=== PATIENT | female | born 1955 | race African-American/Black ===

== ENCOUNTER 2018-05-14 15:23 | Observation (INO) | payer MEDICARE ==
[2018-05-14] MEDS ORDERED: hydrALAZINE 20 MG/ML VIAL ONE (17:12)
--- NOTE | 2018-05-14 17:59 | HP ---
PRIMARY CARE PHYSICIAN: Dr. Dempsey. CHIEF COMPLAINT: Dizziness. HISTORY OF PRESENT ILLNESS: Ms. Viramontes is a 62-year-old female, who was evaluated at [facility] for vertigo type dizziness. Reports that she was watching television last night when the TV began to spin. Reports that she felt very nauseous. Reports vomiting x1. At that point, she laid down and symptoms improved. Reports that she still has mild dizziness and headache. Reports that she does have hypertension but denies any headache associated with hypertension. Reports that she takes lisinopril in the morning. The patient was given today and reports that it helps symptoms somewhat today, but has not completely gone. She was transferred to [facility] for further evaluation and admission for a CVA rule out. NIH is currently 0. She will be admitted to the stroke unit for further management. PAST MEDICAL HISTORY: Pertinent for hypertension, GERD, hyperlipidemia, diverticulitis, obesity, breast cancer, which is currently in remission. PAST SURGICAL HISTORY: Hysterectomy, lumpectomy, orthopedic surgery, left ankle and right knee. PSYCHIATRIC HISTORY: None. SOCIAL HISTORY: Denies alcohol or drug. No smoking history. KNOWN ALLERGIES: Levaquin. CURRENT MEDICATIONS: 1. Lisinopril, she reports she takes 20 mg q.a.m. Per ER record; 1. Hydrochlorothiazide 25 mg once a day. 2. Metoprolol 50 mg once a day. 3. Furosemide 20 mg once a day. 4. We will restart home medications when her home medications are verified. The patient reports that she only takes lisinopril. Denied taking any other medication. REVIEW OF SYSTEMS: CONSTITUTIONAL: Denies chills or fever. EYES: Denies any eye pain, eye discharge, or vision changes. ENT: Denies any rhinorrhea or sore throat. CARDIOVASCULAR: Denies any chest pain or palpitations. RESPIRATORY: Shortness of breath. Denies cough. GI: Denies abdominal pain. Denies current nausea, constipation, or diarrhea. MUSCULOSKELETAL: Denies any falls, weakness, or myalgias. SKIN: Denies any rash or skin changes. NEUROLOGIC: Does report some dizziness. Reports that she has mild headache, frontal. ENDOCRINE: Negative review of systems. LYMPHATIC: Negative review of systems. Note, all other review of systems are negative unless mentioned in the HPI. PHYSICAL EXAMINATION: VITAL SIGNS: Blood pressure 204/117, pulse 69, respirations 18, temperature 98.4, and O2 saturations 94% on room air. CONSTITUTIONAL: The patient appears pain free. She is alert and oriented to person, place, and time. Appears nontoxic. HEENT: Head is atraumatic and normocephalic. Eyes; eyelids are normal to inspection. Pupils are equally round and reactive to light. Extraocular muscles are intact. ENT; mouth exam is normal. Mucous membranes are moist. NECK: Normal range of motion. Trachea is midline. RESPIRATORY/CHEST: Movement is symmetrical. Chest expansion is equal. CARDIOVASCULAR: Regular heart rate and rhythm. Systolic murmur present at grade 4/6. ABDOMEN: Bowel sounds are heard. No mass. No peritoneal signs. BACK: Normal range of motion. No CVA tenderness. EXTREMITIES: Upper extremity, normal inspection, normal range of motion. Radial pulses equal bilaterally. Sensation is intact. Lower extremity, normal inspection. Normal range of motion. Pedal pulses are equal. No edema is noted. Sensation intact. NEUROLOGIC: Speech is normal. The patient is oriented to person, place, and time. No focal motor or sensory deficits. is present to the left eye since is negative. SKIN: Warm, dry, and normal in color PERTINENT LABORATORY DATA: White blood cell count is 6.5, hemoglobin 11.8, hematocrit 40%, platelet count is 229. PT is 13.7, PTT is 29. Sodium is 141, potassium is 4.8, chloride 105, carbon dioxide is 23, gap is 18, BUN is 11, creatinine is 0.77, estimated GFR is greater than 90, glucose is 88. DIAGNOSTIC DATA: EKG in the ER showed normal sinus rhythm, 73 beats per minute. [place] is normal. Otherwise, normal EKG. Initial CT of the brain showed no CT evidence of acute intracranial process. ASSESSMENT AND PLAN: 1. We will obtain an MRI of the brain, carotid Doppler, echocardiogram. We will check lipids and TSH. 2. Hypertension. We will restart home medications once the MRI is negative. 3. History of hyperlipidemia. We will recheck lipids in the morning. Last lipids in our system is from 2018. 4. Deep venous thrombosis and GI prophylaxis will be started. 5. Hospital stay will be dependent on clinical findings. Job ID: [id number]
[2018-05-14] MEDS ORDERED: Senokot S 8.6-50 MG TAB PO PRN (18:04)
[2018-05-14] MEDS ORDERED: HYDROcodone/Acetaminophen 5/325 mg Tablet PO PRN (18:04)
[2018-05-14] MEDS ORDERED: Acetaminophen 325 MG TAB PO PRN (18:04)
[2018-05-14] MEDS ORDERED: hydrALAZINE 20 MG/ML VIAL SLOW IVP PRN (18:16)
--- NOTE | 2018-05-14 20:44 | ULT ---
BILATERAL CAROTID DUPLEX ULTRASOUND WITH SPECTRAL ANALYSIS AND COLOR FLOW EVALUATION 05/14/18 HISTORY: Dizziness. FINDINGS: Ahn scale, color flow, doppler evaluation, with spectral analysis of the bilateral carotid arteries is performed with 2D imaging. No significant atherosclerotic plaque is seen within the carotid arteri es bilaterally. There is less than 50% maximal stenosis in the bilateral internal carotid arteries according to the p eak systolic velocities in the ICA/CCA ratios. The peak systolic velocity in the right ICA is 93.7 cm /s with an ICA/CCA ratio of 0.85. Peak systolic velocity in the left ICA is 63.9 cm/s with an ICA/CCA ratio of 0.58. Antegrade flow is demonstrated in the vertebral arteries bilaterally. IMPRESSION: No hemodynamically significant stenosis in the bilateral internal carotid arteries. POS: AVI
[2018-05-14] MEDS: Famotidine 20 MG TAB PO SCH (21:15)
[2018-05-15] MEDS ORDERED: HumaLOG 300 UNITS/3 ML VIAL SC PRN ×2 (00:27)
[2018-05-15 03:38] VITALS: BMI 47.0
[2018-05-15 06:13] LABS: Anion Gap 15 mmol/L (10-20); BUN (Urea Nitrogen) 12 mg/dL (9.8-20.1); Calc. Creatinine Clearance 153 mL/min (70-130); Calcium 9.4 mg/dL (7.8-10.44); Carbon Dioxide 23 mmol/L (23-31); Chloride 104 mmol/L (98-107); Estimated GFR-MDRD Greater than 90; Glucose 91 mg/dL (80-115); Potassium 3.7 mmol/L (3.5-5.1); Sodium 138 mmol/L (136-145)
[2018-05-15 06:23] LABS: Cardiac Risk 4.6 (Less than 4.5)
[2018-05-15 07:46] LABS: #Basophils 0.1 thou/uL (0.0-0.2); #Eosinphils 0.2 thou/uL (0.0-0.7); #Lymphocytes 2.4 thou/uL (1.20-3.40); #Monocytes 0.7 thou/uL (0.11-0.59); #Neutrophils 3.8 thou/uL (1.40-6.50); %Basophils 1.2 % (0.0-1.0); %Eosinophils 2.9 % (0.0-10.0); %Lymphocytes 32.7 % (21.0-51.0); %Monocytes 10.2 % (0.0-10.0); Hemoglobin 11.5 g/dL (12.0-16.0); Mean Corpuscular HGB CONC 30.6 g/dL (32.0-36.0); Mean Corpuscular Hemoglobin 21.8 pg (27.0-31.0); Mean Corpuscular Volume 71.2 fL (78.0-98.0); Mean Platelet Volume 9.6 fL (7.4-10.4); Platelet Count 200 thou/uL (130-400); RBC Distribution Width 17.1 % (11.5-14.5); RBC Morphology Normal; White Blood Cell (WBC) Count 7.2 thou/uL (4.8-10.8)
[2018-05-15] MEDS: Aspirin 325 mg Enteric Coated Tablet PO SCH ×2 (09:16→09:20)
[2018-05-15] MEDS: Famotidine 20 MG TAB PO SCH (09:16)
[2018-05-15] MEDS: Enoxaparin Sodium 40 MG/0.4 ML SYRINGE SC SCH ×2 (09:16→09:19)
[2018-05-15] MEDS ORDERED: Meclizine HCl 12.5 MG TAB PO PRN (11:56)
[2018-05-15] MEDS ORDERED: Lisinopril 10 MG TAB PO SCH (12:00)
[2018-05-15] MEDS ORDERED: Metoprolol Tartrate 25 MG TAB PO SCH ×2 (12:00→21:00)
--- NOTE | 2018-05-15 12:28 | MRI ---
MRI BRAIN WITHOUT CONTRAST: HISTORY: Dizziness. FINDINGS: Correlation is made with the previous day's CT scan. No restricted diffusion is seen. Foci of T2 prolongation in the periventricular white matter consist ent with chronic small-vessel ischemic disease. No evidence of infarct, hemorrhage, midline shift, o r abnormal extraaxial fluid collection is seen. The ventricular size is normal and the basilar ciste rns are patent. The visualized paranasal sinuses and mastoid air cells are well aerated. IMPRESSION: No evidence of acute intracranial process. POS: OFF
[2018-05-15 15:47] VITALS: BP 145/95; TEMP 98.1
--- NOTE | 2018-05-15 17:57 | DIS ---
DATE OF ADMISSION: 05/14/2018 DATE OF DISCHARGE: 05/15/2018 ALLERGIES: LEVOFLOXACIN. CHIEF COMPLAINT: Dizziness with one episode of vomiting. FINAL DIAGNOSES: 1. Dizziness consistent with vertigo/benign paroxysmal positional vertigo, resolved since admission. 2. Hypertension. 3. Gastroesophageal reflux disease. 4. Hyperlipidemia. 5. Diverticulitis. 6. Obesity. 7. Breast cancer status post treatment, currently in remission. 8. Mild aortic stenosis. PROCEDURE PERFORMED: None. LABORATORY RESULTS: White blood cell count 7.2, hemoglobin 11.5, platelet count 200. Sodium 138, potassium 3.7, chloride 104, BUN 12, creatinine 0.74, glucose 91, cholesterol 190, triglycerides 90, LDL 131, HDL 41. IMAGING RESULTS: CT scan of the brain showed no CT evidence of acute intracranial process. Carotid Doppler study showed no hemodynamically significant stenosis in the bilateral internal carotid arteries. Brain MRI showed no evidence of acute intracranial process. CONSULTATIONS: None. VITAL SIGNS: BP 145/95, temperature 98 degrees Fahrenheit, O2 saturation 96% on room air. HOSPITAL COURSE: The patient is a pleasant 62-year-old female with past medical history significant for hypertension, hyperlipidemia, and gastroesophageal reflux disease, who presented to the [place] [facility] with complaints of vertigo type dizziness. The patient reports that she was sitting down watching TV when she felt the TV began to spin. She felt as if the whole room was spinning. She felt very nauseated, and had emesis x1. The patient went to lie down on the floor and her symptoms did improve, although she continued to have some mild dizziness and headache. She was given a medication in the ER. The patient cannot remember which one that did make her feel somewhat better. Her blood pressure was noted to be elevated in the 200s. She was transferred to our facility for higher level of care. The patient underwent the above imaging results to rule out CVA. Brain CT, MRI, and carotid Doppler study were all negative. The patient also had an echocardiogram which revealed normal left ventricular systolic function with mild grade 1 diastolic dysfunction. Mild aortic stenosis was present. However, no PFO noted. The patient at the time of my interview, feels much improved. She has had no chest pain or shortness of breath. No further nausea or vomiting. Her dizziness has almost totally resolved. She has had a good appetite. She has ambulated with PT without any issue. She was given her daily blood pressure medications with good response in her blood pressure. PHYSICAL EXAMINATION: GENERAL: The patient is awake and alert. Appears comfortable, resting comfortably in bed. HEENT: Atraumatic and normocephalic. Eye movement intact. NECK: Supple. RESPIRATORY: Regular respiratory rate and pattern. Clear to auscultation bilaterally. No rhonchi, wheeze, or crackles. CARDIOVASCULAR: Normal first and second heart sounds. Soft systolic grade 1/6 murmur, no rub. GI: Soft, nontender, normal bowel sounds. PERIPHERAL VASCULAR: No lower extremity edema. She has +2 DP pulses bilaterally. MUSCULOSKELETAL: No joint effusion or swelling. NEUROLOGIC: She is awake and alert. Cranial nerves 2-12 are intact. No focal deficit. SKIN: Warm and dry. No skin discoloration or rashes. CONDITION AT DISCHARGE: Stable. DISCHARGE MEDICATIONS: 1. Furosemide 20 mg one tablet p.o. daily. 2. Lisinopril 40 mg tablet one tablet p.o. daily. 3. Metoprolol tartrate 25 mg tablet one tablet p.o. b.i.d. 4. She will also be discharged on p.r.n. meclizine for dizziness. DISCHARGE DISPOSITION: Home. PLAN: I have discussed the findings with the patient at length. She has symptoms that are consistent with benign paroxysmal positional vertigo. If her symptoms are not controlled on p.r.n. meclizine or return severely, she should come back to the ER. However, I believe that she can be managed by an ENT as an outpatient. She will continue to monitor her blood pressure closely and follow up with her PCP. Job ID: [id number]
== END 2018-05-15 16:07 | disposition home or self-care (01) ==
LOC: ERS 15:23 → 2SE 17:02
PROVIDERS: ADMIT Family Medicine; ATTEND Family Medicine
DX: R42 Dizziness and giddiness (principal); I10 Essential (primary) hypertension; K21.9 Gastro-esophageal reflux disease without esophagitis; E78.5 Hyperlipidemia, unspecified; K57.92 Diverticulitis of intestine, part unspecified, without perforation or abscess without bleeding; I35.0 Nonrheumatic aortic (valve) stenosis; E66.9 Obesity, unspecified; Z68.42 Body mass index [BMI] 45.0-49.9, adult; Z88.1 Allergy status to other antibiotic agents; Z79.899 Other long term (current) drug therapy
CPT/HCPCS: 70551; 80048; 80061; 85025; 93306; 93880; 96374; 96376; 97139 ×3; 99285; G0378 ×2; 36415; J0360; J1650; J8597

== ENCOUNTER 2019-02-27 20:25 | Inpatient (IN) | payer MEDICARE, BC ==
[~2019-02-27 20:25] MED LIST: Lidocaine 1% PF 5 ML VIAL ONE; PHENYLEPHRINE-NS 100 MCG/ML 10 ML SYRINGE ONE; PROPOFOL 200 MG/20 ML VIAL ONE; Rocuronium Bromide 10 MG/ML (10ML VIAL) ONE; Succinylcholine Chloride 20 MG/ML 10 ml SYRINGE FS ONE
[2019-02-27] MEDS ORDERED: niCARdipine 25 MG in Sodium Chloride 0.9% 250 ML 240 ML IVPB SCH (21:00)
[2019-02-27 21:02] LABS: Bacteria/HPF None Seen HPF (None Seen); Bilirubin Negative (Negative); Blood, Urine Negative (Negative); Clarity Clear (Clear); Glucose, Urine (Dipstick) 50 mg/dL (Negative); Leukocyte Negative Leu/uL (Negative); Nitrite Negative (Negative); Protein, Urine (Dipstick) 200 mg/dL (Neg-Trace); RBC/HPF 0-3 HPF (0-3); Squamous Epithelial 0-3 HPF (0-3); Urobilinogen Normal mg/dL (Less than 2); WBC/HPF 0-3 HPF (0-3)
[2019-02-27 21:07] LABS: #Eosinphils 0.3 thou/uL (0.0-0.7); #Lymphocytes 2.8 thou/uL (1.20-3.40); #Monocytes 0.7 thou/uL (0.11-0.59); #Neutrophils 11.3 thou/uL (1.40-6.50); %Basophils 0.2 % (0.0-1.0); %Eosinophils 1.9 % (0.0-10.0); %Lymphocytes 18.7 % (21.0-51.0); %Monocytes 4.4 % (0.0-10.0); %Neutrophils 74.9 % (42.0-75.0); Mean Corpuscular Hemoglobin 22.7 pg (27.0-31.0); Mean Corpuscular Volume 71.1 fL (78.0-98.0); Mean Platelet Volume 9.1 fL (7.4-10.4); Platelet Count 204 thou/uL (130-400); RBC Distribution Width 17.2 % (11.5-14.5); Red Blood Cell (RBC) Count 5.26 mill/uL (4.20-5.40)
[2019-02-27 21:17] LABS: Amphetamine Not Detected (NotDetected); Barbiturates Screen Not Detected (NotDetected); Benzodiazepine Screen Not Detected (NotDetected); Cocaine Metabolite Screen Not Detected (NotDetected); Medtox Control Line Valid? VALID (VALID); Medtox Reader # READER 1; Methadone Not Detected (NotDetected); Methamphetamine Not Detected (NotDetected); Opiate Screen Not Detected (NotDetected); Oxycodone Screen Not Detected (NotDetected); Phencyclidine (PCP) Not Detected (NotDetected); THC/Cannabinoid Screen Not Detected (NotDetected); Tricyclic Screen Not Detected (NotDetected)
[2019-02-27 21:28] LABS: ALT (SGPT) 20 U/L (8-55); AST (SGOT) 18 U/L (5-34); Acetaminophen Less than 6.0 mcg/mL (10.0-30.0); Albumin 4.1 g/dL (3.4-4.8); Alcohol Less than 10 mg/dL (Less than 10); Alkaline Phosphatase 78 U/L (40-110); Anion Gap 13 mmol/L (10-20); BUN (Urea Nitrogen) 10 mg/dL (9.8-20.1); Bilirubin, Total 0.4 mg/dL (0.2-1.2); Calc. Creatinine Clearance 0 mL/min (70-130); Calcium 9.2 mg/dL (7.8-10.44); Carbon Dioxide 27 mmol/L (23-31); Chloride 102 mmol/L (98-107); Estimated GFR-MDRD 89; Globulin 3.7 g/dL (2.4-3.5); Glucose 193 mg/dL (80-115); Lipase 20 U/L (8-78); Potassium 3.6 mmol/L (3.5-5.1); Protein, Total 7.8 g/dL (6.0-8.3); Salicylate Less than 8.0 mg/dL (15.0-30.0); Sodium 138 mmol/L (136-145)
--- NOTE | 2019-02-27 21:31 | CT ---
Head CT without contrast 02/27/2019: COMPARISON: 01/13/2019 HISTORY: Hypertension, headache TECHNIQUE: Axial CT imaging at 5 mm intervals from vertex through skull base without contrast FINDINGS: Imaged paranasal sinuses and mastoid air cells well-aerated. No displaced calvarial fractur e. There is an intra-axial hemorrhage within the cerebellar hemisphere on the left measuring 4.8 x 2.5 cm. There is marked mass effect in this region with obliteration of the fourth ventricle and effa cement of the basilar cisterns which may reflect developing downward herniation. The lateral ventricles are slightly enlarged when compared to the prior examination consistent with obstructive h ydrocephalus and there is loss of sulcation scattered throughout the cerebral hemispheres consistent with mass effect and probable cerebral edema. Imaged paranasal sinuses and mastoid air sera ls are well-aerated. No displaced calvarial fracture. IMPRESSION: Intra-axial hemorrhage in the left cerebellar hemisphere with associated surrounding christopher a and mass effect obliterating the fourth ventricle and basilar cisterns with evidence of obstructive hydrocephalus. Emergent neurosurgical consultation advised. Dr. Croft made aware at 9:28 PM 02/27/2019
[2019-02-27 21:46] LABS: INR-International Normal Ratio 1.1; PTT 26.6 SEC (22.9-36.1); Prothrombin Time 13.9 SEC (12.0-14.7)
[2019-02-27 21:48] LABS: CKMB 2.7 ng/mL (0-6.6)
[2019-02-27] MEDS ORDERED: hydrALAZINE 20 MG/ML VIAL ONE ×2 (21:55→22:04)
[2019-02-27] MEDS ORDERED: Morphine 4 MG/ML VIAL ONE (21:56)
[2019-02-27] MEDS ORDERED: Bacitracin Zinc Ointment 30 gm TUBE ONE (22:00)
[2019-02-27] MEDS ORDERED: Sodium Chloride 0.9% 10 ML ONE (22:00)
[2019-02-27] MEDS ORDERED: Lidocaine 0.5%/Epinephrine 1:200,000 50 ml Vial ONE (22:00)
[2019-02-27] MEDS ORDERED: Thrombin 5000 UNITS/5 ML VIAL ONE (22:00)
[2019-02-27] MEDS ORDERED: Labetalol HCl 100 MG/20 ML VIAL ONE (22:04)
[2019-02-27] MEDS ORDERED: Phenylephrine HCL 10 MG/ML VIAL ONE (23:04)
[2019-02-27] MEDS ORDERED: Rocuronium Bromide 50 MG/5 ML VIAL ONE (23:27)
[2019-02-28] MEDS ORDERED: Propofol 1,000 MG/100 ML VIAL IV ONE (00:37)
[2019-02-28] MEDS ORDERED: Mag-Al 1200 mg/1200 mg/30 ML UDCUP PO PRN (00:57)
[2019-02-28] MEDS ORDERED: Docusate 100 MG CAP PO PRN (00:57)
[2019-02-28] MEDS ORDERED: Bisacodyl 10 MG SUPP PR PRN (00:57)
[2019-02-28] MEDS ORDERED: Milk Of Magnesia 30 ML UDCUP PO PRN (00:57)
[2019-02-28] MEDS: Sodium Chloride 0.9% 1,000 ML IV SCH ×2 (01:00→12:27)
--- NOTE | 2019-02-28 01:01 | PRG ---
DATE OF SERVICE: 02/28/2019 Ms. Viramontes is a 63-year-old woman who comes in with a large left cerebellar hemispheric hemorrhage related to hypertension. Her systolic blood pressure was 230 upon presentation, her diastolic was 120. She began to feel ill with headache, altered mental status, and could not stand at 1930 pm today. I reviewed the head CT demonstrated herniation into the foramen magnum with effacement of the fourth ventricle hydrocephalic certainly en route to this. There was significant mass effect from the hemorrhage. As such, we did discuss with the family emergency surgery which can consisted of placement of an external ventricular drain and a suboccipital craniectomy and cerebellar hematoma evacuation. Understand that this is an emergency and that this is an attempt at life-saving surgery. Job ID: [id number]
[2019-02-28] MEDS ORDERED: Acetaminophen 650 MG Suppository PR PRN (01:07)
[2019-02-28 01:09] LABS: Actual Bicarbonate (HCO3a) 23.8 mEq/L (22-28); Base Excess (BEa) -0.6 mEq/L (-2.0 to +3.0); CO2 Tension 38.2 mmHg (35.0-45.0); Calcium, Ionized 1.11 mmol/L (1.12-1.30); Carboxyhemoglobin (COHb) 0.4 gm% (0.0-3.0); Hemoglobin (Hb) 11.8 g/dL (12.0-16.0); O2 Tension (PaO2) 103.3 mmHg (> 80.0); Potassium - ABG Lab 3.29 mmol/L (3.70-5.30); pH, Arterial 7.41 (7.35-7.45)
[2019-02-28] MEDS ORDERED: hydrALAZINE 10 MG TAB PO PRN (01:10)
[2019-02-28] MEDS ORDERED: [UNRECOGNIZED DRUG - REMARK] FS PRN (01:20)
[2019-02-28] MEDS ORDERED: Lorazepam 2 MG/ML VIAL SLOW IVP PRN (02:25)
[2019-02-28] MEDS ORDERED: Fentanyl BOLUS 250 ML IVPB PRN (02:25)
[2019-02-28] MEDS ORDERED: Propofol BOLUS 1,000 MG/100 ML VIAL IV PRN (02:25)
[2019-02-28] MEDS ORDERED: DISCONTINUE PREVIOUS NARCOTIC PAIN MEDICATIONS AND BENZODIAZEPINES FS SCH (02:25)
[2019-02-28] MEDS ORDERED: fentaNYL Citrate/PF 2,000 MCG in Sodium Chloride 0.9% 60 ML IV SCH (02:25)
[2019-02-28] MEDS ORDERED: Morphine 2 MG/ML SYRINGE SLOW IVP PRN (02:25)
[2019-02-28] MEDS: niCARdipine 25 MG in Sodium Chloride 0.9% 250 ML 240 ML IVPB PRN ×3 (02:52→07:04)
[2019-02-28] MEDS: CEFAZOLIN 2 GM in Premix Bag 1 BAG IVPB SCH ×3 (02:58→17:10)
[2019-02-28] MEDS: Propofol 1,000 MG/100 ML VIAL IV PRN ×3 (04:31→20:31)
[2019-02-28 05:54] LABS: Puncture Site LINE
[2019-02-28 06:27] LABS: Anion Gap 14 mmol/L (10-20); BUN (Urea Nitrogen) 12 mg/dL (9.8-20.1); Calc. Creatinine Clearance 150 mL/min (70-130); Calcium 8.2 mg/dL (7.8-10.44); Carbon Dioxide 24 mmol/L (23-31); Chloride 105 mmol/L (98-107); Estimated GFR-MDRD 87; Glucose 154 mg/dL (80-115); Potassium 3.8 mmol/L (3.5-5.1); Sodium 139 mmol/L (136-145)
[2019-02-28 06:32] LABS: Band 3 % (5-11); Elliptocytes SLIGHT = 2-5 cells (100X) (0-1/hpf); Hemoglobin 10.9 g/dL (12.0-16.0); Hypochromia SLIGHT = 6-15 cells (100X) (0-5/hpf); Lymphocytes 3 % (21-51); MDiff Complete? YES; Mean Corpuscular HGB CONC 31.2 g/dL (32.0-36.0); Mean Corpuscular Hemoglobin 21.8 pg (27.0-31.0); Mean Corpuscular Volume 69.9 fL (78.0-98.0); Mean Platelet Volume 9.3 fL (7.4-10.4); Microcytosis SLIGHT = 6-15 cells (100X) (0-5/hpf); Monocytes 4 % (0-10); Neutrophil 90 % (42-75); Platelet Count 194 thou/uL (130-400); Platelet Morphology Comment Appears Adequate; RBC Distribution Width 17.3 % (11.5-14.5); Red Blood Cell (RBC) Count 4.98 mill/uL (4.20-5.40); Target Cells SLIGHT = 2-5 cells (100X) (0-1/hpf); White Blood Cell (WBC) Count 13.5 thou/uL (4.8-10.8)
[2019-02-28 07:09] LABS: Actual Bicarbonate (HCO3a) 26.1 mEq/L (22-28); Base Excess (BEa) 1.1 mEq/L (-2.0 to +3.0); CO2 Tension 42.9 mmHg (35.0-45.0); Carboxyhemoglobin (COHb) 0.8 gm% (0.0-3.0); Hemoglobin (Hb) 11.2 g/dL (12.0-16.0); O2 Tension (PaO2) 88.9 mmHg (> 80.0); Potassium - ABG Lab 3.47 mmol/L (3.70-5.30)
[2019-02-28 07:10] LABS: Puncture Site ALINE
[2019-02-28 07:11] LABS: ALV-art Gradient 213.975 (0-20)
[2019-02-28] MEDS: Potassium Chloride 20 MEQ TAB PO SCH (07:45)
[2019-02-28] MEDS: Furosemide 20 MG TAB PO SCH (07:45)
[2019-02-28] MEDS: Metoprolol Tartrate 25 MG TAB PO SCH ×2 (07:45→20:05)
[2019-02-28] MEDS: Pantoprazole 40 MG VIAL IVP SCH (07:46)
[2019-02-28] MEDS: Lisinopril 20 MG TAB PO SCH (07:46)
--- NOTE | 2019-02-28 07:46 | CT ---
PRELIMINARY REPORT/[facility]/EMERGENCY AFTER HOURS PROCEDURE This report was discussed with Adrianna Cam RN by Ariana Salinas on Feb 28, 2019 05:59:00 SOFTWARE INSTALLER. Addendum electronically signed by Ariana Salinas on February 28, 2019 6:06:06 AM SOFTWARE INSTALLER EXAM: CT Head Without Intravenous Contrast. CLINICAL HISTORY: F/U HEMORRAGIC STROKE. S/P CRANIOTOMY TECHNIQUE: Axial computed tomography images of the head/brain without intravenous contrast. COMPARISON: CT\MD\SR - CT BRAIN WO CON - 02/27/2019 09:15 PM SOFTWARE INSTALLER FINDINGS: BRAIN: Left 3.2 cm suboccipital craniotomy defect with some air within the occipital lobe smaller hematoma m easuring about 2.4 x 1.9 cm. There appears to be significant decompression of the previously describe d acute bleed and hematoma. There is no tonsillar herniation or gross midline shift. VENTRICLES: The fourth ventricle is now visible, and there is a craniotomy interventricular catheter installed in the interval in good position from a right sided approach ORBITS: The orbits are unremarkable. SINUSES AND MASTOIDS: There is calcification within the sella and a lot of posterior nasal turbinate congestion. Has there been surgery here? Please correlate scratch that SOFT TISSUES: No significant facial or scalp soft tissue swelling evident. No radiopaque foreign body is seen. BONES: No acute trauma; recent postoperative changes for the shunt placement IMPRESSION: 1. Considerable improvement following suboccipital decompressive craniotomy and ventricular shunt tub e placement. 2. Comparison was to prior preoperative study of the prior day. See above. Further follow-up recommen ded. 3. Report prioritized 5:55 AM SOFTWARE INSTALLER ELECTRONICALLY SIGNED BY: Lalit Rubi M.D. Feb 28, 2019 5:56:43 AM SOFTWARE INSTALLER FINAL REPORT EMERGENT AFTER HOURS CT OF THE BRAIN WITHOUT CONTRAST: FINDINGS/IMPRESSION: I agree with the findings and impression given in the preliminary report per [facility] physici an. There has been an internal left occipital craniotomy with evacuation of the hematoma in the left posterior fossa. There has also been interval placement of ventriculostomy catheter.
--- NOTE | 2019-02-28 09:15 | RAD ---
EXAM: Single view of the chest HISTORY: Intubated with respiratory failure COMPARISON: 01/13/2019 FINDINGS: Single view of the chest shows an enlarged cardiomediastinal silhouette. Bilateral perihil ar fullness is seen which likely represents pulmonary vascular congestion. Small bilateral pleural effusions may be present. An endotracheal tube is seen with its tip above the mikel. An NG tube can only be followed to the distal esophagus. The bones are unremarkable. IMPRESSION: 1. Congestive heart failure 2. Unclear position of NG tube
[2019-02-28] MEDS ORDERED: SUGAMMADEX SODIUM 500 MG/5 ML VIAL ONE (09:35)
[2019-02-28] MEDS ORDERED: Succinylcholine Chloride 20 MG/ML 10 ml SYRINGE FS ONE (09:35)
[2019-02-28] MEDS: Labetalol HCl 100 MG/20 ML VIAL SLOW IVP PRN (10:26)
--- NOTE | 2019-02-28 12:32 | PRG ---
DATE OF SERVICE: 02/28/2019 Ms. Viramontes is postoperative day #1 from a suboccipital craniectomy and cerebellar hematoma evacuation and placement of external ventricular drain. EVD is in satisfactory position. She is open at 10 cm of water. Her ICPs have been within normal limits with approximately 80 mL of output. She has her eyes open to voice and weakly follows commands in all 4 extremities. This morning, there is a plan for likely extubation. I would be in favor of this. I would also be fine with systolic blood pressure up to 160. She has recalcitrant hypertension that is that our medical colleagues to assist us in this regard as far as keeping her blood pressure under control. Job ID: [id number]
--- NOTE | 2019-02-28 13:28 | CON ---
DATE OF CONSULTATION: 02/28/2019 This is 35 minutes of critical care time. At the time of this dictation, there is no history and physical in the chart. What I have is obtained from talking with the patient's and by reading the ER notes. The patient is a 63-year-old female, who presented with severely elevated blood pressure and altered mental status. She was found to have a cerebellar hemorrhage. She was taken to the OR for ventriculostomy placement. She has been placed on a Cardene drip for her hypertension. She was intubated in the operating room and left on mechanical ventilation afterwards. PAST MEDICAL HISTORY: 1. Obesity. 2. Hypertension. 3. Breast cancer. 4. Diverticulitis. PAST SURGICAL HISTORY: Lumpectomy of left breast, left ankle surgery, and right knee replacement. SOCIAL HISTORY: Smoked up until about 10 years ago. Does not consume alcohol. ALLERGIES: LEVAQUIN CAUSES A RASH. MEDICATIONS: Prior to admission; 1. Lasix 40 mg daily. 2. Lisinopril 20 mg daily. 3. Potassium chloride 20 mEq daily. 4. Metoprolol 25 mg twice daily. 5. Pantoprazole 40 mg daily. 6. Ipratropium/albuterol as needed. 7. Meclizine 12.5 mg every 12 hours as needed. 8. Hydralazine 10 mg every 6 hours as needed. FAMILY MEDICAL HISTORY: Remarkable for diverticulosis. REVIEW OF SYSTEMS: Cannot be obtained as the patient is currently on mechanical ventilation. PHYSICAL EXAMINATION: VITAL SIGNS: Temperature 98.8, pulse 74, blood pressure 137/47, and O2 saturation 95%. GENERAL: She is currently intubated. She will wake up. She will follow commands. She squeeze with both hands, moves her feet appropriately, opens her eyes. Pupils are reactive. HEENT: Otherwise, unremarkable. NECK: No adenopathy or JVD. CARDIAC: S1 and S2 regular with 2/6 systolic murmur. LUNGS: Clear to auscultation. ABDOMEN: Obese, soft, and nontender. EXTREMITIES: No clubbing, cyanosis, or edema. LABORATORY DATA: Sodium 139, potassium 3.8, chloride 105, CO2 of 24, BUN 12, creatinine 0.8, and glucose 154. PH of 7.40, pCO2 of 42, pO2 of 88 on SIMV rate 16, tidal volume 500, PEEP 5, pressure support 10, and FiO2 of 50%. White blood cell count 13.5, hematocrit 34.8, and platelet count 194. ASSESSMENT: 1. Cerebellar hemorrhage. 2. Hypertensive emergency. 3. Obesity. 4. Acute respiratory failure, requiring mechanical ventilation. PLAN: If okay with the neurosurgeons, we will proceed with weaning. I will go ahead and check a chest x-ray. Her labs seem okay, otherwise. We will follow with you. Job ID: [id number]
[2019-02-28] MEDS: niCARdipine 50 MG in Sodium Chloride 0.9% 250 ML 230 ML IV SCH (15:43)
--- NOTE | 2019-02-28 16:42 | CON ---
DATE OF CONSULTATION: CONSULTATION REQUESTED BY: Dr. Brannon. REASON FOR CONSULTATION: The patient with need for nephrology management. Thank you very much for allowing us to participate in the care of Ms. Viramontes. HISTORY OF PRESENT ILLNESS: Ms. Viramontes is a 63-year-old black woman. She was admitted to this facility on the . She came to the ER with complaint of severe headache, was noticed to have elevated blood pressure. Subsequently, she became drowsy and confused. She was further evaluated and was found to have an intracerebral hemorrhage. She underwent a craniotomy along with ventriculostomy catheter placement. She is currently intubated. We are asked to see her in view of the need for medical management. There is no family member available at this time. History is obtained from the patient's medical record and also from the nurses. PAST MEDICAL HISTORY: She is known to have a history of hypertension, hyperlipidemia, and obesity. She has a history of breast cancer, and she is currently in remission. PAST SURGICAL HISTORY: Remarkable for hysterectomy, breast lumpectomy, and open reduction and internal fixation of left ankle fracture. ALLERGIES: LEVAQUIN. SOCIAL HISTORY: She is a former smoker. There is no history of EtOH abuse. FAMILY HISTORY: Reviewed and is not contributory. MEDICATIONS: Prior to admission, she was on: 1. Protonix. 2. Lasix. 3. Hydralazine. 4. Lisinopril. 5. Metoprolol. 6. Potassium chloride. 7. Meclizine. 8. Ipratropium/albuterol inhaler. Currently, the patient is on: 1. Tylenol 650 mg per rectum q.4 p.r.n. for headache or fever. 2. Maalox p.r.n. 3. Albuterol plus ipratropium q.4 p.r.n. 4. Dulcolax suppository p.r.n. 5. Cefazolin 2 g t.i.d. 6. . REVIEW OF SYSTEMS: Remarkable for severe headache as mentioned earlier. The patient is currently intubated, and further detail on review of systems cannot be obtained. PHYSICAL EXAMINATION: GENERAL: At the time of examination, she was intubated and followed simple commands. VITAL SIGNS: Her latest vital signs show a pulse rate of 86, respiratory rate 23, blood pressure 171/63, and she is afebrile. HEENT: Her head is normocephalic. She is status post craniotomy as mentioned earlier on the left side. Both pupils are equal and reactive. Ears and nose are normal. She is orally intubated. NECK: Supple. There is no distention of the jugular vein. No lymphadenopathy felt. Thyroid gland, not palpable. There is no carotid bruit. CHEST: Symmetrical with regular S1 and S2. LUNGS: Clear. ABDOMEN: Soft. Bowel sounds heard. We could not appreciate any organomegaly. EXTREMITIES: Limbs show no edema. NEUROLOGIC: She moves all extremities. LABORATORY DATA: Her CBC done today showed a WBC of 13.5, hemoglobin of 10.9, hematocrit of 34.8, MCV of 69.9, platelet of 194. ABG was reviewed. Chemistry and lytes done today show a sodium of 139, potassium of 3.8, chloride 105, CO2 of 24, BUN 12, creatinine 0.8, glucose 154. Drug screen done yesterday was negative. Head CT was reviewed and showed a left cerebellar hemorrhage prior to the surgery. ASSESSMENT: This is a 63-year-old black woman with morbid obesity, hypertension, and hyperlipidemia, who was admitted with an intracranial hemorrhage. She is status post craniotomy with ventriculostomy catheter placement. She is currently responsive to verbal stimuli. She is being prepared for possible extubation. Thank you very much Dr. Brannon. We will take over the medical management of this patient. We will monitor her blood pressure and blood sugar among other things. Job ID: [id number]
[2019-03-01] MEDS: CEFAZOLIN 2 GM in Premix Bag 1 BAG IVPB SCH ×3 (02:28→17:35)
[2019-03-01] MEDS: Propofol 1,000 MG/100 ML VIAL IV PRN (02:34)
[2019-03-01] MEDS: Sodium Chloride 0.9% 1,000 ML IV SCH ×2 (03:06→15:12)
[2019-03-01] MEDS: Labetalol HCl 100 MG/20 ML VIAL SLOW IVP PRN ×3 (04:00→19:31)
[2019-03-01 04:15] LABS: Anion Gap 13 mmol/L (10-20); BUN (Urea Nitrogen) 9 mg/dL (9.8-20.1); Calc. Creatinine Clearance 150 mL/min (70-130); Calcium 8.6 mg/dL (7.8-10.44); Carbon Dioxide 26 mmol/L (23-31); Chloride 106 mmol/L (98-107); Estimated GFR-MDRD 87; Glucose 163 mg/dL (80-115); Hemoglobin 10.6 g/dL (12.0-16.0); Lymphocytes 11 % (21-51); MDiff Complete? YES; Mean Corpuscular Hemoglobin 22.2 pg (27.0-31.0); Mean Corpuscular Volume 69.4 fL (78.0-98.0); Monocytes 8 % (0-10); Neutrophil 81 % (42-75); Platelet Count 203 thou/uL (130-400); Platelet Morphology Comment Appears Adequate; Potassium 3.7 mmol/L (3.5-5.1); RBC Distribution Width 17.6 % (11.5-14.5); Red Blood Cell (RBC) Count 4.79 mill/uL (4.20-5.40); Sodium 141 mmol/L (136-145); White Blood Cell (WBC) Count 16.9 thou/uL (4.8-10.8)
[2019-03-01] MEDS: Lisinopril 20 MG TAB PO SCH (07:37)
[2019-03-01] MEDS: Metoprolol Tartrate 25 MG TAB PO SCH ×2 (07:37→19:20)
[2019-03-01] MEDS: Furosemide 20 MG TAB PO SCH (07:37)
[2019-03-01] MEDS: Potassium Chloride 20 MEQ TAB PO SCH (07:37)
[2019-03-01] MEDS ORDERED: DC Sedation Protocol FS ONE (07:45)
[2019-03-01] MEDS: Pantoprazole 40 MG VIAL IVP SCH (08:09)
--- NOTE | 2019-03-01 08:30 | PRG ---
DATE OF SERVICE: 03/01/2019 35 minutes critical time. SUBJECTIVE: The patient remains intubated on mechanical ventilation. She will wake up and follow all commands for me without difficulty. OBJECTIVE: VITAL SIGNS: Temperature is 99.6, pulse 78, blood pressure 144/56, 24-hour intake , output [id number]. HEENT: Unremarkable. NECK: No adenopathy or JVD. LUNGS: Clear to auscultation anteriorly. CARDIAC: S1, S2. Regular. ABDOMEN: Soft. EXTREMITIES: No edema. LABORATORY DATA: White blood cell count 16.9, hematocrit 33.3, platelet count 203. Sodium 141, potassium 3.7, chloride 106, CO2 of 26, BUN 9, creatinine 0.9, glucose 163. ASSESSMENT: 1. Status post cerebellar stroke. 2. Acute respiratory failure requiring mechanical ventilation. 3. Hypertension. PLAN: The patient will be extubated and followed in the ICU briefly for pulmonary toilet measures. Her arterial line will be discontinued. Hopefully, we can wean her from the nicardipine drip. Job ID: [id number]
--- NOTE | 2019-03-01 09:06 | PRG ---
DATE OF SERVICE: 03/01/2019 This is Armaan Strong PA-C dictating a report for Vishnu Brannon MD. This is postoperative recheck. Ms. Viramontes is postoperative day #2 having undergone right frontal EVD placement and left cerebellar hematoma evacuation. The patient appears to be improving neurologically. She follows commands in all extremities. She remains intubated. She remains with EVD in place and on Ancef. Max output hourly has been 15 and ICPs have averaged around 9. She is currently afebrile at 99.6. Her systolic blood pressures remain less than 160. She is on multiple blood pressure agents. Neurologically, again the patient opens her eyes and follows commands in all 4 extremities. She was cleared for extubation from neurosurgical standpoint. She continues to improve. We will continue to monitor neurologically and we will keep her EVD set to drain at 10 cm of water. Please call with any changes in patient's neurologic status. Job ID: [id number]
[2019-03-01] MEDS: niCARdipine 25 MG in Sodium Chloride 0.9% 250 ML 240 ML IVPB PRN (10:49)
[2019-03-01] MEDS: niCARdipine 50 MG in Sodium Chloride 0.9% 250 ML 230 ML IV SCH ×3 (15:12→23:57)
[2019-03-01] MEDS ORDERED: hydrALAZINE 20 MG/ML VIAL SLOW IVP PRN (16:32)
[2019-03-01 16:53] LABS: Actual Bicarbonate (HCO3a) 27.6 mEq/L (22-28); Base Excess (BEa) 3.1 mEq/L (-2.0 to +3.0); CO2 Tension 42.2 mmHg (35.0-45.0); Calcium, Ionized 1.16 mmol/L (1.12-1.30); Hemoglobin (Hb) 12.2 g/dL (12.0-16.0); O2 Tension (PaO2) 72.2 mmHg (> 80.0); Potassium - ABG Lab 3.55 mmol/L (3.70-5.30); Puncture Site RR; pH, Arterial 7.43 (7.35-7.45)
--- NOTE | 2019-03-01 17:30 | CT ---
CT BRAIN NONCONTRAST: DATE: 03/01/2019 5:17 PM HISTORY: 63-year-old female with cerebral hemorrhagic stroke. Follow-up intracranial hemorrhage. Worsening let hargy. Altered mental status. COMPARISON: 02/28/2019 FINDINGS: Again noted is the left occipital craniotomy defect, deep to which there is a surgical sponge or othe r material occupying an approximately 2 x 2 cm defect in the left cerebellar hemisphere. Anterior to that, the very irregularly-shaped hematoma occupying the left cerebellar hemisphere and left denta te nucleus, appears slightly larger now, currently measuring approximately 1 x 2 cm. There is a additional left lateral extension of this hematoma which is unchanged. This is associated with edema and mass effect, with extrinsic compression and significant narrowing of the fourth ventricle. The fourth ventricle is displaced to the right of midline to a greater degree than previously. The cerebe llar vermis is now diffusely moderately hyperdense, and this is suspicious for possible 4.5 x 1.5 cm hematoma at the cerebellar vermis. The superior displacement of the tentorium cerebelli appears sl ightly worse now, with perhaps slightly greater degree of mass effect and distortion of the nelson and midbrain, especially the left-sided tectum. Ventriculostomy catheter through right frontal mally hole, with distal tip in the vicinity of the left foramen of Monro, remains unchanged. The lateral and third ventricles are not dilated. No supratentorial shift of midline. IMPRESSION: A greater degree of mass effect and edema in the posterior fossa, with possible new hematoma of the c erebellar vermis, and slightly larger hematoma of left cerebellar hemisphere, anterior to the surgical sponge deep to the left craniotomy.
[2019-03-01] MEDS ORDERED: Lidocaine 5% Patch TD SCH (20:30)
--- NOTE | 2019-03-01 22:24 | PDOC.HOSPP ---
- Subjective Subjective: Still very somnolent. Does not respond much to stim. - Objective Vital Signs & Weight: Vital Signs (12 hours) Temp Pulse BP Pulse Ox 03/01/19 19:31 87 149/63 H 03/01/19 16:00 97.8 F 03/01/19 15:03 82 173/85 H 03/01/19 12:00 98.8 F 95 Weight Weight 282 lb 13.649 oz Most Recent Monitor Data Heart Rate from ECG 81 NIBP 143/72 NIBP BP-Mean 95 Respiration from ECG 20 SpO2 94 I&O: 02/28/19 03/01/19 03/02/19 06:59 06:59 06:59 Intake Total 1153 3192 1700 Output Total 1195 9650 8012 Balance 89 -152 -1824 Result Diagrams: 03/02/19 04:05 03/02/19 04:05 Additional Labs: Accuchecks 03/01/19 03/01/19 03/01/19 19:39 17:03 11:21 POC Glucose 120 H 133 H 149 H 02/27/19 23:23 POC Glucose 224 H Hospitalist ROS - Medication Medications: Active Medications Generic Name Dose Route Start Last Admin Trade Name Freq PRN Reason Stop Dose Admin Acetaminophen 650 mg 02/28/19 01:07 03/01/19 20:28 Tylenol TN 650 mg Q4H PRN Administration Headache/Fever or Pain Furosemide 20 mg 02/28/19 09:00 03/01/19 07:37 Lasix PO 20 mg DAILY KALIE Administration Hydralazine HCl 10 mg 02/28/19 01:10 02/28/19 07:46 Apresoline PO 10 mg Q6H PRN Administration Hypertension Cefazolin Sodium/Dextrose 2 gm 50 mls @ 100 mls/hr 02/28/19 02:00 03/01/19 17 :35 / Device IVPB 50 mls 0200,1000,1800 KALIE Administration Sodium Chloride 1,000 mls @ 80 mls/hr 02/28/19 01:00 03/01/19 15:12 Normal Saline 0.9% IV 1,000 mls .[id number] KALIE Administration Nicardipine HCl 50 mg/ Sodium 250 mls @ 0 mls/hr 02/28/19 07:30 03/01/19 19: 17 Chloride IV 250 mls INF KALIE Administration Protocol As Directed Labetalol HCl 10 mg 02/28/19 00:57 03/01/19 19:31 Normodyne SLOW IVP 10 mg Q2H PRN Administration SBP > 140 or DBP > 90 Lidocaine 1 patch 03/01/19 20:30 03/01/19 21:19 Lidoderm 5% Patch TD 03/01/19 22:30 1 patch NOW KALIE Administration Lisinopril 20 mg 02/28/19 09:00 03/01/19 07:37 Zestril PO 20 mg DAILY KALIE Administration Metoprolol Tartrate 25 mg 02/28/19 09:00 03/01/19 19:20 Lopressor PO Not Given BID KALIE Potassium Chloride 20 meq 02/28/19 09:00 03/01/19 07:37 K-Dur PO 20 meq DAILY KALIE Administration - Exam General Appearance: NAD Heart: RRR, no gallops, II/IV Respiratory: CTAB, no wheezes, no rales, no ronchi, normal chest expansion, no tachypnea, normal percussion Gastrointestinal: soft, non-distended, normal bowel sounds, no palpable masses, no hepatomegaly, no splenomegaly, no bruit Extremities: no edema Skin: normal turgor Neurological - other findings: IVD in place. Hosp A/P (1) HLD (hyperlipidemia) Code(s): E78.5 - HYPERLIPIDEMIA, UNSPECIFIED Status: Acute (2) HTN (hypertension) Code(s): I10 - ESSENTIAL (PRIMARY) HYPERTENSION Status: Acute (3) ICH (intracerebral hemorrhage) Code(s): I61.9 - NONTRAUMATIC INTRACEREBRAL HEMORRHAGE, UNSPECIFIED Status: Acute (4) Morbid obesity Code(s): E66.01 - MORBID (SEVERE) OBESITY DUE TO EXCESS CALORIES Status: Acute - Plan Continue to work on maintaining adequate BP control. Neurosurg placed IVD. Pulm CC following.
[2019-03-02] MEDS: CEFAZOLIN 2 GM in Premix Bag 1 BAG IVPB SCH ×3 (01:33→17:38)
[2019-03-02] MEDS: Sodium Chloride 0.9% 1,000 ML IV SCH ×2 (01:33→16:26)
[2019-03-02] MEDS: Labetalol HCl 100 MG/20 ML VIAL SLOW IVP PRN ×2 (03:21→05:59)
[2019-03-02 04:18] LABS: #Lymphocytes 1.6 thou/uL (1.20-3.40); #Neutrophils 14.3 thou/uL (1.40-6.50); %Basophils 0.3 % (0.0-1.0); %Eosinophils 0.1 % (0.0-10.0); %Lymphocytes 9.5 % (21.0-51.0); %Monocytes 5.7 % (0.0-10.0); %Neutrophils 84.5 % (42.0-75.0); Hemoglobin 11.6 g/dL (12.0-16.0); Mean Corpuscular HGB CONC 29.5 g/dL (32.0-36.0); Mean Corpuscular Hemoglobin 21.3 pg (27.0-31.0); Mean Corpuscular Volume 72.1 fL (78.0-98.0); Platelet Count 195 thou/uL (130-400); RBC Distribution Width 17.7 % (11.5-14.5); Red Blood Cell (RBC) Count 5.43 mill/uL (4.20-5.40)
[2019-03-02 04:36] LABS: Anion Gap 15 mmol/L (10-20); BUN (Urea Nitrogen) 12 mg/dL (9.8-20.1); Calc. Creatinine Clearance 167 mL/min (70-130); Calcium 8.8 mg/dL (7.8-10.44); Carbon Dioxide 24 mmol/L (23-31); Chloride 107 mmol/L (98-107); Estimated GFR-MDRD Greater than 90; Glucose 122 mg/dL (80-115); Potassium 3.5 mmol/L (3.5-5.1); Sodium 142 mmol/L (136-145)
[2019-03-02] MEDS: Enoxaparin Sodium 40 MG/0.4 ML SYRINGE SC SCH (09:20)
--- NOTE | 2019-03-02 09:46 | PRG ---
DATE OF SERVICE: 03/02/2019 This is Armaan Strong PA-C dictating a report for Vishnu Brannon MD. Ms. Viramontes is postoperative day #2 having undergone posterior fossa craniotomy for left cerebellar hemorrhage secondary to hypertension. The patient was extubated yesterday. She has remained sleepy. Repeat head CT as well as an ABG were done yesterday afternoon, both were stable. Her blood pressure has improved and currently is 149/63. Her EVD output has been between 8 and 12 mL/h. Her ICPs have averaged 8 to 10. She is on Ancef. She is afebrile. We will obtain a bilateral lower extremity ultrasound, but we will start her on prophylactic Lovenox 40 mg subcu in the morning. Neurologically, the patient will open her eyes to voice. She does require a little bit of noxious stimulus, but will move all her extremities and appears to be weaker, especially into the right arm compared to the left. Neurologically, the patient appears to be continuing to improve. We appreciate our medical colleagues in helping to manage the patient's hypertension. We will continue her EVD at 10 cm of water and continue with hourly outputs reading and ICP monitoring. Please call with any changes in patient's neurologic status, otherwise she appears to be progressing well. Job ID: [id number]
--- NOTE | 2019-03-02 09:46 | PRG ---
DATE OF SERVICE: 03/02/2019 SUBJECTIVE: The patient was extubated yesterday. Her main issue today is inability to control swallowing. She cannot take her oral medications. Therefore, she continues on nicardipine drip for blood pressure control. OBJECTIVE: VITAL SIGNS: Temperature is 98.3, pulse 74, blood pressure 146/81, and O2 saturation 94%. GENERAL: She cannot talk. HEENT: Otherwise, unremarkable. NECK: No JVD. LUNGS: Coarse upper airway noises radiating from the neck area. CARDIAC: S1 and S2. Regular. ABDOMEN: Soft. EXTREMITIES: No edema. LABORATORY DATA: White blood cell count 17, hematocrit 39.2, and platelet count 195. Sodium 142, potassium 3.5, chloride 107, CO2 of 24, BUN 12, creatinine 0.7, and glucose 122. ASSESSMENT: 1. Status post cerebellar stroke. 2. Poor oropharyngeal function. 3. Hypertension. PLAN: Likely, we will need a Dobhoff tube placed for purposes of nutritional support and administration of medications. If swallowing does not improve, then a PEG tube will have to be considered. She will remain in the ICU while she is on nicardipine drip and while she has the intraventricular drain in place. Job ID: [id number]
--- NOTE | 2019-03-02 10:21 | RAD ---
ABDOMEN ONE VIEW: HISTORY: Dobbhoff tube placement FINDINGS: The tip of the feeding tube is in the projection of the distal aspect of the second portion of duoden um.
[2019-03-02] MEDS: Potassium Chloride 20 MEQ TAB PO SCH (10:37)
[2019-03-02] MEDS: Furosemide 20 MG TAB PO SCH (10:37)
[2019-03-02] MEDS: Lisinopril 20 MG TAB PO SCH (10:37)
[2019-03-02] MEDS: Lidocaine Patch Removal TOP SCH (10:38)
[2019-03-02] MEDS: Metoprolol Tartrate 25 MG TAB PO SCH ×2 (10:38→20:54)
[2019-03-02] MEDS ORDERED: Pantoprazole 40 MG GRANULES PACKET PER TUBE SCH (10:45)
[2019-03-02] MEDS: Acetaminophen 650 MG/20.3 ML UDCUP PER TUBE PRN ×2 (10:45→17:38)
--- NOTE | 2019-03-02 10:51 | PDOC.HOSPP ---
- Subjective Encounter Date: 03/02/19 Encounter Time: 10:48 Subjective: Doing very well. Awake and talking. Denies any specific problems. - Objective Vital Signs & Weight: Vital Signs (12 hours) Temp BP 03/02/19 10:37 149/63 H 03/02/19 04:00 98.3 F Weight Weight 279 lb 5.211 oz Most Recent Monitor Data Heart Rate from ECG 74 NIBP 146/81 NIBP BP-Mean 102 Respiration from ECG 20 SpO2 94 I&O: 03/01/19 03/02/19 03/03/19 06:59 06:59 06:59 Intake Total 3192 3211 Output Total 7569 0400 Balance -436 -509 Result Diagrams: 03/02/19 04:05 03/02/19 04:05 Additional Labs: Accuchecks 03/01/19 03/01/19 03/01/19 19:39 17:03 11:21 POC Glucose 120 H 133 H 149 H Hospitalist ROS - Medication Medications: Active Medications Generic Name Dose Route Start Last Admin Trade Name Freq PRN Reason Stop Dose Admin Acetaminophen 650 mg 03/02/19 10:45 03/02/19 10:45 Tylenol Elixir PER TUBE 650 mg Q4H PRN Administration Headache/Fever or Pain Enoxaparin Sodium 40 mg 03/02/19 09:00 03/02/19 09:20 Lovenox SC 40 mg 0900 KALIE Administration Furosemide 20 mg 02/28/19 09:00 03/02/19 10:37 Lasix PO 20 mg DAILY KALIE Administration Hydralazine HCl 10 mg 02/28/19 01:10 02/28/19 07:46 Apresoline PO 10 mg Q6H PRN Administration Hypertension Cefazolin Sodium/Dextrose 2 gm 50 mls @ 100 mls/hr 02/28/19 02:00 03/02/19 09 :20 / Device IVPB 50 mls 0200,1000,1800 KALIE Administration Sodium Chloride 1,000 mls @ 80 mls/hr 02/28/19 01:00 03/02/19 01:33 Normal Saline 0.9% IV 1,000 mls .[id number] KALIE Administration Nicardipine HCl 50 mg/ Sodium 250 mls @ 0 mls/hr 02/28/19 07:30 03/01/19 23: 57 Chloride IV 250 mls INF KALIE Administration Protocol As Directed Labetalol HCl 10 mg 02/28/19 00:57 03/02/19 05:59 Normodyne SLOW IVP 10 mg Q2H PRN Administration SBP > 140 or DBP > 90 Lisinopril 20 mg 02/28/19 09:00 03/02/19 10:37 Zestril PO 20 mg DAILY KALIE Administration Metoprolol Tartrate 25 mg 02/28/19 09:00 03/02/19 10:38 Lopressor PO 25 mg BID KALIE Administration Miscellaneous Medication 1 each 03/02/19 09:00 03/02/19 10:38 Lidocaine Patch Removal TOP 1 each 0900 KALIE Administration Pantoprazole Sodium 40 mg 03/02/19 10:45 03/02/19 10:44 Protonix PER TUBE 03/02/19 12:00 40 mg NOW KALIE Administration Potassium Chloride 20 meq 02/28/19 09:00 03/02/19 10:37 K-Dur PO 20 meq DAILY KALIE Administration - Exam General Appearance: NAD, awake alert Heart: RRR, no gallops, no rubs, normal peripheral pulses, II/IV Respiratory: CTAB, no wheezes, no rales, no ronchi, normal chest expansion, no tachypnea, normal percussion Gastrointestinal: soft, non-tender, non-distended, normal bowel sounds, no palpable masses, no hepatomegaly, no splenomegaly, no bruit Gastrointestinal - other findings: NGT in place. Extremities: no cyanosis, no clubbing, no edema Skin: normal turgor Musculoskeletal: generalized weakness Musculoskeletal - other findings: Cognitively intact. Moves extremities. IVD in place. Hosp A/P (1) ICH (intracerebral hemorrhage) Code(s): I61.9 - NONTRAUMATIC INTRACEREBRAL HEMORRHAGE, UNSPECIFIED Status: Acute (2) HTN (hypertension) Code(s): I10 - ESSENTIAL (PRIMARY) HYPERTENSION Status: Acute (3) HLD (hyperlipidemia) Code(s): E78.5 - HYPERLIPIDEMIA, UNSPECIFIED Status: Acute (4) Morbid obesity Code(s): E66.01 - MORBID (SEVERE) OBESITY DUE TO EXCESS CALORIES Status: Acute - Plan Doing really well today. Awake, alert and cognitively intact. Did not swallow well, so NGT has been placed. Animation Artist consult for feeding regimen. BP control. Added PRN Hydralazine last night. Neurosurg, Pulm CC. DVT prophylaxis started by NS.
[2019-03-02] MEDS: niCARdipine 50 MG in Sodium Chloride 0.9% 250 ML 230 ML IV SCH ×2 (11:39→23:17)
--- NOTE | 2019-03-02 13:15 | ULT ---
EXAM: Bilateral lower extremity venous ultrasound HISTORY: Bilateral lower extremity edema; immobilization. COMPARISON: None TECHNIQUE: Multiplanar grayscale and color Doppler images were obtained in a bilateral lower extremit y venous ultrasound. Spectral analysis of the Doppler waveforms were performed. FINDINGS: The bilateral common femoral vein, profunda femoral veins, superficial femoral veins, and p opliteal veins are normal in appearance without visible thrombus. These vessels demonstrate normal compression, flow, and augmentation. The bilateral posterior tibial veins and greater saphenous veins are patent without evidence of throm bus. IMPRESSION: No evidence of DVT.
[2019-03-02] MEDS: Lidocaine 5% Patch TD SCH (20:54)
[2019-03-03] MEDS: CEFAZOLIN 2 GM in Premix Bag 1 BAG IVPB SCH ×3 (02:15→18:33)
[2019-03-03 04:11] LABS: Anion Gap 15 mmol/L (10-20); BUN (Urea Nitrogen) 14 mg/dL (9.8-20.1); Calc. Creatinine Clearance 158 mL/min (70-130); Calcium 8.7 mg/dL (7.8-10.44); Carbon Dioxide 23 mmol/L (23-31); Chloride 108 mmol/L (98-107); Estimated GFR-MDRD Greater than 90; Glucose 149 mg/dL (80-115); Potassium 4.7 mmol/L (3.5-5.1); Sodium 141 mmol/L (136-145)
[2019-03-03 05:38] LABS: #Lymphocytes 1.5 thou/uL (1.20-3.40); #Monocytes 1.1 thou/uL (0.11-0.59); #Neutrophils 11.6 thou/uL (1.40-6.50); %Basophils 0.1 % (0.0-1.0); %Eosinophils 0.2 % (0.0-10.0); %Lymphocytes 10.8 % (21.0-51.0); %Monocytes 7.8 % (0.0-10.0); %Neutrophils 81.1 % (42.0-75.0); Hemoglobin 11.2 g/dL (12.0-16.0); Mean Corpuscular HGB CONC 30.1 g/dL (32.0-36.0); Mean Corpuscular Hemoglobin 21.7 pg (27.0-31.0); Mean Corpuscular Volume 72.2 fL (78.0-98.0); Mean Platelet Volume 8.7 fL (7.4-10.4); Platelet Count 212 thou/uL (130-400); RBC Distribution Width 17.3 % (11.5-14.5); Red Blood Cell (RBC) Count 5.17 mill/uL (4.20-5.40); White Blood Cell (WBC) Count 14.4 thou/uL (4.8-10.8)
[2019-03-03] MEDS: Sodium Chloride 0.9% 1,000 ML IV SCH (05:44)
[2019-03-03] MEDS: niCARdipine 50 MG in Sodium Chloride 0.9% 250 ML 230 ML IV SCH ×4 (05:45→19:49)
[2019-03-03] MEDS ORDERED: Pantoprazole 40 MG GRANULES PACKET PER TUBE SCH (09:00)
[2019-03-03] MEDS: Potassium Chloride 20 MEQ TAB PO SCH (09:25)
[2019-03-03] MEDS: Metoprolol Tartrate 25 MG TAB PO SCH ×2 (09:25→21:45)
[2019-03-03] MEDS: Furosemide 20 MG TAB PO SCH (09:25)
[2019-03-03] MEDS: Lisinopril 20 MG TAB PO SCH (09:26)
[2019-03-03] MEDS: Lidocaine Patch Removal TOP SCH (09:27)
[2019-03-03] MEDS: Enoxaparin Sodium 40 MG/0.4 ML SYRINGE SC SCH (09:27)
--- NOTE | 2019-03-03 12:23 | PRG ---
DATE OF SERVICE: 03/03/2019 SERVICE: Pulmonary Medicine. INTERVAL HISTORY: The patient is doing okay from a mentation standpoint. Neurosurgery is happy with her progress at this point. This is my first time seeing her, so I have no basis for comparison. She cannot provide much in the way of history. She is able to repeat some simple phrases. She follows some simple commands. That being said, she is fairly somnolent. She appears to have moderate to severe sleep apnea. I personally witnessed 2 or 3 intermittent desaturations associated with hypopnea and/or obstructive apneas. That being said, she is not a candidate for noninvasive therapy at this point. PHYSICAL EXAMINATION: VITAL SIGNS: Afebrile, pulse 90, blood pressure 137/74, respirations 18, saturation 96%, currently on 2 L nasal cannula. GENERAL: The patient is somnolent. HEENT: Normocephalic and atraumatic. EVD is in place. Sclerae white. Conjunctivae pink. Oral mucosa is moist without lesions. LUNGS: Decent air entry. Extensive rhonchi are present, but most of them are transmitted from the upper airways. There is no prolonged expiratory phase or wheezing noted. HEART: Normal rate, regular. ABDOMEN: Soft, nontender, and nondistended. Bowel sounds are positive. MUSCULOSKELETAL: No cyanosis or clubbing. No pitting in the bilateral lower extremities. LABORATORY DATA: WBC 14.4, hemoglobin 11.2, platelets 212,000. INR 1.1. Basic metabolic profile is completely unremarkable. Urinalysis is negative. Urine drug screen is negative. IMAGING: Abdominal x-ray demonstrates good placement of the small-bore feeding tube. ASSESSMENT: 1. Acute hypoxic respiratory failure. 2. Intracranial hemorrhage of the cerebellum, status post posterior fossa craniotomy with drain in place, postop day #3. 3. Oropharyngeal dysphagia. 4. Obstructive sleep apnea. DISCUSSION AND PLAN: At some point in the future, if the patient does not have a dramatic improvement in neurologic function, she is very likely going to develop an aspiration related pneumonia. We will watch for signs of sepsis. If present, immediate panculture, empiric antibiotic coverage directed at lung disease will be initiated. That being said, the patient's neurologic status seems to be improving to some degree. I would love to give her a noninvasive ventilation, but she is not a candidate for that because she does not have the wherewithal to remove the mask. As such, we will continue supportive care through time. Pulmonary/Critical Care will follow. Job ID: [id number] MTDD
[2019-03-03] MEDS: hydrALAZINE 25 MG TAB PO SCH ×2 (15:30→21:44)
[2019-03-03] MEDS: Lidocaine 5% Patch TD SCH (21:55)
--- NOTE | 2019-03-03 21:59 | PDOC.HOSPP ---
- Subjective non-verbal - Objective Vital Signs & Weight: Vital Signs (12 hours) Temp Pulse BP Pulse Ox 03/03/19 21:44 86 156/67 H 03/03/19 20:00 92 L 03/03/19 19:00 99.1 F 03/03/19 16:00 99.7 F H 03/03/19 15:30 137/74 03/03/19 12:00 98.7 F Weight Admit Weight 295 lb Weight 276 lb 10.882 oz Most Recent Monitor Data Heart Rate from ECG 89 NIBP 156/67 NIBP BP-Mean 96 Respiration from ECG 20 SpO2 94 I&O: 03/02/19 03/03/19 03/04/19 06:59 06:59 06:59 Intake Total 3211 4157 1646 Output Total 9722 5977 1781 Balance -489 1080 -135 Result Diagrams: 03/03/19 05:06 03/03/19 03:04 Additional Labs: Accuchecks 03/03/19 03/03/19 03/03/19 16:18 09:44 06:35 POC Glucose 153 H 152 H 136 H 03/02/19 21:02 POC Glucose 126 H Hospitalist ROS - Medication Medications: Active Medications Generic Name Dose Route Start Last Admin Trade Name Freq PRN Reason Stop Dose Admin Acetaminophen 650 mg 03/02/19 10:45 03/02/19 17:38 Tylenol Elixir PER TUBE 650 mg Q4H PRN Administration Headache/Fever or Pain Enoxaparin Sodium 40 mg 03/02/19 09:00 03/03/19 09:27 Lovenox SC 40 mg 0900 KALIE Administration Hydralazine HCl 10 mg 02/28/19 01:10 02/28/19 07:46 Apresoline PO 10 mg Q6H PRN Administration Hypertension Hydralazine HCl 75 mg 03/03/19 15:00 03/03/19 21:44 Apresoline PO 75 mg TID KALIE Administration Cefazolin Sodium/Dextrose 2 gm 50 mls @ 100 mls/hr 02/28/19 02:00 03/03/19 18 :33 / Device IVPB 50 mls 0200,1000,1800 KALIE Administration Nicardipine HCl 50 mg/ Sodium 250 mls @ 0 mls/hr 02/28/19 07:30 01/01/20 19: 49 Chloride IV 250 mls INF KALIE Administration Protocol As Directed Labetalol HCl 10 mg 02/28/19 00:57 03/02/19 05:59 Normodyne SLOW IVP 10 mg Q2H PRN Administration SBP > 140 or DBP > 90 Lidocaine 1 patch 03/02/19 21:00 03/03/19 21:55 Lidoderm 5% Patch TD Not Given Q24HR KALIE Magnesium Hydroxide 30 ml 02/28/19 00:57 03/02/19 23:18 Milk Of Magnesium PO 30 ml BIDPRN PRN Administration Constipation Metoprolol Tartrate 25 mg 02/28/19 09:00 03/03/19 21:45 Lopressor PO 25 mg BID KALIE Administration Miscellaneous Medication 1 each 03/02/19 09:00 03/03/19 09:27 Lidocaine Patch Removal TOP 1 each 0900 KALIE Administration Pantoprazole Sodium 40 mg 03/03/19 09:00 03/03/19 09:24 Protonix PER TUBE 40 mg DAILY KALIE Administration Potassium Chloride 20 meq 02/28/19 09:00 03/03/19 09:25 K-Dur PO 20 meq DAILY KALIE Administration - Exam General - other findings: Somnolent ENT - other findings: DHT in place. Heart: RRR, no gallops, no rubs, normal peripheral pulses, II/IV Respiratory: no wheezes, rales Gastrointestinal: soft, non-distended, normal bowel sounds Extremities: no cyanosis, no clubbing, no edema Skin: normal turgor Psychiatric: somnolent Hosp A/P (1) ICH (intracerebral hemorrhage) Code(s): I61.9 - NONTRAUMATIC INTRACEREBRAL HEMORRHAGE, UNSPECIFIED Status: Acute (2) HLD (hyperlipidemia) Code(s): E78.5 - HYPERLIPIDEMIA, UNSPECIFIED Status: Acute (3) HTN (hypertension) Code(s): I10 - ESSENTIAL (PRIMARY) HYPERTENSION Status: Acute (4) Morbid obesity Code(s): E66.01 - MORBID (SEVERE) OBESITY DUE TO EXCESS CALORIES Status: Acute (5) Dysphagia Code(s): R13.10 - DYSPHAGIA, UNSPECIFIED Status: Acute - Plan Continue to work on maintaining adequate BP control. Neurosurg placed IVD. Pulm CC following. DHT placed. High risk for aspiration.
--- NOTE | 2019-03-03 22:14 | PDOC.EVN ---
Event Note - Event Note Event Note: Nursing reports large BM of BRB now, first of its kind, not oriented due to neurologic issues, has IC bleed. Otherwise vitals stable and no other acute changes, exam stable from most recent hospitalist note. - consult GI in AM - CBC q8h - PPI IV BID - hold lovenox - type and cross 2u
[2019-03-03] MEDS ORDERED: Pantoprazole 40 MG VIAL IVP SCH (22:30)
[2019-03-03 22:39] LABS: Hemoglobin 10.8 g/dL (12.0-16.0); Mean Corpuscular HGB CONC 30.5 g/dL (32.0-36.0); Mean Corpuscular Hemoglobin 21.6 pg (27.0-31.0); Mean Corpuscular Volume 70.7 fL (78.0-98.0); Mean Platelet Volume 9.3 fL (7.4-10.4); Platelet Count 213 thou/uL (130-400); RBC Distribution Width 17.3 % (11.5-14.5); Red Blood Cell (RBC) Count 5.02 mill/uL (4.20-5.40)
[2019-03-03] MEDS ORDERED: Succinylcholine Chloride 20 MG/ML 10 ml SYRINGE FS SCH (23:15)
--- NOTE | 2019-03-03 23:20 | RAD ---
EXAM: XR Chest 1 View Portable PROVIDED CLINICAL HISTORY: Respiratory insufficiency COMPARISON: 02/28/2019 FINDINGS: Evaluation is limited by patient body habitus. The cardiac silhouette remains enlarged. An endotrache al tube is present, tip of which terminates proximal to the mikel. An enteric catheter is present, the distal aspects of which are not visualized below the diaphragm. Left lower lung zone airspace dis ease cannot be excluded. No large pleural effusion or evidence for pneumothorax. IMPRESSION: As above.
[2019-03-03 23:56] LABS: Actual Bicarbonate (HCO3a) 30.2 mEq/L (22-28); Base Excess (BEa) 5.5 mEq/L (-2.0 to +3.0); Calcium, Ionized 1.15 mmol/L (1.12-1.30); Carboxyhemoglobin (COHb) 1.2 gm% (0.0-3.0); Hemoglobin (Hb) 11.2 g/dL (12.0-16.0); O2 Tension (PaO2) 91.8 mmHg (> 80.0); Potassium - ABG Lab 3.74 mmol/L (3.70-5.30); pH, Arterial 7.45 (7.35-7.45)
[2019-03-03 23:57] LABS: Puncture Site L RADIAL
[2019-03-04] MEDS: CEFAZOLIN 2 GM in Premix Bag 1 BAG IVPB SCH ×3 (03:16→18:43)
[2019-03-04] MEDS: niCARdipine 50 MG in Sodium Chloride 0.9% 250 ML 230 ML IV SCH ×4 (03:19→21:25)
[2019-03-04 04:18] LABS: Hemoglobin 10.6 g/dL (12.0-16.0); Mean Corpuscular HGB CONC 30.7 g/dL (32.0-36.0); Mean Corpuscular Hemoglobin 21.7 pg (27.0-31.0); Mean Corpuscular Volume 70.7 fL (78.0-98.0); Mean Platelet Volume 7.6 fL (7.4-10.4); Platelet Count 216 thou/uL (130-400); RBC Distribution Width 17.1 % (11.5-14.5); Red Blood Cell (RBC) Count 4.88 mill/uL (4.20-5.40); White Blood Cell (WBC) Count 13.7 thou/uL (4.8-10.8)
[2019-03-04 04:20] LABS: Phosphorus 2.4 mg/dL (2.3-4.7)
[2019-03-04 04:22] LABS: Anion Gap 12 mmol/L (10-20); BUN (Urea Nitrogen) 18 mg/dL (9.8-20.1); Calc. Creatinine Clearance 156 mL/min (70-130); Calcium 8.7 mg/dL (7.8-10.44); Carbon Dioxide 28 mmol/L (23-31); Chloride 106 mmol/L (98-107); Estimated GFR-MDRD Greater than 90; Glucose 122 mg/dL (80-115); Magnesium 2.4 mg/dL (1.6-2.6); Potassium 3.6 mmol/L (3.5-5.1); Sodium 142 mmol/L (136-145)
[2019-03-04 04:43] LABS: Hemoglobin 10.5 g/dL (12.0-16.0); Hypochromia SLIGHT = 6-15 cells (100X) (0-5/hpf); Lymphocytes 21 % (21-51); MDiff Complete? YES; Mean Corpuscular HGB CONC 30.1 g/dL (32.0-36.0); Mean Corpuscular Hemoglobin 21.4 pg (27.0-31.0); Mean Corpuscular Volume 70.9 fL (78.0-98.0); Mean Platelet Volume 8.9 fL (7.4-10.4); Microcytosis SLIGHT = 6-15 cells (100X) (0-5/hpf); Monocytes 6 % (0-10); Neutrophil 73 % (42-75); Platelet Count 225 thou/uL (130-400); Platelet Morphology Comment Appears Adequate; RBC Distribution Width 17.2 % (11.5-14.5); Red Blood Cell (RBC) Count 4.91 mill/uL (4.20-5.40); White Blood Cell (WBC) Count 14.6 thou/uL (4.8-10.8)
[2019-03-04 07:39] LABS: Actual Bicarbonate (HCO3a) 32.2 mEq/L (22-28); Base Excess (BEa) 6.8 mEq/L (-2.0 to +3.0); CO2 Tension 49.9 mmHg (35.0-45.0); Calcium, Ionized 1.19 mmol/L (1.12-1.30); Carboxyhemoglobin (COHb) 1.1 gm% (0.0-3.0); Hemoglobin (Hb) 10.9 g/dL (12.0-16.0); O2 Tension (PaO2) 69.7 mmHg (> 80.0); Potassium - ABG Lab 3.38 mmol/L (3.70-5.30); pH, Arterial 7.43 (7.35-7.45)
[2019-03-04 07:42] LABS: ALV-art Gradient 74.695 (0-20); Puncture Site LRA
[2019-03-04] MEDS: Sodium Chloride 0.9% 1,000 ML IV SCH ×3 (09:20→14:44)
[2019-03-04] MEDS: Pantoprazole 40 MG VIAL IVP SCH ×2 (09:21→20:54)
[2019-03-04] MEDS: Lisinopril 20 MG TAB PO SCH (09:23)
[2019-03-04] MEDS: Metoprolol Tartrate 25 MG TAB PO SCH ×2 (09:23→20:54)
[2019-03-04] MEDS: Lidocaine Patch Removal TOP SCH (09:25)
[2019-03-04] MEDS: Potassium Chloride 20 MEQ TAB PO SCH (09:30)
--- NOTE | 2019-03-04 09:47 | PDOC.HOSPP ---
- Subjective Subjective: Non-verbal. Events of last night noted. Appeared to have BRBPR. No on IV Pantoprazole bid. Hemoglobin stable. Had to be reintubated due to hypoxic respiratory failure. Nurse reports copious secretions. Following some commands when more awake. - Objective Vital Signs & Weight: Vital Signs (12 hours) Temp Pulse Resp BP Pulse Ox 03/04/19 09:23 149/69 H 03/04/19 08:00 99.9 F H 18 03/04/19 07:15 83 149/69 H 03/04/19 06:00 18 03/04/19 04:00 99.3 F 13 03/04/19 03:10 78 03/04/19 00:00 100.3 F H 12 100 03/03/19 23:42 78 165/75 H 100 Weight Admit Weight 295 lb Weight 277 lb 5.464 oz Most Recent Monitor Data Heart Rate from ECG 84 NIBP 151/68 NIBP BP-Mean 95 Respiration from ECG 17 SpO2 94 I&O: 03/03/19 03/04/19 03/05/19 06:59 06:59 06:59 Intake Total 3517 2403 Output Total 2437 3113 160 Balance 1080 -710 -160 Result Diagrams: 03/04/19 03:44 03/04/19 03:44 Additional Labs: Accuchecks 03/03/19 03/03/19 03/03/19 21:46 16:18 09:44 POC Glucose 142 H 153 H 152 H Hospitalist ROS - Medication Medications: Active Medications Generic Name Dose Route Start Last Admin Trade Name Freq PRN Reason Stop Dose Admin Acetaminophen 650 mg 03/02/19 10:45 03/02/19 17:38 Tylenol Elixir PER TUBE 650 mg Q4H PRN Administration Headache/Fever or Pain Hydralazine HCl 10 mg 02/28/19 01:10 02/28/19 07:46 Apresoline PO 10 mg Q6H PRN Administration Hypertension Hydralazine HCl 75 mg 03/03/19 15:00 03/03/19 21:44 Apresoline PO 75 mg TID KALIE Administration Cefazolin Sodium/Dextrose 2 gm 50 mls @ 100 mls/hr 02/28/19 02:00 03/04/19 09 :22 / Device IVPB 50 mls 0200,1000,1800 KALIE Administration Nicardipine HCl 50 mg/ Sodium 250 mls @ 0 mls/hr 02/28/19 07:30 03/04/19 09: 20 Chloride IV 250 mls INF KALIE Administration Protocol As Directed Sodium Chloride 1,000 mls @ 75 mls/hr 03/03/19 12:01 03/04/19 09:21 Normal Saline 0.9% IV Not Given .[id number] KALIE Labetalol HCl 10 mg 02/28/19 00:57 03/02/19 05:59 Normodyne SLOW IVP 10 mg Q2H PRN Administration SBP > 140 or DBP > 90 Lidocaine 1 patch 03/02/19 21:00 03/03/19 21:55 Lidoderm 5% Patch TD Not Given Q24HR KALIE Lisinopril 40 mg 03/03/19 12:01 03/04/19 09:23 Zestril PO 40 mg DAILY KALIE Administration Magnesium Hydroxide 30 ml 02/28/19 00:57 03/02/19 23:18 Milk Of Magnesium PO 30 ml BIDPRN PRN Administration Constipation Metoprolol Tartrate 25 mg 02/28/19 09:00 03/04/19 09:23 Lopressor PO 25 mg BID KALIE Administration Miscellaneous Medication 1 each 03/02/19 09:00 03/04/19 09:25 Lidocaine Patch Removal TOP 1 each 0900 KALIE Administration Pantoprazole Sodium 40 mg 03/04/19 09:00 03/04/19 09:21 Protonix IVP 40 mg Q12HR KALIE Administration Potassium Chloride 20 meq 02/28/19 09:00 03/04/19 09:30 K-Dur PO 20 meq DAILY KALIE Administration - Exam General Appearance: NAD General - other findings: Intubated Heart: RRR, no murmur, no gallops, no rubs, normal peripheral pulses Respiratory: CTAB, no wheezes, no rales, no ronchi, normal chest expansion, no tachypnea, normal percussion Respiratory - other findings: Modest upper airway noise. Gastrointestinal: soft, non-tender, non-distended, normal bowel sounds, no palpable masses, no hepatomegaly, no splenomegaly, no bruit Skin - other findings: Slightly puffy. Hosp A/P (1) ICH (intracerebral hemorrhage) Code(s): I61.9 - NONTRAUMATIC INTRACEREBRAL HEMORRHAGE, UNSPECIFIED Status: Acute (2) HLD (hyperlipidemia) Code(s): E78.5 - HYPERLIPIDEMIA, UNSPECIFIED Status: Acute (3) HTN (hypertension) Code(s): I10 - ESSENTIAL (PRIMARY) HYPERTENSION Status: Acute (4) Morbid obesity Code(s): E66.01 - MORBID (SEVERE) OBESITY DUE TO EXCESS CALORIES Status: Acute (5) Dysphagia Code(s): R13.10 - DYSPHAGIA, UNSPECIFIED Status: Acute (6) Acute respiratory failure with hypoxia Code(s): J96.01 - ACUTE RESPIRATORY FAILURE WITH HYPOXIA Status: Acute (7) GIB (gastrointestinal bleeding) Code(s): K92.2 - GASTROINTESTINAL HEMORRHAGE, UNSPECIFIED Status: Acute (8) Diastolic dysfunction Code(s): I51.89 - OTHER ILL-DEFINED HEART DISEASES Status: Acute - Plan Continue to work on maintaining adequate BP control. Neurosurg placed IVD. F/U CT pending. Pulm CC following. DHT placed. High risk for aspiration. Has copious secretions. Had hypoxic resp failure requiring intubation. GI consulted in light of bleed. Continue PPI. Follow hgb.
[2019-03-04] MEDS: hydrALAZINE 25 MG TAB PO SCH ×3 (09:48→20:54)
--- NOTE | 2019-03-04 10:33 | PRG ---
DATE OF SERVICE: 03/04/2019 35 minutes of critical care time. SUBJECTIVE: This patient was reintubated last night because of progressive respiratory issues related to her neurologic status. She is on mechanical ventilation. She is about to go down for another CT this morning. OBJECTIVE: VITAL SIGNS: Her temperature is 99.9, pulse 84, blood pressure 151/60, O2 saturation 94%. 24-hour intake 2403, output 3113. HEENT: She has an interventricular drain in place. NECK: No adenopathy or JVD. CHEST: Clear anteriorly. CARDIAC: S1 and S2, regular. ABDOMEN: Soft. EXTREMITIES: No edema. LABORATORY DATA: White blood cell count 13.7, hematocrit 34.5, and platelet count 216. PH of 7.43, pCO2 of 49, pO2 of 69 on SIMV rate 11, tidal volume 450, PEEP 5, pressure support 15, and FiO2 of 29%. Sodium 142, potassium 3.6, chloride 106, CO2 of 28, BUN 18, creatinine 0.7, and glucose 122. Her chest x-ray from last night demonstrates ET tube in good position, perhaps infiltrate on the left. ASSESSMENT: 1. Acute respiratory failure with one failed extubation secondary to her terrible neurologic status from cerebellar stroke. 2. Oropharyngeal dysphagia. 3. Obesity. PLAN: The patient will be kept intubated until her neurologic status is better. She may end up needing a tracheostomy for control her secretions. She remains on some nicardipine for blood pressure control. Her prognosis is poor. The above encompassed 35 minutes of critical care time. Job ID: [id number]
--- NOTE | 2019-03-04 10:39 | CT ---
CT BRAIN NONCONTRAST: DATE: 03/04/2019 HISTORY: 63-year-old female with cerebellar hemorrhage. Follow-up. COMPARISON: 03/01/2019 FINDINGS: Left occipital craniotomy defect, deep to which there is what appears to be a surgical sponge, anteri or to which there is left cerebellar hematoma. High density material of the cerebellar vermis may also represent separate hematoma. Mass effect and extrinsic compression upon the fourth ventricle and entire posterior fossa with increased pressure. Ventriculostomy catheter remains. No hydrocephalus. No interval change overall. IMPRESSION: No interval change.
--- NOTE | 2019-03-04 10:44 | PRG ---
DATE OF SERVICE: 03/04/2019 Ms. Viramontes had to be reintubated for hypoxia. She is now reintubated and appears to be doing well with improvement in her pulmonary status. She is alert this morning and follows commands. Her EVD is open at 10 cm of water. We will consider beginning the wean early next week or perhaps late this weekend. Job ID: [id number]
[2019-03-04 12:47] LABS: Hemoglobin 10.9 g/dL (12.0-16.0); Mean Corpuscular HGB CONC 30.7 g/dL (32.0-36.0); Mean Corpuscular Hemoglobin 21.5 pg (27.0-31.0); Mean Corpuscular Volume 70.2 fL (78.0-98.0); Mean Platelet Volume 10.1 fL (7.4-10.4); Platelet Count 204 thou/uL (130-400); RBC Distribution Width 17.2 % (11.5-14.5); Red Blood Cell (RBC) Count 5.05 mill/uL (4.20-5.40); White Blood Cell (WBC) Count 14.4 thou/uL (4.8-10.8)
[2019-03-04] MEDS: Labetalol HCl 100 MG/20 ML VIAL SLOW IVP PRN (13:55)
--- NOTE | 2019-03-04 16:20 | CON ---
DATE OF CONSULTATION: 03/04/2019 REASON FOR CONSULTATION: Hematochezia. CONSULTING PROVIDER: Dr. Varun Albert. HISTORY OF PRESENT ILLNESS: The patient is a 63-year-old female with past medical history of obesity, [id number] hypertension, diverticulitis, breast cancer, and obstructive sleep apnea, who initially was admitted to the hospital for a cerebellar hemispheric hemorrhage. The patient was initially admitted to the hospital on February 28, 2019, with increased headache, altered mental status, and inability to stand associated with significantly elevated blood pressure of 230/120. CT of the head on admission showed herniation into the foramen magnum with effacement of the 4th ventricle, for which the patient underwent emergent placement of an extraventricular drain and a suboccipital craniectomy and cerebellar hematoma evacuation. In the postoperative period (per chart review), it appears that the patient had been doing well and was alert and oriented and able to respond to simple commands and questioning. However, on March 03, 2019, the patient experienced an acute decompensation in her respiratory status requiring re-intubation in order to maintain adequate ventilation. This was associated with increased thick pulmonary secretions, but it was also associated with the appearance of an episode of hematochezia characterized as bright red blood per rectum. Upon review of the situation with the patient's daughter (who was at bedside), the patient had been having intermittent episodes of hematochezia characterized as bright red blood per rectum that was present primarily on the toilet paper 2 to 3 days prior to admission and for which, the patient described as "not that bad." More recently, the patient had been using stool softeners for hard to pass stools and what sounded like increased constipation with significant straining in order to facilitate defecation. Since her episode of hematochezia here in the hospital, she has not had any further episodes with a bowel movement seen earlier today with brown stool with small blood clots. Otherwise, there has been no evidence of hematemesis, melena, abdominal pain. REVIEW OF SYSTEMS: Review of systems could not be obtained due to the patient's intubated status, although the patient was able to nod her head affirmatively and shake her head to the negative with simple lines of questioning. She did endorse some increased abdominal pain upon questioning. PAST MEDICAL HISTORY: As per HPI. PAST SURGICAL HISTORY: Lumpectomy of the left breast, left ankle surgery, and right knee replacement. SOCIAL HISTORY: No mention of alcohol, tobacco, or illicit drug use, although the patient was a smoker up until 10 years ago. OUTPATIENT MEDICATIONS: Reviewed. ALLERGIES: LEVAQUIN. FAMILY HISTORY: Denies any GI malignancies per the patient's daughter. PHYSICAL EXAMINATION: VITAL SIGNS: Temperature 99.7, pulse 73, blood pressure 153/65, respiratory rate 13, saturating 100% on mechanical ventilation. GENERAL: The patient was lying in bed, in no acute distress, somewhat alert, but seemed somnolent during the course of the interview, inability to establish orientation but able to answer questions yes or no by shaking her head. HEENT: A bandage was noted in the right occipital area with the dressings clean, dry, and intact. No JVD or scleral icterus noted. CARDIOVASCULAR: Regular rate and rhythm with a 3/6 systolic murmur best heard at the left upper sternal border. RESPIRATORY: Coarse breath sounds auscultated in all lung walsh consistent with mechanical ventilation. ABDOMEN: Normoactive bowel sounds. Soft, nondistended. Tenderness to palpation in the left upper quadrant, left lower quadrant, and right lower quadrants. EXTREMITIES: No cyanosis, clubbing, or edema. LABORATORY DATA: CBC with a white blood cell count of 13.7, hemoglobin 10.6, hematocrit 34.5, platelets 216. Chemistry with a sodium of 142, potassium 3.6, chloride 106, CO2 of 28, BUN 18, creatinine 0.72, glucose 122. IMAGING DATA: CT scan of the brain was obtained on March 04, 2019, which showed the left occipital craniotomy defect, deep to which there what appears to be a surgical sponge and anterior to which is a left cerebellar hematoma, high-density material of the cerebellar vermis may also represent a separate hematoma. Mass-effect and extrinsic compression upon the 4th ventricle and entire posterior fossa was seen with increased pressure, however, this was unchanged when compared to the prior CT scan. ASSESSMENT AND PLAN: The patient is a 63-year-old female with past medical history of obesity, hypertension, diverticulitis, breast cancer, and obstructive sleep apnea presenting with hypertensive emergency resulting in a cerebellar hemorrhage requiring drainage and drain placement, now with one episode of hematochezia. Hematochezia. The patient is presenting with a recent history of hematochezia around 2 to 3 days prior to admission, characterized as bright red blood per rectum and a small amount that was present only on the toilet paper per patient's daughter. She had a history of recent constipation as well, for which the patient had been taking stool softeners in order to facilitate passage of these hard stools. Given the relative stability of her H and H when compared to last night, there does not appear to be any significant blood loss noted thus far, making the likelihood of hemorrhoidal bleeding more likely. However, the differential could include diverticular bleeding (especially with her history of diverticulitis), arteriovenous malformation, Dieulafoy lesion, ischemic colitis and/or GI malignancy (less likely given the possibility of a possible colonoscopy a few months ago). RECOMMENDATIONS: 1. Would continue to trend the patient's H and H and transfuse as necessary to maintain an H and H of 7/21. 2. Continue to monitor clinically for signs of active GI bleeding. 3. At this time, we will hold on colonoscopy given her one episode of hematochezia in light of a probable hemorrhoidal bleed in addition to stability of her H and H, making emergent/urgent endoscopy not indicated. However, if the patient has further episodes of hematochezia and/or drop in her H and H, I would recommend both EGD and colonoscopy for further evaluation. 4. Pain control per primary team. 5. Would make sure that the patient is on a good bowel regimen with MiraLAX 17 g daily in order to facilitate passage of harder stools and prevent any further hemorrhoidal bleeds. 6. Would attempt to avoid any anticoagulation as this would exacerbate any GI bleed (any brain bleeds for that matter). We will continue to follow. Please call with any questions. Job ID: [id number]
[2019-03-04 20:31] LABS: Hemoglobin 10.5 g/dL (12.0-16.0); Mean Corpuscular HGB CONC 30.2 g/dL (32.0-36.0); Mean Corpuscular Hemoglobin 21.2 pg (27.0-31.0); Mean Corpuscular Volume 70.4 fL (78.0-98.0); Mean Platelet Volume 8.7 fL (7.4-10.4); Platelet Count 226 thou/uL (130-400); Red Blood Cell (RBC) Count 4.95 mill/uL (4.20-5.40); White Blood Cell (WBC) Count 12.7 thou/uL (4.8-10.8)
[2019-03-04] MEDS: Lidocaine 5% Patch TD SCH (20:55)
[2019-03-05] MEDS: CEFAZOLIN 2 GM in Premix Bag 1 BAG IVPB SCH ×3 (01:09→17:56)
[2019-03-05] MEDS: Acetaminophen 650 MG/20.3 ML UDCUP PER TUBE PRN (02:24)
[2019-03-05 04:20] LABS: #Eosinphils 0.2 thou/uL (0.0-0.7); #Lymphocytes 1.9 thou/uL (1.20-3.40); #Monocytes 1.4 thou/uL (0.11-0.59); %Basophils 0.4 % (0.0-1.0); %Eosinophils 1.2 % (0.0-10.0); %Lymphocytes 13.8 % (21.0-51.0); %Monocytes 10.5 % (0.0-10.0); %Neutrophils 74.1 % (42.0-75.0); Hemoglobin 9.9 g/dL (12.0-16.0); Large Platelets SLIGHT; MDiff Complete? YES; Mean Corpuscular HGB CONC 32.2 g/dL (32.0-36.0); Mean Corpuscular Hemoglobin 22.7 pg (27.0-31.0); Mean Corpuscular Volume 70.6 fL (78.0-98.0); Mean Platelet Volume 10.6 fL (7.4-10.4); Platelet Count 188 thou/uL (130-400); Platelet Morphology Comment Appears Adequate; RBC Distribution Width 17.1 % (11.5-14.5); Red Blood Cell (RBC) Count 4.36 mill/uL (4.20-5.40); White Blood Cell (WBC) Count 13.5 thou/uL (4.8-10.8)
[2019-03-05 04:47] LABS: Anion Gap 11 mmol/L (10-20); BUN (Urea Nitrogen) 16 mg/dL (9.8-20.1); Calc. Creatinine Clearance 166 mL/min (70-130); Calcium 8.6 mg/dL (7.8-10.44); Carbon Dioxide 27 mmol/L (23-31); Chloride 107 mmol/L (98-107); Estimated GFR-MDRD Greater than 90; Glucose 122 mg/dL (80-115); Sodium 141 mmol/L (136-145)
[2019-03-05] MEDS: Sodium Chloride 0.9% 1,000 ML IV SCH ×2 (06:14→17:54)
[2019-03-05 07:35] LABS: Actual Bicarbonate (HCO3a) 30.5 mEq/L (22-28); Base Excess (BEa) 5.5 mEq/L (-2.0 to +3.0); CO2 Tension 46.4 mmHg (35.0-45.0); Carboxyhemoglobin (COHb) 0.9 gm% (0.0-3.0); Hemoglobin (Hb) 9.8 g/dL (12.0-16.0); O2 Tension (PaO2) 73.9 mmHg (> 80.0); Potassium - ABG Lab 3.56 mmol/L (3.70-5.30); pH, Arterial 7.44 (7.35-7.45)
[2019-03-05 07:44] LABS: Puncture Site LRA
--- NOTE | 2019-03-05 08:50 | PRG ---
DATE OF SERVICE: 03/05/2019 TIME SPENT: 35 minutes of critical care time. SUBJECTIVE: The patient remains intubated on mechanical ventilation. She will wake up and follow commands today. OBJECTIVE: VITAL SIGNS: On exam, pulse is 76, blood pressure 142/64, O2 saturation 95%, and respiratory rate 15, and temperature 99.2. A 24-hour intake 2948, output 2025. HEENT: She has interventricular drain in place. She has endotracheal tube and orogastric tube in place. NECK: No adenopathy or JVD. LUNGS: Clear to auscultation. CARDIAC: S1 and S2, regular. ABDOMEN: Soft, obese, nontender, and nondistended. EXTREMITIES: No clubbing, cyanosis, or edema. NEUROLOGICAL: She moves all 4 extremities without difficulty to command. LABORATORY DATA: Sodium 141, potassium 4, chloride 107, CO2 of 27, BUN 16, creatinine 0.7, and glucose 122. White blood cell count 13.5, hematocrit 30.8, and platelet count 188. PH of 7.44, pCO2 of 46, pO2 of 73 on SIMV rate 11, tidal volume 450, PEEP 5, pressure support of 15, and FiO2 of 29%. Her chest x-ray shows some blunting of left costophrenic angle, ET tube looks to be in good position. ASSESSMENT: 1. Acute respiratory failure, requiring mechanical ventilation. She was reintubated due to problems with upper airway obstruction. 2. Status post cerebellar hemorrhage with obstructive hydrocephalus. 3. Obesity. 4. Likely underlying obstructive sleep apnea. PLAN: The patient will be left intubated over the weekend and we will reassess her neurologic status next week for possible extubation. I did discuss with the family that tracheostomy may be needed if she continues to have the problems she was having. Job ID: [id number]
[2019-03-05] MEDS: Pantoprazole 40 MG VIAL IVP SCH ×2 (09:17→21:16)
[2019-03-05] MEDS: Lisinopril 20 MG TAB PO SCH (09:17)
[2019-03-05] MEDS: Lidocaine Patch Removal TOP SCH (09:18)
[2019-03-05] MEDS: Potassium Chloride 20 MEQ TAB PO SCH (09:19)
[2019-03-05] MEDS: hydrALAZINE 25 MG TAB PO SCH ×3 (09:21→21:15)
--- NOTE | 2019-03-05 09:26 | RAD ---
SINGLE VIEW CHEST: HISTORY: Pneumonia. COMPARISON: 03/03/2019 FINDINGS: A single view of the chest shows an enlarged but stable cardiomediastinal silhouette. The lines and t ubes are unchanged in position. There may be a small left pleural effusion. There is no evidence of c onsolidation, mass or pleural effusion. IMPRESSION: Stable exam. POS: [facility]
[2019-03-05] MEDS: Amlodipine 10 MG TAB PER TUBE SCH (09:37)
[2019-03-05] MEDS: Metoprolol Tartrate 25 MG TAB PO SCH ×2 (09:38→21:15)
--- NOTE | 2019-03-05 10:18 | PRG ---
DATE OF SERVICE: 03/05/2019 Ms. Viramontes is now 5 days into her hospitalization for evacuation of left cerebellar hemorrhage from hypertension and placement of external ventricular drain. Her EVD is open at 10 cm of water. We will leave this in place over the weekend and at its current setting. She does open her eyes to voice and follows commands in all 4 extremities. Her wounds are dry. Her blood pressure is under satisfactory control. Job ID: [id number]
[2019-03-05 12:42] LABS: Hemoglobin 10.3 g/dL (12.0-16.0); Mean Corpuscular HGB CONC 30.3 g/dL (32.0-36.0); Mean Corpuscular Hemoglobin 21.4 pg (27.0-31.0); Mean Corpuscular Volume 70.6 fL (78.0-98.0); Mean Platelet Volume 11.2 fL (7.4-10.4); Platelet Count 222 thou/uL (130-400); RBC Distribution Width 17.4 % (11.5-14.5); Red Blood Cell (RBC) Count 4.83 mill/uL (4.20-5.40); White Blood Cell (WBC) Count 15.1 thou/uL (4.8-10.8)
--- NOTE | 2019-03-05 14:25 | PDOC.HOSPP ---
- Subjective Subjective: She is still on the vent, but will awaken and follow commands. She can communicate with hand motions. - Objective Vital Signs & Weight: Vital Signs (12 hours) Temp Pulse Resp BP Pulse Ox 03/05/19 12:00 99.1 F 15 03/05/19 10:34 66 125/61 03/05/19 10:00 15 03/05/19 09:37 72 142/68 H 03/05/19 09:21 147/65 H 03/05/19 09:17 137/64 03/05/19 08:00 15 03/05/19 07:51 95 03/05/19 07:01 75 137/64 03/05/19 07:00 99.2 F 03/05/19 06:00 14 03/05/19 04:00 98.8 F 14 Weight Admit Weight 295 lb Weight 284 lb 2.813 oz Most Recent Monitor Data Heart Rate from ECG 73 NIBP 144/75 NIBP BP-Mean 98 Respiration from ECG 14 SpO2 95 I&O: 03/04/19 03/05/19 03/06/19 06:59 06:59 06:59 Intake Total 2403 2948 255 Output Total 3113 2026 678 Balance -710 922 -703 Result Diagrams: 03/05/19 12:14 03/05/19 03:32 Additional Labs: Accuchecks 03/05/19 03/04/19 03/04/19 06:18 21:34 16:12 POC Glucose 135 H 105 117 H Hospitalist ROS - Medication Medications: Active Medications Generic Name Dose Route Start Last Admin Trade Name Freq PRN Reason Stop Dose Admin Acetaminophen 650 mg 03/02/19 10:45 03/05/19 02:24 Tylenol Elixir PER TUBE 650 mg Q4H PRN Administration Headache/Fever or Pain Amlodipine Besylate 10 mg 03/05/19 09:00 03/05/19 09:37 Norvasc PER TUBE 10 mg DAILY KALIE Administration Hydralazine HCl 10 mg 02/28/19 01:10 02/28/19 07:46 Apresoline PO 10 mg Q6H PRN Administration Hypertension Hydralazine HCl 75 mg 03/03/19 15:00 03/05/19 09:21 Apresoline PO 75 mg TID KALIE Administration Cefazolin Sodium/Dextrose 2 gm 50 mls @ 100 mls/hr 02/28/19 02:00 03/05/19 09 :41 / Device IVPB 50 mls 0200,1000,1800 KALIE Administration Nicardipine HCl 50 mg/ Sodium 250 mls @ 0 mls/hr 02/28/19 07:30 03/04/19 21: 25 Chloride IV 250 mls INF KALIE Administration Protocol As Directed Sodium Chloride 1,000 mls @ 75 mls/hr 03/03/19 12:01 03/05/19 06:14 Normal Saline 0.9% IV 1,000 mls .[id number] KALIE Administration Labetalol HCl 10 mg 02/28/19 00:57 03/04/19 13:55 Normodyne SLOW IVP 10 mg Q2H PRN Administration SBP > 140 or DBP > 90 Lidocaine 1 patch 03/02/19 21:00 03/04/19 20:55 Lidoderm 5% Patch TD Not Given Q24HR KALIE Lisinopril 40 mg 03/03/19 12:01 03/05/19 09:17 Zestril PO 40 mg DAILY KALIE Administration Magnesium Hydroxide 30 ml 02/28/19 00:57 03/02/19 23:18 Milk Of Magnesium PO 30 ml BIDPRN PRN Administration Constipation Metoprolol Tartrate 50 mg 03/05/19 09:00 03/05/19 09:38 Lopressor PO 50 mg BID KALIE Administration Miscellaneous Medication 1 each 03/02/19 09:00 03/05/19 09:18 Lidocaine Patch Removal TOP 1 each 0900 KALIE Administration Pantoprazole Sodium 40 mg 03/04/19 09:00 03/05/19 09:17 Protonix IVP 40 mg Q12HR KALIE Administration Potassium Chloride 20 meq 02/28/19 09:00 03/05/19 09:19 K-Dur PO 20 meq DAILY KALIE Administration - Exam General Appearance: NAD, awake alert Heart: RRR, no gallops, no rubs, normal peripheral pulses, II/IV Respiratory: CTAB, no wheezes, no rales, no ronchi, normal chest expansion, no tachypnea, normal percussion Gastrointestinal: soft, non-tender, non-distended, normal bowel sounds, no palpable masses, no hepatomegaly, no splenomegaly, no bruit Extremities: no cyanosis, no clubbing, no edema Skin: normal turgor Neurological - other findings: Follows commands. Musculoskeletal: normal tone Hosp A/P (1) ICH (intracerebral hemorrhage) Code(s): I61.9 - NONTRAUMATIC INTRACEREBRAL HEMORRHAGE, UNSPECIFIED Status: Acute (2) HLD (hyperlipidemia) Code(s): E78.5 - HYPERLIPIDEMIA, UNSPECIFIED Status: Acute (3) HTN (hypertension) Code(s): I10 - ESSENTIAL (PRIMARY) HYPERTENSION Status: Acute (4) Morbid obesity Code(s): E66.01 - MORBID (SEVERE) OBESITY DUE TO EXCESS CALORIES Status: Acute (5) Dysphagia Code(s): R13.10 - DYSPHAGIA, UNSPECIFIED Status: Acute (6) Acute respiratory failure with hypoxia Code(s): J96.01 - ACUTE RESPIRATORY FAILURE WITH HYPOXIA Status: Acute (7) GIB (gastrointestinal bleeding) Code(s): K92.2 - GASTROINTESTINAL HEMORRHAGE, UNSPECIFIED Status: Acute (8) Diastolic dysfunction Code(s): I51.89 - OTHER ILL-DEFINED HEART DISEASES Status: Acute - Plan Continue to work on maintaining adequate BP control. Neurosurg placed IVD. May need VPS given the degree of occlusion. Following commands well. No evidence of gross focal deficits. Pulm CC following. Has copious secretions. Had hypoxic resp failure requiring intubation. Depending on secretions and neuro status, may need trach. DHT placed. High risk for aspiration. GI consulted in light of bleed. Suspected hemorrhoidal bleed that was transient. No further episodes. Continue PPI. Follow hgb.
[2019-03-05] MEDS: niCARdipine 50 MG in Sodium Chloride 0.9% 250 ML 230 ML IV SCH (16:18)
--- NOTE | 2019-03-05 17:56 | PRG ---
DATE OF SERVICE: 03/05/2019 REASON FOR CONSULTATION: Hematochezia. SUBJECTIVE: Over the last 12 to 24 hours, the patient has had 2 additional bowel movements, both of which were nonbloody in appearance and she has not had any further episodes of hematochezia other than the one yesterday. She is still currently intubated with mechanical ventilation, but has been able to respond appropriately to simple questions and action, being able to nod and shake her head to the affirmative as well as some small hand gestures as well. Otherwise, per nursing staff, there has been no evidence of vomiting, fever, shaking chills/rigors, or GI bleeding. OBJECTIVE: VITAL SIGNS: Temperature 99.1, pulse 73, blood pressure 155/99, respiratory rate 14, and saturating 95% on mechanical ventilation. GENERAL: The patient is lying in bed, in no acute distress, somewhat alert but exhibiting some somnolence as well. Able to answer some questions by shaking her head yes or no. CARDIOVASCULAR: Regular rate and rhythm with a 3/6 systolic murmur, best heard at the left upper sternal border. RESPIRATORY: Coarse breath sounds auscultated in all lung walsh consistent with mechanical ventilation. ABDOMEN: Normoactive bowel sounds. Soft, nontender, and nondistended. EXTREMITIES: No cyanosis, clubbing, or edema. LABORATORY DATA: CBC with a white blood cell count of 13.5, hemoglobin 9.9, hematocrit 30.8, platelets 188. Chemistry with a sodium of 141, potassium 4, chloride 107, CO2 of 27, BUN 16, creatinine 0.68, and glucose 122. IMAGING DATA: No current GI imaging is available for review. ASSESSMENT AND PLAN: The patient is a 63-year-old female with past medical history of obesity, hypertension, diverticulitis, breast cancer, and obstructive sleep apnea, presenting with hypertensive emergency, resulting in a cerebellar hemorrhage requiring drainage and drain placement, but has exhibited one episode of hematochezia during this admission. Hematochezia. The patient initially presented with intermittent bouts of hematochezia, characterized as bright red blood per rectum for 2 to 3 days prior to admission. During the course of this admission, she did have a larger bloody bowel movement that was not reflected a change in her H and H thus far and while in fact, her H and H have been up trending since then. Since the initial episode of hematochezia during this hospitalization, she has not had any additional episodes with 2 subsequent bowel movements, nonbloody in appearance. At this time, given the minimal blood loss and spontaneous resolution and history of hematochezia prior to this admission, the likelihood of hemorrhoidal bleeding is higher. However, the differential could include diverticular bleeding (especially with her history of diverticulitis), arteriovenous malformation, Dieulafoy lesion, ischemic colitis, and/or GI malignancy (less likely). RECOMMENDATIONS: 1. Would continue to trend the patient's H and H and transfuse as necessary to maintain an H and H of 09/20. 2. Continue to monitor clinically for signs of active GI bleeding. 3. Pain control per primary team. 4. We ensure that the patient has a good bowel regimen with MiraLAX 17 g daily in light of probable hemorrhoidal bleeds. 5. Would attempt to avoid any anticoagulation as this would exacerbate any GI bleed (or increase intracerebral hematoma for that matter). 6. We will hold on colonoscopy for now given the higher likelihood of hemorrhoidal bleeding. However, if the patient does exhibit further episodes of hematochezia or drop in her H and H, endoscopic management would be reconsidered at that time. We will continue to follow peripherally for now. Please call with any questions. Job ID: [id number]
[2019-03-05 20:13] LABS: Hemoglobin 10.2 g/dL (12.0-16.0); Mean Corpuscular HGB CONC 30.6 g/dL (32.0-36.0); Mean Corpuscular Hemoglobin 21.6 pg (27.0-31.0); Mean Corpuscular Volume 70.6 fL (78.0-98.0); Mean Platelet Volume 8.9 fL (7.4-10.4); Platelet Count 234 thou/uL (130-400); RBC Distribution Width 17.3 % (11.5-14.5); Red Blood Cell (RBC) Count 4.73 mill/uL (4.20-5.40); White Blood Cell (WBC) Count 14.2 thou/uL (4.8-10.8)
[2019-03-05] MEDS: Sodium Chloride 0.9% (PF) 10 ML VIAL FS PRN (21:16)
[2019-03-05] MEDS: Lidocaine 5% Patch TD SCH (22:21)
[2019-03-06] MEDS: CEFAZOLIN 2 GM in Premix Bag 1 BAG IVPB SCH ×3 (02:16→18:20)
[2019-03-06] MEDS: hydrALAZINE 20 MG/ML VIAL SLOW IVP PRN (03:04)
[2019-03-06 04:36] LABS: Anion Gap 11 mmol/L (10-20); BUN (Urea Nitrogen) 14 mg/dL (9.8-20.1); Calc. Creatinine Clearance 173 mL/min (70-130); Calcium 8.8 mg/dL (7.8-10.44); Carbon Dioxide 28 mmol/L (23-31); Chloride 108 mmol/L (98-107); Estimated GFR-MDRD Greater than 90; Glucose 127 mg/dL (80-115); Potassium 3.7 mmol/L (3.5-5.1); Sodium 143 mmol/L (136-145)
[2019-03-06 05:13] LABS: Hemoglobin 10.4 g/dL (12.0-16.0); Mean Corpuscular HGB CONC 30.8 g/dL (32.0-36.0); Mean Corpuscular Volume 71.2 fL (78.0-98.0); Mean Platelet Volume 8.6 fL (7.4-10.4); Platelet Count 236 thou/uL (130-400); RBC Distribution Width 17.7 % (11.5-14.5); Red Blood Cell (RBC) Count 4.72 mill/uL (4.20-5.40); White Blood Cell (WBC) Count 15.1 thou/uL (4.8-10.8)
[2019-03-06 05:14] LABS: Anisocytosis SLIGHT = 6-15 cells (100X) (0-5/hpf); Band 4 % (5-11); Eosinophils 2 % (0-10); Lymphocytes 13 % (21-51); MDiff Complete? YES; Microcytosis SLIGHT = 6-15 cells (100X) (0-5/hpf); Monocytes 8 % (0-10); Neutrophil 72 % (42-75); Platelet Morphology Comment Appears Adequate; Polychromasia SLIGHT = 2-3 cells (100X) (0-2/hpf); Reactive Lymphocytes 1 % (0-10); Target Cells SLIGHT = 2-5 cells (100X) (0-1/hpf)
[2019-03-06] MEDS: Sodium Chloride 0.9% 1,000 ML IV SCH (06:44)
[2019-03-06] MEDS ORDERED: Sodium Chloride 0.9% 1,000 ML IV SCH (08:44)
[2019-03-06] MEDS: Metoprolol Tartrate 25 MG TAB PO SCH ×2 (09:14→21:55)
[2019-03-06] MEDS: Amlodipine 10 MG TAB PER TUBE SCH (09:15)
[2019-03-06] MEDS: Lisinopril 20 MG TAB PO SCH (09:16)
[2019-03-06] MEDS: hydrALAZINE 25 MG TAB PO SCH ×3 (09:16→21:55)
[2019-03-06] MEDS: Pantoprazole 40 MG VIAL IVP SCH ×2 (09:17→21:55)
[2019-03-06] MEDS: Potassium Chloride 20 MEQ TAB PO SCH (09:17)
[2019-03-06] MEDS: Lidocaine Patch Removal TOP SCH (09:20)
--- NOTE | 2019-03-06 10:02 | PRG ---
DATE OF SERVICE: 03/06/2019 I saw Luna Viramontes in Neurosurgery rounds this morning. Ms. Viramontes is approaching one week out from a suboccipital craniectomy with evacuation of cerebellar hemorrhage and placement of external ventricular drain. Overnight, the maximum temperature I see recorded is 99.7 degrees Fahrenheit. Her blood pressures have ranged between 130s and 160s. She is currently on an antihypertensive drip. On examination, Ms. Viramontes opens her eyes to voice. I got her to follow commands with all four of her extremities. EVD is patent and functional. The sodium this morning is 143. The white blood cell count is 15.1. Ms. Viramontes is making a slow, but steady recovery from her intracerebral hemorrhage affecting the cerebellum and causing obstructive hydrocephalus. I am going to leave the drain open over the weekend. If she spikes a significant fever, we can culture the CSF. Eventually, she will need placement either at skilled nursing or inpatient rehabilitation. I am optimistic that she will be able to participate in rehab eventually. We should avoid hypotonic fluids. Her current sodium of 143 is within a good range. Job ID: [id number] [facility]
[2019-03-06] MEDS ORDERED: Furosemide 40 MG/4 ML VIAL SLOW IVP SCH (11:15)
--- NOTE | 2019-03-06 11:22 | PRG ---
DATE OF SERVICE: 03/06/2019 SERVICE: Pulmonary Medicine. INTERVAL HISTORY: The patient is doing okay from respiratory standpoint. She is significantly volume overloaded. She is not able to provide any additional elements of the history. She is currently on mechanical sedation and sedated. PHYSICAL EXAMINATION: VITAL SIGNS: Afebrile, pulse 66, blood pressure 113/53, respirations 10, saturation 96%, currently on 28% FiO2 and a PEEP of 5. GENERAL: The patient is intubated. She is under the influence of some sedation. HEENT: Normocephalic and atraumatic. Sclerae are white. Conjunctivae are pink. Oral mucosa is moist without lesions. LUNGS: Good air entry. Rhonchi and crackles are present with no prolonged expiratory phase. HEART: Normal rate, regular. ABDOMEN: Soft, nontender, and nondistended. Bowel sounds are positive. MUSCULOSKELETAL: No cyanosis or clubbing. There is 2+ pitting throughout. LABORATORY DATA: WBC 15.1, hemoglobin 10.4, platelets 236,000. INR 1.1. Basic metabolic profile is completely unremarkable except for potassium of 3.7. Respiratory culture is unremarkable to-date. ASSESSMENT: 1. Acute hypoxic respiratory failure, status post failed extubation secondary to inability to protect airway. 2. Intracerebral hemorrhage of the cerebellum with obstructive hydrocephalus, status post external ventricular drain. 3. Obesity. 4. Obstructive sleep apnea. DISCUSSION AND PLAN: The patient is doing fine from respiratory standpoint. No attempt at repeat extubation will be considered as the patient has previously failed extubation. If the family is interested in being aggressive moving forward, tracheostomy will likely need to be considered in the near future unless she makes a profound neurologic recovery in a short period of time. I will introduce a touch of D5 water and get rid of the maintenance fluids. Doses of Lasix will be provided, and I will replace the potassium. I will check a magnesium tomorrow morning. CRITICAL CARE TIME: 30 minutes. Job ID: [id number]
[2019-03-06] MEDS: Dextrose 5% in Water 1,000 ML IV SCH (11:42)
[2019-03-06] MEDS: Furosemide 20 MG/2 ML VIAL SLOW IVP SCH (14:31)
--- NOTE | 2019-03-06 15:23 | PDOC.HOSPP ---
- Subjective Encounter Date: 03/06/19 Encounter Time: 09:00 non-verbal Subjective: Patient seen and examined for med mngt. No overnight events - Objective Vital Signs & Weight: Vital Signs (12 hours) Temp Pulse Resp BP 03/06/19 14:51 75 128/73 03/06/19 14:32 74 128/73 03/06/19 12:00 99.0 F 17 03/06/19 10:49 66 113/53 L 03/06/19 10:00 17 03/06/19 09:16 76 138/76 03/06/19 09:15 77 138/76 03/06/19 08:00 18 03/06/19 07:47 74 139/68 03/06/19 07:00 99.1 F 03/06/19 06:00 15 03/06/19 04:00 98.9 F 15 Weight Admit Weight 295 lb Weight 287 lb 0.67 oz Most Recent Monitor Data Heart Rate from ECG 71 NIBP 123/69 NIBP BP-Mean 87 Respiration from ECG 16 SpO2 97 I&O: 03/05/19 03/06/19 03/07/19 06:59 06:59 06:59 Intake Total 2948 3231.6 786 Output Total 2025 2522 1076 Balance 922 709.6 -290 Result Diagrams: 03/06/19 03:30 03/06/19 03:30 EKG Reviewed by me: Yes (Tele SR) Hospitalist ROS - Review of Systems ROS unobtainable: due to endotracheal tube - Medication Medications: Active Medications Generic Name Dose Route Start Last Admin Trade Name Freq PRN Reason Stop Dose Admin Acetaminophen 650 mg 03/02/19 10:45 03/05/19 02:24 Tylenol Elixir PER TUBE 650 mg Q4H PRN Administration Headache/Fever or Pain Amlodipine Besylate 10 mg 03/05/19 09:00 03/06/19 09:15 Norvasc PER TUBE 10 mg DAILY KALIE Administration Furosemide 20 mg 03/06/19 14:00 03/06/19 14:31 Lasix SLOW IVP 20 mg 0600,1400 KALIE Administration Hydralazine HCl 10 mg 02/28/19 01:10 02/28/19 07:46 Apresoline PO 10 mg Q6H PRN Administration Hypertension Hydralazine HCl 10 mg 03/01/19 16:33 03/06/19 03:04 Apresoline SLOW IVP 10 mg Q4H PRN Administration SBP > 165 Hydralazine HCl 75 mg 03/03/19 15:00 03/06/19 14:32 Apresoline PO 75 mg TID KALIE Administration Cefazolin Sodium/Dextrose 2 gm 50 mls @ 100 mls/hr 02/28/19 02:00 03/06/19 10 :10 / Device IVPB 50 mls 0200,1000,1800 KALIE Administration Nicardipine HCl 50 mg/ Sodium 250 mls @ 0 mls/hr 02/28/19 07:30 03/05/19 16: 18 Chloride IV 250 mls INF KALIE Administration Protocol As Directed Dextrose/Water 1,000 mls @ 50 mls/hr 03/06/19 11:15 03/06/19 11:42 D5w IV 1,000 mls .Q20H KALIE Administration Labetalol HCl 10 mg 02/28/19 00:57 03/04/19 13:55 Normodyne SLOW IVP 10 mg Q2H PRN Administration SBP > 140 or DBP > 90 Lidocaine 1 patch 03/02/19 21:00 03/05/19 22:21 Lidoderm 5% Patch TD 1 patch Q24HR KALIE Administration Lisinopril 40 mg 03/03/19 12:01 03/06/19 09:16 Zestril PO 40 mg DAILY KALIE Administration Magnesium Hydroxide 30 ml 02/28/19 00:57 03/02/19 23:18 Milk Of Magnesium PO 30 ml BIDPRN PRN Administration Constipation Metoprolol Tartrate 50 mg 03/05/19 09:00 03/06/19 09:14 Lopressor PO 50 mg BID KALIE Administration Miscellaneous Medication 1 each 03/02/19 09:00 03/06/19 09:20 Lidocaine Patch Removal TOP 1 each 0900 KALIE Administration Pantoprazole Sodium 40 mg 03/04/19 09:00 03/06/19 09:17 Protonix IVP 40 mg Q12HR KALIE Administration Potassium Chloride 20 meq 02/28/19 09:00 03/06/19 09:17 K-Dur PO 20 meq DAILY KALIE Administration Sodium Chloride 10 ml 02/28/19 01:19 03/05/19 21:16 Normal Saline Pf FS 10 ml PRN PRN Administration RECONSTITUTION - Exam General Appearance: NAD Heart: RRR, no gallops Respiratory: no wheezes, no rales Gastrointestinal: non-tender, non-distended, normal bowel sounds Extremities: no cyanosis Hosp A/P (1) HTN (hypertension) Code(s): I10 - ESSENTIAL (PRIMARY) HYPERTENSION Status: Chronic (2) Hematochezia Code(s): K92.1 - MELENA Status: Acute (3) HLD (hyperlipidemia) Code(s): E78.5 - HYPERLIPIDEMIA, UNSPECIFIED Status: Chronic (4) Morbid obesity with BMI of 45.0-49.9, adult Code(s): E66.01 - MORBID (SEVERE) OBESITY DUE TO EXCESS CALORIES; Z68.42 - BODY MASS INDEX (BMI) 45.0-49.9, ADULT Status: Chronic - Plan plan discussed w/ family, DVT proph w/SCDs Cont current HTN meds Monitor HH Toleraing tube feeds Reduce NS to KVO Cont Cardene drip Cont other meds
[2019-03-06] MEDS: Lidocaine 5% Patch TD SCH ×2 (21:54→21:55)
[2019-03-07] MEDS: CEFAZOLIN 2 GM in Premix Bag 1 BAG IVPB SCH ×3 (02:26→17:39)
[2019-03-07 04:10] LABS: Anion Gap 10 mmol/L (10-20); BUN (Urea Nitrogen) 19 mg/dL (9.8-20.1); Calc. Creatinine Clearance 162 mL/min (70-130); Calcium 8.8 mg/dL (7.8-10.44); Carbon Dioxide 32 mmol/L (23-31); Chloride 101 mmol/L (98-107); Estimated GFR-MDRD Greater than 90; Glucose 142 mg/dL (80-115); Potassium 3.4 mmol/L (3.5-5.1); Sodium 140 mmol/L (136-145)
[2019-03-07 04:18] LABS: #Eosinphils 0.2 thou/uL (0.0-0.7); #Lymphocytes 2.1 thou/uL (1.20-3.40); #Monocytes 1.6 thou/uL (0.11-0.59); #Neutrophils 10.2 thou/uL (1.40-6.50); %Basophils 0.3 % (0.0-1.0); %Eosinophils 1.3 % (0.0-10.0); %Lymphocytes 14.9 % (21.0-51.0); %Monocytes 11.1 % (0.0-10.0); %Neutrophils 72.4 % (42.0-75.0); Anisocytosis SLIGHT = 6-15 cells (100X) (0-5/hpf); Hemoglobin 9.9 g/dL (12.0-16.0); Hypochromia SLIGHT = 6-15 cells (100X) (0-5/hpf); MDiff Complete? YES; Mean Corpuscular HGB CONC 30.7 g/dL (32.0-36.0); Mean Corpuscular Hemoglobin 21.7 pg (27.0-31.0); Mean Corpuscular Volume 70.7 fL (78.0-98.0); Microcytosis SLIGHT = 6-15 cells (100X) (0-5/hpf); Platelet Count 261 thou/uL (130-400); Platelet Morphology Comment Appears Adequate; Polychromasia SLIGHT = 2-3 cells (100X) (0-2/hpf); RBC Distribution Width 17.4 % (11.5-14.5); Red Blood Cell (RBC) Count 4.56 mill/uL (4.20-5.40); Target Cells SLIGHT = 2-5 cells (100X) (0-1/hpf)
[2019-03-07] MEDS: Furosemide 20 MG/2 ML VIAL SLOW IVP SCH (05:56)
[2019-03-07] MEDS: Amlodipine 10 MG TAB PER TUBE SCH (08:24)
[2019-03-07] MEDS: Potassium Chloride 20 MEQ TAB PO SCH (08:24)
[2019-03-07] MEDS: Metoprolol Tartrate 25 MG TAB PO SCH ×2 (08:24→23:10)
[2019-03-07] MEDS: Lisinopril 20 MG TAB PO SCH (08:25)
[2019-03-07] MEDS: Pantoprazole 40 MG VIAL IVP SCH ×2 (08:26→20:22)
[2019-03-07] MEDS: Dextrose 5% in Water 1,000 ML IV SCH (08:26)
[2019-03-07] MEDS: hydrALAZINE 25 MG TAB PO SCH ×3 (08:41→20:36)
[2019-03-07] MEDS: Lidocaine Patch Removal TOP SCH (09:13)
--- NOTE | 2019-03-07 10:47 | PRG ---
DATE OF SERVICE: 03/07/2019 I saw Ms. Viramontes in her ICU room. Her daughter is at the bedside. No events have been reported. Among the electronic vital signs, I see maximum temperature recorded at 99.0. Her systolic blood pressures have ranged between the 90s and 120s. On examination, Ms. Viramontes follows commands with both upper and lower extremities. She is still dependent on her EVD with drainage somewhere between 4 and 12 mL an hour. Her white blood cell count is 14.0, which is decreasing. Her sodium is 140. Ms. Viramontes is neurologically stable. I am not going to make any changes to the EVD over the weekend. She continues to follow commands. Because she is over a week out from her craniotomy and remains on the ventilator, I think decisions will be made in the coming week regarding tracheostomy and gastrostomy and likely over the next week will be weaned off her EVD. Job ID: [id number]
--- NOTE | 2019-03-07 12:27 | PRG ---
DATE OF SERVICE: 03/07/2019 SERVICE: Pulmonary Medicine. INTERVAL HISTORY: The patient is doing fine from respiratory standpoint. Urologically, things have not changed significantly. The family is likely going to be pursuing a PEG tube and tracheostomy in order to get her more time to recover from her event. She appears to be comfortable and indicates that she has no significant distress. PHYSICAL EXAMINATION: VITAL SIGNS: Afebrile, pulse 67, blood pressure 108/59, respirations 11, and saturation 97%, currently on 29% FiO2 and a PEEP of 5. GENERAL: The patient is awake and alert. She is in no apparent distress. LUNGS: Decent air entry. Rhonchi are minimal. They clear with cough. No prolonged expiratory phase or wheezing is appreciated. HEART: Normal rate. Regular. ABDOMEN: Soft, nontender, and nondistended. Bowel sounds are positive. MUSCULOSKELETAL: No cyanosis or clubbing. The peripheral edema is improving. LABORATORY DATA: WBC 14.0, hemoglobin 9.9, and platelets 261,000. Potassium 3.4. Basic metabolic profile is otherwise unremarkable. Respiratory culture is negative to-date. ASSESSMENT: 1. Acute hypoxic respiratory failure, status post failed extubation secondary to inability to protect airway. 2. Intraparenchymal hemorrhage of the cerebellum with obstructive hydrocephalus , status post external ventricular drain. 3. Obesity. 4. Obstructive sleep apnea. DISCUSSION AND PLAN: The patient is doing great from respiratory standpoint. I will replace her potassium today. We will continue to diurese down to euvolemia. Pulmonary/Critical Care will follow. Critical care time: 30 min Job ID: [id number] MTDD
--- NOTE | 2019-03-07 13:24 | PDOC.HOSPP ---
- Subjective Encounter Date: 03/07/19 Encounter Time: 09:00 non-verbal Subjective: Patient seen and examined for med mngt. On Vent. No overnight events - Objective Vital Signs & Weight: Vital Signs (12 hours) Temp Pulse Resp BP Pulse Ox 03/07/19 12:00 16 03/07/19 11:26 67 108/59 L 03/07/19 10:00 14 03/07/19 08:41 74 129/67 03/07/19 08:25 125/68 03/07/19 08:24 72 129/69 03/07/19 08:00 13 100 03/07/19 07:08 71 125/68 03/07/19 07:00 98.7 F 03/07/19 06:00 13 03/07/19 04:00 98.8 F 14 03/07/19 02:34 63 98/58 L 03/07/19 02:00 17 Weight Admit Weight 295 lb Weight 282 lb 3.067 oz Most Recent Monitor Data Heart Rate from ECG 70 NIBP 137/69 NIBP BP-Mean 91 Respiration from ECG 13 SpO2 96 I&O: 03/06/19 03/07/19 03/08/19 06:59 06:59 06:59 Intake Total 3231.6 3662 200 Output Total 2522 2979 656 Balance 709.6 683 -456 Result Diagrams: 03/07/19 03:36 03/07/19 03:36 EKG Reviewed by me: Yes (Tele SR) Hospitalist ROS - Review of Systems ROS unobtainable: due to endotracheal tube - Medication Medications: Active Medications Generic Name Dose Route Start Last Admin Trade Name Freq PRN Reason Stop Dose Admin Acetaminophen 650 mg 03/02/19 10:45 03/05/19 02:24 Tylenol Elixir PER TUBE 650 mg Q4H PRN Administration Headache/Fever or Pain Amlodipine Besylate 10 mg 03/05/19 09:00 03/07/19 08:24 Norvasc PER TUBE 10 mg DAILY KALIE Administration Hydralazine HCl 10 mg 02/28/19 01:10 02/28/19 07:46 Apresoline PO 10 mg Q6H PRN Administration Hypertension Hydralazine HCl 10 mg 03/01/19 16:33 03/06/19 03:04 Apresoline SLOW IVP 10 mg Q4H PRN Administration SBP > 165 Hydralazine HCl 75 mg 03/03/19 15:00 03/07/19 08:41 Apresoline PO 75 mg TID KALIE Administration Cefazolin Sodium/Dextrose 2 gm 50 mls @ 100 mls/hr 02/28/19 02:00 03/07/19 08 :56 / Device IVPB 50 mls 0200,1000,1800 KALIE Administration Nicardipine HCl 50 mg/ Sodium 250 mls @ 0 mls/hr 02/28/19 07:30 03/05/19 16: 18 Chloride IV 250 mls INF KALIE Administration Protocol As Directed Labetalol HCl 10 mg 02/28/19 00:57 03/04/19 13:55 Normodyne SLOW IVP 10 mg Q2H PRN Administration SBP > 140 or DBP > 90 Lidocaine 1 patch 03/02/19 21:00 03/06/19 21:55 Lidoderm 5% Patch TD Not Given Q24HR [facility] Lisinopril 40 mg 03/03/19 12:01 03/07/19 08:25 Zestril PO 40 mg DAILY KALIE Administration Magnesium Hydroxide 30 ml 02/28/19 00:57 03/02/19 23:18 Milk Of Magnesium PO 30 ml BIDPRN PRN Administration Constipation Metoprolol Tartrate 50 mg 03/05/19 09:00 03/07/19 08:24 Lopressor PO 50 mg BID KALIE Administration Miscellaneous Medication 1 each 03/02/19 09:00 03/07/19 09:13 Lidocaine Patch Removal TOP 1 each 0900 KALIE Administration Pantoprazole Sodium 40 mg 03/04/19 09:00 03/07/19 08:26 Protonix IVP 40 mg Q12HR KALIE Administration Potassium Chloride 20 meq 02/28/19 09:00 03/07/19 08:24 K-Dur PO 20 meq DAILY KALIE Administration Sodium Chloride 10 ml 02/28/19 01:19 03/05/19 21:16 Normal Saline Pf FS 10 ml PRN PRN Administration RECONSTITUTION - Exam General Appearance: NAD (On Vent. Follows commands to some extent) Heart: no gallops, no rubs Respiratory: no wheezes, no rales, rhonchi Gastrointestinal: soft, non-tender, normal bowel sounds Hosp A/P (1) HTN (hypertension) Code(s): I10 - ESSENTIAL (PRIMARY) HYPERTENSION Status: Chronic (2) Hematochezia Code(s): K92.1 - MELENA Status: Acute (3) HLD (hyperlipidemia) Code(s): E78.5 - HYPERLIPIDEMIA, UNSPECIFIED Status: Chronic (4) Morbid obesity with BMI of 45.0-49.9, adult Code(s): E66.01 - MORBID (SEVERE) OBESITY DUE TO EXCESS CALORIES; Z68.42 - BODY MASS INDEX (BMI) 45.0-49.9, ADULT Status: Chronic (5) Hypokalemia Code(s): E87.6 - HYPOKALEMIA Status: Acute - Plan DVT proph w/SCDs Cont current HTN meds IVF changed to KVO HH stable Cont tube feeds tube feeds Cont Cardene drip PRN Gentle diuresis Cont other meds Replace Potassium
[2019-03-07] MEDS: Lidocaine 5% Patch TD SCH (20:36)
[2019-03-08] MEDS: CEFAZOLIN 2 GM in Premix Bag 1 BAG IVPB SCH ×3 (01:11→17:28)
[2019-03-08 04:26] LABS: Phosphorus 3.3 mg/dL (2.3-4.7)
[2019-03-08 04:30] LABS: Anion Gap 12 mmol/L (10-20); BUN (Urea Nitrogen) 16 mg/dL (9.8-20.1); Calc. Creatinine Clearance 181 mL/min (70-130); Calcium 8.6 mg/dL (7.8-10.44); Carbon Dioxide 30 mmol/L (23-31); Chloride 101 mmol/L (98-107); Estimated GFR-MDRD Greater than 90; Glucose 132 mg/dL (80-115); Magnesium 2.1 mg/dL (1.6-2.6); Potassium 3.6 mmol/L (3.5-5.1); Sodium 139 mmol/L (136-145)
[2019-03-08 05:20] LABS: #Basophils 0.1 thou/uL (0.0-0.2); #Eosinphils 0.2 thou/uL (0.0-0.7); #Lymphocytes 1.5 thou/uL (1.20-3.40); #Monocytes 0.9 thou/uL (0.11-0.59); #Neutrophils 8.1 thou/uL (1.40-6.50); %Basophils 0.6 % (0.0-1.0); %Eosinophils 2.3 % (0.0-10.0); %Lymphocytes 13.8 % (21.0-51.0); %Monocytes 8.4 % (0.0-10.0); %Neutrophils 74.9 % (42.0-75.0); Anisocytosis SLIGHT = 6-15 cells (100X) (0-5/hpf); Hemoglobin 10.2 g/dL (12.0-16.0); Large Platelets SLIGHT; MDiff Complete? YES; Mean Corpuscular HGB CONC 30.5 g/dL (32.0-36.0); Mean Corpuscular Hemoglobin 21.8 pg (27.0-31.0); Mean Corpuscular Volume 71.5 fL (78.0-98.0); Mean Platelet Volume 12.5 fL (7.4-10.4); Platelet Count 229 thou/uL (130-400); RBC Distribution Width 17.2 % (11.5-14.5); Red Blood Cell (RBC) Count 4.65 mill/uL (4.20-5.40); White Blood Cell (WBC) Count 10.8 thou/uL (4.8-10.8)
[2019-03-08] MEDS: Furosemide 20 MG/2 ML VIAL SLOW IVP SCH (05:25)
--- NOTE | 2019-03-08 08:52 | PRG ---
DATE OF SERVICE: 03/08/2019 35 minutes critical time. SUBJECTIVE: The patient remains on mechanical ventilation. There has been no acute changes overnight. OBJECTIVE: VITAL SIGNS: Temperature 98.9, pulse 84, blood pressure 119/62, O2 saturation 96%. HEENT: Has a drain in place. She has no gag reflex when suctioned by Yankauer orally, but does cough when receiving deep tracheal suctioning. CARDIAC: S1 and S2 regular. LUNGS: Clear. ABDOMEN: Soft, nontender. EXTREMITIES: No edema. LABORATORY DATA: White blood cell count 10.8, hematocrit 33.2, and platelet count 229. Sodium 139, potassium 3.6, chloride 101, CO2 of 30, BUN 16, creatinine 0.6 glucose 132. ASSESSMENT: 1. Status post cerebellar stroke. 2. Obstructive hydrocephalus. 3. Obesity. 4. Likely underlying obstructive sleep apnea. 5. Poor oropharyngeal function status post that stroke. 6. Acute hypoxic respiratory failure, requiring mechanical ventilation. PLAN: In my opinion, she will likely need a tracheostomy and PEG tube placement. I broached this idea with the daughter today. She will discuss it with the patient's . I would be happy to sit down to talk with him when it is convenient. The alternative would be to extubate, see how she does. However, given the lack of gag reflex, I doubt she would do well. Job ID: [id number]
[2019-03-08] MEDS: Pantoprazole 40 MG VIAL IVP SCH ×2 (09:27→21:57)
[2019-03-08] MEDS: Scopolamine 1.5 mg/72 hour Patch TD SCH (09:34)
[2019-03-08] MEDS: Dextrose 5% in Water 1,000 ML IV SCH (09:37)
[2019-03-08] MEDS: Potassium Chloride 20 MEQ TAB PO SCH (09:48)
[2019-03-08] MEDS: Amlodipine 10 MG TAB PER TUBE SCH (09:50)
--- NOTE | 2019-03-08 10:39 | OP ---
DATE OF PROCEDURE: 02/27/2019 Modifier 57 should be added to this surgery as the decision to operate was made on the day I saw the patient. PREPROCEDURE DIAGNOSIS: Large left cerebellar hemorrhage due to hypertension with herniation, mass effect, and neurologic decline. POSTPROCEDURE DIAGNOSIS: Large left cerebellar hemorrhage due to hypertension with herniation, mass effect, and neurologic decline. TOWER HELPER: Fatou Martin PA-C PROCEDURES PERFORMED: 1. Placement of right frontal external ventricular drain to relieve intracranial pressure. 2. Suboccipital craniectomy for infratentorial cerebellar hematoma evacuation. DESCRIPTION OF PROCEDURE: After informed consent was obtained from the patient's family in the emergent nature conveyed to them, the patient was brought to the OR. Proper patient, pause, and identification were carried out. Her neurologic status declined to the point of obtunded and near comatose. Her airway was secured. An external ventricular drain was placed, following hair clipped in the right frontal region, sterile cleansing, preparation, and draping, and a twist drill perforated through the skull and then the catheter placed through with the CSF under high pressure. This was tunneled and secured to the scalp and set at 15 cm of water open. We then placed her prone, following the Madeline header machine operator placement and the midline suboccipital region was sterilely cleansed, prepared, and draped and an incision was drawn out. This area was sterilely cleansed, prepared, and draped. Proper patient, pause, and identification were carried out. The wound was then opened with a combination of sharp, monopolar, and blunt dissection. The suboccipital skull was identified, and a suboccipital craniectomy was performed. The dura was opened. Hematoma was immediately identified and evacuated until the brain was pulsatile and relaxed. The closure then began following copious irrigation, and the drain was lowered to open at 10 cm of water. The patient was kept intubated . Job ID: [id number]
--- NOTE | 2019-03-08 12:40 | PRG ---
DATE OF SERVICE: 03/08/2019 This is Armaan Strong PA-C dictating a report for Vishnu Brannon MD. Wander is now postoperative day number 8 having sustained a left cerebellar hemorrhage and subsequently underwent craniotomy for evacuation of this. She continues to have EVD. The EVD output has been 3-11 mL/h. Her ICP has remained 8-10. We raise her EVD up to 15 cm of water and we will likely send some CSF for sampling. She will need a trach and PEG later likely this week and also a RASPER MACHINE OPERATOR shunt shunt. On neurologic exam, when asked if the patient is hurting, she shakes her head no. She is still intubated. She follows commands in all 4 extremities. We will continue to monitor her neurologically and we will plan for repeat head CT tomorrow morning since we are attempting a wean. Job ID: [id number]
[2019-03-08] MEDS: hydrALAZINE 25 MG TAB PO SCH ×3 (13:15→21:59)
[2019-03-08] MEDS: Metoprolol Tartrate 25 MG TAB PO SCH (13:16)
[2019-03-08] MEDS: Lisinopril 20 MG TAB PO SCH (13:25)
[2019-03-08] MEDS: Lidocaine Patch Removal TOP SCH (13:26)
--- NOTE | 2019-03-08 19:49 | PDOC.HOSPP ---
- Subjective Encounter Date: 03/08/19 Encounter Time: 14:00 non-verbal Subjective: Patient seen and examined for Resp failure. On Vent. No overnight events - Objective Vital Signs & Weight: Vital Signs (12 hours) Temp Pulse Resp BP Pulse Ox 03/08/19 19:23 71 118/71 03/08/19 18:00 13 03/08/19 16:00 99.0 F 12 03/08/19 14:45 68 106/60 03/08/19 14:00 23 H 03/08/19 13:25 116/65 03/08/19 13:17 82 116/65 03/08/19 13:15 82 116/65 03/08/19 12:00 98.9 F 12 03/08/19 10:37 82 116/65 03/08/19 10:00 15 03/08/19 09:50 82 112/67 03/08/19 08:00 98.9 F 12 99 Weight Admit Weight 295 lb Weight 285 lb 4.45 oz Most Recent Monitor Data Heart Rate from ECG 76 NIBP 116/69 NIBP BP-Mean 84 Respiration from ECG 16 SpO2 97 I&O: 03/07/19 03/08/19 03/09/19 06:59 06:59 06:59 Intake Total 3662 2897 1208 Output Total 2979 2634 1016 Balance 683 263 192 Result Diagrams: 03/08/19 03:28 03/08/19 03:28 EKG Reviewed by me: Yes (Tele SR) Hospitalist ROS - Review of Systems ROS unobtainable: due to endotracheal tube - Medication Medications: Active Medications Generic Name Dose Route Start Last Admin Trade Name Freq PRN Reason Stop Dose Admin Acetaminophen 650 mg 03/02/19 10:45 03/05/19 02:24 Tylenol Elixir PER TUBE 650 mg Q4H PRN Administration Headache/Fever or Pain Amlodipine Besylate 10 mg 03/05/19 09:00 03/08/19 09:50 Norvasc PER TUBE 10 mg DAILY KALIE Administration Furosemide 20 mg 03/08/19 06:00 03/08/19 05:25 Lasix SLOW IVP 20 mg 0600 KALIE Administration Hydralazine HCl 10 mg 03/01/19 16:33 03/06/19 03:04 Apresoline SLOW IVP 10 mg Q4H PRN Administration SBP > 165 Hydralazine HCl 75 mg 03/03/19 15:00 03/08/19 13:17 Apresoline PO Not Given TID KALIE Cefazolin Sodium/Dextrose 2 gm 50 mls @ 100 mls/hr 02/28/19 02:00 03/08/19 17 :28 / Device IVPB 50 mls 0200,1000,1800 KALIE Administration Nicardipine HCl 50 mg/ Sodium 250 mls @ 0 mls/hr 02/28/19 07:30 03/05/19 16: 18 Chloride IV 250 mls INF KALIE Administration Protocol As Directed Dextrose/Water 1,000 mls @ 0 mls/hr 03/07/19 12:12 03/08/19 09:37 D5w IV 1,000 mls .Q0M KALIE Administration KVO Labetalol HCl 10 mg 02/28/19 00:57 03/04/19 13:55 Normodyne SLOW IVP 10 mg Q2H PRN Administration SBP > 140 or DBP > 90 Lidocaine 1 patch 03/02/19 21:00 03/07/19 20:36 Lidoderm 5% Patch TD Not Given Q24HR KALIE Lisinopril 40 mg 03/03/19 12:01 03/08/19 13:25 Zestril PO Not Given DAILY KALIE Magnesium Hydroxide 30 ml 02/28/19 00:57 03/02/19 23:18 Milk Of Magnesium PO 30 ml BIDPRN PRN Administration Constipation Metoprolol Tartrate 50 mg 03/05/19 09:00 03/08/19 13:16 Lopressor PO 50 mg BID KALIE Administration Miscellaneous Medication 1 each 03/02/19 09:00 03/08/19 13:26 Lidocaine Patch Removal TOP Not Given 09 KALIE Pantoprazole Sodium 40 mg 03/04/19 09:00 03/08/19 09:27 Protonix IVP 40 mg Q12HR KALIE Administration Potassium Chloride 20 meq 02/28/19 09:00 03/08/19 09:48 K-Dur PO 20 meq DAILY KALIE Administration Scopolamine 1.5 mg 03/08/19 08:45 03/08/19 09:34 Transderm Scop TD 1.5 mg Q3D KALIE Administration Sodium Chloride 10 ml 02/28/19 01:19 03/05/19 21:16 Normal Saline Pf FS 10 ml PRN PRN Administration RECONSTITUTION - Exam General Appearance: NAD Neck: supple, no JVD Heart: RRR, no gallops Respiratory: no wheezes, no rales, rhonchi Gastrointestinal: soft, non-tender, normal bowel sounds Neurological: no new deficit Hosp A/P (1) HTN (hypertension) Code(s): I10 - ESSENTIAL (PRIMARY) HYPERTENSION Status: Chronic (2) Hematochezia Code(s): K92.1 - MELENA Status: Resolved (3) HLD (hyperlipidemia) Code(s): E78.5 - HYPERLIPIDEMIA, UNSPECIFIED Status: Chronic (4) Morbid obesity with BMI of 45.0-49.9, adult Code(s): E66.01 - MORBID (SEVERE) OBESITY DUE TO EXCESS CALORIES; Z68.42 - BODY MASS INDEX (BMI) 45.0-49.9, ADULT Status: Chronic (5) Hypokalemia Code(s): E87.6 - HYPOKALEMIA Status: Acute - Plan DVT proph w/SCDs Trach/PEG - Gen surg consulted Cont current HTN meds HH stable Cont tube feeds Cont Cardene drip PRN Cont other meds
[2019-03-08] MEDS: Lidocaine 5% Patch TD SCH (22:16)
[2019-03-09] MEDS: Metoprolol Tartrate 25 MG TAB PO SCH ×3 (01:21→21:59)
[2019-03-09] MEDS: CEFAZOLIN 2 GM in Premix Bag 1 BAG IVPB SCH ×3 (02:42→18:10)
[2019-03-09 03:47] LABS: Anion Gap 12 mmol/L (10-20); BUN (Urea Nitrogen) 17 mg/dL (9.8-20.1); Calc. Creatinine Clearance 173 mL/min (70-130); Calcium 8.8 mg/dL (7.8-10.44); Carbon Dioxide 31 mmol/L (23-31); Chloride 99 mmol/L (98-107); Estimated GFR-MDRD Greater than 90; Glucose 115 mg/dL (80-115); Sodium 138 mmol/L (136-145)
[2019-03-09 04:26] LABS: #Basophils 0.1 thou/uL (0.0-0.2); #Eosinphils 0.2 thou/uL (0.0-0.7); #Lymphocytes 1.9 thou/uL (1.20-3.40); #Monocytes 1.2 thou/uL (0.11-0.59); %Basophils 0.6 % (0.0-1.0); %Eosinophils 1.8 % (0.0-10.0); %Lymphocytes 14.1 % (21.0-51.0); %Neutrophils 74.4 % (42.0-75.0); Hemoglobin 9.7 g/dL (12.0-16.0); Large Platelets SLIGHT; MDiff Complete? YES; Mean Corpuscular HGB CONC 31.3 g/dL (32.0-36.0); Mean Corpuscular Hemoglobin 22.1 pg (27.0-31.0); Mean Corpuscular Volume 70.6 fL (78.0-98.0); Mean Platelet Volume 10.8 fL (7.4-10.4); Microcytosis SLIGHT = 6-15 cells (100X) (0-5/hpf); Platelet Count 198 thou/uL (130-400); Platelet Morphology Comment Appears Adequate; RBC Distribution Width 17.4 % (11.5-14.5); White Blood Cell (WBC) Count 13.5 thou/uL (4.8-10.8)
[2019-03-09] MEDS: Furosemide 20 MG/2 ML VIAL SLOW IVP SCH (06:18)
[2019-03-09] MEDS ORDERED: Lidocaine 1% w/Epinephrine 1:100K 20 ML VIAL FS PRN (07:39)
--- NOTE | 2019-03-09 07:39 | CT ---
PRELIMINARY REPORT/[facility]/EMERGENCY AFTER HOURS PROCEDURE EXAM: CT Head Without Intravenous Contrast. CLINICAL HISTORY: F/U ICH TECHNIQUE: Axial computed tomography images of the head/brain without intravenous contrast. COMPARISON: CT - CT BRAIN WO CON - 03/04/2019 10:25 AM AUTOMOTIVE PARTS MANAGER FINDINGS: BRAIN: There is a left occipital craniotomy with a decreased intracranial gas since the last examinat ion. There is a interval decrease in vasogenic edema and midline shift in the posterior fossa. The fourth ventricle is slightly larger compared to prior examination. No evidence of a new bleed. VENTRICLES: The right frontal shunt catheter tip is seen in the left lateral ventricle, unchanged. B ilateral lateral ventricles are relative normal in size when compared to prior examination. ORBITS: The orbits are unremarkable. SINUSES AND MASTOIDS: The paranasal sinuses and mastoid air cells are clear. SOFT TISSUES: No significant facial or scalp soft tissue swelling evident. No radiopaque foreign body is seen. BONES: No acute skull fracture. IMPRESSION: 1. There is a left occipital craniotomy with a decreased intracranial gas since the last examination. There is a interval decrease in vasogenic edema and midline shift in the posterior fossa. The fourth ventricle is slightly larger compared to prior examination. No evidence of a new bleed. 2. The right frontal shunt catheter tip is seen in the left lateral ventricle, unchanged. ELECTRONICALLY SIGNED BY: Angelito Sweeney MD Mar 09, 2019 6:23:07 AM AUTOMOTIVE PARTS MANAGER This report is intended for review by the ordering physician only, in accordance of law. If you recei ve this report in error, please call [facility] at [phone]. FINAL REPORT HEAD CT WITHOUT CONTRAST: 03/09/2019 COMPARISON: 03/04/2019. HISTORY: Reevaluate intracranial hemorrhage. FINDINGS: The patient is status post left occipital craniotomy. Stable small fluid collection is seen within the adjacent soft tissues in the left suboccipital region. There is vague hyperdensity within the left cerebellar hemisphere on axial image 9 measuring approximately 1.1 cm suggesting resi dual hematoma, improved when compared to the prior exam. There is prominent associated vasogenic edema with obliteration of the fourth ventricle inferiorly as before. The superior aspect of the four th ventricle is larger than on the prior examination suggesting mild interval improvement in previously noted posterior fossa mass effect. Stable ventriculostomy tube inserted via a right fronta l approach. The lateral ventricles are slightly enlarged when compared to the prior examination, especially the frontal horns. IMPRESSION: Residual prominent vasogenic edema within the posterior fossa/left cerebellar hemisphere with continued marked mass effect on the fourth ventricles, slightly improved. Of note, the lateral ventricles are slightly dilated when compared to the prior examination. Correlation for function of v entriculostomy tube advised. Close follow-up recommended. Transcribed Date/Time: 03/09/2019 7:56 AM
[2019-03-09] MEDS ORDERED: Vecuronium 10 MG VIAL IV PRN (07:40)
[2019-03-09] MEDS ORDERED: Midazolam HCl 5 mg/5 ml Vial SLOW IVP PRN (07:41)
[2019-03-09] MEDS ORDERED: Fentanyl 100 MCG/2 ML VIAL SLOW IVP PRN (07:42)
--- NOTE | 2019-03-09 08:23 | PRG ---
DATE OF SERVICE: 03/09/2019 35 minutes of critical care time. SUBJECTIVE: The patient remains intubated on mechanical ventilation. She is on no sedation. She wakes up easily. OBJECTIVE: VITAL SIGNS: Temperature 98.1, pulse 74, blood pressure 139/78, O2 saturation 96%. Intake 2043, output 1722. HEENT: Remarkable for the interventricular drain in place. She is orally intubated. NECK: No adenopathy or JVD. LUNGS: Clear to auscultation. CARDIAC: S1-S2 regular without audible murmur. ABDOMEN: Soft and nontender. EXTREMITIES: No clubbing, cyanosis, or edema. LABORATORY DATA: Sodium 138, potassium 4, chloride 99, CO2 of 31, BUN 17, creatinine 0.6, glucose 115. White blood cell count 13, hematocrit 31, platelet count 198. ASSESSMENT: 1. Status post cerebellar stroke with hemorrhage. 2. Obstructive hydrocephalus. 3. Obesity. 4. Likely underlying obstructive sleep apnea. 5. Poor oropharyngeal function with poor gag reflex. 6. Acute hypoxic respiratory failure requiring mechanical ventilation with one failed extubation. PLAN: I discussed with daughter and yesterday. I have recommended proceeding with tracheostomy placement for control of the patient's secretion and as a way to feed the patient while she is recuperating from her stroke. I have consulted Dr. Montano, who will perform the procedures at his first convenience. I reviewed the remainder of her orders and medications. We will follow. Job ID: [id number]
[2019-03-09] MEDS: Lisinopril 20 MG TAB PO SCH (09:33)
[2019-03-09] MEDS: Amlodipine 10 MG TAB PER TUBE SCH (09:34)
[2019-03-09] MEDS: Pantoprazole 40 MG VIAL IVP SCH ×2 (09:35→22:00)
[2019-03-09] MEDS: Potassium Chloride 20 MEQ TAB PO SCH (09:35)
[2019-03-09] MEDS: Lidocaine Patch Removal TOP SCH (09:35)
--- NOTE | 2019-03-09 10:05 | ULT ---
Bilateral lower extremity venous duplex sonogram HISTORY: Bilateral leg pain and edema. FINDINGS: Each common femoral vein and greater saphenous junction were evaluated along with each femo ral, deep femoral, popliteal, and posterior tibial vein. There is good color and spectral Doppler flow, compression, and augmentation. IMPRESSION: No sonographic evidence of DVT within either lower extremity.
--- NOTE | 2019-03-09 11:33 | PRG ---
DATE OF SERVICE: 03/09/2019 Ms. Viramontes is 9 days into her hospitalization, head CT today with her EVD set at 15 cm of water and open demonstrates slight ventricular enlargement, but certainly not ventriculomegaly. She remains alert and follows commands. She is undergoing trach and PEG placement today. An ultrasound of the lower extremities is also being ordered. We will raise her EVD to 20 cm of water and open and follow her neurologic exam and output. Her output has been approximately 10 mL hourly when it was at 10 cm of water and open or 15 cm of water and open. If she is not able to pass the EVD wean process, then she will need a shunt. Her posterior fossa remains quite tight; however, her fourth ventricle is beginning to open up. I should note that we are sending CSF and the preliminary results in the CSF is negative Gram stain. Job ID: [id number]
[2019-03-09] MEDS: Midazolam HCl 2 mg/2 ml Vial SLOW IVP PRN ×5 (11:40→13:09)
[2019-03-09] MEDS: Fentanyl 100 MCG/2 ML VIAL SLOW IVP PRN ×3 (11:40→13:15)
[2019-03-09] MEDS ORDERED: Midazolam HCl 2 mg/2 ml Vial ONE (11:43)
[2019-03-09] MEDS ORDERED: Fentanyl 100 MCG/2 ML VIAL ONE ×2 (11:58→12:01)
[2019-03-09] MEDS ORDERED: Propofol 1,000 MG/100 ML VIAL IV ONE (12:08)
[2019-03-09 12:33] LABS: CSF Source CSF
[2019-03-09 12:34] LABS: Clarity Hazy (Clear); Tube # EDTA
[2019-03-09] MEDS: hydrALAZINE 25 MG TAB PO SCH ×3 (14:24→21:59)
[2019-03-09] MEDS ORDERED: Enoxaparin Sodium 40 MG/0.4 ML SYRINGE SC SCH ×2 (21:00)
[2019-03-09] MEDS: Acetaminophen 650 MG/20.3 ML UDCUP PER TUBE PRN (22:00)
--- NOTE | 2019-03-09 22:34 | PDOC.HOSPP ---
- Subjective Encounter Date: 03/09/19 Encounter Time: 13:00 non-verbal Subjective: Patient seen and examined for med mngt. s/p trach/PEG at bedside. No overnight events - Objective Vital Signs & Weight: Vital Signs (12 hours) Temp Pulse Resp BP Pulse Ox 03/09/19 21:59 82 145/79 H 03/09/19 20:00 99.4 F 96 03/09/19 19:13 80 97 03/09/19 18:09 83 145/86 H 03/09/19 18:00 15 03/09/19 16:00 15 03/09/19 15:39 83 145/86 H 03/09/19 14:24 77 03/09/19 14:00 98.8 F 16 03/09/19 12:16 77 03/09/19 12:00 16 Weight Admit Weight 295 lb Weight 278 lb 0.046 oz Most Recent Monitor Data Heart Rate from ECG 82 NIBP 140/90 NIBP BP-Mean 106 Respiration from ECG 24 SpO2 97 I&O: 03/08/19 03/09/19 03/10/19 06:59 06:59 06:59 Intake Total 2897 2043 50 Output Total 2634 1722 1176 Balance 263 321 -1126 Result Diagrams: 03/10/19 03:05 03/10/19 03:05 EKG Reviewed by me: Yes (Tele SR) Hospitalist ROS - Review of Systems ROS unobtainable: due to mental status - Medication Medications: Active Medications Generic Name Dose Route Start Last Admin Trade Name Freq PRN Reason Stop Dose Admin Acetaminophen 650 mg 03/02/19 10:45 03/09/19 22:00 Tylenol Elixir PER TUBE 650 mg Q4H PRN Administration Headache/Fever or Pain Amlodipine Besylate 10 mg 03/05/19 09:00 03/09/19 09:34 Norvasc PER TUBE 10 mg DAILY KALIE Administration Enoxaparin Sodium 40 mg 03/09/19 21:00 03/09/19 21:59 Lovenox SC 40 mg 2100 KALIE Administration Furosemide 20 mg 03/08/19 06:00 03/09/19 06:18 Lasix SLOW IVP 20 mg 0600 KALIE Administration Hydralazine HCl 10 mg 03/01/19 16:33 03/06/19 03:04 Apresoline SLOW IVP 10 mg Q4H PRN Administration SBP > 165 Hydralazine HCl 75 mg 03/08/19 21:00 03/09/19 21:59 Apresoline PO 75 mg TID KALIE Administration Cefazolin Sodium/Dextrose 2 gm 50 mls @ 100 mls/hr 02/28/19 02:00 03/09/19 18 :10 / Device IVPB 50 mls 0200,1000,1800 KALIE Administration Nicardipine HCl 50 mg/ Sodium 250 mls @ 0 mls/hr 02/28/19 07:30 03/05/19 16: 18 Chloride IV 250 mls INF KALIE Administration Protocol As Directed Dextrose/Water 1,000 mls @ 0 mls/hr 03/07/19 12:12 03/08/19 09:37 D5w IV 1,000 mls .Q0M KALIE Administration KVO Labetalol HCl 10 mg 02/28/19 00:57 03/04/19 13:55 Normodyne SLOW IVP 10 mg Q2H PRN Administration SBP > 140 or DBP > 90 Lidocaine 1 patch 03/02/19 21:00 03/08/19 22:16 Lidoderm 5% Patch TD Not Given Q24HR KALIE Lisinopril 40 mg 03/03/19 12:01 03/09/19 09:33 Zestril PO 40 mg DAILY KALIE Administration Magnesium Hydroxide 30 ml 02/28/19 00:57 03/02/19 23:18 Milk Of Magnesium PO 30 ml BIDPRN PRN Administration Constipation Metoprolol Tartrate 50 mg 03/05/19 09:00 03/09/19 21:59 Lopressor PO 50 mg BID KALIE Administration Miscellaneous Medication 1 each 03/02/19 09:00 03/09/19 09:35 Lidocaine Patch Removal TOP Not Given 09 KALIE Pantoprazole Sodium 40 mg 03/04/19 09:00 03/09/19 22:00 Protonix IVP 40 mg Q12HR KALIE Administration Potassium Chloride 20 meq 02/28/19 09:00 03/09/19 09:35 K-Dur PO 20 meq DAILY KALIE Administration Scopolamine 1.5 mg 03/08/19 08:45 03/08/19 09:34 Transderm Scop TD 1.5 mg Q3D KALIE Administration Sodium Chloride 10 ml 02/28/19 01:19 03/05/19 21:16 Normal Saline Pf FS 10 ml PRN PRN Administration RECONSTITUTION - Exam General Appearance: NAD Heart: RRR, no gallops Respiratory: no wheezes, no rales Gastrointestinal: soft, non-distended, no guarding, no rigidity Extremities: no cyanosis Hosp A/P (1) HTN (hypertension) Code(s): I10 - ESSENTIAL (PRIMARY) HYPERTENSION Status: Chronic (2) HLD (hyperlipidemia) Code(s): E78.5 - HYPERLIPIDEMIA, UNSPECIFIED Status: Chronic (3) Morbid obesity with BMI of 45.0-49.9, adult Code(s): E66.01 - MORBID (SEVERE) OBESITY DUE TO EXCESS CALORIES; Z68.42 - BODY MASS INDEX (BMI) 45.0-49.9, ADULT Status: Chronic (4) Hypokalemia Code(s): E87.6 - HYPOKALEMIA Status: Acute (5) Hematochezia Code(s): K92.1 - MELENA Status: Resolved - Plan s/p Trach/PEG Restart PEG feeds later today Cont current HTN meds Cont other meds LTAC eval
--- NOTE | 2019-03-09 22:57 | OP ---
DATE OF PROCEDURE: 03/09/2019 PREOPERATIVE DIAGNOSES: 1. Acute intracerebral hemorrhage, status post craniectomy. 2. Acute respiratory failure secondary to #1. POSTOPERATIVE DIAGNOSES: 1. Acute intracerebral hemorrhage, status post craniectomy. 2. Acute respiratory failure secondary to #1. PROCEDURES PERFORMED: 1. Percutaneous tracheostomy tube placement. 2. Percutaneous endoscopic gastrostomy tube placement. ANESTHESIA: Deep sedation and local. INDICATIONS FOR PROCEDURE: This is a 63-year-old woman, who suffered massive intracerebral hemorrhage, requiring emergent craniectomy. The patient remains on mechanical ventilator support. I have been asked to place the percutaneous tracheostomy tube in anticipation of prolonged mechanical ventilator support and to facilitate ventilator wean. Additionally, percutaneous endoscopic gastrostomy tube placement is warranted for prolonged enteral nutritional supplementation. DESCRIPTION OF PROCEDURE: Informed consent was obtained from the patient's family. The patient was placed in supine position. She was placed on full mechanical ventilator support. Following adequate sedation, the anterior neck was sterilely prepped and draped in usual fashion. The skin 2 fingerbreadths above the suprasternal notch was anesthetized with 1% lidocaine with epinephrine. 1 cm vertical incision was made here. Bronchoscope was introduced through the previous endotracheal tube and advanced to visualize the mikel. The scope was then withdrawn and transilluminating the anterior tracheal wall over the incision. The introducer needle was inserted through the incision and advanced through the anterior tracheal wall, visualized within the tracheal lumen. Guidewire was passed through the needle and advanced into the distal tracheal lumen without resistance and visualized by bronchoscopy. Needle was withdrawn over the guidewire. Anterior tracheal wall was sterilely dilated over the guidewire. Finally, a dilator with introducer catheter and size 8 tracheostomy tube was advanced as a unit over the guidewire. This was advanced into the distal tracheal lumen. The dilator, introducer catheter, and guidewire were removed as a unit leaving the tracheostomy tube in place. Inner cannula was inserted. The patient was then connected to mechanical ventilator support via the newly placed tracheostomy tube and cuff was inflated, visualizing good tidal volume. The tracheostomy tube was secured to anterior neck using 0 silk suture at two points. Trach dressings and tie were applied. The bronchoscope and the previous endotracheal tube were withdrawn as a unit visualizing the tracheostomy site from above with good hemostasis. Once the endotracheal tube was removed, the bronchoscope was reintroduced through the newly, placed tracheostomy tube and advanced to visualize the mikel. The scope was advanced to the right mainstem bronchus, withdrawn and advanced to the left mainstem bronchus. No active bleeding noted there. The scope was then withdrawn, visualizing the tracheostomy tube from below. No active bleeding was present. The patient tolerated this operation without any apparent complication and remains hemodynamically stable following completion of the procedure. Oxygen saturation was 100% at all times. Attention was then directed to the abdomen, where we will proceed with the percutaneous endoscopic gastrostomy tube placement. Using a different set of instruments, gown and gloves, the mouth guard was put in place and an endoscope was introduced per oral and advanced to intubate the esophagus. With gentle insufflation, the scope was directed into the gastric lumen, which was insufflated. The scope was advanced through the proximal duodenum through the pylorus and no peptic ulcerative disease is noted. Scope was withdrawn into the gastric lumen, transilluminating the left upper quadrant of the abdomen area chosen for the gastrostomy tube. The skin was widely sterilely prepped and draped in usual fashion. The skin was anesthetized with 1% lidocaine. A stab incision was made using 11 scalpel. An introducer needle was then inserted through this incision, advanced into the gastric lumen, visualized by endoscopy. The guidewire was passed through the needle and advanced into the gastric lumen and captured with an Endo Snare via the endoscope. The guidewire and the endoscope were withdrawn as a unit per oral and the guidewire was then connected to a 20-Croatian gastrostomy tube. The distal end of the guidewire and the previous needle and sheath were withdrawn as a unit. The guidewire was torqued, pulling the proximal end of the gastrostomy tube through the incision and securing this at the skin level using a bolster at 4 cm. The mushroom end of the gastrostomy tube was noted abutting the gastric mucosa on repeat endoscopy. The gastrostomy tube was fashioned to length. Dressings were then applied. The stomach was desufflated as the endoscope was withdrawn, visualizing intact esophageal mucosa. The patient tolerated the procedure without any apparent complication and remains hemodynamically stable following completion of the procedure. Job ID: [id number]
[2019-03-10] MEDS: Lidocaine 5% Patch TD SCH ×2 (00:51→21:17)
[2019-03-10] MEDS: CEFAZOLIN 2 GM in Premix Bag 1 BAG IVPB SCH ×3 (02:29→17:22)
[2019-03-10] MEDS: Acetaminophen 650 MG/20.3 ML UDCUP PER TUBE PRN ×3 (04:31→23:47)
[2019-03-10 05:36] LABS: Anion Gap 12 mmol/L (10-20); BUN (Urea Nitrogen) 18 mg/dL (9.8-20.1); Calc. Creatinine Clearance 169 mL/min (70-130); Calcium 9.4 mg/dL (7.8-10.44); Carbon Dioxide 33 mmol/L (23-31); Chloride 97 mmol/L (98-107); Estimated GFR-MDRD Greater than 90; Glucose 94 mg/dL (80-115); Sodium 138 mmol/L (136-145)
[2019-03-10] MEDS: Furosemide 20 MG/2 ML VIAL SLOW IVP SCH (05:42)
[2019-03-10 06:39] LABS: Hemoglobin 10.1 g/dL (12.0-16.0); Mean Corpuscular HGB CONC 31.1 g/dL (32.0-36.0); Mean Corpuscular Hemoglobin 22.1 pg (27.0-31.0); Mean Corpuscular Volume 70.9 fL (78.0-98.0); Mean Platelet Volume 9.3 fL (7.4-10.4); Platelet Count 247 thou/uL (130-400); RBC Distribution Width 17.4 % (11.5-14.5); Red Blood Cell (RBC) Count 4.58 mill/uL (4.20-5.40); White Blood Cell (WBC) Count 13.7 thou/uL (4.8-10.8)
[2019-03-10 06:57] LABS: Band 4 % (5-11); Eosinophils 1 % (0-10); Hypochromia MODERATE=16-30 cells (100X) (0-5/hpf); Lymphocytes 12 % (21-51); MDiff Complete? YES; Metamyelocyte 1 % (0-0); Microcytosis MODERATE=15-30 cells (100X) (0-5/hpf); Monocytes 8 % (0-10); Myelocyte 1 % (0-0); Neutrophil 71 % (42-75); Platelet Morphology Comment Appears Adequate; Polychromasia MODERATE = 3-4 cells (100X) (0-2/hpf); Reactive Lymphocytes 2 % (0-10); Schistocytes SLIGHT = 2-5 cells (100X) (0-1/hpf)
--- NOTE | 2019-03-10 07:21 | CT ---
PRELIMINARY REPORT/[facility]/EMERGENCY AFTER HOURS PROCEDURE History: Status post craniotomy. CT head without contrast. Comparison: 03/09/2019 and 02/28/2019. Findings: Redemonstration of postsurgical changes of mass or collection resection from the left cereb ellum. There is trace residual parenchymal blood products. Surrounding edema with mass effect on the fourth ventricle is similar in appearance. Mild fullness of the foramen magnum. Overlying anato my changes with absent bone flap. Ventricular shunt from a right frontal approach again noted with tip in the left lateral ventricle. No adverse change in ventricular size. Ahn-white differentiation is otherwise maintained. Small amount of gliosis along the shunt tract. Minimal sinus mucosal thickening. The orbits are unremarkable. The remainder of the calvarium is in tact. Surgical eliceo in the right frontal and left suboccipital scalp. Impression: 1. Redemonstration of postsurgical changes of left suboccipital craniotomy. Persistent trace parenc hymal blood products in the left cerebellum. Surrounding edema with mild fullness at the foramen magnum and mass effect on the fourth ventricle, grossly unchanged. 2. Stable ventricular shunt with stable size of ventricles. ELECTRONICALLY SIGNED BY: Armaan Lopez MD Mar 10, 2019 4:25:02 AM VISOR INSTALLER This report is intended for review by the ordering physician only, in accordance of law. If you recei ve this report in error, please call [facility] at [phone]. FINAL REPORT CT HEAD NONCONTRAST PERFORMED ON AN EMERGENCY BASIS: DATE: 03/10/2019 TIME: 0341 HOURS HISTORY: Surgery. Follow-up. COMPARISON: 03/09/2019. FINDINGS: Agree with the preliminary report by Dr. Lopez from [facility]. Postoperative changes and diffuse cerebral edema are stable. Minimal residual hemorrhage in the left posterior fossa. Ventricles remain decompressed. Code QA. Transcribed Date/Time: 03/10/2019 7:31 AM
--- NOTE | 2019-03-10 08:08 | PRG ---
DATE OF SERVICE: 03/10/2019 TIME SPENT: 35 minutes of critical care time. SUBJECTIVE: The patient remains intubated on mechanical ventilation. She had a tracheostomy and feeding tube placed yesterday. She will wake up, but does not follow any commands briskly today. OBJECTIVE: VITAL SIGNS: Temperature 98.8, pulse 68, blood pressure 126/73, O2 saturation 97%. Intake for 24 hours 586 and output 1635. HEENT: EVD still in place. NECK: Tracheostomy clean. LUNGS: Clear. CARDIAC: S1 and S2, regular. ABDOMEN: Soft. PEG tube noted in abdomen. EXTREMITIES: No edema. LABORATORY DATA: Sodium 138, potassium 4, chloride 97, CO2 of 33, BUN 18, creatinine 0.6, and glucose 94. White blood cell count 13.7, hematocrit 32.4, and platelet count 247. ASSESSMENT: 1. Status post trach and PEG. 2. Acute respiratory failure, requiring mechanical ventilation. 3. Cerebellar hemorrhage with obstructive hydrocephalus. PLAN: 1. Try to wean her down to trach collar or T-piece today. Further care of the EVD per Neurosurgery. 2. Continue enteral tube feeds. Job ID: [id number]
[2019-03-10] MEDS: hydrALAZINE 25 MG TAB PO SCH ×3 (08:48→23:50)
[2019-03-10] MEDS: Potassium Chloride 20 MEQ TAB PO SCH (08:48)
[2019-03-10] MEDS: Metoprolol Tartrate 25 MG TAB PO SCH ×2 (08:48→21:17)
[2019-03-10] MEDS: Amlodipine 10 MG TAB PER TUBE SCH (08:49)
[2019-03-10] MEDS: Lisinopril 20 MG TAB PO SCH (08:49)
[2019-03-10] MEDS: Pantoprazole 40 MG VIAL IVP SCH ×2 (08:50→21:17)
--- NOTE | 2019-03-10 09:23 | PRG ---
DATE OF SERVICE: 03/10/2019 Ms. Viramontes has undergone tracheostomy and PEG tube placement. She has been initiated on low-dose prophylactic Lovenox. Her drain has been open at 20 cm of water with approximately 3 mL hourly output and she has remained neurologically and radiologically stable on head CT today compared with yesterday. Her 4th ventricle is less effaced than upon presentation. She has not developed any change in her ventricle size. We will try and clamp her today and watch her clinically with a repeat head CT tomorrow to observe radiologic change. Should she fail her wean, we will likely consider shunt. We will follow up on her culture as well. Job ID: [id number]
--- NOTE | 2019-03-10 15:25 | PDOC.HOSPP ---
- Subjective Encounter Date: 03/10/19 Encounter Time: 13:20 Subjective: Patient seen and examined for med mngt. Off Vent. No overnight events - Objective Vital Signs & Weight: Vital Signs (12 hours) Temp Pulse Resp BP Pulse Ox 03/10/19 08:49 73 140/68 03/10/19 08:48 72 140/68 03/10/19 07:55 94 L 03/10/19 07:49 72 03/10/19 07:00 98.5 F 03/10/19 06:00 12 03/10/19 04:00 98.8 F 13 Weight Admit Weight 295 lb Weight 275 lb 12.772 oz Most Recent Monitor Data Heart Rate from ECG 81 NIBP 100/65 NIBP BP-Mean 76 Respiration from ECG 22 SpO2 97 I&O: 03/09/19 03/10/19 03/11/19 06:59 06:59 06:59 Intake Total 2043 586 300 Output Total 1722 1635 1001 Balance 925 -3531 -585 Result Diagrams: 03/10/19 03:05 03/10/19 03:05 EKG Reviewed by me: Yes (Tele SR) Hospitalist ROS - Review of Systems ROS unobtainable: due to mental status - Medication Medications: Active Medications Generic Name Dose Route Start Last Admin Trade Name Freq PRN Reason Stop Dose Admin Acetaminophen 650 mg 03/02/19 10:45 03/10/19 08:54 Tylenol Elixir PER TUBE 650 mg Q4H PRN Administration Headache/Fever or Pain Amlodipine Besylate 10 mg 03/05/19 09:00 03/10/19 08:49 Norvasc PER TUBE 10 mg DAILY KALIE Administration Furosemide 20 mg 03/08/19 06:00 03/10/19 05:42 Lasix SLOW IVP 20 mg 0600 KALIE Administration Hydralazine HCl 10 mg 03/01/19 16:33 03/06/19 03:04 Apresoline SLOW IVP 10 mg Q4H PRN Administration SBP > 165 Hydralazine HCl 75 mg 03/08/19 21:00 03/10/19 08:48 Apresoline PO 75 mg TID KALIE Administration Cefazolin Sodium/Dextrose 2 gm 50 mls @ 100 mls/hr 02/28/19 02:00 03/10/19 08 :47 / Device IVPB 50 mls 0200,1000,1800 KALIE Administration Nicardipine HCl 50 mg/ Sodium 250 mls @ 0 mls/hr 02/28/19 07:30 03/05/19 16: 18 Chloride IV 250 mls INF KALIE Administration Protocol As Directed Dextrose/Water 1,000 mls @ 0 mls/hr 03/07/19 12:12 03/08/19 09:37 D5w IV 1,000 mls .Q0M KALIE Administration KVO Labetalol HCl 10 mg 02/28/19 00:57 03/04/19 13:55 Normodyne SLOW IVP 10 mg Q2H PRN Administration SBP > 140 or DBP > 90 Lidocaine 1 patch 03/02/19 21:00 03/10/19 00:51 Lidoderm 5% Patch TD Not Given Q24HR KALIE Lisinopril 40 mg 03/03/19 12:01 03/10/19 08:49 Zestril PO 40 mg DAILY KALIE Administration Magnesium Hydroxide 30 ml 02/28/19 00:57 03/02/19 23:18 Milk Of Magnesium PO 30 ml BIDPRN PRN Administration Constipation Metoprolol Tartrate 50 mg 03/05/19 09:00 03/10/19 08:48 Lopressor PO 50 mg BID KALIE Administration Miscellaneous Medication 1 each 03/02/19 09:00 03/09/19 09:35 Lidocaine Patch Removal TOP Not Given 0900 KALIE Pantoprazole Sodium 40 mg 03/04/19 09:00 03/10/19 08:50 Protonix IVP 40 mg Q12HR KALIE Administration Potassium Chloride 20 meq 02/28/19 09:00 03/10/19 08:48 K-Dur PO 20 meq DAILY KALIE Administration Scopolamine 1.5 mg 03/08/19 08:45 03/08/19 09:34 Transderm Scop TD 1.5 mg Q3D KALIE Administration Sodium Chloride 10 ml 02/28/19 01:19 03/05/19 21:16 Normal Saline Pf FS 10 ml PRN PRN Administration RECONSTITUTION - Exam General Appearance: NAD Heart: RRR, no rubs Respiratory: no wheezes, no rales Gastrointestinal: soft, non-distended Extremities: no cyanosis Hosp A/P (1) HTN (hypertension) Code(s): I10 - ESSENTIAL (PRIMARY) HYPERTENSION Status: Chronic (2) HLD (hyperlipidemia) Code(s): E78.5 - HYPERLIPIDEMIA, UNSPECIFIED Status: Chronic (3) Morbid obesity with BMI of 45.0-49.9, adult Code(s): E66.01 - MORBID (SEVERE) OBESITY DUE TO EXCESS CALORIES; Z68.42 - BODY MASS INDEX (BMI) 45.0-49.9, ADULT Status: Chronic (4) Hypokalemia Code(s): E87.6 - HYPOKALEMIA Status: Acute (5) Hematochezia Code(s): K92.1 - MELENA Status: Resolved - Plan plan discussed w/ family, DVT proph w/lovenox, DVT proph w/SCDs s/p Trach/PEG Restart PEG feeds today Cont current HTN meds as above LTAC eval Will follow
--- NOTE | 2019-03-10 15:49 | ULT ---
Venous duplex sonogram right upper extremity HISTORY: Right arm pain and edema. Thrombus. FINDINGS: Incomplete compressibility throughout the brachial vein. Internal echoes evident. Color and spectral Doppler flow within the internal jugular and subclavian veins and within the axillary veins, cephalic and basilic veins. Edema throughout the soft tissues. IMPRESSION: Occlusive thrombus of the right brachial vein.
[2019-03-10] MEDS: Lidocaine Patch Removal TOP SCH (17:07)
--- NOTE | 2019-03-10 18:38 | PRG ---
DATE OF SERVICE: 03/10/2019 Ms. Viramontes is a 63-year-old woman, recent acute intracerebral hemorrhage. The patient is postop day #1, status post percutaneous tracheostomy and percutaneous endoscopic gastrostomy tube placement. She is awake and alert today. She is on trach collar. She is interactive, does follow commands. Vital signs remained stable since her procedure. Currently, blood pressure 138/72, pulse is 78, respiratory rate is 20, maximum temperature in last 24 hours is 99.4 degrees Fahrenheit, and oxygen saturation 98% on trach collar. HEENT examination; tracheostomy site is clean and dry. No subcutaneous emphysema or hematoma noted. Abdomen is soft, nontender, and nondistended. PEG tube site is also clean and dry. Clearly, the patient has no peritoneal signs on examination. Tracheostomy sutures may be removed 5 to 7 days from now. The PEG tube may be used for all therapeutics at the discretion of Primary Service. General Surgery will sign off and be available to re-evaluate the patient on demand. Job ID: [id number]
[2019-03-11] MEDS: CEFAZOLIN 2 GM in Premix Bag 1 BAG IVPB SCH ×3 (01:47→17:20)
[2019-03-11 03:58] LABS: INR-International Normal Ratio 1.3; PTT 25.3 SEC (22.9-36.1); Prothrombin Time 15.8 SEC (12.0-14.7)
[2019-03-11 04:06] LABS: Anion Gap 12 mmol/L (10-20); BUN (Urea Nitrogen) 17 mg/dL (9.8-20.1); Calc. Creatinine Clearance 160 mL/min (70-130); Calcium 9.3 mg/dL (7.8-10.44); Carbon Dioxide 30 mmol/L (23-31); Chloride 96 mmol/L (98-107); Estimated GFR-MDRD Greater than 90; Glucose 97 mg/dL (80-115); Potassium 3.7 mmol/L (3.5-5.1); Sodium 134 mmol/L (136-145)
[2019-03-11 04:44] LABS: #Basophils 0.1 thou/uL (0.0-0.2); #Eosinphils 0.3 thou/uL (0.0-0.7); #Lymphocytes 1.7 thou/uL (1.20-3.40); #Monocytes 1.6 thou/uL (0.11-0.59); #Neutrophils 12.6 thou/uL (1.40-6.50); %Basophils 0.7 % (0.0-1.0); %Eosinophils 1.7 % (0.0-10.0); %Lymphocytes 10.6 % (21.0-51.0); Hemoglobin 11.1 g/dL (12.0-16.0); Hypochromia SLIGHT = 6-15 cells (100X) (0-5/hpf); Large Platelets SLIGHT; MDiff Complete? YES; Mean Corpuscular HGB CONC 30.7 g/dL (32.0-36.0); Mean Corpuscular Hemoglobin 22.1 pg (27.0-31.0); Mean Corpuscular Volume 71.8 fL (78.0-98.0); Mean Platelet Volume 9.1 fL (7.4-10.4); Microcytosis SLIGHT = 6-15 cells (100X) (0-5/hpf); Platelet Count 196 thou/uL (130-400); Platelet Morphology Comment Appears Adequate; RBC Distribution Width 17.4 % (11.5-14.5); Red Blood Cell (RBC) Count 5.04 mill/uL (4.20-5.40); White Blood Cell (WBC) Count 16.4 thou/uL (4.8-10.8)
[2019-03-11] MEDS: Furosemide 20 MG/2 ML VIAL SLOW IVP SCH (05:44)
[2019-03-11] MEDS ORDERED: Bupivacaine PF 0.5% 30 ML VIAL ONE (06:27)
[2019-03-11] MEDS ORDERED: Lidocaine 0.5%/Epinephrine 1:200,000 50 ml Vial ONE (06:27)
[2019-03-11] MEDS ORDERED: Lidocaine 1% w/Epinephrine 1:100K 20 ML VIAL ONE (06:27)
[2019-03-11] MEDS ORDERED: Bacitracin Zinc Ointment 30 gm TUBE ONE (06:27)
[2019-03-11] MEDS ORDERED: Sodium Chloride 0.9% 0 ML ONE (06:27)
[2019-03-11] MEDS ORDERED: Thrombin 5000 UNITS/5 ML VIAL ONE (06:28)
[2019-03-11] MEDS ORDERED: Fentanyl 100 MCG/2 ML VIAL ONE (07:17)
[2019-03-11] MEDS ORDERED: Midazolam HCl 2 mg/2 ml Vial ONE (08:10)
--- NOTE | 2019-03-11 08:50 | PRG ---
DATE OF SERVICE: 03/11/2019 SUBJECTIVE: The patient is awake, alert, and follows commands for me. She is about to go downstairs for a ROLLER LEVELER shunt. OBJECTIVE: VITAL SIGNS: On exam, temperature is 98.9, pulse 71, blood pressure 125/70, and O2 saturation 95%. GENERAL: She is currently on trach collar, breathing well. HEENT: Unremarkable. NECK: No adenopathy or JVD. Trach in good position. LUNGS: Clear. CARDIAC: S1 and S2. Regular. ABDOMEN: Soft. EXTREMITIES: No edema. LABORATORY DATA: White blood cell count 16.4, hematocrit 36.2, and platelet count 196. Sodium 134, potassium 3.7, chloride 96, CO2 of 30, BUN 17, creatinine 0.7, and glucose 97. ASSESSMENT: 1. Status post tracheostomy and feeding tube placement for poor oropharyngeal function status post cerebellar hemorrhage. 2. Status post respiratory failure, requiring mechanical ventilation. PLAN: She is doing wonderful from a respiratory standpoint. We will continue on trach collar. I will continue to follow her while she is in the ICU. Job ID: [id number]
[2019-03-11] MEDS ORDERED: PHENYLEPHRINE-NS 100 MCG/ML 10 ML SYRINGE ONE (09:49)
[2019-03-11] MEDS ORDERED: ePHEDrine/0.9% NaCl/PF SYRINGE 50 mg/10 ml ONE (09:49)
[2019-03-11] MEDS ORDERED: Rocuronium Bromide 10 MG/ML (10ML VIAL) ONE (09:49)
[2019-03-11] MEDS ORDERED: Glycopyrrolate 0.2 MG/ML 5 ML SYRINGE ONE (09:49)
[2019-03-11] MEDS ORDERED: PROPOFOL 200 MG/20 ML VIAL ONE (09:49)
[2019-03-11] MEDS ORDERED: Ondansetron PF 4 MG/2 ML Vial ONE (09:49)
[2019-03-11] MEDS: Amlodipine 10 MG TAB PER TUBE SCH (11:10)
[2019-03-11] MEDS: hydrALAZINE 25 MG TAB PO SCH ×3 (11:11→21:51)
[2019-03-11] MEDS: Lidocaine Patch Removal TOP SCH (11:11)
[2019-03-11] MEDS: Metoprolol Tartrate 25 MG TAB PO SCH ×2 (11:11→21:53)
[2019-03-11] MEDS: Lisinopril 20 MG TAB PO SCH (11:11)
[2019-03-11] MEDS: Scopolamine 1.5 mg/72 hour Patch TD SCH (11:15)
[2019-03-11] MEDS: Potassium Chloride 20 MEQ TAB PO SCH (11:15)
[2019-03-11] MEDS: Pantoprazole 40 MG VIAL IVP SCH ×2 (11:16→21:54)
--- NOTE | 2019-03-11 14:02 | OP ---
DATE OF PROCEDURE: 03/11/2019 LOCATION: OR 11. TEAM SUPERVISOR: Fatou Martin PA-C. This surgery was done in conjunction with Dr. Alvaro Ervin, who did the peritoneal portion. PREPROCEDURE DIAGNOSIS: Hydrocephalus. POSTPROCEDURE DIAGNOSIS: Hydrocephalus. PROCEDURE PERFORMED: Creation of right ventriculoperitoneal shunt with programmable valve set to 1.0. DESCRIPTION OF PROCEDURE: After informed consent was obtained from the patient and her , she was brought to the OR. Proper patient, pause, and identification were carried out. Her right head hair clipped. This area was sterilely cleansed, prepared, and draped, along into the neck, chest, and abdomen. The EVD incision was kept identified and a Lazy linear incision was drawn out and also small one behind the right retroauricular region. Sterile cleansing, preparation, and draping then occurred. The EVD wound was opened. The ventricular catheter identified and snipped underneath the scalp. The Passer was introduced into the retroauricular region and the catheter was passed distally, connected to the valve, it was connected to the EVD. Brisk high-pressure CSF was returned that was clear. We then copiously irrigated both of the wounds and they were closed in anatomic layers. Job ID: [id number]
[2019-03-11] MEDS: Lidocaine 5% Patch TD SCH (21:53)
[2019-03-12] MEDS: CEFAZOLIN 2 GM in Premix Bag 1 BAG IVPB SCH ×3 (02:52→18:14)
[2019-03-12] MEDS: Acetaminophen 650 MG/20.3 ML UDCUP PER TUBE PRN ×3 (04:11→16:27)
[2019-03-12 04:14] LABS: Hemoglobin 9.8 g/dL (12.0-16.0); MDiff Complete? YES; Mean Corpuscular HGB CONC 29.6 g/dL (32.0-36.0); Mean Corpuscular Hemoglobin 21.1 pg (27.0-31.0); Mean Corpuscular Volume 71.1 fL (78.0-98.0); Mean Platelet Volume 8.9 fL (7.4-10.4); Platelet Count 247 thou/uL (130-400); Red Blood Cell (RBC) Count 4.63 mill/uL (4.20-5.40); White Blood Cell (WBC) Count 16.2 thou/uL (4.8-10.8)
[2019-03-12 04:15] LABS: Anion Gap 11 mmol/L (10-20); BUN (Urea Nitrogen) 18 mg/dL (9.8-20.1); Calc. Creatinine Clearance 145 mL/min (70-130); Carbon Dioxide 34 mmol/L (23-31); Chloride 95 mmol/L (98-107); Estimated GFR-MDRD Greater than 90; Glucose 153 mg/dL (80-115); Lymphocytes 10 % (21-51); Metamyelocyte 1 % (0-0); Monocytes 10 % (0-10); Neutrophil 79 % (42-75); Platelet Morphology Comment Appears Adequate; Sodium 136 mmol/L (136-145)
[2019-03-12] MEDS: Furosemide 20 MG/2 ML VIAL SLOW IVP SCH (06:43)
--- NOTE | 2019-03-12 07:36 | CT ---
PRELIMINARY REPORT/DIRECT RADIOLOGY/EMERGENCY AFTER HOURS PROCEDURE: EXAM: CT Head Without Intravenous Contrast. CLINICAL HISTORY: S/p right OIL RAG WASHER shunt placement 03/11/19 TECHNIQUE: Axial computed tomography images of the head/brain without intravenous contrast. COMPARISON: CT\SR - CT BRAIN WO CON - 03/10/2019 03:40 AM HYDRAULIC MINER FINDINGS: BRAIN: Again noted is a left occipital craniotomy with post surgical changes of the left cerebellum a nd occipital lobe, including edema with trace amount of blood product. I see there is no significant interval change since the last examination. There is a mild midline shift to the right si de with the mass-effect upon the fourth ventricle, similar to his prior examination. VENTRICLES: The right frontal shunt catheter tip seen in the left lateral ventricle near the foramen of Fuentes, similar to prior examination. The left lateral ventricle has been smaller compared to prior examination. ORBITS: The orbits are unremarkable. SINUSES AND MASTOIDS: The paranasal sinuses and mastoid air cells are clear. SOFT TISSUES: No significant facial or scalp soft tissue swelling evident. No radiopaque foreign body is seen. BONES: No acute skull fracture. IMPRESSION: 1. Again noted is a left occipital craniotomy with post surgical changes of the left cerebellum and o ccipital lobe, including edema with trace amount of blood product. I see there is no significant interval change since the last examination. There is a mild midline shift to the right side with the mass-effect upon the fourth ventricle, similar to his prior examination. 2. The right frontal shunt catheter tip seen in the left lateral ventricle near the foramen of Fuentes , similar to prior examination. 3. The left lateral ventricle has been smaller compared to prior examination. ELECTRONICALLY SIGNED BY: Angelito Sweeney MD Mar 12, 2019 6:09:56 AM HYDRAULIC MINER FINAL REPORT HEAD CT WITHOUT CONTRAST: DATE: 03/12/2019. COMPARISON: 03/10/2019. HISTORY: Reevaluate intracranial hemorrhage, prior shunt placement. FINDINGS: There is evidence of recent prior left-sided occipital craniotomy. Small volume residual blood produc ts are noted within the cerebellum on the left and in a midline location. There is prominent associated edema within the posterior fossa and obliteration of the fourth ventricle as before. There is a stable right-sided ventriculostomy tube. Lateral ventricles are decompressed, decreased in size when compared to the one 10/21/2019 exam. No new intracranial hemorrhage. IMPRESSION: Residual blood products with prominent associated edema within the posterior fossa causing posterior fossa mass effect and obliteration of the fourth ventricle, not significantly changed. Lateral ventricles have been decompressed when compared to the prior examination. This is in agreement with t payton preliminary report. Transcribed Date/Time: 03/12/2019 7:59 AM
--- NOTE | 2019-03-12 08:33 | PRG ---
DATE OF SERVICE: 03/12/2019 SUBJECTIVE: The patient had a ventricular peritoneal shunt placed yesterday. She was briefly on mechanical ventilation afterwards that was easily weaned off. This morning, she is awake, alert, moves all 4 extremities. OBJECTIVE: VITAL SIGNS: Temperature 99.2, pulse 87, blood pressure 111/58, O2 saturation 97% on trach collar. HEENT: Unremarkable. NECK: No adenopathy or JVD. Trach in good position. LUNGS: Clear. CARDIAC: S1, S2. Regular. ABDOMEN: Soft. PEG tube in place. EXTREMITIES: No edema. LABORATORY DATA: White blood cell count 16.2, hematocrit 32.9, and platelet count 247. Sodium 136, potassium 4, chloride 95, CO2 of 34, BUN 18, creatinine 0.7, glucose 153. ASSESSMENT: 1. Status post cerebellar hemorrhage. 2. Status post trach and PEG due to inability to control secretions, swallowing, etc. 3. Malignant hypertension. PLAN: My understanding is the patient will be transferring out today. She needs to get up into a chair with physical therapy. Overall, her prognosis seems to be improving. Job ID: [id number]
[2019-03-12] MEDS: Furosemide 20 MG TAB PER TUBE SCH (08:39)
[2019-03-12] MEDS: Potassium Chloride 20 MEQ TAB PO SCH (08:39)
[2019-03-12] MEDS: Enoxaparin Sodium 40 MG/0.4 ML SYRINGE SC SCH (08:41)
[2019-03-12] MEDS: Amlodipine 10 MG TAB PER TUBE SCH (08:41)
[2019-03-12] MEDS: hydrALAZINE 25 MG TAB PO SCH ×2 (08:42→15:39)
[2019-03-12] MEDS: Lidocaine Patch Removal TOP SCH (08:43)
[2019-03-12] MEDS: Lisinopril 20 MG TAB PO SCH (08:43)
[2019-03-12] MEDS: Metoprolol Tartrate 25 MG TAB PO SCH ×2 (08:43→21:41)
[2019-03-12] MEDS: Pantoprazole 40 MG VIAL IVP SCH ×2 (08:43→21:41)
--- NOTE | 2019-03-12 12:42 | PRG ---
DATE OF SERVICE: 03/12/2019 This is Armaan Strong PA-C dictating a report for Vishnu Brannon MD. Ms. Viramontes is 1 day postop having undergone conversion of external ventricular drainage system into a right MANAGER RN shunt. The patient tolerated her procedure well. She is opening her eyes and is able to shake yes or no in regard to questions. She follows commands in all extremities, though slightly weaker and slower to respond on the right than the left. The patient did have a left cerebellar hemorrhage that was evacuated 12 days ago. Neurologically, it appears as though the patient has been improving. She has a trach and PEG in place. Review of her head CT from today shows good placement of the EVD catheter and slow resolution of the left cerebellar hemorrhage. Her ventricles are well decompressed. The patient is ready for transition to either the surgical floor or stroke floor when deemed medically ready. We have started her on 40 mg subcu of Lovenox for a right basilic vein thrombus. We have also ordered a surveillance ultrasound of the right upper extremity for tomorrow morning. The patient likely will be ready for LTAC or inpatient rehab in the next few days, and she may be out of bed and advance her activity as tolerated. Please call with any changes in the patient's neurologic status. Otherwise, the patient appears to be improving neurologically. Job ID: [id number]
--- NOTE | 2019-03-12 15:36 | PDOC.HOSPP ---
- Subjective Encounter Date: 03/12/19 Encounter Time: 14:00 Subjective: Patient seen and examined for med mngt. No CP/SOB or new neuro deficits. No overnight events - Objective Vital Signs & Weight: Vital Signs (12 hours) Temp Pulse BP BP BP Pulse Ox 03/12/19 10:09 122/74 122/70 03/12/19 08:43 111/58 L 03/12/19 08:42 74 111/58 L 03/12/19 08:41 917 H 111/58 L 03/12/19 08:00 98.2 F 98 03/12/19 07:03 98 03/12/19 05:00 99.2 F Weight Admit Weight 295 lb Weight 275 lb 5.718 oz Most Recent Monitor Data Heart Rate from ECG 76 NIBP 118/61 NIBP BP-Mean 80 Respiration from ECG 16 SpO2 100 I&O: 03/11/19 03/12/19 03/13/19 06:59 06:59 06:59 Intake Total 1408 1085 634 Output Total 1897 1200 1110 Balance -489 -115 -476 Result Diagrams: 03/12/19 03:15 03/12/19 03:15 EKG Reviewed by me: Yes (Tele SR) Hospitalist ROS - Review of Systems Respiratory: denies: cough, dry, shortness of breath, hemoptysis, SOB with excertion, pleuritic pain, sputum, wheezing, other Cardiovascular: denies: chest pain, palpitations, orthopnea, paroxysmal noc. dyspnea, edema, light headedness, other - Medication Medications: Active Medications Generic Name Dose Route Start Last Admin Trade Name Freq PRN Reason Stop Dose Admin Acetaminophen 650 mg 03/02/19 10:45 03/12/19 08:40 Tylenol Elixir PER TUBE 650 mg Q4H PRN Administration Headache/Fever or Pain Enoxaparin Sodium 40 mg 03/12/19 09:00 03/12/19 08:41 Lovenox SC 40 mg 0900 KALIE Administration Furosemide 20 mg 03/12/19 09:00 03/12/19 08:39 Lasix PER TUBE 20 mg DAILY KALIE Administration Hydralazine HCl 10 mg 03/01/19 16:33 03/06/19 03:04 Apresoline SLOW IVP 10 mg Q4H PRN Administration SBP > 165 Cefazolin Sodium/Dextrose 2 gm 50 mls @ 100 mls/hr 02/28/19 02:00 03/12/19 09 :41 / Device IVPB 50 mls 0200,1000,1800 KALIE Administration Dextrose/Water 1,000 mls @ 0 mls/hr 03/07/19 12:12 03/08/19 09:37 D5w IV 1,000 mls .Q0M KALIE Administration KVO Labetalol HCl 10 mg 02/28/19 00:57 03/04/19 13:55 Normodyne SLOW IVP 10 mg Q2H PRN Administration SBP > 140 or DBP > 90 Lidocaine 1 patch 03/02/19 21:00 03/11/19 21:53 Lidoderm 5% Patch TD Not Given Q24HR KALIE Magnesium Hydroxide 30 ml 02/28/19 00:57 03/02/19 23:18 Milk Of Magnesium PO 30 ml BIDPRN PRN Administration Constipation Pantoprazole Sodium 40 mg 03/04/19 09:00 03/12/19 08:43 Protonix IVP 40 mg Q12HR KALIE Administration Scopolamine 1.5 mg 03/08/19 08:45 03/11/19 11:15 Transderm Scop TD 1.5 mg Q3D KALIE Administration Sodium Chloride 10 ml 02/28/19 01:19 03/05/19 21:16 Normal Saline Pf FS 10 ml PRN PRN Administration RECONSTITUTION - Exam General Appearance: NAD Heart: RRR, no gallops Respiratory: no wheezes, rhonchi Respiratory - other findings: trach + Gastrointestinal: soft, non-distended Gastrointestinal - other findings: PEG + Hosp A/P (1) HTN (hypertension) Code(s): I10 - ESSENTIAL (PRIMARY) HYPERTENSION Status: Chronic (2) HLD (hyperlipidemia) Code(s): E78.5 - HYPERLIPIDEMIA, UNSPECIFIED Status: Chronic (3) Morbid obesity with BMI of 45.0-49.9, adult Code(s): E66.01 - MORBID (SEVERE) OBESITY DUE TO EXCESS CALORIES; Z68.42 - BODY MASS INDEX (BMI) 45.0-49.9, ADULT Status: Chronic (4) Hypokalemia Code(s): E87.6 - HYPOKALEMIA Status: Acute (5) Hematochezia Code(s): K92.1 - MELENA Status: Resolved - Plan DVT proph w/lovenox, DVT proph w/SCDs s/p Trach/PEG Cont PEG tube feeding Reduce dosages of Amlodipine/Hydralazine/Metoprolol Patient has not received any HTN meds today due to BP in low - normal range Cont PRN HTN meds LTAC eval Will follow
[2019-03-12] MEDS: Dextrose 5% in Water 1,000 ML IV SCH (15:39)
[2019-03-12] MEDS: hydrALAZINE 25 MG TAB PER TUBE SCH ×2 (18:14→21:40)
[2019-03-12] MEDS: Amlodipine 5 MG TAB PER TUBE SCH (21:39)
[2019-03-12] MEDS: Lisinopril 10 MG TAB PER TUBE SCH (21:40)
[2019-03-12] MEDS: Lidocaine 5% Patch TD SCH (21:40)
[2019-03-13] MEDS: CEFAZOLIN 2 GM in Premix Bag 1 BAG IVPB SCH ×3 (03:42→17:47)
[2019-03-13] MEDS: Acetaminophen 650 MG/20.3 ML UDCUP PER TUBE PRN ×3 (04:11→22:50)
[2019-03-13 05:49] LABS: Anion Gap 11 mmol/L (10-20); BUN (Urea Nitrogen) 15 mg/dL (9.8-20.1); Calc. Creatinine Clearance 156 mL/min (70-130); Calcium 9.3 mg/dL (7.8-10.44); Carbon Dioxide 35 mmol/L (23-31); Chloride 96 mmol/L (98-107); Estimated GFR-MDRD Greater than 90; Glucose 178 mg/dL (80-115); Magnesium 2.2 mg/dL (1.6-2.6); Potassium 3.5 mmol/L (3.5-5.1); Sodium 138 mmol/L (136-145)
--- NOTE | 2019-03-13 10:01 | ULT ---
US Venous Doppler Rt Unilat History: Brachial vein thrombosis Comparison: Ultrasound March 10, 2019 Findings: Real-time grayscale, color, and spectral analysis right upper extremity venous system was p erformed. The internal jugular, subclavian, axillary veins as well as the basilic, brachial, radial, ulnar veins and cephalic veins were interrogated. There is occlusive thrombus in the right basilic vein below the antecubital fossa. Impression: Occlusive thrombus right basilic vein below the elbow.
[2019-03-13] MEDS: hydrALAZINE 25 MG TAB PER TUBE SCH ×4 (10:33→22:53)
[2019-03-13] MEDS: Lisinopril 10 MG TAB PER TUBE SCH ×2 (10:33→22:52)
[2019-03-13] MEDS: Amlodipine 5 MG TAB PER TUBE SCH ×2 (10:33→22:53)
[2019-03-13] MEDS: Enoxaparin Sodium 40 MG/0.4 ML SYRINGE SC SCH (10:34)
[2019-03-13] MEDS: Furosemide 20 MG TAB PER TUBE SCH (10:34)
[2019-03-13] MEDS: Metoprolol Tartrate 25 MG TAB PO SCH ×2 (10:34→22:52)
[2019-03-13] MEDS: Saccharomyces boulardii 250 MG CAP PER TUBE SCH (10:35)
[2019-03-13] MEDS: Pantoprazole 40 MG VIAL IVP SCH ×2 (10:35→23:08)
--- NOTE | 2019-03-13 10:53 | PRG ---
DATE OF SERVICE: 03/13/2019 The patient is now 13 days out from a left cerebellar intraparenchymal hemorrhage with evacuation and need for EVD. She has since had a shunt placed and now is postoperative day #2, status post PHOTOGRAPH TINTER shunt placement. The current setting is 1.0. Her head CT yesterday was stable with improved hydrocephalus. She has trach and PEG and is currently on the Stroke Unit. She had repeat ultrasound today, which shows persistent right basilic vein DVT. She is currently being treated with Lovenox. On exam this morning, the patient opens her eyes. She is moving all 4s and following commands. Her incisions are clean, dry, and intact. We will continue Lovenox treatment for DVT. We will continue PT and OT and the patient will require LTAC or rehab in the near future. Job ID: [id number]
--- NOTE | 2019-03-13 15:20 | PDOC.HOSPP ---
- Subjective Encounter Date: 03/13/19 Encounter Time: 07:00 Subjective: Pt seen for followup re: HTN. Pt is nonverbal, unable to complete ROS. - Objective Vital Signs & Weight: Vital Signs (12 hours) Temp Pulse Pulse Pulse Resp BP BP 03/13/19 13:43 75 139/70 03/13/19 10:22 98.7 F 83 18 03/13/19 09:19 85 122/56 L 03/13/19 08:42 85 03/13/19 04:00 98.7 F 76 18 BP BP Pulse Ox 03/13/19 13:43 03/13/19 10:22 131/62 93 L 03/13/19 09:19 03/13/19 08:42 122/56 L 03/13/19 04:00 140 H Weight Admit Weight 295 lb Weight 275 lb 12.8 oz Most Recent Monitor Data Heart Rate from ECG 76 NIBP 118/61 NIBP BP-Mean 80 Respiration from ECG 16 SpO2 100 I&O: 03/12/19 03/13/19 03/14/19 06:59 06:59 06:59 Intake Total 1085 694 Output Total 1200 1860 Balance -115 -1166 Result Diagrams: 03/12/19 03:15 03/13/19 05:11 Additional Labs: Labs and MARs reviewed by ri Hospitalist ROS - Review of Systems ROS unobtainable: due to mental status - Medication Medications: Active Medications Generic Name Dose Route Start Last Admin Trade Name Freq PRN Reason Stop Dose Admin Acetaminophen 650 mg 03/02/19 10:45 03/13/19 10:32 Tylenol Elixir PER TUBE 650 mg Q4H PRN Administration Headache/Fever or Pain Amlodipine Besylate 5 mg 03/12/19 21:00 03/13/19 10:33 Norvasc PER TUBE 5 mg BID KALIE Administration Enoxaparin Sodium 40 mg 03/12/19 09:00 03/13/19 10:34 Lovenox SC 40 mg 0900 KALIE Administration Furosemide 20 mg 03/12/19 09:00 03/13/19 10:34 Lasix PER TUBE 20 mg DAILY KALIE Administration Hydralazine HCl 10 mg 03/01/19 16:33 03/06/19 03:04 Apresoline SLOW IVP 10 mg Q4H PRN Administration SBP > 165 Hydralazine HCl 25 mg 03/12/19 17:00 03/13/19 13:43 Apresoline PER TUBE 25 mg QID KALIE Administration Cefazolin Sodium/Dextrose 2 gm 50 mls @ 100 mls/hr 02/28/19 02:00 03/13/19 10 :35 / Device IVPB 50 mls 0200,1000,1800 KALIE Administration Dextrose/Water 1,000 mls @ 0 mls/hr 03/07/19 12:12 03/12/19 15:39 D5w IV 1,000 mls .Q0M KALIE Administration KVO Labetalol HCl 10 mg 02/28/19 00:57 03/04/19 13:55 Normodyne SLOW IVP 10 mg Q2H PRN Administration SBP > 140 or DBP > 90 Lidocaine 1 patch 03/02/19 21:00 03/12/19 21:40 Lidoderm 5% Patch TD Not Given Q24HR KALIE Lisinopril 10 mg 03/12/19 21:00 03/13/19 10:33 Zestril PER TUBE 10 mg BID KALIE Administration Magnesium Hydroxide 30 ml 02/28/19 00:57 03/02/19 23:18 Milk Of Magnesium PO 30 ml BIDPRN PRN Administration Constipation Metoprolol Tartrate 25 mg 03/12/19 21:00 03/13/19 10:34 Lopressor PO 25 mg BID KALIE Administration Pantoprazole Sodium 40 mg 03/04/19 09:00 03/13/19 10:35 Protonix IVP 40 mg Q12HR KALIE Administration Saccharomyces Boulardii 250 mg 03/13/19 09:00 03/13/19 10:35 Florastor PER TUBE 250 mg DAILY KALIE Administration Scopolamine 1.5 mg 03/08/19 08:45 03/11/19 11:15 Transderm Scop TD 1.5 mg Q3D KALIE Administration Sodium Chloride 10 ml 02/28/19 01:19 03/05/19 21:16 Normal Saline Pf FS 10 ml PRN PRN Administration RECONSTITUTION - Exam General - other findings: Morbid obesity Eye: anicteric sclera ENT: moist mucosa ENT - other findings: Tracheostomy Neck: supple Heart: RRR Respiratory: CTAB Gastrointestinal: soft, non-tender Gastrointestinal - other findings: PEG tube Psychiatric - other findings: Unable to assess Hosp A/P - Plan Hosp A/P (1) HTN (hypertension) Code(s): I10 - ESSENTIAL (PRIMARY) HYPERTENSION Status: Chronic (2) HLD (hyperlipidemia) Code(s): E78.5 - HYPERLIPIDEMIA, UNSPECIFIED Status: Chronic (3) Morbid obesity with BMI of 45.0-49.9, adult Code(s): E66.01 - MORBID (SEVERE) OBESITY DUE TO EXCESS CALORIES; Z68.42 - BODY MASS INDEX (BMI) 45.0-49.9, ADULT Status: Chronic (4) Hypokalemia Code(s): E87.6 - HYPOKALEMIA Status: Acute (5) Hematochezia Code(s): K92.1 - MELENA Status: Resolved - Plan DVT proph w/lovenox, DVT proph w/SCDs Cont PEG tube feeding HTN controlled Cont PRN HTN meds LTAC eval
[2019-03-13] MEDS: Ondansetron PF 4 MG/2 ML Vial IVP PRN (22:50)
[2019-03-13] MEDS: Lidocaine 5% Patch TD SCH (22:53)
[2019-03-14] MEDS: CEFAZOLIN 2 GM in Premix Bag 1 BAG IVPB SCH ×3 (03:16→18:02)
[2019-03-14 04:58] LABS: Anion Gap 9 mmol/L (10-20); BUN (Urea Nitrogen) 16 mg/dL (9.8-20.1); Calc. Creatinine Clearance 221 mL/min (70-130); Calcium 9.2 mg/dL (7.8-10.44); Carbon Dioxide 37 mmol/L (23-31); Chloride 97 mmol/L (98-107); Estimated GFR-MDRD Greater than 90; Glucose 141 mg/dL (80-115); Potassium 3.4 mmol/L (3.5-5.1); Sodium 140 mmol/L (136-145)
[2019-03-14] MEDS: Acetaminophen 650 MG/20.3 ML UDCUP PER TUBE PRN ×3 (06:37→22:52)
[2019-03-14] MEDS: Ondansetron PF 4 MG/2 ML Vial IVP PRN ×3 (06:37→22:52)
--- NOTE | 2019-03-14 09:28 | PRG ---
DATE OF SERVICE: 03/14/2019 SUBJECTIVE: The patient remains on the stroke unit with no overnight events. She had a followup ultrasound yesterday, which is notable for persistent right basilic DVT. She is currently being treated with Lovenox. OBJECTIVE: VITAL SIGNS: The patient's vital signs remained stable. GENERAL: On exam, the patient awakens easily. She opens her eyes. NEUROLOGIC: Her pupils are equal and reactive. She is following commands over all 4s. SKIN: Her incision remained clean, dry, and intact. PLAN: We will continue her Lovenox treatment, continue PT as able, and the patient will require LTAC in the near future. Job ID: [id number]
[2019-03-14] MEDS: Scopolamine 1.5 mg/72 hour Patch TD SCH (10:26)
[2019-03-14] MEDS: Enoxaparin Sodium 40 MG/0.4 ML SYRINGE SC SCH (10:26)
[2019-03-14] MEDS: Furosemide 20 MG TAB PER TUBE SCH (10:27)
[2019-03-14] MEDS: Amlodipine 5 MG TAB PER TUBE SCH ×2 (10:27→22:50)
[2019-03-14] MEDS: Saccharomyces boulardii 250 MG CAP PER TUBE SCH (10:27)
[2019-03-14] MEDS: Sodium Chloride 0.9% (PF) 10 ML VIAL FS PRN (10:27)
[2019-03-14] MEDS: Lisinopril 10 MG TAB PER TUBE SCH ×2 (10:28→22:51)
[2019-03-14] MEDS: hydrALAZINE 25 MG TAB PER TUBE SCH ×4 (10:28→22:51)
[2019-03-14] MEDS: Metoprolol Tartrate 25 MG TAB PO SCH ×2 (10:29→22:52)
[2019-03-14] MEDS: Pantoprazole 40 MG VIAL IVP SCH ×2 (10:29→22:53)
--- NOTE | 2019-03-14 10:52 | PDOC.HOSPP ---
- Subjective Encounter Date: 03/14/19 Encounter Time: 07:00 Subjective: Pt seen for followup re: hypertension. Sleepy but arousable, not answering questions, could not complete ROS. - Objective Vital Signs & Weight: Vital Signs (12 hours) Temp Pulse Resp BP BP Pulse Ox 03/14/19 10:28 70 104/66 03/14/19 10:27 70 104/66 03/14/19 03:53 98.6 F 78 22 H 112/52 L 96 03/14/19 00:00 98.6 F 77 20 141/60 H 96 03/13/19 22:53 84 118/88 03/13/19 22:52 118/88 Weight Admit Weight 295 lb Weight 374 lb 12.8 oz Most Recent Monitor Data Heart Rate from ECG 76 NIBP 118/61 NIBP BP-Mean 80 Respiration from ECG 16 SpO2 100 I&O: 03/13/19 03/14/19 03/15/19 06:59 06:59 06:59 Intake Total 994 576 3202 Output Total 1860 1150 750 Balance -1166 -1030 308 Result Diagrams: 03/12/19 03:15 03/14/19 04:20 Additional Labs: Labs and MARs reviewed by me EKG Reviewed by me: Yes (Tele: NSR) Hospitalist ROS - Medication Medications: Active Medications Generic Name Dose Route Start Last Admin Trade Name Freq PRN Reason Stop Dose Admin Acetaminophen 650 mg 03/02/19 10:45 03/14/19 06:37 Tylenol Elixir PER TUBE 650 mg Q4H PRN Administration Headache/Fever or Pain Amlodipine Besylate 5 mg 03/12/19 21:00 03/14/19 10:27 Norvasc PER TUBE Not Given BID KALIE Enoxaparin Sodium 40 mg 03/12/19 09:00 03/14/19 10:26 Lovenox SC 40 mg 0900 KALIE Administration Furosemide 20 mg 03/12/19 09:00 03/14/19 10:27 Lasix PER TUBE 20 mg DAILY KALIE Administration Hydralazine HCl 10 mg 03/01/19 16:33 03/06/19 03:04 Apresoline SLOW IVP 10 mg Q4H PRN Administration SBP > 165 Hydralazine HCl 25 mg 03/12/19 17:00 03/14/19 10:28 Apresoline PER TUBE Not Given QID KALIE Cefazolin Sodium/Dextrose 2 gm 50 mls @ 100 mls/hr 02/28/19 02:00 03/14/19 10 :29 / Device IVPB 50 mls 0200,1000,1800 KALIE Administration Dextrose/Water 1,000 mls @ 0 mls/hr 03/07/19 12:12 03/12/19 15:39 D5w IV 1,000 mls .Q0M KALIE Administration KVO Labetalol HCl 10 mg 02/28/19 00:57 03/04/19 13:55 Normodyne SLOW IVP 10 mg Q2H PRN Administration SBP > 140 or DBP > 90 Lidocaine 1 patch 03/02/19 21:00 03/13/19 22:53 Lidoderm 5% Patch TD Not Given Q24HR KALIE Lisinopril 10 mg 03/12/19 21:00 03/14/19 10:28 Zestril PER TUBE Not Given BID KALIE Magnesium Hydroxide 30 ml 02/28/19 00:57 03/02/19 23:18 Milk Of Magnesium PO 30 ml BIDPRN PRN Administration Constipation Metoprolol Tartrate 25 mg 03/12/19 21:00 03/14/19 10:29 Lopressor PO Not Given BID KALIE Ondansetron HCl 4 mg 02/28/19 00:57 03/14/19 06:37 Zofran IVP 4 mg Q6H PRN Administration Nausea/Vomiting Pantoprazole Sodium 40 mg 03/04/19 09:00 03/14/19 10:29 Protonix IVP 40 mg Q12HR KALIE Administration Saccharomyces Boulardii 250 mg 03/13/19 09:00 03/14/19 10:27 Florastor PER TUBE 250 mg DAILY KALIE Administration Scopolamine 1.5 mg 03/08/19 08:45 03/14/19 10:26 Transderm Scop TD 1.5 mg Q3D KALIE Administration Sodium Chloride 10 ml 02/28/19 01:19 03/14/19 10:27 Normal Saline Pf FS 10 ml PRN PRN Administration RECONSTITUTION - Exam General - other findings: Morbid obese Eye: anicteric sclera ENT: no oropharyngeal lesions ENT - other findings: Tracheostomy Neck: supple, no JVD Heart: RRR Respiratory: CTAB, no wheezes Gastrointestinal: soft, non-tender Gastrointestinal - other findings: PEG tube Psychiatric - other findings: Unable to assess Hosp A/P - Plan Hosp A/P (1) HTN (hypertension) Code(s): I10 - ESSENTIAL (PRIMARY) HYPERTENSION Status: Chronic (2) HLD (hyperlipidemia) Code(s): E78.5 - HYPERLIPIDEMIA, UNSPECIFIED Status: Chronic (3) Morbid obesity with BMI of 45.0-49.9, adult Code(s): E66.01 - MORBID (SEVERE) OBESITY DUE TO EXCESS CALORIES; Z68.42 - BODY MASS INDEX (BMI) 45.0-49.9, ADULT Status: Chronic (4) Hypokalemia Code(s): E87.6 - HYPOKALEMIA Status: Acute (5) Hematochezia Code(s): K92.1 - MELENA Status: Resolved (6) Superficial vein thrombosis Status: Acute - Plan DVT proph w/lovenox, DVT proph w/SCDs Replace potassium Cont PEG tube feeding HTN controlled Will likely need LTAC
--- NOTE | 2019-03-14 12:20 | PRG ---
DATE OF SERVICE: 03/14/2019 SUBJECTIVE: Luna Viramontes this morning doing better. OBJECTIVE: VITAL SIGNS: Temperature 99, , respiratory rate 18, saturations are 96%, on trach collar, blood pressure 157/77. CHEST: She is coughing. No wheeze. She has extensive rhonchi. CARDIAC: Normal S1, S2. No gallops. ABDOMEN: No masses. ASSESSMENT AND PLAN: Status post trach secretions. Continue neb treatments, supportive care, PT. Job ID: [id number] MTDD
--- NOTE | 2019-03-14 13:43 | PRG ---
DATE OF SERVICE: 03/14/2019 The patient was seen and examined. She continues to make gradual clinical improvement. She is mouthing appropriate words and has been on the side of the bed with physical therapy. Awaiting LTAC placement. I discussed with the patient and her . Job ID: [id number]
[2019-03-14] MEDS: Lidocaine 5% Patch TD SCH (21:30)
[2019-03-15] MEDS: CEFAZOLIN 2 GM in Premix Bag 1 BAG IVPB SCH ×2 (03:12→11:32)
[2019-03-15 05:47] LABS: Anion Gap 11 mmol/L (10-20); BUN (Urea Nitrogen) 11 mg/dL (9.8-20.1); Calc. Creatinine Clearance 224 mL/min (70-130); Calcium 9.5 mg/dL (7.8-10.44); Carbon Dioxide 35 mmol/L (23-31); Chloride 96 mmol/L (98-107); Estimated GFR-MDRD Greater than 90; Glucose 134 mg/dL (80-115); Sodium 138 mmol/L (136-145)
[2019-03-15] MEDS: Acetaminophen 650 MG/20.3 ML UDCUP PER TUBE PRN ×2 (06:03→15:28)
[2019-03-15] MEDS: Ondansetron PF 4 MG/2 ML Vial IVP PRN (06:03)
[2019-03-15] MEDS: Dextrose 5% in Water 1,000 ML IV SCH (06:17)
[2019-03-15] MEDS: Labetalol HCl 100 MG/20 ML VIAL SLOW IVP PRN ×2 (06:19→19:05)
--- NOTE | 2019-03-15 09:03 | PRG ---
DATE OF SERVICE: 03/15/2019 SUBJECTIVE: She has been moved out to the stroke floor. She is doing well, has no acute complaints. OBJECTIVE: VITAL SIGNS: Temperature is 98.6, pulse 73, respirations 18, O2 saturation 98% on trach collar, blood pressure 157/86. HEENT: Unremarkable. NECK: Trach in good position. Has some bloody secretions around. LUNGS: Clear. CARDIAC: S1, S2. Regular. ABDOMEN: Soft. EXTREMITIES: No edema. ASSESSMENT: 1. Status post cerebellar hemorrhage. 2. Status post ventriculoperitoneal shunt. 3. Status post tracheostomy and percutaneous endoscopic gastrostomy. PLAN: We will try to change out the trach later this week to a 6-0 cuffless fenestrated. Job ID: [id number]
[2019-03-15] MEDS: Metoprolol Tartrate 25 MG TAB PO SCH ×2 (09:30→21:45)
[2019-03-15] MEDS: Enoxaparin Sodium 40 MG/0.4 ML SYRINGE SC SCH (09:31)
[2019-03-15] MEDS: Lisinopril 10 MG TAB PER TUBE SCH ×2 (09:31→21:45)
[2019-03-15] MEDS: Pantoprazole 40 MG VIAL IVP SCH (09:31)
[2019-03-15] MEDS: Saccharomyces boulardii 250 MG CAP PER TUBE SCH (09:31)
[2019-03-15] MEDS: Furosemide 20 MG TAB PER TUBE SCH (09:31)
[2019-03-15] MEDS: hydrALAZINE 25 MG TAB PER TUBE SCH ×4 (09:31→21:45)
[2019-03-15] MEDS: Amlodipine 5 MG TAB PER TUBE SCH ×2 (09:31→21:45)
--- NOTE | 2019-03-15 13:45 | PRG ---
DATE OF SERVICE: 03/15/2019 Ms. Viramontes is postoperative day #4, having undergone internalization of her right EVD into a TANDEM MILL ROLLER shunt. The patient overall appears to be neurologically improving. She does have right upper extremity thrombus. We are holding any type of blood pressure cuffs or needle sticks on that arm. She is on prophylactic Lovenox. She appropriately mouths words and when asked if she would like her blinds open or leave in the way she is, she is able to mouth leave them the way they are. She denies headache. She does have a slight amount of right upper extremity pain. Otherwise, she was able sit on the edge of the bed by report with therapies this weekend. At this time, the patient is ready for LTAC at any time and we are very pleased with her progress neurologically. She follows commands formally in all extremities and does have some mild weakness on the right arm and leg. She has good strength on the left side. Please call with any changes in patient's neurologic status. Otherwise, she is ready to transition to LTAC. Job ID: [id number]
[2019-03-15] MEDS: hydrALAZINE 20 MG/ML VIAL SLOW IVP PRN (18:05)
[2019-03-15] MEDS: Pantoprazole 40 MG GRANULES PACKET PER TUBE SCH (21:45)
[2019-03-15] MEDS: Lidocaine 5% Patch TD SCH (21:46)
--- NOTE | 2019-03-15 22:09 | PDOC.HOSPP ---
- Subjective Encounter Date: 03/15/19 Encounter Time: 08:30 Subjective: Patient seen and examined for med mngt. Tolerating PEG tube feeds. No new complaints. No overnight events - Objective Vital Signs & Weight: Vital Signs (12 hours) Temp Pulse Pulse Pulse Pulse Resp BP 03/15/19 21:45 80 166/80 H 03/15/19 20:00 98.9 F 91 18 03/15/19 19:05 75 172/70 H 03/15/19 18:05 75 188/80 H 03/15/19 18:00 115 H 22 H 03/15/19 16:48 75 163/77 H 03/15/19 15:45 98.7 F 75 18 03/15/19 14:18 03/15/19 13:47 80 16 03/15/19 13:40 80 80 80 03/15/19 12:40 75 147/70 H 03/15/19 12:08 74 77 72 03/15/19 11:56 98.7 F 75 16 BP BP BP BP Pulse Ox Pulse Ox 03/15/19 21:45 03/15/19 20:00 172/70 H 97 03/15/19 19:05 03/15/19 18:05 03/15/19 18:00 84 L 03/15/19 16:48 03/15/19 15:45 134/69 97 03/15/19 14:18 140/72 03/15/19 13:47 94 L 03/15/19 13:40 156/86 H 137/75 172/94 H 03/15/19 12:40 03/15/19 12:08 138/69 155/76 H 147/70 H 92 L 03/15/19 11:56 142/83 H 95 Weight Admit Weight 295 lb Weight 374 lb 12.8 oz Most Recent Monitor Data Heart Rate from ECG 76 NIBP 118/61 NIBP BP-Mean 80 Respiration from ECG 16 SpO2 100 I&O: 03/14/19 03/15/19 03/16/19 06:59 06:59 06:59 Intake Total 120 2198 1392 Output Total 1150 2250 1600 Balance -1030 -52 -208 Result Diagrams: 03/16/19 04:51 03/16/19 04:51 EKG Reviewed by me: Yes (Tele SR) Hospitalist ROS - Review of Systems Cardiovascular: denies: chest pain, palpitations, orthopnea, paroxysmal noc. dyspnea, edema, light headedness, other Gastrointestinal: denies: nausea, vomiting, abdominal pain, diarrhea, constipation, melena, hematochezia, other - Medication Medications: Active Medications Generic Name Dose Route Start Last Admin Trade Name Freq PRN Reason Stop Dose Admin Acetaminophen 650 mg 03/02/19 10:45 03/15/19 15:28 Tylenol Elixir PER TUBE 650 mg Q4H PRN Administration Headache/Fever or Pain Albuterol/Ipratropium 3 ml 03/14/19 13:00 03/15/19 18:00 Duoneb NEB 3 ml [id number] [facility] Administration Enoxaparin Sodium 40 mg 03/12/19 09:00 03/15/19 09:31 Lovenox SC 40 mg 0900 [facility] Administration Furosemide 20 mg 03/12/19 09:00 03/15/19 09:31 Lasix PER TUBE 20 mg DAILY [facility] Administration Hydralazine HCl 10 mg 03/01/19 16:33 03/15/19 18:05 Apresoline SLOW IVP 10 mg Q4H PRN Administration SBP > 165 Dextrose/Water 1,000 mls @ 0 mls/hr 03/07/19 12:12 03/15/19 06:17 D5w IV 1,000 mls .Q0M KALIE Administration KVO Labetalol HCl 10 mg 02/28/19 00:57 03/15/19 19:05 Normodyne SLOW IVP 2 ml Q2H PRN Administration SBP > 140 or DBP > 90 Lidocaine 1 patch 03/02/19 21:00 03/15/19 21:46 Lidoderm 5% Patch TD Not Given Q24HR [facility] Magnesium Hydroxide 30 ml 02/28/19 00:57 03/02/19 23:18 Milk Of Magnesium PO 30 ml BIDPRN PRN Administration Constipation Metoprolol Tartrate 25 mg 03/12/19 21:00 03/15/19 21:45 Lopressor PO 25 mg BID [facility] Administration Ondansetron HCl 4 mg 02/28/19 00:57 03/15/19 06:03 Zofran IVP 4 mg Q6H PRN Administration Nausea/Vomiting Pantoprazole Sodium 40 mg 03/15/19 21:00 03/15/19 21:45 Protonix PER TUBE 40 mg Q12HR [facility] Administration Saccharomyces Boulardii 250 mg 03/13/19 09:00 03/15/19 09:31 Florastor PER TUBE 250 mg DAILY [facility] Administration Scopolamine 1.5 mg 03/08/19 08:45 03/14/19 10:26 Transderm Scop TD 1.5 mg Q3D KALIE Administration - Exam General Appearance: NAD ENT: no oropharyngeal lesions ENT - other findings: trach + Heart: RRR, no gallops Respiratory: no wheezes, no rales, rhonchi Gastrointestinal: soft, non-tender, normal bowel sounds Gastrointestinal - other findings: PEG + Hosp A/P (1) HTN (hypertension) Code(s): I10 - ESSENTIAL (PRIMARY) HYPERTENSION (2) Basilic vein thrombosis Code(s): I82.619 - ACUTE EMBOLISM AND THROMBOSIS OF SUPERFIC VN UNSP UP EXTREM (3) HLD (hyperlipidemia) Code(s): E78.5 - HYPERLIPIDEMIA, UNSPECIFIED (4) Morbid obesity Code(s): E66.01 - MORBID (SEVERE) OBESITY DUE TO EXCESS CALORIES - Plan PT/OT, DVT proph w/lovenox, DVT proph w/SCDs Cont Amlodipine/Metoprolol Increase Lisinopril and Hydralazine Cont PRN HTN meds Await LTAC placement Will follow
[2019-03-16] MEDS: Acetaminophen 650 MG/20.3 ML UDCUP PER TUBE PRN ×3 (00:56→17:33)
[2019-03-16] MEDS: Ondansetron PF 4 MG/2 ML Vial IVP PRN ×3 (00:56→17:30)
[2019-03-16 05:25] LABS: #Basophils 0.1 thou/uL (0.0-0.2); #Eosinphils 0.4 thou/uL (0.0-0.7); #Lymphocytes 1.9 thou/uL (1.20-3.40); #Monocytes 1.1 thou/uL (0.11-0.59); #Neutrophils 8.5 thou/uL (1.40-6.50); %Basophils 0.5 % (0.0-1.0); %Eosinophils 3.3 % (0.0-10.0); %Lymphocytes 15.7 % (21.0-51.0); %Monocytes 9.5 % (0.0-10.0); %Neutrophils 71.1 % (42.0-75.0); Hemoglobin 9.5 g/dL (12.0-16.0); Mean Corpuscular HGB CONC 29.2 g/dL (32.0-36.0); Mean Corpuscular Hemoglobin 21.6 pg (27.0-31.0); Mean Platelet Volume 11.3 fL (7.4-10.4); Platelet Count 311 thou/uL (130-400); RBC Distribution Width 16.9 % (11.5-14.5); Red Blood Cell (RBC) Count 4.38 mill/uL (4.20-5.40)
[2019-03-16 05:42] LABS: Anion Gap 8 mmol/L (10-20); BUN (Urea Nitrogen) 14 mg/dL (9.8-20.1); Calc. Creatinine Clearance 242 mL/min (70-130); Calcium 9.4 mg/dL (7.8-10.44); Carbon Dioxide 36 mmol/L (23-31); Chloride 97 mmol/L (98-107); Estimated GFR-MDRD Greater than 90; Glucose 153 mg/dL (80-115); Potassium 4.2 mmol/L (3.5-5.1); Sodium 137 mmol/L (136-145)
[2019-03-16] MEDS: Enoxaparin Sodium 40 MG/0.4 ML SYRINGE SC SCH (09:10)
[2019-03-16] MEDS: hydrALAZINE 25 MG TAB PER TUBE SCH ×4 (09:29→21:12)
[2019-03-16] MEDS: Furosemide 20 MG TAB PER TUBE SCH (09:29)
[2019-03-16] MEDS: Amlodipine 5 MG TAB PER TUBE SCH ×2 (09:29→21:08)
[2019-03-16] MEDS: Metoprolol Tartrate 25 MG TAB PO SCH ×2 (09:29→21:13)
[2019-03-16] MEDS: Saccharomyces boulardii 250 MG CAP PER TUBE SCH (09:30)
[2019-03-16] MEDS: Pantoprazole 40 MG GRANULES PACKET PER TUBE SCH ×2 (09:30→21:08)
[2019-03-16] MEDS: Lisinopril 20 MG TAB PER TUBE SCH ×2 (09:30→21:13)
--- NOTE | 2019-03-16 10:16 | PRG ---
DATE OF SERVICE: 03/16/2019 SUBJECTIVE: The patient is doing reasonably well. No acute complaints. OBJECTIVE: VITAL SIGNS: Temperature 98.5, pulse 78, blood pressure 118/66, and O2 sat 99%. HEENT: Unremarkable. NECK: No adenopathy or JVD. Trach in good position. LUNGS: Clear. CARDIAC: S1 and S2. Regular. ABDOMEN: Soft. EXTREMITIES: No edema. LABORATORY DATA: White blood cell count 12, hematocrit 32.4, and platelet count 311. Sodium 137, potassium 4.2, chloride 97, CO2 of 36, BUN 14, creatinine 0.6, and glucose 153. ASSESSMENT: 1. Status post cerebellar stroke. 2. Status post trach and PEG for oropharyngeal dysphagia. PLAN: I have downsized her trach to a 6 cuffless. I will ask Speech Therapy to intervene with a speaking valve. I agree that she is ready for an LTAC from my standpoint. Job ID: [id number]
--- NOTE | 2019-03-16 10:18 | PRG ---
DATE OF SERVICE: 03/16/2019 Ms. Viramontes continues to do very well. She is alert and moves all extremities. She does mouth words appropriately. We have her on prophylactic Lovenox as she has a right upper extremity superficial venous thrombosis in the basilic vein. We are awaiting inpatient rehab. Job ID: [id number]
--- NOTE | 2019-03-16 17:56 | PDOC.HOSPP ---
- Subjective Encounter Date: 03/16/19 Encounter Time: 16:00 Subjective: Patient seen and examined for med mngt. No new complaints. No overnight events - Objective Vital Signs & Weight: Vital Signs (12 hours) Temp Pulse Pulse Resp BP BP BP 03/16/19 17:32 81 149/75 H 03/16/19 15:55 98.8 F 81 20 149/75 H 03/16/19 13:35 73 127/73 03/16/19 12:52 70 16 03/16/19 12:28 74 123/61 03/16/19 11:10 98.6 F 74 16 123/61 03/16/19 09:30 118/66 03/16/19 09:29 78 118/66 03/16/19 07:55 98.5 F 78 20 118/66 03/16/19 07:36 80 18 03/16/19 07:10 Pulse Ox 03/16/19 17:32 03/16/19 15:55 96 03/16/19 13:35 03/16/19 12:52 03/16/19 12:28 03/16/19 11:10 95 03/16/19 09:30 03/16/19 09:29 03/16/19 07:55 99 03/16/19 07:36 03/16/19 07:10 97 Weight Admit Weight 295 lb Weight 375 lb 4.8 oz Most Recent Monitor Data Heart Rate from ECG 76 NIBP 118/61 NIBP BP-Mean 80 Respiration from ECG 16 SpO2 100 I&O: 03/15/19 03/16/19 03/17/19 06:59 06:59 06:59 Intake Total 2198 2142 90 Output Total 2250 2150 600 Balance -52 -8 -510 Result Diagrams: 03/16/19 04:51 03/16/19 04:51 EKG Reviewed by me: Yes (Tele SR) Hospitalist ROS - Review of Systems Cardiovascular: denies: chest pain, palpitations, orthopnea, paroxysmal noc. dyspnea, edema, light headedness, other Gastrointestinal: denies: nausea, vomiting, abdominal pain, diarrhea, constipation, melena, hematochezia, other - Medication Medications: Active Medications Generic Name Dose Route Start Last Admin Trade Name Freq PRN Reason Stop Dose Admin Acetaminophen 650 mg 03/02/19 10:45 03/16/19 17:33 Tylenol Elixir PER TUBE 650 mg Q4H PRN Administration Headache/Fever or Pain Albuterol/Ipratropium 3 ml 03/14/19 13:00 03/16/19 12:52 Duoneb NEB 3 ml [id number] [facility] Administration Amlodipine Besylate 5 mg 03/15/19 22:06 03/16/19 09:29 Norvasc PER TUBE 5 mg BID [facility] Administration Enoxaparin Sodium 40 mg 03/12/19 09:00 03/16/19 09:10 Lovenox SC 40 mg 0900 [facility] Administration Furosemide 20 mg 03/12/19 09:00 03/16/19 09:29 Lasix PER TUBE 20 mg DAILY [facility] Administration Hydralazine HCl 10 mg 03/01/19 16:33 03/15/19 18:05 Apresoline SLOW IVP 10 mg Q4H PRN Administration SBP > 165 Hydralazine HCl 50 mg 03/15/19 22:06 03/16/19 17:32 Apresoline PER TUBE 50 mg QID [facility] Administration Labetalol HCl 10 mg 02/28/19 00:57 03/15/19 19:05 Normodyne SLOW IVP 2 ml Q2H PRN Administration SBP > 140 or DBP > 90 Lidocaine 1 patch 03/02/19 21:00 03/15/19 21:46 Lidoderm 5% Patch TD Not Given Q24HR [facility] Lisinopril 20 mg 03/15/19 22:06 03/16/19 09:30 Zestril PER TUBE 20 mg BID [facility] Administration Magnesium Hydroxide 30 ml 02/28/19 00:57 03/02/19 23:18 Milk Of Magnesium PO 30 ml BIDPRN PRN Administration Constipation Metoprolol Tartrate 25 mg 03/12/19 21:00 03/16/19 09:29 Lopressor PO 25 mg BID [facility] Administration Ondansetron HCl 4 mg 02/28/19 00:57 03/16/19 17:30 Zofran IVP 4 mg Q6H PRN Administration Nausea/Vomiting Pantoprazole Sodium 40 mg 03/15/19 21:00 03/16/19 09:30 Protonix PER TUBE 40 mg Q12HR [facility] Administration Saccharomyces Boulardii 250 mg 03/13/19 09:00 03/16/19 09:30 Florastor PER TUBE 250 mg DAILY [facility] Administration Scopolamine 1.5 mg 03/08/19 08:45 03/14/19 10:26 Transderm Scop TD 1.5 mg Q3D KLAIE Administration - Exam General Appearance: NAD Heart: RRR, no gallops Respiratory: no wheezes, rhonchi Gastrointestinal: soft, non-distended Extremities: no cyanosis Hosp A/P (1) HTN (hypertension) Code(s): I10 - ESSENTIAL (PRIMARY) HYPERTENSION (2) Basilic vein thrombosis Code(s): I82.619 - ACUTE EMBOLISM AND THROMBOSIS OF SUPERFIC VN UNSP UP EXTREM (3) HLD (hyperlipidemia) Code(s): E78.5 - HYPERLIPIDEMIA, UNSPECIFIED (4) Morbid obesity Code(s): E66.01 - MORBID (SEVERE) OBESITY DUE TO EXCESS CALORIES - Plan PT/OT, DVT proph w/lovenox Cont Amlodipine/Metoprolol/Lisinopril and Hydralazine Cont PRN HTN meds Await LTAC placement Will follow
[2019-03-16] MEDS: Lidocaine 5% Patch TD SCH (21:13)
--- NOTE | 2019-03-17 08:59 | PRG ---
DATE OF SERVICE: 03/17/2019 SUBJECTIVE: The patient is doing reasonably well, has no complaints. OBJECTIVE: VITAL SIGNS: On exam, temperature is 98.3, pulse 85, respirations 18, O2 saturation 95%, and blood pressure 140/74. HEENT: Unremarkable. NECK: No adenopathy or JVD. Trach in good position. Has some secretions present. CARDIAC: S1 and S2. Regular. ABDOMEN: Soft. EXTREMITIES: No edema. LABORATORY DATA: No labs were obtained today. ASSESSMENT: 1. Status post cerebellar stroke. 2. Oropharyngeal dysfunction. PLAN: Hopefully, the patient will be able to go to LTAC soon for rehab. I would anticipate trach being in until swallowing and oropharyngeal dysfunction has improved. Job ID: [id number]
[2019-03-17] MEDS: Scopolamine 1.5 mg/72 hour Patch TD SCH (09:50)
[2019-03-17] MEDS: Metoprolol Tartrate 25 MG TAB PO SCH ×2 (09:52→21:17)
[2019-03-17] MEDS: Amlodipine 5 MG TAB PER TUBE SCH ×2 (09:52→21:18)
[2019-03-17] MEDS: Lisinopril 20 MG TAB PER TUBE SCH ×2 (09:53→21:17)
[2019-03-17] MEDS: hydrALAZINE 25 MG TAB PER TUBE SCH ×4 (09:53→21:18)
[2019-03-17] MEDS: Furosemide 20 MG TAB PER TUBE SCH (09:53)
[2019-03-17] MEDS: Enoxaparin Sodium 40 MG/0.4 ML SYRINGE SC SCH (09:54)
[2019-03-17] MEDS: Pantoprazole 40 MG GRANULES PACKET PER TUBE SCH (09:54)
[2019-03-17] MEDS: Saccharomyces boulardii 250 MG CAP PER TUBE SCH (09:54)
--- NOTE | 2019-03-17 12:47 | PRG ---
DATE OF SERVICE: 03/17/2019 Ms. Viramontes is hospital day 17, having undergone a cerebellar hemorrhage evacuation and later shunt placement. The patient appears to be continuing to improve neurologically. She is able to correctly identify 2 and then 3 fingers when I hold them up to her for her to identify. She follows commands in all extremities and may be slightly delayed on the right, but otherwise follows commands in all extremities. She is able to appropriately mouth words. Says she has a little bit of headache today. Right now, we are waiting for approval to an LTAC. I have attempted attempt again today. The patient would benefit greatly from vigorous therapies. She remains on Lovenox and her blood pressure has been fairly well controlled 120s/60s. Please call with any changes in the patient's neurologic status. Otherwise, she is ready for discharge to LTAC once arrangements have been made and she has been approved. Job ID: [id number]
[2019-03-17] MEDS: Acetaminophen 650 MG/20.3 ML UDCUP PER TUBE PRN (17:29)
--- NOTE | 2019-03-17 20:50 | PDOC.HOSPP ---
- Subjective Encounter Date: 03/17/19 Encounter Time: 09:30 Subjective: Patient seen and examined for med mngt. No new complaints. Overnight events noted. - Objective Vital Signs & Weight: Vital Signs (12 hours) Temp Pulse Pulse Resp BP BP BP 03/17/19 19:33 98.9 F 82 16 131/75 03/17/19 18:15 83 18 03/17/19 17:21 80 144/70 H 03/17/19 15:55 98.5 F 80 18 144/70 H 03/17/19 14:52 80 131/67 03/17/19 12:48 77 163/83 H 03/17/19 12:44 76 20 03/17/19 12:00 98 F 77 18 163/83 H 03/17/19 11:16 84 163/83 H 03/17/19 09:53 85 140/74 03/17/19 09:52 85 140/74 03/17/19 09:46 Pulse Ox 03/17/19 19:33 95 03/17/19 18:15 95 03/17/19 17:21 03/17/19 15:55 95 03/17/19 14:52 03/17/19 12:48 03/17/19 12:44 94 L 03/17/19 12:00 96 03/17/19 11:16 03/17/19 09:53 03/17/19 09:52 03/17/19 09:46 95 Weight Admit Weight 295 lb Weight 375 lb 6.4 oz Most Recent Monitor Data Heart Rate from ECG 76 NIBP 118/61 NIBP BP-Mean 80 Respiration from ECG 16 SpO2 100 I&O: 03/16/19 03/17/19 03/18/19 06:59 06:59 06:59 Intake Total 2142 150 90 Output Total 2150 1800 Balance -8 -1650 90 Result Diagrams: 03/16/19 04:51 03/16/19 04:51 EKG Reviewed by me: Yes (Tele SR) Hospitalist ROS - Review of Systems Respiratory: denies: cough, dry, shortness of breath, hemoptysis, SOB with excertion, pleuritic pain, sputum, wheezing, other Cardiovascular: denies: chest pain, palpitations, orthopnea, paroxysmal noc. dyspnea, edema, light headedness, other Gastrointestinal: denies: nausea, vomiting, abdominal pain, diarrhea, constipation, melena, hematochezia, other - Medication Medications: Active Medications Generic Name Dose Route Start Last Admin Trade Name Freq PRN Reason Stop Dose Admin Acetaminophen 650 mg 03/02/19 10:45 03/17/19 17:29 Tylenol Elixir PER TUBE 650 mg Q4H PRN Administration Headache/Fever or Pain Albuterol/Ipratropium 3 ml 03/14/19 13:00 03/17/19 18:15 Duoneb NEB 3 ml [id number] [facility] Administration Amlodipine Besylate 5 mg 03/15/19 22:06 03/17/19 09:52 Norvasc PER TUBE 5 mg BID [facility] Administration Enoxaparin Sodium 40 mg 03/12/19 09:00 03/17/19 09:54 Lovenox SC 40 mg 0900 [facility] Administration Furosemide 20 mg 03/12/19 09:00 03/17/19 09:53 Lasix PER TUBE 20 mg DAILY [facility] Administration Hydralazine HCl 10 mg 03/01/19 16:33 03/15/19 18:05 Apresoline SLOW IVP 10 mg Q4H PRN Administration SBP > 165 Hydralazine HCl 50 mg 03/16/19 21:00 03/17/19 17:21 Apresoline PER TUBE 50 mg QID [facility] Administration Labetalol HCl 10 mg 02/28/19 00:57 03/15/19 19:05 Normodyne SLOW IVP 2 ml Q2H PRN Administration SBP > 140 or DBP > 90 Lidocaine 1 patch 03/02/19 21:00 03/16/19 21:13 Lidoderm 5% Patch TD Not Given Q24HR [facility] Lisinopril 20 mg 03/15/19 22:06 03/17/19 09:53 Zestril PER TUBE 20 mg BID [facility] Administration Magnesium Hydroxide 30 ml 02/28/19 00:57 03/02/19 23:18 Milk Of Magnesium PO 30 ml BIDPRN PRN Administration Constipation Metoprolol Tartrate 25 mg 03/12/19 21:00 03/17/19 09:52 Lopressor PO 25 mg BID [facility] Administration Ondansetron HCl 4 mg 02/28/19 00:57 03/16/19 17:30 Zofran IVP 4 mg Q6H PRN Administration Nausea/Vomiting Saccharomyces Boulardii 250 mg 03/13/19 09:00 03/17/19 09:54 Florastor PER TUBE 250 mg DAILY [facility] Administration Scopolamine 1.5 mg 03/08/19 08:45 03/17/19 09:50 Transderm Scop TD 1.5 mg Q3D [facility] Administration - Exam General Appearance: NAD Heart: no gallops, no rubs Respiratory: no wheezes, no rales Gastrointestinal: non-tender, non-distended Hosp A/P (1) HTN (hypertension) Code(s): I10 - ESSENTIAL (PRIMARY) HYPERTENSION (2) Basilic vein thrombosis Code(s): I82.619 - ACUTE EMBOLISM AND THROMBOSIS OF SUPERFIC VN UNSP UP EXTREM (3) HLD (hyperlipidemia) Code(s): E78.5 - HYPERLIPIDEMIA, UNSPECIFIED (4) Morbid obesity Code(s): E66.01 - MORBID (SEVERE) OBESITY DUE TO EXCESS CALORIES - Plan DVT proph w/lovenox, DVT proph w/SCDs Cont current HTN meds Cont tube feeds IV access not functioning - Will dc. Prob no need for new IV access Await LTAC placement Will follow
[2019-03-17] MEDS: Lidocaine 5% Patch TD SCH (21:18)
[2019-03-18] MEDS: Acetaminophen 650 MG/20.3 ML UDCUP PER TUBE PRN ×4 (02:27→22:15)
[2019-03-18] MEDS: hydrALAZINE 25 MG TAB PER TUBE SCH ×4 (08:43→21:55)
[2019-03-18] MEDS: Pantoprazole 40 MG GRANULES PACKET PER TUBE SCH (08:43)
[2019-03-18] MEDS: Metoprolol Tartrate 25 MG TAB PO SCH ×2 (08:43→21:56)
[2019-03-18] MEDS: Furosemide 20 MG TAB PER TUBE SCH (08:44)
[2019-03-18] MEDS: Lisinopril 20 MG TAB PER TUBE SCH ×2 (08:44→21:56)
[2019-03-18] MEDS: Amlodipine 5 MG TAB PER TUBE SCH ×2 (08:44→21:55)
[2019-03-18] MEDS: Saccharomyces boulardii 250 MG CAP PER TUBE SCH (08:44)
[2019-03-18] MEDS: Enoxaparin Sodium 40 MG/0.4 ML SYRINGE SC SCH (08:45)
--- NOTE | 2019-03-18 08:50 | PRG ---
DATE OF SERVICE: 03/18/2019 SUBJECTIVE: The patient appears to be doing reasonably well. She does have a sitter at the bedside. PHYSICAL EXAMINATION: VITAL SIGNS: Temperature 98.2, pulse 77, respirations 16, O2 saturation 96% on trach collar, blood pressure 142/67. HEENT: Unremarkable. NECK: No adenopathy or JVD. CHEST: Coarse rhonchi radiating from the trach. CARDIAC: S1 and S2 regular. ABDOMEN: Soft. EXTREMITIES: No edema. LABORATORY DATA: No labs were obtained today. ASSESSMENT: Status post trach and percutaneous endoscopic gastrostomy tube for oropharyngeal dysphagia. PLAN: LTAC transfer is pending. I have notified the nurses to increase the intensity of suctioning. Job ID: [id number]
[2019-03-18] MEDS: Diabetic Tussin 200 MG/10 ML UDCUP PER TUBE SCH ×2 (12:10→18:14)
--- NOTE | 2019-03-18 18:42 | PRG ---
DATE OF SERVICE: 03/18/2019 Ms. Viramontes is hospital day #18, having sustained a cerebellar hemorrhage and subsequent SHEAR SCRAPMAN shunt placement. She is doing well today. She is able to correctly mouths words. She says she does have a little bit of right arm pain. She nods her head yes when I asked if she has some right arm pain, but now, it is just a little. She denies headache. Her posterior fossa craniotomy incision eliceo were removed earlier this week and there does not appear to be any drainage from this. She follows commands in all extremities. Reading the note, she has been able to stand up with PT. I have attempted to peer to peer for approval to LTAC, but unfortunately, the patient does not meet criteria as she has not been on a ventilator for more than 21 days and proven to be stable. She is on a trach collar and is tolerating oxygen, intermittently room air. We will continue to follow the patient. Since she does not qualify for LTAC placement, she needs inpatient rehab. She is neurosurgically stable. Continue to follow. Please call with any changes in the patient's neurologic status. Job ID: [id number]
[2019-03-18] MEDS: Lidocaine 5% Patch TD SCH (21:56)
--- NOTE | 2019-03-18 22:40 | PDOC.HOSPP ---
- Subjective Encounter Date: 03/18/19 Encounter Time: 14:30 Subjective: Patient seen and examined for medical mngt. No new complaints. No overnight events - Objective Vital Signs & Weight: Vital Signs (12 hours) Temp Pulse Resp BP BP Pulse Ox 03/18/19 20:00 97.3 F L 88 16 142/71 H 92 L 03/18/19 18:29 78 20 96 03/18/19 16:43 81 148/75 H 03/18/19 15:27 98.6 F 81 16 148/75 H 93 L 03/18/19 12:10 79 151/80 H 03/18/19 11:58 79 20 96 03/18/19 11:28 98.3 F 75 16 151/80 H 96 Weight Admit Weight 295 lb Weight 375 lb Most Recent Monitor Data Heart Rate from ECG 76 NIBP 118/61 NIBP BP-Mean 80 Respiration from ECG 16 SpO2 100 I&O: 03/17/19 03/18/19 03/19/19 06:59 06:59 06:59 Intake Total 150 150 90 Output Total 1800 1600 Balance -1650 -1450 90 Result Diagrams: 03/16/19 04:51 03/16/19 04:51 EKG Reviewed by me: Yes (Tele SR) Hospitalist ROS - Review of Systems Cardiovascular: denies: chest pain, palpitations, orthopnea, paroxysmal noc. dyspnea, edema, light headedness, other Gastrointestinal: denies: nausea, vomiting, abdominal pain, diarrhea, constipation, melena, hematochezia, other - Medication Medications: Active Medications Generic Name Dose Route Start Last Admin Trade Name Freq PRN Reason Stop Dose Admin Acetaminophen 650 mg 03/02/19 10:45 03/18/19 22:15 Tylenol Elixir PER TUBE 650 mg Q4H PRN Administration Headache/Fever or Pain Albuterol/Ipratropium 3 ml 03/14/19 13:00 03/18/19 18:29 Duoneb NEB 3 ml [id number] [facility] Administration Amlodipine Besylate 5 mg 03/15/19 22:06 03/18/19 21:55 Norvasc PER TUBE 5 mg BID [facility] Administration Enoxaparin Sodium 40 mg 03/12/19 09:00 03/18/19 08:45 Lovenox SC 40 mg 0900 [facility] Administration Furosemide 20 mg 03/12/19 09:00 03/18/19 08:44 Lasix PER TUBE 20 mg DAILY [facility] Administration Guaifenesin 200 mg 03/18/19 12:00 03/18/19 18:14 Robitussin Sf PER TUBE 200 mg Q6HR [facility] Administration Hydralazine HCl 10 mg 03/01/19 16:33 03/15/19 18:05 Apresoline SLOW IVP 10 mg Q4H PRN Administration SBP > 165 Hydralazine HCl 50 mg 03/16/19 21:00 03/18/19 21:55 Apresoline PER TUBE 50 mg QID [facility] Administration Labetalol HCl 10 mg 02/28/19 00:57 03/15/19 19:05 Normodyne SLOW IVP 2 ml Q2H PRN Administration SBP > 140 or DBP > 90 Lidocaine 1 patch 03/02/19 21:00 03/18/19 21:56 Lidoderm 5% Patch TD Not Given Q24HR [facility] Lisinopril 20 mg 03/15/19 22:06 03/18/19 21:56 Zestril PER TUBE 20 mg BID [facility] Administration Magnesium Hydroxide 30 ml 02/28/19 00:57 03/02/19 23:18 Milk Of Magnesium PO 30 ml BIDPRN PRN Administration Constipation Metoprolol Tartrate 25 mg 03/12/19 21:00 03/18/19 21:56 Lopressor PO 25 mg BID [facility] Administration Ondansetron HCl 4 mg 02/28/19 00:57 03/16/19 17:30 Zofran IVP 4 mg Q6H PRN Administration Nausea/Vomiting Pantoprazole Sodium 40 mg 03/18/19 09:00 03/18/19 08:43 Protonix PER TUBE 40 mg DAILY [facility] Administration Saccharomyces Boulardii 250 mg 03/13/19 09:00 03/18/19 08:44 Florastor PER TUBE 250 mg DAILY [facility] Administration Scopolamine 1.5 mg 03/08/19 08:45 03/17/19 09:50 Transderm Scop TD 1.5 mg Q3D [facility] Administration - Exam General Appearance: NAD Heart: RRR, no gallops Respiratory: no wheezes, no rales Respiratory - other findings: trach + Gastrointestinal: non-tender, non-distended Extremities: no cyanosis Hosp A/P (1) HTN (hypertension) Code(s): I10 - ESSENTIAL (PRIMARY) HYPERTENSION (2) Basilic vein thrombosis Code(s): I82.619 - ACUTE EMBOLISM AND THROMBOSIS OF SUPERFIC VN UNSP UP EXTREM (3) HLD (hyperlipidemia) Code(s): E78.5 - HYPERLIPIDEMIA, UNSPECIFIED (4) Morbid obesity Code(s): E66.01 - MORBID (SEVERE) OBESITY DUE TO EXCESS CALORIES - Plan Cont current meds as above Cont tube feeding Await placement
[2019-03-19] MEDS: Diabetic Tussin 200 MG/10 ML UDCUP PER TUBE SCH ×5 (01:14→23:44)
--- NOTE | 2019-03-19 08:31 | PRG ---
DATE OF SERVICE: 03/19/2019 SUBJECTIVE: The patient is doing well. She is able to phonate with a Passy Alexadnrea valve without difficulty. She has no acute complaints. OBJECTIVE: VITAL SIGNS: Temperature 98.3, pulse 83, respirations 22, O2 saturation 95% on room air, blood pressure 130/69. HEENT: Unremarkable. NECK: Trach midline. Good position. Minimal secretions. CARDIAC: S1-S2 regular. ABDOMEN: Soft. EXTREMITIES: No edema. LABORATORY DATA: No labs were obtained today. ASSESSMENT: 1. Status post cerebellar stroke with requirement of ventricular peritoneal shunt. 2. Status post trach and PEG due to inability to control upper airway. PLAN: Basically she needs rehab. I am hoping at some point in future she can be decannulated. I have downsized her to a size 6.0 cuffless trach and she will remain with a trach in until later today. She is ready for rehab at anytime. Job ID: [id number]
[2019-03-19] MEDS: Furosemide 20 MG TAB PER TUBE SCH (09:19)
[2019-03-19] MEDS: Amlodipine 5 MG TAB PER TUBE SCH ×2 (09:19→21:34)
[2019-03-19] MEDS: Saccharomyces boulardii 250 MG CAP PER TUBE SCH (09:19)
[2019-03-19] MEDS: hydrALAZINE 25 MG TAB PER TUBE SCH ×4 (09:19→21:34)
[2019-03-19] MEDS: Metoprolol Tartrate 25 MG TAB PO SCH ×2 (09:19→21:33)
[2019-03-19] MEDS: Pantoprazole 40 MG GRANULES PACKET PER TUBE SCH (09:19)
[2019-03-19] MEDS: Enoxaparin Sodium 40 MG/0.4 ML SYRINGE SC SCH (09:20)
[2019-03-19] MEDS: Lisinopril 20 MG TAB PER TUBE SCH ×2 (09:20→21:34)
--- NOTE | 2019-03-19 10:04 | PRG ---
DATE OF SERVICE: 03/19/2019 SUBJECTIVE: Mrs. Viramontes is hospital day #18 after having undergone cerebellar hemorrhage evacuation, and subsequent shunt placement on 03/11/2019. The patient is postop day #8 from her shunt placement. The patient continues to improve neurologically. She is follows commands and is able to move all extremities. She is mouthing words and has appropriate responses to questioning. She verbalized that she is ready to go home. She denies any complaints of headache or pain at this time. She had 2 episodes of vomiting today upon being moved to be cleaned and after PT. She denies nausea. Vomiting is likely related to her bedbound status and immobility over the last 2 1/2 weeks and fact that she is now being mobilized. However, our Medical colleagues may also want to consider possible ileus. Patient remains on Lovenox and blood pressure has been well controlled. We will leave her head eliceo in for another week. Patient will greatly benefit from vigorous therapy. We are currently pending approval of an appeal for her to be discharged to an LTAC facility. From a neurosurgical standpoint, she is clear for discharge pending insurance approval. Please call with any changes in the patient's neurologic status or any other concerns. Job ID: [id number] MTDD
--- NOTE | 2019-03-19 11:29 | PDOC.HOSPP ---
- Subjective Encounter Date: 03/19/19 Encounter Time: 11:23 Subjective: Patient seen and examined for medical mngt. Nausea with movement. Tolerating tube feeds.Sitter at bedside for intermittent confusion. No other complaints. No overnight events - Objective Vital Signs & Weight: Vital Signs (12 hours) Temp Pulse Resp BP Pulse Ox 03/19/19 09:19 84 03/19/19 08:55 94 L 03/19/19 07:45 84 20 03/19/19 07:31 98.3 F 83 22 H 130/69 95 03/19/19 04:23 98.0 F 83 16 129/71 93 L 03/19/19 00:28 80 20 95 03/19/19 00:02 98.8 F 82 16 118/77 94 L Weight Admit Weight 295 lb Weight 373 lb Most Recent Monitor Data Heart Rate from ECG 76 NIBP 118/61 NIBP BP-Mean 80 Respiration from ECG 16 SpO2 100 I&O: 03/18/19 03/19/19 03/20/19 06:59 06:59 06:59 Intake Total 150 150 Output Total 1600 1200 Balance -1450 -1050 Result Diagrams: 03/16/19 04:51 03/16/19 04:51 EKG Reviewed by me: Yes (Tele SR) Hospitalist ROS - Review of Systems ROS unobtainable: due to mental status - Medication Medications: Active Medications Generic Name Dose Route Start Last Admin Trade Name Freq PRN Reason Stop Dose Admin Acetaminophen 650 mg 03/02/19 10:45 03/18/19 22:15 Tylenol Elixir PER TUBE 650 mg Q4H PRN Administration Headache/Fever or Pain Albuterol/Ipratropium 3 ml 03/14/19 13:00 03/19/19 07:45 Duoneb NEB 3 ml [id number] KALIE Administration Amlodipine Besylate 5 mg 03/15/19 22:06 03/19/19 09:19 Norvasc PER TUBE 5 mg BID KALIE Administration Enoxaparin Sodium 40 mg 03/12/19 09:00 03/19/19 09:20 Lovenox SC 40 mg 0900 KALIE Administration Furosemide 20 mg 03/12/19 09:00 03/19/19 09:19 Lasix PER TUBE 20 mg DAILY KALIE Administration Guaifenesin 200 mg 03/18/19 12:00 03/19/19 06:40 Robitussin Sf PER TUBE 200 mg Q6HR KALIE Administration Hydralazine HCl 10 mg 03/01/19 16:33 03/15/19 18:05 Apresoline SLOW IVP 10 mg Q4H PRN Administration SBP > 165 Hydralazine HCl 50 mg 03/16/19 21:00 03/19/19 09:19 Apresoline PER TUBE 50 mg QID KALIE Administration Labetalol HCl 10 mg 02/28/19 00:57 03/15/19 19:05 Normodyne SLOW IVP 2 ml Q2H PRN Administration SBP > 140 or DBP > 90 Lidocaine 1 patch 03/02/19 21:00 03/18/19 21:56 Lidoderm 5% Patch TD Not Given Q24HR [facility] Lisinopril 20 mg 03/15/19 22:06 03/19/19 09:20 Zestril PER TUBE 20 mg BID KALIE Administration Magnesium Hydroxide 30 ml 02/28/19 00:57 03/02/19 23:18 Milk Of Magnesium PO 30 ml BIDPRN PRN Administration Constipation Metoprolol Tartrate 25 mg 03/12/19 21:00 03/19/19 09:19 Lopressor PO 25 mg BID KALIE Administration Ondansetron HCl 4 mg 02/28/19 00:57 03/16/19 17:30 Zofran IVP 4 mg Q6H PRN Administration Nausea/Vomiting Pantoprazole Sodium 40 mg 03/18/19 09:00 03/19/19 09:19 Protonix PER TUBE 40 mg DAILY KALIE Administration Saccharomyces Boulardii 250 mg 03/13/19 09:00 03/19/19 09:19 Florastor PER TUBE 250 mg DAILY KALIE Administration Scopolamine 1.5 mg 03/08/19 08:45 03/17/19 09:50 Transderm Scop TD 1.5 mg Q3D KALIE Administration - Exam General Appearance: NAD Respiratory: no wheezes, no ronchi Gastrointestinal: non-tender, normal bowel sounds Extremities: no cyanosis Hosp A/P (1) HTN (hypertension) Code(s): I10 - ESSENTIAL (PRIMARY) HYPERTENSION (2) Nausea Code(s): R11.0 - NAUSEA Status: Acute (3) Basilic vein thrombosis Code(s): I82.619 - ACUTE EMBOLISM AND THROMBOSIS OF SUPERFIC VN UNSP UP EXTREM (4) HLD (hyperlipidemia) Code(s): E78.5 - HYPERLIPIDEMIA, UNSPECIFIED (5) Morbid obesity Code(s): E66.01 - MORBID (SEVERE) OBESITY DUE TO EXCESS CALORIES - Plan Cont PRN antiemetics Cont current meds as above Cont tube feeding Await placement
--- NOTE | 2019-03-19 21:22 | RAD ---
Radiograph abdomen one view: HISTORY: 63-year-old female with nausea and vomiting. Rule out small bowel obstruction or ileus. FINDINGS: There is gas in nondilated loops of colon. Moderately large volume of stool distending the rectum. Pa ucity of small bowel gas. CATH LAB shunt catheter in right upper quadrant. T-shaped large caliber catheter overlies right mid abdomen. Cholecystectomy clips in right upper quadrant. IMPRESSION: No obvious evidence of small bowel obstruction, but lack of small bowel gas makes it difficult to jing luate the small intestine.
[2019-03-19] MEDS: Acetaminophen 650 MG/20.3 ML UDCUP PER TUBE PRN (21:33)
[2019-03-19] MEDS: Lidocaine 5% Patch TD SCH (21:35)
[2019-03-20 05:18] LABS: Anion Gap 12 mmol/L (10-20); BUN (Urea Nitrogen) 20 mg/dL (9.8-20.1); Calc. Creatinine Clearance 226 mL/min (70-130); Calcium 9.7 mg/dL (7.8-10.44); Carbon Dioxide 33 mmol/L (23-31); Chloride 99 mmol/L (98-107); Estimated GFR-MDRD Greater than 90; Glucose 113 mg/dL (80-115); Potassium 4.3 mmol/L (3.5-5.1); Sodium 140 mmol/L (136-145)
[2019-03-20] MEDS: Diabetic Tussin 200 MG/10 ML UDCUP PER TUBE SCH ×3 (05:35→17:34)
[2019-03-20] MEDS ORDERED: hydrALAZINE 25 MG TAB PER TUBE SCH (09:00)
--- NOTE | 2019-03-20 09:04 | PRG ---
DATE OF SERVICE: 03/20/2019 SUBJECTIVE: Ms. Viramontes is on 20th day of her hospital stay, that is postop from shunt placement with Dr. Brannon. Upon admission, she also had a decompressive craniectomy in the posterior fossa with evacuation of a left-sided cerebellar bleed. This morning, she is drowsy but awakens when spoken to. She follows some commands. She mouths words and does have a trach. At times, she will attempt to speak. Concern from the nursing staff has been spontaneous vomiting with movement that likely relates to the insult to the cerebellum and relates to likely some type of vertiginous syndrome. We will repeat a head CT this morning to better evaluate this; however, if that is clear, we will adjust medications for nausea control at the behest of our colleagues in Medicine. Job ID: [id number]
[2019-03-20] MEDS: Ondansetron ODT 4 MG TAB PO SCH ×3 (09:49→21:54)
[2019-03-20] MEDS: Scopolamine 1.5 mg/72 hour Patch TD SCH (09:50)
[2019-03-20] MEDS: Enoxaparin Sodium 40 MG/0.4 ML SYRINGE SC SCH (09:56)
[2019-03-20] MEDS: hydrALAZINE 25 MG TAB PER TUBE SCH ×3 (09:57→21:56)
[2019-03-20] MEDS: Metoprolol Tartrate 50 MG TAB PO SCH ×2 (09:57→21:55)
[2019-03-20] MEDS: Meclizine HCl 12.5 MG TAB PO PRN (09:57)
[2019-03-20] MEDS: Saccharomyces boulardii 250 MG CAP PER TUBE SCH (09:57)
[2019-03-20] MEDS: Amlodipine 5 MG TAB PER TUBE SCH ×2 (09:57→21:54)
[2019-03-20] MEDS: Lisinopril 20 MG TAB PER TUBE SCH ×2 (09:57→21:55)
[2019-03-20] MEDS: Furosemide 20 MG TAB PER TUBE SCH (09:57)
[2019-03-20] MEDS: Pantoprazole 40 MG GRANULES PACKET PER TUBE SCH (09:58)
[2019-03-20] MEDS: Lidocaine Patch Removal 1 EACH TOP SCH (09:58)
--- NOTE | 2019-03-20 10:00 | CT ---
Head CT without contrast 03/20/2019: COMPARISON: 03/12/2019 HISTORY: Evaluate shunt tubing, vomiting TECHNIQUE: Axial CT imaging at 5 mm intervals from vertex through skull base without contrast FINDINGS: The imaged paranasal sinuses and mastoid air cells are well aerated. There is evidence of p rior left occipital craniectomy. Ventriculoperitoneal shunt tubing is present on the right, inserted via a right frontal approach, distal tip in the region of the body of the left lateral ventr icle. The third ventricle and bilateral lateral ventricles are decompressed. There is hypodensity on the basis of edema centered within the left cerebellar hemisphere, similar when compared to prior imaging. There is associated mass effect within the posterior fossa with near complete effacement of the fourth ventricle. There is stable deviation of the fourth ventricle anteriorly and to the righ t of midline. There is persistent mass effect on the posterior aspect of the midbrain with effacement of the basilar cisterns. No acute hemorrhage. IMPRESSION: Stable hypodensity within the left cerebellar hemisphere with significant stable posterio r fossa mass effect. Stable ventriculoperitoneal shunt tubing with continued decompression of lateral ventricles and third ventricle.
--- NOTE | 2019-03-20 10:07 | PDOC.HOSPP ---
- Subjective Encounter Date: 03/20/19 Encounter Time: 09:45 Subjective: Patient seen and examined for med mngt. Nausea with movement. No abd pain. No overnight events - Objective Vital Signs & Weight: Vital Signs (12 hours) Temp Pulse Resp BP Pulse Ox 03/20/19 07:55 98.0 F 85 16 149/86 H 95 03/20/19 07:02 90 L 03/20/19 07:00 89 18 03/20/19 03:55 98.3 F 76 22 H 142/82 H 96 03/19/19 23:50 98.2 F 73 24 H 144/98 H 97 03/19/19 23:33 74 16 97 Weight Admit Weight 295 lb Weight 372 lb 8 oz Most Recent Monitor Data Heart Rate from ECG 76 NIBP 118/61 NIBP BP-Mean 80 Respiration from ECG 16 SpO2 100 I&O: 03/19/19 03/20/19 03/21/19 06:59 06:59 06:59 Intake Total 150 460 Output Total 1200 1450 Balance -1050 -990 Result Diagrams: 03/16/19 04:51 03/20/19 04:35 Radiology Reviewed by me: Yes (KUB - negative) EKG Reviewed by me: Yes (Tele SR/ PAT earlier) Hospitalist ROS - Review of Systems Respiratory: denies: cough, dry, shortness of breath, hemoptysis, SOB with excertion, pleuritic pain, sputum, wheezing, other Cardiovascular: denies: chest pain, palpitations, orthopnea, paroxysmal noc. dyspnea, edema, light headedness, other - Medication Medications: Active Medications Generic Name Dose Route Start Last Admin Trade Name Freq PRN Reason Stop Dose Admin Acetaminophen 650 mg 03/02/19 10:45 03/19/19 21:33 Tylenol Elixir PER TUBE 650 mg Q4H PRN Administration Headache/Fever or Pain Albuterol/Ipratropium 3 ml 03/14/19 13:00 03/20/19 07:00 Duoneb NEB 3 ml [id number] KALIE Administration Amlodipine Besylate 5 mg 03/15/19 22:06 03/19/19 21:34 Norvasc PER TUBE 5 mg BID KALIE Administration Enoxaparin Sodium 40 mg 03/12/19 09:00 03/19/19 09:20 Lovenox SC 40 mg 0900 KALIE Administration Furosemide 20 mg 03/12/19 09:00 03/19/19 09:19 Lasix PER TUBE 20 mg DAILY KALIE Administration Guaifenesin 200 mg 03/18/19 12:00 03/20/19 05:35 Robitussin Sf PER TUBE 200 mg Q6HR KALIE Administration Hydralazine HCl 10 mg 03/01/19 16:33 03/15/19 18:05 Apresoline SLOW IVP 10 mg Q4H PRN Administration SBP > 165 Labetalol HCl 10 mg 02/28/19 00:57 03/15/19 19:05 Normodyne SLOW IVP 2 ml Q2H PRN Administration SBP > 140 or DBP > 90 Lidocaine 1 patch 03/02/19 21:00 03/19/19 21:35 Lidoderm 5% Patch TD 1 patch Q24HR KALIE Administration Lisinopril 20 mg 03/15/19 22:06 03/19/19 21:34 Zestril PER TUBE 20 mg BID KALIE Administration Magnesium Hydroxide 30 ml 02/28/19 00:57 03/02/19 23:18 Milk Of Magnesium PO 30 ml BIDPRN PRN Administration Constipation Ondansetron HCl 4 mg 02/28/19 00:57 03/16/19 17:30 Zofran IVP 4 mg Q6H PRN Administration Nausea/Vomiting Pantoprazole Sodium 40 mg 03/18/19 09:00 03/19/19 09:19 Protonix PER TUBE 40 mg DAILY KALIE Administration Saccharomyces Boulardii 250 mg 03/13/19 09:00 03/19/19 09:19 Florastor PER TUBE 250 mg DAILY KALIE Administration Scopolamine 1.5 mg 03/08/19 08:45 03/17/19 09:50 Transderm Scop TD 1.5 mg Q3D KALIE Administration - Exam Heart: RRR, no gallops Respiratory: no wheezes, no rales Gastrointestinal: non-tender, non-distended, normal bowel sounds Extremities: no cyanosis, no clubbing Hosp A/P (1) HTN (hypertension) Code(s): I10 - ESSENTIAL (PRIMARY) HYPERTENSION (2) Narrow complex tachycardia Code(s): I47.1 - SUPRAVENTRICULAR TACHYCARDIA (3) Nausea Code(s): R11.0 - NAUSEA Status: Acute (4) Basilic vein thrombosis Code(s): I82.619 - ACUTE EMBOLISM AND THROMBOSIS OF SUPERFIC VN UNSP UP EXTREM (5) HLD (hyperlipidemia) Code(s): E78.5 - HYPERLIPIDEMIA, UNSPECIFIED (6) Morbid obesity Code(s): E66.01 - MORBID (SEVERE) OBESITY DUE TO EXCESS CALORIES - Plan DVT proph w/SCDs Change Zofran to 4 mg TID Cont Meclizine PRN Increase Metoprolol to 50 mg BID Reduce Hydralazine to 25 QID Cont Amlodipine Cont other meds as above Restart tube feedings slowly Await placement
[2019-03-20] MEDS: Lidocaine 5% Patch TD SCH (21:56)
[2019-03-21] MEDS: Diabetic Tussin 200 MG/10 ML UDCUP PER TUBE SCH ×5 (01:39→23:56)
[2019-03-21 07:45] LABS: #Basophils 0.1 thou/uL (0.0-0.2); #Eosinphils 0.4 thou/uL (0.0-0.7); #Lymphocytes 2.3 thou/uL (1.20-3.40); #Neutrophils 7.3 thou/uL (1.40-6.50); %Basophils 0.6 % (0.0-1.0); %Eosinophils 3.3 % (0.0-10.0); %Lymphocytes 20.7 % (21.0-51.0); %Monocytes 9.3 % (0.0-10.0); %Neutrophils 66.1 % (42.0-75.0); Hemoglobin 10.3 g/dL (12.0-16.0); Mean Corpuscular HGB CONC 31.3 g/dL (32.0-36.0); Mean Corpuscular Hemoglobin 22.4 pg (27.0-31.0); Mean Corpuscular Volume 71.6 fL (78.0-98.0); Mean Platelet Volume 11.7 fL (7.4-10.4); Platelet Count 331 thou/uL (130-400); RBC Distribution Width 16.7 % (11.5-14.5)
[2019-03-21 08:08] LABS: Anion Gap 13 mmol/L (10-20); BUN (Urea Nitrogen) 24 mg/dL (9.8-20.1); Calc. Creatinine Clearance 152 mL/min (70-130); Calcium 9.6 mg/dL (7.8-10.44); Carbon Dioxide 31 mmol/L (23-31); Chloride 99 mmol/L (98-107); Estimated GFR-MDRD Greater than 90; Glucose 104 mg/dL (80-115); Potassium 4.3 mmol/L (3.5-5.1); Sodium 139 mmol/L (136-145)
[2019-03-21] MEDS: Lidocaine 5% Patch TD SCH ×2 (08:27→20:47)
--- NOTE | 2019-03-21 09:46 | PRG ---
DATE OF SERVICE: 03/21/2019 Ms. Viramontes continues to recover on the stroke floor. She had a repeat head CT performed yesterday due to increasing emesis, which is stable as compared to prior head CTs. Certainly this shows nothing of concern that is new. She is at her neurologic baseline without any substantial exchange specialist the course of the weekend. We continue to await placement. Job ID: [id number]
[2019-03-21] MEDS: Enoxaparin Sodium 40 MG/0.4 ML SYRINGE SC SCH (10:43)
[2019-03-21] MEDS: Amlodipine 5 MG TAB PER TUBE SCH ×2 (10:44→20:47)
[2019-03-21] MEDS: Saccharomyces boulardii 250 MG CAP PER TUBE SCH (10:44)
[2019-03-21] MEDS: Pantoprazole 40 MG GRANULES PACKET PER TUBE SCH (10:44)
[2019-03-21] MEDS: Ondansetron ODT 4 MG TAB PO SCH ×3 (10:44→20:48)
[2019-03-21] MEDS: Lisinopril 20 MG TAB PER TUBE SCH ×2 (10:45→20:47)
[2019-03-21] MEDS: Furosemide 20 MG TAB PER TUBE SCH (10:46)
[2019-03-21] MEDS: Metoprolol Tartrate 50 MG TAB PO SCH ×2 (10:46→20:48)
[2019-03-21] MEDS: hydrALAZINE 25 MG TAB PER TUBE SCH ×3 (10:46→20:47)
[2019-03-21] MEDS: Lidocaine Patch Removal 1 EACH TOP SCH (10:47)
--- NOTE | 2019-03-21 11:04 | PRG ---
DATE OF SERVICE: 03/21/2019 SUBJECTIVE: Ms. Viramontes is in no distress. She is able to talk with her trach in place. She answered all my questions. OBJECTIVE: VITAL SIGNS: She is afebrile, heart rate 76, respiratory rate 16, oximetry is 94%, and blood pressure 142/95. LUNGS: Clear. HEART: Regular rhythm. ABDOMEN: Soft. She is not having excessive secretions. LABORATORY DATA: White count 11.0, hemoglobin 10.3, and platelets 331. Sodium 139, potassium 4.3, chloride 99, bicarb 31, BUN 24, and creatinine 0.72. IMPRESSION AND PLAN: Cerebellar stroke, status post tracheostomy and percutaneous endoscopic gastrostomy. Clinically, she is doing reasonably well. She will remain with a cuffless #6 trach. Job ID: [id number]
--- NOTE | 2019-03-21 16:57 | PDOC.HOSPP ---
- Subjective Encounter Date: 03/21/19 Encounter Time: 12:30 Subjective: Patient seen and examined for med mngt. Nausea better. Tolerating PEG tube feedings. No new focal deficits. No new complaints. No overnight events - Objective Vital Signs & Weight: Vital Signs (12 hours) Temp Pulse Resp BP BP Pulse Ox 03/21/19 15:35 98.7 F 75 16 128/87 95 03/21/19 13:08 72 20 95 03/21/19 13:01 119/78 03/21/19 11:36 98.2 F 78 16 126/97 H 97 03/21/19 10:46 83 03/21/19 10:45 142/95 H 03/21/19 10:44 83 03/21/19 07:37 98.8 F 76 16 142/95 H 94 L 03/21/19 06:46 96 03/21/19 06:43 69 20 96 Weight Admit Weight 295 lb Weight 269 lb 4 oz Most Recent Monitor Data Heart Rate from ECG 76 NIBP 118/61 NIBP BP-Mean 80 Respiration from ECG 16 SpO2 100 I&O: 03/20/19 03/21/19 03/22/19 06:59 06:59 06:59 Intake Total 460 1655 60 Output Total 1450 1350 Balance -990 305 60 Result Diagrams: 03/21/19 07:22 03/21/19 07:22 EKG Reviewed by me: Yes (Tele SR) Hospitalist ROS - Review of Systems Respiratory: denies: cough, dry, shortness of breath, hemoptysis, SOB with excertion, pleuritic pain, sputum, wheezing, other Cardiovascular: denies: chest pain, palpitations, orthopnea, paroxysmal noc. dyspnea, edema, light headedness, other - Medication Medications: Active Medications Generic Name Dose Route Start Last Admin Trade Name Freq PRN Reason Stop Dose Admin Acetaminophen 650 mg 03/02/19 10:45 03/19/19 21:33 Tylenol Elixir PER TUBE 650 mg Q4H PRN Administration Headache/Fever or Pain Al Hydroxide/Mg Hydroxide 30 ml 02/28/19 00:57 03/20/19 17:34 Maalox PO 30 ml QIDPRN PRN Administration Dyspepsia Albuterol/Ipratropium 3 ml 03/14/19 13:00 03/21/19 13:08 Duoneb NEB 3 ml [id number] KALIE Administration Amlodipine Besylate 5 mg 03/15/19 22:06 03/21/19 10:44 Norvasc PER TUBE 5 mg BID KALIE Administration Enoxaparin Sodium 40 mg 03/12/19 09:00 03/21/19 10:43 Lovenox SC 40 mg 0900 KALIE Administration Furosemide 20 mg 03/12/19 09:00 03/21/19 10:46 Lasix PER TUBE 20 mg DAILY KALIE Administration Guaifenesin 200 mg 03/18/19 12:00 03/21/19 13:07 Robitussin Sf PER TUBE 200 mg Q6HR KALIE Administration Hydralazine HCl 10 mg 03/01/19 16:33 03/15/19 18:05 Apresoline SLOW IVP 10 mg Q4H PRN Administration SBP > 165 Hydralazine HCl 25 mg 03/20/19 09:00 03/21/19 10:46 Apresoline PER TUBE 25 mg TID [facility] Administration Labetalol HCl 10 mg 02/28/19 00:57 03/15/19 19:05 Normodyne SLOW IVP 2 ml Q2H PRN Administration SBP > 140 or DBP > 90 Lidocaine 1 patch 03/02/19 21:00 03/21/19 08:27 Lidoderm 5% Patch TD Not Given Q24HR [facility] Lisinopril 20 mg 03/15/19 22:06 03/21/19 10:45 Zestril PER TUBE 20 mg BID KALIE Administration Magnesium Hydroxide 30 ml 02/28/19 00:57 03/02/19 23:18 Milk Of Magnesium PO 30 ml BIDPRN PRN Administration Constipation Meclizine HCl 12.5 mg 02/28/19 01:10 03/20/19 09:57 Antivert PO 12.5 mg BIDPRN PRN Administration Dizziness Metoprolol Tartrate 50 mg 03/20/19 09:00 03/21/19 10:46 Lopressor PO 50 mg BID KALIE Administration Miscellaneous Medication 1 each 03/20/19 09:00 03/21/19 10:47 Lidocaine Patch Removal TOP Not Given 0900 [facility] Ondansetron HCl 4 mg 02/28/19 00:57 03/16/19 17:30 Zofran IVP 4 mg Q6H PRN Administration Nausea/Vomiting Ondansetron HCl 4 mg 03/20/19 09:00 03/21/19 10:44 Zofran Odt PO 03/22/19 09:01 4 mg TID KALIE Administration Pantoprazole Sodium 40 mg 03/18/19 09:00 03/21/19 10:44 Protonix PER TUBE 40 mg DAILY KALIE Administration Saccharomyces Boulardii 250 mg 03/13/19 09:00 03/21/19 10:44 Florastor PER TUBE 250 mg DAILY KALIE Administration Scopolamine 1.5 mg 03/08/19 08:45 03/20/19 09:50 Transderm Scop TD 1.5 mg Q3D KALIE Administration - Exam General Appearance: NAD Heart: RRR, no gallops Respiratory: no wheezes, no rales Respiratory - other findings: trach + Gastrointestinal: soft, non-tender, non-distended, normal bowel sounds Gastrointestinal - other findings: PEG + Extremities: no cyanosis Hosp A/P (1) HTN (hypertension) Code(s): I10 - ESSENTIAL (PRIMARY) HYPERTENSION (2) Narrow complex tachycardia Code(s): I47.1 - SUPRAVENTRICULAR TACHYCARDIA (3) Nausea Code(s): R11.0 - NAUSEA Status: Acute (4) Basilic vein thrombosis Code(s): I82.619 - ACUTE EMBOLISM AND THROMBOSIS OF SUPERFIC VN UNSP UP EXTREM (5) HLD (hyperlipidemia) Code(s): E78.5 - HYPERLIPIDEMIA, UNSPECIFIED (6) Morbid obesity Code(s): E66.01 - MORBID (SEVERE) OBESITY DUE TO EXCESS CALORIES - Plan PT/OT, DVT proph w/lovenox, DVT proph w/SCDs Cont Zofran 4 mg TID for another day Cont Meclizine PRN Cont Metoprolol 50 mg BID Cont Hydralazine/Amlodipine Cont other meds as above Await placement
[2019-03-21] MEDS: Acetaminophen 650 MG/20.3 ML UDCUP PER TUBE PRN (23:56)
[2019-03-22] MEDS: Diabetic Tussin 200 MG/10 ML UDCUP PER TUBE SCH ×4 (05:43→23:39)
--- NOTE | 2019-03-22 08:58 | PRG ---
DATE OF SERVICE: 03/22/2019 This is Armaan Strong PA-C dictating a report for Vishnu Brannon MD. Ms. Viramontes is 22 days into her hospitalization, having sustained a left cerebellar hemorrhage and subsequent shunt placement. The patient is doing remarkably well today. She is able to formulate words and talks through the trach collar and she is easily understood. She states she has a headache in the frontal region. She denies arm pain. She states she has been up walking with therapies. In regard to her physical exam, she is awake and alert and appropriate. She follows commands in all extremities equally. At this point, she would benefit from aggressive therapies and getting her into inpatient rehab facility would be most beneficial to her. We have signed the appropriate paperwork and when arrangements have been made, she is safe for discharge from neurosurgical standpoint. She will need her [employer] shunt eliceo removed this week. Please call with any changes in patient's neurologic status. She remains on Lovenox for right upper extremity thrombosis. Job ID: [id number]
[2019-03-22] MEDS: hydrALAZINE 25 MG TAB PER TUBE SCH ×3 (09:06→20:12)
[2019-03-22] MEDS: Amlodipine 5 MG TAB PER TUBE SCH ×2 (09:07→20:12)
[2019-03-22] MEDS: Ondansetron ODT 4 MG TAB PO SCH (09:07)
[2019-03-22] MEDS: Lisinopril 20 MG TAB PER TUBE SCH ×2 (09:07→20:12)
[2019-03-22] MEDS: Furosemide 20 MG TAB PER TUBE SCH (09:07)
[2019-03-22] MEDS: Pantoprazole 40 MG GRANULES PACKET PER TUBE SCH (09:08)
[2019-03-22] MEDS: Saccharomyces boulardii 250 MG CAP PER TUBE SCH (09:08)
[2019-03-22] MEDS: Enoxaparin Sodium 40 MG/0.4 ML SYRINGE SC SCH (09:08)
[2019-03-22] MEDS: Metoprolol Tartrate 50 MG TAB PO SCH ×2 (09:08→20:12)
[2019-03-22] MEDS: Lidocaine Patch Removal 1 EACH TOP SCH (09:10)
--- NOTE | 2019-03-22 10:05 | PRG ---
DATE OF SERVICE: 03/22/2019 SUBJECTIVE: She is speaking very well with her speaking valve in place. I do not think she has been cleared to swallow yet. She did well with physical therapy this morning. She has no acute complaints. OBJECTIVE: VITAL SIGNS: Temperature 98.9, pulse 82, respirations 18, O2 saturation 93%, blood pressure 155/78. HEENT: Unremarkable. NECK: Trach in good position. Minimal secretions. CARDIAC: S1 and S2, regular. LUNGS: Clear. ABDOMEN: Soft. EXTREMITIES: No edema. ASSESSMENT: 1. Status post cerebellar stroke. 2. Oropharyngeal dysfunction which appears to be improving. PLAN: 1. Decannulation tracheostomy when she is cleared to swallow and can tolerate. 2. Await rehab placement. Job ID: [id number]
[2019-03-22] MEDS: Ondansetron ODT 4 MG TAB PO PRN (16:57)
--- NOTE | 2019-03-22 18:04 | PDOC.HOSPP ---
- Subjective Encounter Date: 03/22/19 Encounter Time: 09:00 Subjective: Patient seen and examined for med mngt. Toleraing PEG feeds. No Nausea. No other complaints. No overnight events - Objective Vital Signs & Weight: Vital Signs (12 hours) Temp Pulse Resp BP BP BP BP 03/22/19 15:40 98.0 F 80 16 138/83 03/22/19 15:09 82 141/92 H 03/22/19 12:56 82 20 03/22/19 11:47 98.5 F 81 16 147/81 H 03/22/19 09:35 124/74 140/73 03/22/19 09:07 82 155/78 H 03/22/19 09:06 82 155/78 H 03/22/19 09:03 03/22/19 08:00 98.9 F 82 18 155/78 H 03/22/19 06:37 78 18 Pulse Ox 03/22/19 15:40 91 L 03/22/19 15:09 03/22/19 12:56 93 L 03/22/19 11:47 95 03/22/19 09:35 03/22/19 09:07 03/22/19 09:06 03/22/19 09:03 95 03/22/19 08:00 93 L 03/22/19 06:37 97 Weight Admit Weight 295 lb Weight 270 lb 6.4 oz Most Recent Monitor Data Heart Rate from ECG 76 NIBP 118/61 NIBP BP-Mean 80 Respiration from ECG 16 SpO2 100 I&O: 03/21/19 03/22/19 03/23/19 06:59 06:59 06:59 Intake Total 1655 2040 90 Output Total 1350 1825 Balance 305 215 90 Result Diagrams: 03/21/19 07:22 03/21/19 07:22 EKG Reviewed by me: Yes (Tele SR) Hospitalist ROS - Review of Systems Respiratory: denies: cough, dry, shortness of breath, hemoptysis, SOB with excertion, pleuritic pain, sputum, wheezing, other Cardiovascular: denies: chest pain, palpitations, orthopnea, paroxysmal noc. dyspnea, edema, light headedness, other - Medication Medications: Active Medications Generic Name Dose Route Start Last Admin Trade Name Freq PRN Reason Stop Dose Admin Acetaminophen 650 mg 03/02/19 10:45 03/21/19 23:56 Tylenol Elixir PER TUBE 650 mg Q4H PRN Administration Headache/Fever or Pain Al Hydroxide/Mg Hydroxide 30 ml 02/28/19 00:57 03/20/19 17:34 Maalox PO 30 ml QIDPRN PRN Administration Dyspepsia Albuterol/Ipratropium 3 ml 03/14/19 13:00 03/22/19 12:56 Duoneb NEB 3 ml [id number] KALIE Administration Amlodipine Besylate 5 mg 03/15/19 22:06 03/22/19 09:07 Norvasc PER TUBE 5 mg BID KALIE Administration Enoxaparin Sodium 40 mg 03/12/19 09:00 03/22/19 09:08 Lovenox SC 40 mg 0900 KALIE Administration Furosemide 20 mg 03/12/19 09:00 03/22/19 09:07 Lasix PER TUBE 20 mg DAILY KALIE Administration Guaifenesin 200 mg 03/18/19 12:00 03/22/19 12:25 Robitussin Sf PER TUBE 200 mg Q6HR KALIE Administration Hydralazine HCl 10 mg 03/01/19 16:33 03/15/19 18:05 Apresoline SLOW IVP 10 mg Q4H PRN Administration SBP > 165 Hydralazine HCl 25 mg 03/20/19 09:00 03/22/19 15:09 Apresoline PER TUBE 25 mg TID KALIE Administration Labetalol HCl 10 mg 02/28/19 00:57 03/15/19 19:05 Normodyne SLOW IVP 2 ml Q2H PRN Administration SBP > 140 or DBP > 90 Lidocaine 1 patch 03/02/19 21:00 03/21/19 20:47 Lidoderm 5% Patch TD 1 patch Q24HR KALIE Administration Lisinopril 20 mg 03/15/19 22:06 03/22/19 09:07 Zestril PER TUBE 20 mg BID KALIE Administration Magnesium Hydroxide 30 ml 02/28/19 00:57 03/02/19 23:18 Milk Of Magnesium PO 30 ml BIDPRN PRN Administration Constipation Meclizine HCl 12.5 mg 02/28/19 01:10 03/20/19 09:57 Antivert PO 12.5 mg BIDPRN PRN Administration Dizziness Metoprolol Tartrate 50 mg 03/20/19 09:00 03/22/19 09:08 Lopressor PO 50 mg BID KALIE Administration Miscellaneous Medication 1 each 03/20/19 09:00 03/22/19 09:10 Lidocaine Patch Removal TOP 1 each 899 KALIE Administration Ondansetron HCl 4 mg 02/28/19 00:57 03/16/19 17:30 Zofran IVP 4 mg Q6H PRN Administration Nausea/Vomiting Ondansetron HCl 4 mg 03/20/19 08:24 03/22/19 16:57 Zofran Odt PO 4 mg Q6H PRN Administration Nausea/Vomiting Pantoprazole Sodium 40 mg 03/18/19 09:00 03/22/19 09:08 Protonix PER TUBE 40 mg DAILY KALIE Administration Saccharomyces Boulardii 250 mg 03/13/19 09:00 03/22/19 09:08 Florastor PER TUBE 250 mg DAILY KALIE Administration Scopolamine 1.5 mg 03/08/19 08:45 03/20/19 09:50 Transderm Scop TD 1.5 mg Q3D KALIE Administration - Exam General Appearance: NAD Neck: no JVD Heart: RRR, no gallops Respiratory: no wheezes, no rales Gastrointestinal: non-tender, non-distended Hosp A/P (1) HTN (hypertension) Code(s): I10 - ESSENTIAL (PRIMARY) HYPERTENSION (2) Narrow complex tachycardia Code(s): I47.1 - SUPRAVENTRICULAR TACHYCARDIA (3) Nausea Code(s): R11.0 - NAUSEA Status: Acute (4) Basilic vein thrombosis Code(s): I82.619 - ACUTE EMBOLISM AND THROMBOSIS OF SUPERFIC VN UNSP UP EXTREM (5) HLD (hyperlipidemia) Code(s): E78.5 - HYPERLIPIDEMIA, UNSPECIFIED (6) Morbid obesity Code(s): E66.01 - MORBID (SEVERE) OBESITY DUE TO EXCESS CALORIES - Plan DVT proph w/lovenox, DVT proph w/SCDs Cont Zofran PRN for nausea Cont Hydralazine/Amlodipine/Metoprolol 50 mg BID Cont other meds as above Await placement
[2019-03-22] MEDS: Meclizine HCl 12.5 MG TAB PO PRN (20:12)
[2019-03-22] MEDS: Lidocaine 5% Patch TD SCH (20:13)
[2019-03-22] MEDS: Acetaminophen 650 MG/20.3 ML UDCUP PER TUBE PRN (22:19)
[2019-03-23] MEDS: Diabetic Tussin 200 MG/10 ML UDCUP PER TUBE SCH ×3 (05:33→17:44)
--- NOTE | 2019-03-23 09:06 | PRG ---
DATE OF SERVICE: 03/23/2019 SUBJECTIVE: She seems somewhat depressed this morning. She had no acute complaints otherwise. OBJECTIVE: VITAL SIGNS: Temperature 98.5, pulse 80, respirations 16, O2 sat 96% on trach collar, and blood pressure 119/78. HEENT: Unremarkable. NECK: No adenopathy or JVD. Trach in good position. LUNGS: Clear. CARDIAC: S1 and S2. Regular. ABDOMEN: Soft. EXTREMITIES: No edema. ASSESSMENT: Stable post trach and PEG after cerebellar stroke. PLAN: Main issue now is rehab. If her swallowing improves dramatically, then we will consider decannulation. Job ID: [id number]
--- NOTE | 2019-03-23 09:08 | PDOC.HOSPP ---
- Subjective Encounter Date: 03/23/19 Encounter Time: 07:15 Subjective: Patient seen and examined. No new complaints. No overnight events - Objective Vital Signs & Weight: Vital Signs (12 hours) Temp Pulse Resp BP Pulse Ox 03/23/19 07:17 98.5 F 80 16 119/78 96 03/23/19 07:04 92 L 03/23/19 07:03 72 16 92 L 03/23/19 04:00 98 F 68 16 118/66 96 03/23/19 00:03 16 03/23/19 00:00 97.8 F 68 18 139/87 99 Weight Admit Weight 295 lb Weight 269 lb 6.4 oz Most Recent Monitor Data Heart Rate from ECG 76 NIBP 118/61 NIBP BP-Mean 80 Respiration from ECG 16 SpO2 100 I&O: 03/22/19 03/23/19 03/24/19 06:59 06:59 06:59 Intake Total 2040 1772 Output Total 1825 1675 Balance 215 97 Result Diagrams: 03/21/19 07:22 03/21/19 07:22 Radiology Reviewed by me: Yes EKG Reviewed by me: Yes Hospitalist ROS - Review of Systems ENT: denies: ear pain, ear discharge, nose pain, nose discharge, nose congestion , mouth pain, mouth swelling, throat pain, throat swelling, other Respiratory: denies: cough, dry, shortness of breath, hemoptysis, SOB with excertion, pleuritic pain, sputum, wheezing, other Cardiovascular: denies: chest pain, palpitations, orthopnea, paroxysmal noc. dyspnea, edema, light headedness, other Gastrointestinal: denies: nausea, vomiting, abdominal pain, diarrhea, constipation, melena, hematochezia, other Genitourinary: denies: dysuria, frequency, incontinence, hematuria, retention, other Musculoskeletal: denies: neck pain, shoulder pain, arm pain, back pain, hand pain, leg pain, foot pain, other - Medication Medications: Active Medications Generic Name Dose Route Start Last Admin Trade Name Freq PRN Reason Stop Dose Admin Acetaminophen 650 mg 03/02/19 10:45 03/22/19 22:19 Tylenol Elixir PER TUBE 650 mg Q4H PRN Administration Headache/Fever or Pain Al Hydroxide/Mg Hydroxide 30 ml 02/28/19 00:57 03/20/19 17:34 Maalox PO 30 ml QIDPRN PRN Administration Dyspepsia Albuterol/Ipratropium 3 ml 03/14/19 13:00 03/23/19 07:03 Duoneb NEB 3 ml [id number] KALIE Administration Amlodipine Besylate 5 mg 03/15/19 22:06 03/22/19 20:12 Norvasc PER TUBE 5 mg BID KALIE Administration Enoxaparin Sodium 40 mg 03/12/19 09:00 03/22/19 09:08 Lovenox SC 40 mg 0900 KALIE Administration Furosemide 20 mg 03/12/19 09:00 03/22/19 09:07 Lasix PER TUBE 20 mg DAILY KALIE Administration Guaifenesin 200 mg 03/18/19 12:00 03/23/19 05:33 Robitussin Sf PER TUBE 200 mg Q6HR KALIE Administration Hydralazine HCl 10 mg 03/01/19 16:33 03/15/19 18:05 Apresoline SLOW IVP 10 mg Q4H PRN Administration SBP > 165 Hydralazine HCl 25 mg 03/20/19 09:00 03/22/19 20:12 Apresoline PER TUBE 25 mg TID KALIE Administration Labetalol HCl 10 mg 02/28/19 00:57 03/15/19 19:05 Normodyne SLOW IVP 2 ml Q2H PRN Administration SBP > 140 or DBP > 90 Lidocaine 1 patch 03/02/19 21:00 03/22/19 20:13 Lidoderm 5% Patch TD Not Given Q24HR [facility] Lisinopril 20 mg 03/15/19 22:06 03/22/19 20:12 Zestril PER TUBE 20 mg BID KALIE Administration Magnesium Hydroxide 30 ml 02/28/19 00:57 03/02/19 23:18 Milk Of Magnesium PO 30 ml BIDPRN PRN Administration Constipation Meclizine HCl 12.5 mg 02/28/19 01:10 03/22/19 20:12 Antivert PO 12.5 mg BIDPRN PRN Administration Dizziness Metoprolol Tartrate 50 mg 03/20/19 09:00 03/22/19 20:12 Lopressor PO 50 mg BID KALIE Administration Miscellaneous Medication 1 each 03/20/19 09:00 03/22/19 09:10 Lidocaine Patch Removal TOP 1 each 0900 KALIE Administration Ondansetron HCl 4 mg 02/28/19 00:57 03/16/19 17:30 Zofran IVP 4 mg Q6H PRN Administration Nausea/Vomiting Ondansetron HCl 4 mg 03/20/19 08:24 03/22/19 16:57 Zofran Odt PO 4 mg Q6H PRN Administration Nausea/Vomiting Pantoprazole Sodium 40 mg 03/18/19 09:00 03/22/19 09:08 Protonix PER TUBE 40 mg DAILY KALIE Administration Saccharomyces Boulardii 250 mg 03/13/19 09:00 03/22/19 09:08 Florastor PER TUBE 250 mg DAILY KALIE Administration Scopolamine 1.5 mg 03/08/19 08:45 03/20/19 09:50 Transderm Scop TD 1.5 mg Q3D KALIE Administration - Exam General Appearance: NAD, awake alert Eye: PERRL, anicteric sclera ENT - other findings: surgical site with dressing Neck: supple, symmetric, no JVD Neck - other findings: Trach + Heart: RRR, no murmur, no gallops Respiratory: CTAB, no wheezes, no rales Gastrointestinal: soft, non-tender, non-distended, normal bowel sounds Gastrointestinal - other findings: PEG+, obesity+ Extremities: no cyanosis, no clubbing, no edema Skin: normal turgor, no lesions Musculoskeletal: normal tone, normal strength Psychiatric: normal affect, normal behavior Hosp A/P (1) Acute respiratory failure with hypoxia Code(s): J96.01 - ACUTE RESPIRATORY FAILURE WITH HYPOXIA Status: Acute Plan: s/p Trach and PEG (2) Basilic vein thrombosis Code(s): I82.619 - ACUTE EMBOLISM AND THROMBOSIS OF SUPERFIC VN UNSP UP EXTREM Status: Acute (3) Diastolic dysfunction Code(s): I51.89 - OTHER ILL-DEFINED HEART DISEASES Status: Acute (4) Dysphagia Code(s): R13.10 - DYSPHAGIA, UNSPECIFIED Status: Acute Qualifiers: Dysphagia type: oropharyngeal phase Qualified Code(s): R13.12 - Dysphagia, oropharyngeal phase Plan: s/p PEG (5) ICH (intracerebral hemorrhage) Code(s): I61.9 - NONTRAUMATIC INTRACEREBRAL HEMORRHAGE, UNSPECIFIED Status: Acute Qualifiers: Intracerebral hemorrhage etiology: nontraumatic Cerebral hemorrhage location: cerebellum Laterality: unspecified laterality Qualified Code(s): I61.4 - Nontraumatic intracerebral hemorrhage in cerebellum (6) HLD (hyperlipidemia) Code(s): E78.5 - HYPERLIPIDEMIA, UNSPECIFIED Status: Chronic (7) HTN (hypertension) Code(s): I10 - ESSENTIAL (PRIMARY) HYPERTENSION Status: Chronic (8) Morbid obesity with BMI of 45.0-49.9, adult Code(s): E66.01 - MORBID (SEVERE) OBESITY DUE TO EXCESS CALORIES; Z68.42 - BODY MASS INDEX (BMI) 45.0-49.9, ADULT Status: Chronic - Plan old records reviewed/req, horn catheter, PT/OT, social worker, speech therapy , DVT proph w/lovenox 03/23/19 Medication reviewed and continue to provide symptomatic care and supportive care Tracheostomy care PEG tube feeding overall medically stable await discharge placement paper work for discharge signed will follow
[2019-03-23] MEDS: Enoxaparin Sodium 40 MG/0.4 ML SYRINGE SC SCH (09:40)
[2019-03-23] MEDS: Amlodipine 5 MG TAB PER TUBE SCH ×2 (09:40→21:07)
[2019-03-23] MEDS: Scopolamine 1.5 mg/72 hour Patch TD SCH (09:40)
[2019-03-23] MEDS: Lidocaine Patch Removal 1 EACH TOP SCH (09:41)
[2019-03-23] MEDS: hydrALAZINE 25 MG TAB PER TUBE SCH ×3 (09:41→21:07)
[2019-03-23] MEDS: Furosemide 20 MG TAB PER TUBE SCH (09:41)
[2019-03-23] MEDS: Saccharomyces boulardii 250 MG CAP PER TUBE SCH (09:42)
[2019-03-23] MEDS: Metoprolol Tartrate 50 MG TAB PO SCH ×2 (09:42→21:07)
[2019-03-23] MEDS: Lisinopril 20 MG TAB PER TUBE SCH ×2 (09:42→21:07)
[2019-03-23] MEDS: Pantoprazole 40 MG GRANULES PACKET PER TUBE SCH (09:42)
--- NOTE | 2019-03-23 11:35 | PRG ---
DATE OF SERVICE: 03/23/2019 SUBJECTIVE: Ms. Viramontes is hospital day #23 after having sustained a left cerebellar hemorrhage and subsequent shunt placement. The patient remains neurologically stable, if not improved. She is now able to speak audibly and is easily understood. She denies any complaints of headache or other complaints of pain when seen this morning. She has been able to stand with Physical Therapy, but states that she has not been able to walk. PHYSICAL EXAMINATION: On exam, she is awake, alert, and appropriate. She follows commands and is able to move all extremities. She has good strength throughout her upper and lower extremity myotomes. Improved speech. The patient would greatly benefit from aggressive physical therapy. We are awaiting discharge to long-term acute care facility versus inpatient rehab. Paperwork has been signed to appeal care for long-term acute care facility. The patient will need to have her scalp eliceo removed this 03/25/2019. We will continue to follow the patient during her hospital stay. Please call for any neurologic changes or other concerns. Job ID: [id number] [facility]
[2019-03-23] MEDS: Acetaminophen 650 MG/20.3 ML UDCUP PER TUBE PRN ×2 (14:07→21:16)
[2019-03-23] MEDS: Ondansetron ODT 4 MG TAB PO PRN (15:33)
[2019-03-23] MEDS: Meclizine HCl 12.5 MG TAB PO PRN (17:56)
[2019-03-23] MEDS: Lidocaine 5% Patch TD SCH (21:08)
[2019-03-24] MEDS: Diabetic Tussin 200 MG/10 ML UDCUP PER TUBE SCH ×5 (02:23→22:25)
--- NOTE | 2019-03-24 09:29 | PRG ---
DATE OF SERVICE: 03/24/2019 SUBJECTIVE: The patient still has a sitter because apparently she has been trying to remove her tracheostomy. There were days where I feel the patient is alert and appropriate and there were days where she seems confused. This is one of the days where she seems to be confused. OBJECTIVE: VITAL SIGNS: Temperature 97.5, pulse 78, respirations 20, O2 saturation 97% on trach collar, blood pressure 126/75. HEENT: Unremarkable. NECK: Trach site clean. LUNGS: Clear. CARDIAC: S1, S2 regular. ABDOMEN: Soft. EXTREMITIES: No edema. ASSESSMENT: Clinical status unchanged. Decannulation of tracheostomy really depends on how Speech feels or swallowing is doing. I cannot find any documentation from them that would tell me where she is along that spectrum. I will try to find out. Job ID: [id number]
[2019-03-24] MEDS: hydrALAZINE 25 MG TAB PER TUBE SCH ×3 (10:29→22:24)
[2019-03-24] MEDS: Metoprolol Tartrate 50 MG TAB PO SCH ×2 (10:30→22:24)
[2019-03-24] MEDS: Amlodipine 5 MG TAB PER TUBE SCH ×2 (10:30→22:23)
[2019-03-24] MEDS: Enoxaparin Sodium 40 MG/0.4 ML SYRINGE SC SCH (10:31)
[2019-03-24] MEDS: Lisinopril 20 MG TAB PER TUBE SCH ×2 (10:31→22:24)
[2019-03-24] MEDS: Furosemide 20 MG TAB PER TUBE SCH (10:31)
[2019-03-24] MEDS: Saccharomyces boulardii 250 MG CAP PER TUBE SCH (10:31)
[2019-03-24] MEDS: Pantoprazole 40 MG GRANULES PACKET PER TUBE SCH (10:31)
[2019-03-24] MEDS: Lidocaine Patch Removal 1 EACH TOP SCH (10:33)
--- NOTE | 2019-03-24 10:57 | ULT ---
EXAM: US Venous Doppler Rt Radhaat PROVIDED CLINICAL HISTORY: Right upper extremity thrombus. Follow-up evaluation. COMPARISON: 03/13/2019 FINDINGS: Real-time grayscale, color, and spectral analysis right upper extremity venous structures is performe d with 2-D imaging. The right internal jugular vein is unable to be assessed due to overlying cervical collar. There is normal luminal compressibility and flow seen within the right axillary and brachial veins wi th normal flow seen in the right subclavian vein. The ulnar and radial veins are not well assessed. There is normal luminal compressibility and flow seen in the right upper extremity cephalic and basil ic veins. Previously noted thrombus in the right upper extremity basilic vein on prior study is not identified on the current exam. IMPRESSION: 1. No evidence of a DVT involving the visualized deep venous structures right upper extremity. 2. No thrombus is seen within the right upper extremity cephalic or basilic veins. Previously noted t hrombus in the right basilic vein on prior exam is not identified on current study.
[2019-03-24] MEDS: Ondansetron ODT 4 MG TAB PO PRN ×2 (15:34→22:23)
--- NOTE | 2019-03-24 15:34 | PDOC.HOSPP ---
- Subjective Subjective: Seen and examined in the stroke unit. Day 24 hospitalization for left cerebellar hemorrhage status post shunt by Dr. Brannon, patient later developed hydrocephalus in the status post ventral peritoneal shunt by Dr. Brannon on 2019. Patient is status post tracheostomy and PEG tube placement as she was unable to be safely liberated from the vent. Patient's continuing to improve with regards to her physical strength. Patient is able to stand though she has not walked it. Patient has no focal neurologic deficits in her arms or legs though she is profoundly week. Patient is able to talk and she covers the orifice of her tracheostomy tube with her finger in order to talk. Patient only complaint is that she wants a tracheostomy out of the neck, I told her this will be addressed by pulmonology and when safe to remove it will be removed. - Objective Vital Signs & Weight: Vital Signs (12 hours) Temp Pulse Resp BP BP Pulse Ox 03/24/19 15:23 98.7 F 75 16 142/79 H 91 L 03/24/19 13:07 80 14 03/24/19 11:30 97.5 F L 71 18 125/77 99 03/24/19 10:31 126/75 03/24/19 10:30 70 126/75 03/24/19 10:29 70 126/75 03/24/19 08:35 97 03/24/19 07:32 97.5 F L 70 20 126/75 97 03/24/19 03:43 98 F 85 18 118/65 95 Weight Admit Weight 295 lb Weight 268 lb Most Recent Monitor Data Heart Rate from ECG 76 NIBP 118/61 NIBP BP-Mean 80 Respiration from ECG 16 SpO2 100 I&O: 03/23/19 03/24/19 03/25/19 06:59 06:59 06:59 Intake Total 1772 1610 60 Output Total 1675 1900 350 Balance 97 -290 -290 Result Diagrams: 03/21/19 07:22 03/21/19 07:22 Radiology Reviewed by me: Yes Hospitalist ROS - Review of Systems All other systems reviewed; all pertinent +/- noted in HPI/Subj - Medication Medications: Active Medications Generic Name Dose Route Start Last Admin Trade Name Freq PRN Reason Stop Dose Admin Acetaminophen 650 mg 03/02/19 10:45 03/23/19 21:16 Tylenol Elixir PER TUBE 650 mg Q4H PRN Administration Headache/Fever or Pain Al Hydroxide/Mg Hydroxide 30 ml 02/28/19 00:57 03/20/19 17:34 Maalox PO 30 ml QIDPRN PRN Administration Dyspepsia Albuterol/Ipratropium 3 ml 03/14/19 13:00 03/24/19 13:07 Duoneb NEB 3 ml [id number] KALIE Administration Amlodipine Besylate 5 mg 03/15/19 22:06 03/24/19 10:30 Norvasc PER TUBE 5 mg BID KALIE Administration Enoxaparin Sodium 40 mg 03/12/19 09:00 03/24/19 10:31 Lovenox SC 40 mg 0900 [facility] Administration Furosemide 20 mg 03/12/19 09:00 03/24/19 10:31 Lasix PER TUBE 20 mg DAILY [facility] Administration Guaifenesin 200 mg 03/18/19 12:00 03/24/19 06:00 Robitussin Sf PER TUBE 200 mg Q6HR [facility] Administration Hydralazine HCl 10 mg 03/01/19 16:33 03/15/19 18:05 Apresoline SLOW IVP 10 mg Q4H PRN Administration SBP > 165 Hydralazine HCl 25 mg 03/20/19 09:00 03/24/19 10:29 Apresoline PER TUBE 25 mg TID [facility] Administration Labetalol HCl 10 mg 02/28/19 00:57 03/15/19 19:05 Normodyne SLOW IVP 2 ml Q2H PRN Administration SBP > 140 or DBP > 90 Lidocaine 1 patch 03/02/19 21:00 03/23/19 21:08 Lidoderm 5% Patch TD Not Given Q24HR [facility] Lisinopril 20 mg 03/15/19 22:06 03/24/19 10:31 Zestril PER TUBE 20 mg BID KALIE Administration Magnesium Hydroxide 30 ml 02/28/19 00:57 03/02/19 23:18 Milk Of Magnesium PO 30 ml BIDPRN PRN Administration Constipation Meclizine HCl 12.5 mg 02/28/19 01:10 03/23/19 17:56 Antivert PO 12.5 mg BIDPRN PRN Administration Dizziness Metoprolol Tartrate 50 mg 03/20/19 09:00 03/24/19 10:30 Lopressor PO 50 mg BID KALIE Administration Miscellaneous Medication 1 each 03/20/19 09:00 03/24/19 10:33 Lidocaine Patch Removal TOP Not Given 09 KALIE Ondansetron HCl 4 mg 02/28/19 00:57 03/16/19 17:30 Zofran IVP 4 mg Q6H PRN Administration Nausea/Vomiting Ondansetron HCl 4 mg 03/20/19 08:24 03/23/19 15:33 Zofran Odt PO 4 mg Q6H PRN Administration Nausea/Vomiting Pantoprazole Sodium 40 mg 03/18/19 09:00 03/24/19 10:31 Protonix PER TUBE 40 mg DAILY KALIE Administration Saccharomyces Boulardii 250 mg 03/13/19 09:00 03/24/19 10:31 Florastor PER TUBE 250 mg DAILY KALIE Administration Scopolamine 1.5 mg 03/08/19 08:45 03/23/19 09:40 Transderm Scop TD 1.5 mg Q3D KALIE Administration - Exam General Appearance: NAD, awake alert Eye: PERRL ENT: normocephalic atraumatic, moist mucosa Neck: supple, symmetric, no lymphadenopathy Heart: no murmur, no gallops, no rubs, normal peripheral pulses Respiratory: no rales, rhonchi, wheezes Gastrointestinal: soft, non-tender, no guarding, no rigidity Extremities: 1+ LE edema Skin: no lesions, no rashes Neurological: cranial nerve grossly intact, no new deficit Musculoskeletal: generalized weakness Psychiatric: A&O x 3 Hosp A/P (1) Acute respiratory failure with hypoxia Code(s): J96.01 - ACUTE RESPIRATORY FAILURE WITH HYPOXIA Status: Acute (2) Diastolic dysfunction Code(s): I51.89 - OTHER ILL-DEFINED HEART DISEASES Status: Acute (3) Dysphagia Code(s): R13.10 - DYSPHAGIA, UNSPECIFIED Status: Acute Qualifiers: Dysphagia type: oropharyngeal phase Qualified Code(s): R13.12 - Dysphagia, oropharyngeal phase (4) GIB (gastrointestinal bleeding) Code(s): K92.2 - GASTROINTESTINAL HEMORRHAGE, UNSPECIFIED Status: Acute (5) Hypokalemia Code(s): E87.6 - HYPOKALEMIA Status: Acute (6) ICH (intracerebral hemorrhage) Code(s): I61.9 - NONTRAUMATIC INTRACEREBRAL HEMORRHAGE, UNSPECIFIED Status: Acute Qualifiers: Intracerebral hemorrhage etiology: nontraumatic Cerebral hemorrhage location: cerebellum Laterality: unspecified laterality Qualified Code(s): I61.4 - Nontraumatic intracerebral hemorrhage in cerebellum (7) Narrow complex tachycardia Code(s): I47.1 - SUPRAVENTRICULAR TACHYCARDIA Status: Acute (8) Nausea Code(s): R11.0 - NAUSEA Status: Acute (9) HLD (hyperlipidemia) Code(s): E78.5 - HYPERLIPIDEMIA, UNSPECIFIED Status: Chronic (10) HTN (hypertension) Code(s): I10 - ESSENTIAL (PRIMARY) HYPERTENSION Status: Chronic (11) Morbid obesity Code(s): E66.01 - MORBID (SEVERE) OBESITY DUE TO EXCESS CALORIES Status: Chronic (12) Morbid obesity with BMI of 45.0-49.9, adult Code(s): E66.01 - MORBID (SEVERE) OBESITY DUE TO EXCESS CALORIES; Z68.42 - BODY MASS INDEX (BMI) 45.0-49.9, ADULT Status: Chronic - Plan Plan: medical unit telemetry stroke unit pulmonology consultation, recommendations appreciated neurology consultation, recommendations appreciated tracheostomy capping when able modified barium swallow per speech therapy, advanced diet as tolerated by speech therapy recommendations enteral nutrition to be continued until adequate oral intake can be insured stroke regimen per neurology/ NSG statin JANNA inhibitor status post ventral peritoneal shunt for hydrocephalus by Dr. Brannon on 03/11/2019 status post drain for left cerebellar hemorrhage by Dr. Brannon on 02/28/2019 blood pressure control blood sugar control G.I. prophylaxis DVT prophylaxis - NSG started Lovenox
[2019-03-24] MEDS: Acetaminophen 650 MG/20.3 ML UDCUP PER TUBE PRN (15:59)
--- NOTE | 2019-03-24 18:48 | PRG ---
DATE OF SERVICE: 03/24/2019 SUBJECTIVE: Ms. Viramontes is now hospital day #24 after having sustained left cerebellar hemorrhage and subsequent shunt placement. She is now 13 days post- op shunt internalization. The patient remains neurologically stable when evaluated this morning. She denies any headache or other complaints of pain. She has been able to stand with physical therapy, but has not yet ambulated. She covers the opening of her tracheostomy and is able to speak audibly. Today she stated that she wishes to have her tracheostomy removed. I told her that our neurosurgical team will defer to Pulmonology for this matter. She had no other complaints today. She is awaiting placement in a long-term acute care facility versus inpatient rehab. Doppler US of right upper extremity completed today was negative for DVT, and there were no findings of thrombus in the right basilic vein that was seen on prior imaging. OBJECTIVE: NEUROLOGIC: On exam, the patient is awake, alert, and appropriate. She follows command and is able to move all extremities. She has good strength throughout her upper and lower extremity myotomes. Sensation to light touch is intact and equal in her bilateral lower extremities. PLAN: Plan at this time is to continue awaiting placement. Again, the patient would benefit from aggressive therapies. If the patient remains in the hospital tomorrow, we will remove her scalp eliceo as she will be 14 days postop shunt placement. We will continue to follow the patient during her hospital day. Please call our service for any neurologic changes or other concerns. Job ID: [id number] [facility]
[2019-03-24] MEDS: Lidocaine 5% Patch TD SCH (22:25)
[2019-03-25] MEDS: Diabetic Tussin 200 MG/10 ML UDCUP PER TUBE SCH ×4 (08:02→23:30)
--- NOTE | 2019-03-25 08:07 | RAD ---
EXAM: XR Ba Swallow W/Speech Therap PROVIDED CLINICAL HISTORY: Dysphagia, unspecified. Feeding difficulties. COMPARISON: None FINDINGS: This examination was performed in conjunction with speech pathology. Varying consistencies of barium were administered during the exam including barium soaked cookie. The patient does demonstrate mild delay in formation of bolus into the posterior pharynx. There is mild premature spill of contrast int o the vallecula prior to initiation of the swallowing mechanism. The patient did demonstrate repeat swallowing to clear the oropharynx and vallecula on several occasions. There was evidence of penetrat ion with thin liquid barium on several occasions. There is one episode of questionable trace aspiration with swallowing of thin liquid barium, but due to patient's overlying shoulders, this was difficult to definitively determine. Fluoroscopy: Time- 1.5 minutes Dose: 79.3 mGy meter squared IMPRESSION: 1. Penetration with thin liquid barium with questionable episode of trace aspiration of thin liquid b arium.
[2019-03-25] MEDS: Enoxaparin Sodium 40 MG/0.4 ML SYRINGE SC SCH (09:11)
[2019-03-25] MEDS: Lisinopril 20 MG TAB PER TUBE SCH ×2 (09:12→21:43)
[2019-03-25] MEDS: Lidocaine Patch Removal 1 EACH TOP SCH (09:12)
[2019-03-25] MEDS: Metoprolol Tartrate 50 MG TAB PO SCH ×2 (09:12→21:43)
[2019-03-25] MEDS: Amlodipine 5 MG TAB PER TUBE SCH ×2 (09:12→21:42)
[2019-03-25] MEDS: hydrALAZINE 25 MG TAB PER TUBE SCH ×3 (09:12→21:43)
[2019-03-25] MEDS: Furosemide 20 MG TAB PER TUBE SCH (09:12)
[2019-03-25] MEDS: Pantoprazole 40 MG GRANULES PACKET PER TUBE SCH (09:12)
[2019-03-25] MEDS: Saccharomyces boulardii 250 MG CAP PER TUBE SCH (09:12)
--- NOTE | 2019-03-25 09:20 | PRG ---
DATE OF SERVICE: 03/25/2019 SUBJECTIVE: Apparently, the patient is being deemed safe to try some pureed food intake with liquids. Today, the patient has no complaints. OBJECTIVE: VITAL SIGNS: Temperature is 98.6, pulse 80, respirations 14, O2 saturation 97% on 6 L, and blood pressure 145/91. HEENT: Unremarkable. NECK: Trach in good position. LUNGS: Clear. CARDIAC: S1-S2, regular. ABDOMEN: Soft. EXTREMITIES: No edema. ASSESSMENT: 1. Status post stroke. 2. Status post tracheostomy. PLAN: Trial of oral pureed food today. If she tolerates, then consider decannulation in the next couple of days. Job ID: [id number]
--- NOTE | 2019-03-25 09:22 | PRG ---
DATE OF SERVICE: 03/25/2019 This is Armaan Strong PA-C dictating a report for Vishnu Brannon MD. Ms. Viramontes is hospital day #25 having sustained left cerebellar hemorrhage and subsequent [employer] shunt placement. The patient neurologically is doing well. She did have a right upper extremity ultrasound, that was actually negative for previous right basilic vein SVT. She has remained on Lovenox. She does complain of some headache in the right frontal area today. Otherwise, she is alert, awake, and is able to cover the trach collar and speak very clearly. We are waiting on placement to LTAC, but she would benefit from aggressive therapies at either LTAC or inpatient rehab. I will check on the status of this today with Social Work. The patient moves all extremities. Apparently, she has been standing at the bedside with therapies, but has not yet walked, which again signifies the patient would need aggressive therapies to help with her mobility. Please call with any changes in the patient's neurologic status. Otherwise, we will continue to follow up on the patient. We will remove her cranial eliceo tomorrow. Job ID: [id number]
--- NOTE | 2019-03-25 14:57 | PDOC.HOSPP ---
- Subjective Subjective: Clinically unchanged. Patient remains globally week though there are no significant focal neurologic deficits. Patient again talking and states that she would like to have tracheostomy removed when able. I again told her that it will depend on clinical improvement. Patient progressing with swallow and speech therapy. - Objective Vital Signs & Weight: Vital Signs (12 hours) Temp Pulse Pulse Pulse Resp BP BP 03/25/19 13:55 78 76 119/80 03/25/19 12:59 74 18 03/25/19 11:06 98.6 F 70 14 03/25/19 09:12 80 141/82 H 03/25/19 09:04 03/25/19 08:11 80 14 03/25/19 07:49 98.6 F 78 18 03/25/19 04:00 98.6 F 78 20 BP BP Pulse Ox 03/25/19 13:55 129/78 03/25/19 12:59 96 03/25/19 11:06 114/55 L 98 03/25/19 09:12 03/25/19 09:04 98 03/25/19 08:11 97 03/25/19 07:49 135/71 95 03/25/19 04:00 145/91 H 95 Weight Admit Weight 295 lb Weight 268 lb Most Recent Monitor Data Heart Rate from ECG 76 NIBP 118/61 NIBP BP-Mean 80 Respiration from ECG 16 SpO2 100 I&O: 03/24/19 03/25/19 03/26/19 06:59 06:59 06:59 Intake Total 1610 1730 Output Total 1900 1750 600 Balance -290 -20 -600 Result Diagrams: 03/21/19 07:22 03/21/19 07:22 Radiology Reviewed by me: Yes Hospitalist ROS - Review of Systems All other systems reviewed; all pertinent +/- noted in HPI/Subj - Medication Medications: Active Medications Generic Name Dose Route Start Last Admin Trade Name Freq PRN Reason Stop Dose Admin Acetaminophen 650 mg 03/02/19 10:45 03/24/19 15:59 Tylenol Elixir PER TUBE 650 mg Q4H PRN Administration Headache/Fever or Pain Al Hydroxide/Mg Hydroxide 30 ml 02/28/19 00:57 03/20/19 17:34 Maalox PO 30 ml QIDPRN PRN Administration Dyspepsia Albuterol/Ipratropium 3 ml 03/14/19 13:00 03/25/19 12:59 Duoneb NEB 3 ml [id number] KALIE Administration Amlodipine Besylate 5 mg 03/15/19 22:06 03/25/19 09:12 Norvasc PER TUBE 5 mg BID KALIE Administration Enoxaparin Sodium 40 mg 03/12/19 09:00 03/25/19 09:11 Lovenox SC 40 mg 0900 KALIE Administration Furosemide 20 mg 03/12/19 09:00 03/25/19 09:12 Lasix PER TUBE 20 mg DAILY KALIE Administration Guaifenesin 200 mg 03/18/19 12:00 03/25/19 13:11 Robitussin Sf PER TUBE 200 mg Q6HR KALIE Administration Hydralazine HCl 10 mg 03/01/19 16:33 03/15/19 18:05 Apresoline SLOW IVP 10 mg Q4H PRN Administration SBP > 165 Hydralazine HCl 25 mg 03/20/19 09:00 03/25/19 09:12 Apresoline PER TUBE 25 mg TID [facility] Administration Labetalol HCl 10 mg 02/28/19 00:57 03/15/19 19:05 Normodyne SLOW IVP 2 ml Q2H PRN Administration SBP > 140 or DBP > 90 Lidocaine 1 patch 03/02/19 21:00 03/24/19 22:25 Lidoderm 5% Patch TD Not Given Q24HR [facility] Lisinopril 20 mg 03/15/19 22:06 03/25/19 09:12 Zestril PER TUBE 20 mg BID KALIE Administration Magnesium Hydroxide 30 ml 02/28/19 00:57 03/02/19 23:18 Milk Of Magnesium PO 30 ml BIDPRN PRN Administration Constipation Meclizine HCl 12.5 mg 02/28/19 01:10 03/23/19 17:56 Antivert PO 12.5 mg BIDPRN PRN Administration Dizziness Metoprolol Tartrate 50 mg 03/20/19 09:00 03/25/19 09:12 Lopressor PO 50 mg BID KALIE Administration Miscellaneous Medication 1 each 03/20/19 09:00 03/25/19 09:12 Lidocaine Patch Removal TOP Not Given 0900 [facility] Ondansetron HCl 4 mg 02/28/19 00:57 03/16/19 17:30 Zofran IVP 4 mg Q6H PRN Administration Nausea/Vomiting Ondansetron HCl 4 mg 03/20/19 08:24 03/24/19 22:23 Zofran Odt PO 4 mg Q6H PRN Administration Nausea/Vomiting Pantoprazole Sodium 40 mg 03/18/19 09:00 03/25/19 09:12 Protonix PER TUBE 40 mg DAILY KALIE Administration Saccharomyces Boulardii 250 mg 03/13/19 09:00 03/25/19 09:12 Florastor PER TUBE 250 mg DAILY KALIE Administration Scopolamine 1.5 mg 03/08/19 08:45 03/23/19 09:40 Transderm Scop TD 1.5 mg Q3D KALIE Administration - Exam General Appearance: NAD Eye: anicteric sclera ENT: normocephalic atraumatic, moist mucosa Neck: supple, symmetric, no lymphadenopathy Neck - other findings: Trach Heart: no murmur, no gallops, no rubs Respiratory: CTAB, no wheezes, no ronchi, no tachypnea Gastrointestinal: soft, no guarding, no rigidity Gastrointestinal - other findings: Feeding tube Extremities: 1+ LE edema Skin: no lesions, no rashes Neurological: cranial nerve grossly intact, no new deficit Neurological - other findings: Moves all extremities Musculoskeletal: generalized weakness Psychiatric: normal behavior, flat affect Hosp A/P (1) Acute respiratory failure with hypoxia Code(s): J96.01 - ACUTE RESPIRATORY FAILURE WITH HYPOXIA Status: Acute (2) Diastolic dysfunction Code(s): I51.89 - OTHER ILL-DEFINED HEART DISEASES Status: Acute (3) Dysphagia Code(s): R13.10 - DYSPHAGIA, UNSPECIFIED Status: Acute Qualifiers: Dysphagia type: oropharyngeal phase Qualified Code(s): R13.12 - Dysphagia, oropharyngeal phase (4) GIB (gastrointestinal bleeding) Code(s): K92.2 - GASTROINTESTINAL HEMORRHAGE, UNSPECIFIED Status: Acute (5) Hypokalemia Code(s): E87.6 - HYPOKALEMIA Status: Acute (6) ICH (intracerebral hemorrhage) Code(s): I61.9 - NONTRAUMATIC INTRACEREBRAL HEMORRHAGE, UNSPECIFIED Status: Acute Qualifiers: Intracerebral hemorrhage etiology: nontraumatic Cerebral hemorrhage location: cerebellum Laterality: unspecified laterality Qualified Code(s): I61.4 - Nontraumatic intracerebral hemorrhage in cerebellum (7) Narrow complex tachycardia Code(s): I47.1 - SUPRAVENTRICULAR TACHYCARDIA Status: Acute (8) Nausea Code(s): R11.0 - NAUSEA Status: Acute (9) HLD (hyperlipidemia) Code(s): E78.5 - HYPERLIPIDEMIA, UNSPECIFIED Status: Chronic (10) HTN (hypertension) Code(s): I10 - ESSENTIAL (PRIMARY) HYPERTENSION Status: Chronic (11) Morbid obesity Code(s): E66.01 - MORBID (SEVERE) OBESITY DUE TO EXCESS CALORIES Status: Chronic (12) Morbid obesity with BMI of 45.0-49.9, adult Code(s): E66.01 - MORBID (SEVERE) OBESITY DUE TO EXCESS CALORIES; Z68.42 - BODY MASS INDEX (BMI) 45.0-49.9, ADULT Status: Chronic - Plan Plan: medical unit telemetry - stroke unit pulmonology consultation, recommendations appreciated neurology consultation, recommendations appreciated tracheostomy, capping as able modified barium swallow per speech therapy, advanced diet as tolerated by speech therapy recommendations enteral nutrition to be continued until adequate oral intake stroke regimen per neurology/ NSG statin JANNA inhibitor status post ventral peritoneal shunt for hydrocephalus by Dr. Brannon on 03/11/2019 status post drain for left cerebellar hemorrhage by Dr. Brannon on 02/28/2019 blood pressure control blood sugar control G.I. prophylaxis DVT prophylaxis - NSG started Lovenox
[2019-03-25] MEDS: Ondansetron ODT 4 MG TAB PO PRN (21:41)
[2019-03-25] MEDS: Acetaminophen 650 MG/20.3 ML UDCUP PER TUBE PRN (21:43)
[2019-03-25] MEDS: Lidocaine 5% Patch TD SCH (21:44)
[2019-03-26] MEDS: Diabetic Tussin 200 MG/10 ML UDCUP PER TUBE SCH ×2 (05:46→11:55)
[2019-03-26] MEDS: Ondansetron ODT 4 MG TAB PO PRN (07:39)
[2019-03-26] MEDS: Enoxaparin Sodium 40 MG/0.4 ML SYRINGE SC SCH (08:38)
[2019-03-26] MEDS: Saccharomyces boulardii 250 MG CAP PER TUBE SCH (08:38)
[2019-03-26] MEDS: Metoprolol Tartrate 50 MG TAB PO SCH (08:38)
[2019-03-26] MEDS: Pantoprazole 40 MG GRANULES PACKET PER TUBE SCH (08:39)
[2019-03-26] MEDS: Scopolamine 1.5 mg/72 hour Patch TD SCH (08:39)
[2019-03-26] MEDS: Furosemide 20 MG TAB PER TUBE SCH (08:39)
[2019-03-26] MEDS: hydrALAZINE 25 MG TAB PER TUBE SCH ×2 (08:40→15:45)
[2019-03-26] MEDS: Amlodipine 5 MG TAB PER TUBE SCH (08:40)
[2019-03-26] MEDS: Lidocaine Patch Removal 1 EACH TOP SCH (08:41)
[2019-03-26] MEDS: Lisinopril 20 MG TAB PER TUBE SCH (08:41)
[2019-03-26] MEDS ORDERED: hydrALAZINE 25 MG TAB PER TUBE SCH (12:15)
[2019-03-26] MEDS ORDERED: Amlodipine 5 MG TAB PER TUBE SCH (12:15)
[2019-03-26] MEDS ORDERED: Lisinopril 20 MG TAB PER TUBE SCH (12:15)
[2019-03-26 13:15] VITALS: BMI 45.6
--- NOTE | 2019-03-26 13:20 | PRG ---
DATE OF SERVICE: 03/26/2019 SUBJECTIVE: She is doing well. She is able to tolerate a pureed diet without much problem. OBJECTIVE: VITAL SIGNS: Temperature is 98.4, pulse 70, respirations 18, blood pressure 104/68, O2 saturation 98%. HEENT: Unremarkable. NECK: No adenopathy or JVD. CHEST: Clear. CARDIAC: S1, S2. Regular. ABDOMEN: Soft. EXTREMITIES: No edema. ASSESSMENT: Status post trach and PEG tube placement for oropharyngeal dysphagia related to a cerebellar stroke. PLAN: Decannulated the patient today, 4 x 4 needs to be left on until the ostomy site closes. No further Pulmonary recommendations. We will sign off. Job ID: [id number]
--- NOTE | 2019-03-26 15:06 | PRG ---
DATE OF SERVICE: 03/26/2019 This is Armaan Strong PA-C dictating a report for Vishnu Brannon MD. POSTOPERATIVE RECHECK: Ms. Viramontes is now postoperative 15 days having undergone CLEARANCE REPRESENTATIVE shunt placement. The patient previously had a posterior fossa craniotomy for cerebellar hemorrhage. The patient continues to improve neurologically. She is able to hold her finger over trach collar and speak very clearly. She states she has no headache today. She states she would like to go home. She still follows commands equally in all 4 extremities. Her eliceo will need to be taken out in the next day or two. We are waiting on placement for facility and our Case Management has appeal to LTAC, we are waiting for insurance approval for this. The patient would likely benefit greatly from aggressive therapies that she is continuing to show improvement neurologically. Please call with any changes in the patient's neurologic status. Otherwise, we will wait for placement at a facility. It should note that the patient's blood pressure has been very stable and I am pleased with this. Job ID: [id number]
[2019-03-26] MEDS: Acetaminophen 650 MG/20.3 ML UDCUP PER TUBE PRN (15:45)
[2019-03-26 15:52] VITALS: BP 149/73; TEMP 98.1
[2019-03-26] MEDS ORDERED: Lisinopril 5 MG TAB PER TUBE SCH (21:00)
--- NOTE | 2019-03-27 03:59 | DIS ---
DATE OF ADMISSION: 02/28/2019 DATE OF DISCHARGE: 03/26/2019 REASON FOR HOSPITALIZATION: The patient was admitted on 02/28/2019 with altered mental status and elevated blood pressure. SIGNIFICANT FINDINGS: The patient was found to have cerebellar hemorrhage and taken to the operating room with ventriculostomy placement on 02/27/2019-please see full operative report for details. The patient tolerated the suboccipital craniectomy and cerebellar hematoma evacuation without complications. The patient was monitored appropriately in the intensive care unit and was seen and evaluated by all specialists. Please see full history and physical, consultation notes, operative reports, and all laboratory data including radiographic imaging for full details. The patient remained in the intensive care unit and was managed by business relations manager. The patient was seen and evaluated by Nephrology, please see full consultation notes and progress notes for details. The patient was seen and evaluated by Gastroenterology, please see full consultation notes and progress notes for details. With maximum medical and surgical therapy, the patient did continue to improve; however, she was unable to safely be weaned from the ventilator and she underwent tracheostomy and PEG tube placement by Dr. Montano on 03/09/2019. Please see full operative report for details. The patient tolerated the procedure well without intraoperative complications. The patient was taken back to the operating room on 03/11/[address] Brannon with a diagnosis of hydrocephalus. The patient went for ventricular peritoneal shunt, the patient tolerated this procedure well without intraoperative complications. After that operation, the patient continued to improve. The patient was then safely weaned from the ventilator and her tracheostomy did remain in place. The patient's renal function normalized. The patient was able to progress with physical therapy and occupational therapy and she is having no focal neurologic deficits. The patient is able to stand, though she is profoundly weak and she is unable to walk. The patient is able to talk with tracheostomy in place. The patient continued to work with Speech Therapy and eventually was advanced on her diet. The patient has made great improvements and she will continue to improve over the upcoming weeks. The patient was recommended safe for discharge by all specialists to a long-term acute care facility. The patient was accepted to long-term acute care facility on 03/26/2019. CONDITION ON DISCHARGE: Stable for discharge to a long-term acute care facility. SPECIFIC INSTRUCTIONS FOR THE PATIENT/FAMILY: 1. The patient recommended safe for transport immediately to long-term acute care facility. 2. The patient is recommended to have continued weaning on tracheostomy and if medically able decannulation. 3. The patient recommended to continue working with speech therapy on oral intake and if medically able, she will have PEG tube removed if she has adequate oral intake. 4. The patient is recommended to continue to work with inpatient physical therapy and occupational therapy to regain her strength and independence to the point where she is able to walk and take care of herself. 5. The patient recommended to take all medications as directed, to be re-evaluated by admitting physician at [facility] with the coordination of all appropriate specialists. 6. The patient recommended to [facility] if signs or symptoms return, worsen, or any other new symptoms occur. DISCHARGE MEDICATION LIST: Please see full discharge medications for details. 1. Acetaminophen 650 mg per gastric tube q.4 hours p.r.n. pain or fever. 2. Maalox 30 mg per gastric tube four times per day p.r.n. indigestion. 3. DuoNeb q.6 hours scheduled. 4. DuoNeb q.4 hours p.r.n. shortness of breath. 5. Amlodipine 5 mg per gastric tube daily. 6. Dulcolax 10 mg per rectal daily p.r.n. constipation. 7. Lovenox 40 mg subcutaneous injection daily. 8. Furosemide 20 mg per gastric tube daily. 9. Guaifenesin 200 mg per gastric tube q.6 hours p.r.n. cough. 10. Hydralazine 25 mg per gastric tube t.i.d. 11. Hydralazine 10 mg intravenous push q.4 hours p.r.n. hypertension greater than 170 systolic. 12. Lidocaine transdermal patch 5% one patch transdermal q.24 hours. 13. Lisinopril 5 mg per feeding tube b.i.d. 14. Milk of magnesia 30 mg per gastric tube b.i.d. p.r.n. indigestion. 15. Meclizine 12.5 mg per gastric tube b.i.d. p.r.n. dizziness. 16. Metoprolol tartrate 50 mg per gastric tube b.i.d. 17. Zofran 4 mg IV push q.6 hours p.r.n. nausea and vomiting. 18. Zofran 4 mg per gastric tube q.6 hours p.r.n. nausea and vomiting. 19. Protonix 40 mg per gastric tube daily. 20. Saccharomyces boulardii 250 mg per gastric tube daily. 21. Scopolamine 1.5 mg transdermal q.3 days. TIME SPENT: Greater than 41 minutes spent coordinating care and discharge process for this patient. Job ID: [id number]
[2019-03-27] MEDS ORDERED: Amlodipine 5 MG TAB PER TUBE SCH (09:00)
--- NOTE | 2019-03-27 17:34 | EKG ---
Test Reason : Blood Pressure : / mmHG Vent. Rate : 076 BPM Atrial Rate : 076 BPM P-R Int : 208 ms QRS Dur : 094 ms QT Int : 412 ms P-R-T Axes : 030 -15 014 degrees QTc Int : 463 ms Normal sinus rhythm Moderate voltage criteria for LVH, may be normal variant Borderline ECG Confirmed by IRMA DAMICO [id number]), state editor SHARONA HENSLEY ([id number]) on 03/27/2019 5:34:40 PM Referred By: Confirmed By:IRMA Devlin
== END 2019-03-26 19:16 | disposition short-term general hospital (02) | DRG 3 ==
LOC: ERS 20:25 → CCU 22:22 → SDC/OP 22:25 → CCU 02-28 00:14 → 2SE 03-12 15:36
PROVIDERS: ADMIT Surgery; ATTEND Surgery
PROC: 009600Z Drainage of Cerebral Ventricle with Drainage Device, Open Approach (ICD-10-PCS; principal; 2019-02-27)
PROC: 00CC0ZZ Extirpation of Matter from Cerebellum, Open Approach (ICD-10-PCS; 2019-02-27)
PROC: 5A1955Z Respiratory Ventilation, Greater than 96 Consecutive Hours (ICD-10-PCS; 2019-02-28)
PROC: 0BH17EZ Insertion of Endotracheal Airway into Trachea, Via Natural or Artificial Opening (ICD-10-PCS; 2019-02-28)
PROC: 00160J6 Bypass Cerebral Ventricle to Peritoneal Cavity with Synthetic Substitute, Open Approach (ICD-10-PCS; 2019-03-05)
PROC: 0B113F4 Bypass Trachea to Cutaneous with Tracheostomy Device, Percutaneous Approach (ICD-10-PCS; 2019-03-09)
PROC: 0DH63UZ Insertion of Feeding Device into Stomach, Percutaneous Approach (ICD-10-PCS; 2019-03-09)
DX: I61.4 Nontraumatic intracerebral hemorrhage in cerebellum (principal); G93.5 Compression of brain; J96.01 Acute respiratory failure with hypoxia; G91.9 Hydrocephalus, unspecified; I16.1 Hypertensive emergency; Z68.42 Body mass index [BMI] 45.0-49.9, adult; K92.2 Gastrointestinal hemorrhage, unspecified; I82.629 Acute embolism and thrombosis of deep veins of unspecified upper extremity; I47.1 Supraventricular tachycardia; I10 Essential (primary) hypertension; E78.5 Hyperlipidemia, unspecified; R13.12 Dysphagia, oropharyngeal phase; G47.33 Obstructive sleep apnea (adult) (pediatric); E66.01 Morbid (severe) obesity due to excess calories; E87.6 Hypokalemia; K21.9 Gastro-esophageal reflux disease without esophagitis; Z96.651 Presence of right artificial knee joint; Z90.710 Acquired absence of both cervix and uterus; Z90.12 Acquired absence of left breast and nipple; Z87.891 Personal history of nicotine dependence; Z88.1 Allergy status to other antibiotic agents
CPT/HCPCS: 36415; 36416; 51701; 70450; 71045; 74018; 74230; 80048; 80053; 80306; 80307; 81003; 81015; 82553; 82805; 82945; 83690; 83735; 84100; 84157; 84484; 85025; 85610; 85730; 86850; 86900; 86901; 87070; 87205; 88112; 89051; 89220; 93005; 93970; 94002; 94003; 94640; 96365; 96375; C9113; J0360; J0690; J1650; J1940; J2001; J2250; J2270; J2370; J2405; J2704; J3010; J3370; J3490; J7050; J7620; J8597; Q0162; S0020

== ENCOUNTER 2019-04-10 08:35 | Observation (INO) | payer MEDICARE, BC ==
[2019-04-10] MEDS ORDERED: MD-Gastroview 120 ML BOT ONE (10:07)
--- NOTE | 2019-04-10 10:17 | CT ---
EXAM: CT Brain WO Con PROVIDED CLINICAL HISTORY: Fall COMPARISON: 03/20/2019 FINDINGS: Stable postoperative changes involving the left occipital region. Interval decrease in left cerebella r hemisphere mass effect with mixed attenuation in this region redemonstrated. There is persistent effacement of the inferior fourth ventricle. The ventricular system is nondilated. Right frontal SAND MILL OPERATOR CORE SAND s campos with tip terminating in the left lateral ventricle redemonstrated. There is no evidence for intracranial hemorrhage. The extracranial soft tissues and osseous structures demonstrate no acute fi ndings. IMPRESSION: No evidence for intracranial hemorrhage or ventriculomegaly.
[2019-04-10] MEDS ORDERED: Acetaminophen 325 MG TAB PO PRN (12:11)
[2019-04-10] MEDS ORDERED: hydrALAZINE 20 MG/ML VIAL SLOW IVP PRN (12:14)
[2019-04-10 13:22] LABS: Hemoglobin 9.6 g/dL (12.0-16.0)
[2019-04-10] MEDS ORDERED: Sodium Chloride 0.9% 1,000 ML IV SCH (13:45)
--- NOTE | 2019-04-10 13:57 | RAD ---
KUB: HISTORY: Gastrostomy tube check. FINDINGS: Contrast has been injected into a gastrostomy tube which is seen to be within the stomach. No extrav asation. Surgical drains are noted. IMPRESSION: Gastrostomy tube in the antrum region of the stomach. POS: AVI
[2019-04-10 14:01] VITALS: BMI 45.0
[2019-04-10] MEDS: hydrALAZINE 25 MG TAB PER TUBE SCH ×2 (15:52→22:08)
[2019-04-10] MEDS: Ondansetron PF 4 MG/2 ML Vial IVP PRN (16:22)
[2019-04-10] MEDS ORDERED: Lorazepam 0.5 MG TAB PO PRN (17:41)
[2019-04-10] MEDS ORDERED: Diabetic Tussin 200 MG/10 ML UDCUP PO PRN (17:41)
[2019-04-10] MEDS ORDERED: Acetaminophen 650 MG/20.3 ML UDCUP PER TUBE PRN (17:41)
[2019-04-10] MEDS ORDERED: Lidocaine 5% Patch TD SCH (18:00)
[2019-04-10] MEDS: Labetalol HCl 100 MG/20 ML VIAL SLOW IVP PRN (18:23)
[2019-04-10 18:24] LABS: Hemoglobin 10.9 g/dL (12.0-16.0)
[2019-04-10] MEDS: Promethazine HCl 25 MG/ML VIAL SLOW IVP PRN (18:29)
[2019-04-10] MEDS ORDERED: Lisinopril 5 MG TAB PER TUBE SCH (21:00)
[2019-04-10] MEDS: Pantoprazole 40 MG VIAL IVP SCH (22:05)
[2019-04-10] MEDS: Metoprolol Tartrate 50 MG TAB PO SCH (22:05)
[2019-04-10] MEDS: Lidocaine 5% Patch TD SCH (22:08)
[2019-04-11] MEDS: Labetalol HCl 100 MG/20 ML VIAL SLOW IVP PRN ×5 (00:10→15:06)
--- NOTE | 2019-04-11 00:58 | HP ---
CHIEF COMPLAINT: Hematemesis. HISTORY OF PRESENT ILLNESS: A 63-year-old female with a recent history of hemorrhagic stroke in December 2018, and undergoing rehab [facility], had a coffee ground emesis, 3 episodes today. She has a PEG tube replaced recently on March 09. On 26 of February, she had both trach and PEG placed. She noted some bleeding around her PEG tube. The CT abdominal area was negative. CT head also negative. Her hemoglobin is 11, and she is not on any anticoagulation. ER physician notified GI on-call. The patient will be admitted in the intermediate care unit for further workup. Family is also at bedside during my evaluation. Abdominal x-ray done showed gastrostomy tube in the antrum region of the stomach. No extravasation after the contrast injected. REVIEW OF SYSTEMS: Complete review of systems not obtainable, but specifics are just in the history of present illness. She is undergoing rehab. She did not have any recent fever, night sweats, or chills. No productive cough. She denies any significant abdominal pain. No headache, blurriness, or worsening of her neurological deficit from her baseline. She had a ventriculostomy placement on February 27. PAST MEDICAL HISTORY: 1. Cerebral hemorrhage status post ventriculostomy placement in January 2019. 2. Tracheostomy and PEG placement by Dr. Montano on March 09. 3. Hydrocephalus. 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 MEDICATIONS: 1. Protonix 40 mg via PEG tube. 2. Scopolamine 1.5 mg transdermal patch. 3. Maalox as needed. 4. DuoNeb as needed. 5. Amlodipine 5 mg daily. 6. Hydralazine 25 mg t.i.d. 7. Lidocaine. 8. Lisinopril. 9. Metoprolol tartrate 50 mg. 10. Meclizine as needed. 11. Several other p.r.n. medications. SOCIAL HISTORY: Patient is undergoing rehab at [facility]. Does not smoke or drink alcohol. FAMILY HISTORY: Noncontributory. PHYSICAL EXAMINATION: VITAL SIGNS: Temperature is 98.5, pulse is 173/91, heart rate 104, saturating 94% on room air. GENERAL: The patient is alert and oriented x3. She is obese. CARDIOVASCULAR: Regular rate and rhythm without murmurs, rubs, or gallops. LUNGS: Clear. ABDOMEN: PEG tube has some dried blood around the site, otherwise unremarkable. EXTREMITIES: Without any pitting edema or rash. NEURO: Currently, no neurological deficits. LABORATORY DATA: Hemoglobin 9.6, hematocrit 30.9. Again, abdominal x-ray did not reveal any abnormality around the PEG tube, which is in gastric area. CT head is negative for acute intracranial abnormality. IMPRESSION AND PLAN: This is a 63-year-old female admitted with the following. 1. Hematemesis, possibly upper gastrointestinal bleed versus bleed around the PEG tube. Currently, she is hemodynamically stable. Continue the PPI b.i.d. IV. Gastroenterology consult has been placed. The patient will be admitted in the intermediate care unit and will follow the H and H x3. 2. Dysphagia status post PEG tube placement Await using the PEG tube until Gastroenterology evaluation is completed. Currently, she will be n.p.o. 3. Hypertension. Continue with amlodipine and hydralazine as well as Lopressor. The patient stated that she has some dry cough, will discontinue her lisinopril from home regimen. 4. Avoid anticoagulation for now. SCDs for deep vein thrombosis prophylaxis. Job ID: [id number] [facility]
[2019-04-11 01:04] LABS: Hemoglobin 10.6 g/dL (12.0-16.0)
[2019-04-11] MEDS: Ondansetron PF 4 MG/2 ML Vial IVP PRN ×2 (03:56→11:38)
[2019-04-11 04:08] LABS: #Basophils 0.1 thou/uL (0.0-0.2); #Monocytes 1.3 thou/uL (0.11-0.59); #Neutrophils 8.4 thou/uL (1.40-6.50); %Basophils 0.6 % (0.0-1.0); %Eosinophils 0.4 % (0.0-10.0); %Lymphocytes 16.7 % (21.0-51.0); %Neutrophils 71.3 % (42.0-75.0); Hemoglobin 10.1 g/dL (12.0-16.0); Mean Corpuscular HGB CONC 29.4 g/dL (32.0-36.0); Mean Corpuscular Hemoglobin 21.7 pg (27.0-31.0); Mean Corpuscular Volume 73.7 fL (78.0-98.0); Mean Platelet Volume 10.4 fL (7.4-10.4); Platelet Count 189 thou/uL (130-400); RBC Distribution Width 17.2 % (11.5-14.5); Red Blood Cell (RBC) Count 4.67 mill/uL (4.20-5.40); White Blood Cell (WBC) Count 11.8 thou/uL (4.8-10.8)
[2019-04-11 04:25] LABS: Anion Gap 13 mmol/L (10-20); BUN (Urea Nitrogen) 14 mg/dL (9.8-20.1); Calc. Creatinine Clearance 150 mL/min (70-130); Calcium 9.4 mg/dL (7.8-10.44); Carbon Dioxide 30 mmol/L (23-31); Chloride 101 mmol/L (98-107); Estimated GFR-MDRD Greater than 90; Glucose 91 mg/dL (80-115); Potassium 3.5 mmol/L (3.5-5.1); Sodium 140 mmol/L (136-145)
[2019-04-11] MEDS ORDERED: Lidocaine Patch Removal TOP SCH (06:00)
[2019-04-11] MEDS ORDERED: FLU VACC QS2019-20(6MOS UP)/PF 60 MCG/0.5 ML SYRINGE IM ONE (09:00)
[2019-04-11] MEDS ORDERED: Amlodipine 5 MG TAB PER TUBE SCH ×2 (09:00→16:15)
--- NOTE | 2019-04-11 09:35 | CT ---
EXAM: CT Brain WO Con PROVIDED CLINICAL HISTORY: Left-sided weakness COMPARISON: 04/10/2019 FINDINGS: The ventricular system is unchanged in size and morphology. There is no evidence for intracranial hem orrhage or mass effect. Left occipital postoperative change and heterogeneous density of the left cerebellar hemisphere is redemonstrated, similar to prior. The extracranial soft tissues and osseous structures demonstrate no acute findings. MARKETING PERFORMANCE ANALYST shunt catheter is again seen in similar position. IMPRESSION: No evidence for intracranial hemorrhage or mass effect. Findings communicated to the patient's nurse, Nader, at 9:31 AM 04/11/2019.
[2019-04-11] MEDS: Metoprolol Tartrate 50 MG TAB PO SCH ×2 (09:59→21:50)
[2019-04-11] MEDS: Furosemide 20 MG TAB PER TUBE SCH (10:00)
[2019-04-11] MEDS: hydrALAZINE 25 MG TAB PER TUBE SCH ×3 (10:00→21:49)
--- NOTE | 2019-04-11 10:00 | CT ---
EXAM: CT angiogram great vessels neck with IV contrast and three-dimensional reconstructions CT angiogram brain with IV contrast and three-dimensional reconstructions PROVIDED CLINICAL HISTORY: History COMPARISON: None FINDINGS: There is a normal three-vessel configuration of the great vessels at the arch. The common carotid, internal carotid, subclavian and right vertebral arteries demonstrate no evidence for significant stenosis. The left vertebral artery is diminutive and poorly visualized/occluded proximally. It appears opacified within the mid cervical spine and distal to this. There is extensive atherosclerotic vascular calcification involving the cavernous portions of both in ternal carotid arteries. There is no evidence for additional focal vessel stenosis, branch occlusion or aneurysm involving the intracranial circulation. IMPRESSION: 1. Diminutive left vertebral artery, poorly visualized proximally possibly on the basis of occlusion with distal reconstitution. 2. Severe multifocal atherosclerotic vascular calcification involving the cavernous portions of each internal carotid artery.
[2019-04-11] MEDS: Megestrol Acetate 800 MG/20 ML UDCUP PO SCH (10:01)
[2019-04-11] MEDS: Pantoprazole 40 MG VIAL IVP SCH ×2 (10:01→21:53)
[2019-04-11] MEDS: Lidocaine Patch Removal TOP SCH (10:02)
--- NOTE | 2019-04-11 12:40 | PDOC.HOSPP ---
- Subjective Encounter Date: 04/11/19 Encounter Time: 11:40 Subjective: had an episode of tia like sxs this am. ct head and cta -- unremarkable. pt is at baseline during my exam, as i admitted her y'day. - Objective Vital Signs & Weight: Vital Signs (12 hours) Temp Pulse BP Pulse Ox 04/11/19 11:42 81 155/102 H 04/11/19 11:32 98.3 F 04/11/19 10:00 81 155/102 H 04/11/19 09:59 81 159/102 H 04/11/19 07:16 98.3 F 04/11/19 07:07 99 04/11/19 05:10 81 145/86 H 04/11/19 03:33 99.5 F Weight Weight 254 lb 1.6 oz Most Recent Monitor Data Heart Rate from ECG 75 NIBP 151/87 NIBP BP-Mean 108 Respiration from ECG 20 SpO2 97 I&O: 04/10/19 04/11/19 04/12/19 06:59 06:59 06:59 Intake Total 1025 Output Total 100 Balance 925 Result Diagrams: 04/11/19 03:26 04/11/19 03:26 Hospitalist ROS - Medication Medications: Active Medications Generic Name Dose Route Start Last Admin Trade Name Freq PRN Reason Stop Dose Admin Acetaminophen 650 mg 04/10/19 17:41 04/10/19 18:27 Tylenol Elixir PER TUBE 650 mg Q4H PRN Administration Headache/Fever or Pain Amlodipine Besylate 5 mg 04/11/19 09:00 04/11/19 09:59 Norvasc PER TUBE 5 mg DAILY KALIE Administration Furosemide 20 mg 04/11/19 09:00 04/11/19 10:00 Lasix PER TUBE 20 mg DAILY KALIE Administration Hydralazine HCl 25 mg 04/10/19 15:00 04/11/19 10:00 Apresoline PER TUBE 25 mg TID KALIE Administration Hydralazine HCl 10 mg 04/10/19 12:14 04/10/19 14:35 Apresoline SLOW IVP 10 mg Q4H PRN Administration SBP > 165 Labetalol HCl 10 mg 04/10/19 17:41 04/11/19 11:42 Normodyne SLOW IVP 10 mg Q2H PRN Administration SBP > 140 or DBP > 90 Lidocaine 1 patch 04/10/19 21:00 04/10/19 22:08 Lidoderm 5% Patch TD Not Given Q24HR KALIE Megestrol Acetate 400 mg 04/11/19 09:00 04/11/19 10:01 Megace PO 400 mg DAILY KALIE Administration Metoprolol Tartrate 50 mg 04/10/19 21:00 04/11/19 09:59 Lopressor PO 50 mg BID KALIE Administration Miscellaneous Medication 1 each 04/11/19 09:00 04/11/19 10:02 Lidocaine Patch Removal TOP Not Given 0900 [facility] Ondansetron HCl 4 mg 04/10/19 12:11 04/11/19 11:38 Zofran IVP 4 mg Q6H PRN Administration Nausea/Vomiting Pantoprazole Sodium 40 mg 04/10/19 21:00 04/11/19 10:01 Protonix IVP 40 mg BID KALIE Administration Promethazine HCl 12.5 mg 04/10/19 18:20 04/10/19 18:29 Phenergan SLOW IVP 12.5 mg Q6H PRN Administration Nausea - Exam General Appearance: NAD, awake alert General - other findings: obese ENT: normocephalic atraumatic Neck: supple, symmetric, no JVD Heart: RRR, no murmur Respiratory: CTAB, normal chest expansion, normal percussion Gastrointestinal: non-tender, normal bowel sounds Gastrointestinal - other findings: protuberant Hosp A/P - Plan Hematemesis poss. Upper GI Bleed vs.. abn. at PEG site -imaging r/o any abn around PEG tube site/xray - Gi c/s pending - IV PPI -H&H stable - restart the TF -can stop the feed if scope planned for am. dysphagia -as above. 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 other?
[2019-04-11] MEDS ORDERED: Iopamidol-370 76% 500 ML 1 ML ONE (13:31)
--- NOTE | 2019-04-11 15:48 | CON ---
DATE OF CONSULTATION: HISTORY OF PRESENT ILLNESS: Luna Viramontes is a 63-year-old morbidly obese female, who is on the MICU, transferred from [facility] with hematemesis apparently. She is 120 kg on arrival. Blood pressure was 173/91, saturations 97% on 2 L, respirations 21, and pulse 86. Extremely poor historian. She is now on the MICU as the reason for consult. She apparently fell out of the bed at the rehab. Apparently, vomited some coffee-grounds, taken to the ER, but transferred here. She has had history of hemorrhagic stroke in the past with some issues. She also has known history of sleep apnea, but apparently is not using a CPAP machine. PAST MEDICAL HISTORY: She is not giving much of history at this stage, but apparently past medical history pertinent for hypertension, reflux, stroke, breast cancer, and diverticulitis. PAST SURGICAL HISTORY: Previous surgery colon surgery, resection, hernia, knee, G-tube, left breast cancer removed. She is in a rehab hospital in [place]. MEDICATIONS: Medicine from [place] includes: 1. Lasix 40. 2. Lisinopril 20. 3. Metoprolol 25 two times a day. 4. Meclizine. 5. Hydralazine. 6. Amlodipine. 7. Megace. 8. Estrace. 9. Mucinex. At discharge summary from this institute included stroke, status post trach and a PEG. [facility] long list: 1. Norvasc 5. 2. Lasix 20. 3. Ativan. 4. Lopressor 50 twice a day. 5. Reglan 10 three times a day. 6. Hydralazine 25 three times a day. 7. Scopolamine patch. ALLERGIES: LEVAQUIN. REVIEW OF SYSTEMS: Difficult to obtain. PHYSICAL EXAMINATION: GENERAL: She is status post stroke, still slightly encephalopathic. Though, she is verbalizing. VITAL SIGNS: Temperature 98, pulse 81, blood pressure 150/102, and respirations 18. CHEST: No wheezing. No crackles. CARDIAC: Normal S1 and S2. No gallops. ABDOMEN: No masses. LABORATORY DATA: White count 11,000, H and H are 10 and 34, platelet count 189. Lytes are normal. She had a repeat CT brain last night, did not show any evidence of intracranial hemorrhage or mass effect. CT angio also was done, which showed calcification, atherosclerotic changes no obvious stenosis. No x-ray was done. IMPRESSION AND PLAN: Presumed upper gastrointestinal bleed, recent cerebrovascular accident status post trach and percutaneous endoscopic gastrostomy, sleep apnea, severe deconditioning, and hypertension. Pulmonary wu, continue present supportive care. Input from GI. We will notify Dr. Ortiz, who has seen in the past. Consultation note, 70 minutes 50% direct patient care. Job ID: [id number]
[2019-04-11] MEDS ORDERED: Metoprolol Tartrate 25 MG TAB PO SCH (16:15)
[2019-04-11] MEDS: Lidocaine 5% Patch TD SCH (21:46)
--- NOTE | 2019-04-12 00:56 | OP ---
DATE OF PROCEDURE: 04/10/2019 PREOPERATIVE DIAGNOSIS: Status post percutaneous endoscopic gastrostomy tube placement. POSTOPERATIVE DIAGNOSIS: Status post percutaneous endoscopic gastrostomy tube placement. PROCEDURE PERFORMED: Removal and replacement of percutaneous endoscopic gastrostomy tube. INDICATIONS FOR PROCEDURE: A 63-year-old woman underwent percutaneous endoscopic gastrostomy tube placement. The patient was found with bleeding at the tube site. Abdominal x-ray with Gastrografin reveals good position of the PEG tube with no contrast extravasation. The bolster appears to have migrated in worse to this subcutaneous position. Decision was made, therefore, to remove and replace the tube. DESCRIPTION OF PROCEDURE: Verbal informed consent obtained from the patient and she was placed in supine position. The previous gastrostomy tube was pulled out, intact, and a 20-Mongolian gastrostomy tube was reinserted through the fistula into the gastric lumen, inflating the balloon with 20 mL of water. The tube was secured at the skin with bolster. Sterile dressings applied. No active bleeding noted. The patient tolerated the procedure without any apparent complication and remains hemodynamically stable following completion of procedure. Job ID: [id number]
--- NOTE | 2019-04-12 08:27 | PRG ---
DATE OF SERVICE: SUBJECTIVE: The patient is doing well, has no complaints. PHYSICAL EXAMINATION: VITAL SIGNS: Temperature 97.8, pulse 60, and blood pressure 142/82. HEENT: Unremarkable. NECK: No JVD. Trach site healed. LUNGS: Clear. CARDIAC: S1 and S2, regular. ABDOMEN: Soft. EXTREMITIES: No edema. ASSESSMENT: 1. Stable respiratory status, status post trach for stroke and subsequent decannulation. 2. Gastrointestinal bleed at PEG site, now resolved. PLAN: Can be transferred out to the floor and perhaps even be discharged today. Job ID: [id number]
[2019-04-12] MEDS: hydrALAZINE 25 MG TAB PER TUBE SCH ×3 (10:13→20:32)
[2019-04-12] MEDS: Furosemide 20 MG TAB PER TUBE SCH (10:13)
[2019-04-12] MEDS: Amlodipine 10 MG TAB PER TUBE SCH (10:13)
[2019-04-12] MEDS: Megestrol Acetate 800 MG/20 ML UDCUP PO SCH (10:14)
[2019-04-12] MEDS: Metoprolol Tartrate 50 MG TAB PO SCH ×2 (10:14→20:32)
[2019-04-12 10:15] LABS: #Basophils 0.1 thou/uL (0.0-0.2); #Eosinphils 0.1 thou/uL (0.0-0.7); #Lymphocytes 2.3 thou/uL (1.20-3.40); #Monocytes 1.1 thou/uL (0.11-0.59); #Neutrophils 7.3 thou/uL (1.40-6.50); %Basophils 1.2 % (0.0-1.0); %Eosinophils 0.9 % (0.0-10.0); %Monocytes 9.8 % (0.0-10.0); %Neutrophils 67.1 % (42.0-75.0); Hemoglobin 11.3 g/dL (12.0-16.0); Mean Corpuscular Hemoglobin 23.2 pg (27.0-31.0); Mean Corpuscular Volume 72.4 fL (78.0-98.0); Platelet Count 194 thou/uL (130-400); RBC Distribution Width 17.1 % (11.5-14.5); White Blood Cell (WBC) Count 10.8 thou/uL (4.8-10.8)
[2019-04-12] MEDS: Pantoprazole 40 MG VIAL IVP SCH ×2 (10:15→20:33)
[2019-04-12 10:33] LABS: Anion Gap 10 mmol/L (10-20); BUN (Urea Nitrogen) 14 mg/dL (9.8-20.1); Calc. Creatinine Clearance 136 mL/min (70-130); Calcium 9.5 mg/dL (7.8-10.44); Carbon Dioxide 33 mmol/L (23-31); Chloride 100 mmol/L (98-107); Estimated GFR-MDRD Greater than 90; Glucose 102 mg/dL (80-115); Potassium 3.4 mmol/L (3.5-5.1); Sodium 140 mmol/L (136-145)
[2019-04-12] MEDS: Lidocaine Patch Removal TOP SCH (11:00)
[2019-04-12 11:17] LABS: Hypochromia SLIGHT = 6-15 cells (100X) (0-5/hpf); MDiff Complete? YES; Microcytosis SLIGHT = 6-15 cells (100X) (0-5/hpf); Platelet Morphology Comment Appears Adequate; Polychromasia SLIGHT = 2-3 cells (100X) (0-2/hpf)
--- NOTE | 2019-04-12 15:38 | PDOC.HOSPP ---
- Subjective Encounter Date: 04/12/19 Encounter Time: 12:40 Subjective: pt sitting in the chair, readjusted PEG tube. hgb stable. talk to RN reg.. poss transfer back to her NH. - Objective Vital Signs & Weight: Vital Signs (12 hours) Temp Pulse Pulse Pulse BP BP BP 04/12/19 15:29 97.9 F 04/12/19 11:14 97.3 F L 04/12/19 10:21 79 75 129/79 125/74 04/12/19 10:13 75 133/80 04/12/19 08:45 75 72 169/96 H 132/72 04/12/19 07:11 97.8 F 04/12/19 04:00 98.7 F Pulse Ox Pulse Ox 04/12/19 15:29 04/12/19 11:14 04/12/19 10:21 100 100 04/12/19 10:13 04/12/19 08:45 99 98 04/12/19 07:11 04/12/19 04:00 Weight Admit Weight 254 lb 1.6 oz Weight 254 lb 1.6 oz Most Recent Monitor Data Heart Rate from ECG 64 NIBP 135/82 NIBP BP-Mean 99 Respiration from ECG 17 SpO2 98 I&O: 04/11/19 04/12/19 04/13/19 06:59 06:59 06:59 Intake Total 1025 560 Output Total 100 300 Balance 925 260 Result Diagrams: 04/12/19 09:49 04/12/19 09:49 Hospitalist ROS - Medication Medications: Active Medications Generic Name Dose Route Start Last Admin Trade Name Freq PRN Reason Stop Dose Admin Acetaminophen 650 mg 04/10/19 17:41 04/10/19 18:27 Tylenol Elixir PER TUBE 650 mg Q4H PRN Administration Headache/Fever or Pain Amlodipine Besylate 10 mg 04/12/19 09:00 04/12/19 10:13 Norvasc PER TUBE 10 mg DAILY KALIE Administration Furosemide 20 mg 04/11/19 09:00 04/12/19 10:13 Lasix PER TUBE 20 mg DAILY KALIE Administration Hydralazine HCl 10 mg 04/10/19 12:14 04/10/19 14:35 Apresoline SLOW IVP 10 mg Q4H PRN Administration SBP > 165 Hydralazine HCl 50 mg 04/11/19 21:00 04/12/19 10:13 Apresoline PER TUBE 50 mg TID KALIE Administration Labetalol HCl 10 mg 04/10/19 17:41 04/11/19 15:06 Normodyne SLOW IVP 10 mg Q2H PRN Administration SBP > 140 or DBP > 90 Lidocaine 1 patch 04/10/19 21:00 04/11/19 21:46 Lidoderm 5% Patch TD 1 patch Q24HR KALIE Administration Megestrol Acetate 400 mg 04/11/19 09:00 04/12/19 10:14 Megace PO 400 mg DAILY KALIE Administration Metoprolol Tartrate 75 mg 04/11/19 21:00 04/12/19 10:14 Lopressor PO 75 mg BID [facility] Administration Miscellaneous Medication 1 each 04/11/19 09:00 04/12/19 11:00 Lidocaine Patch Removal TOP Not Given 0900 KALIE Ondansetron HCl 4 mg 04/10/19 12:11 04/11/19 11:38 Zofran IVP 4 mg Q6H PRN Administration Nausea/Vomiting Pantoprazole Sodium 40 mg 04/10/19 21:00 04/12/19 10:15 Protonix IVP 40 mg BID KALIE Administration Promethazine HCl 12.5 mg 04/10/19 18:20 04/10/19 18:29 Phenergan SLOW IVP 12.5 mg Q6H PRN Administration Nausea - Exam General Appearance: NAD, awake alert Eye: PERRL ENT: normocephalic atraumatic Neck: supple Heart: RRR Respiratory: CTAB Gastrointestinal: non-tender, non-distended, normal bowel sounds Extremities: no cyanosis Neurological: cranial nerve grossly intact, no focal deficits Hosp A/P - Plan Hematemesis poss. Upper GI Bleed vs.. abn. at PEG site -imaging r/o any abn around PEG tube site/xray - Gi c/s pending - IV PPI -H&H stable - restart the TF -can stop the feed if scope planned for am. dysphagia -as above. 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 other? 10th -PEG tube has been repositioned. -hgb stable - poss..transfer back to her facility in am.
[2019-04-12] MEDS: Lidocaine 5% Patch TD SCH (20:33)
[2019-04-13] MEDS: Ondansetron ODT 4 MG TAB PO PRN (03:20)
[2019-04-13] MEDS: Dextrose 5 %-0.45 % NaCl 1,000 ML IV SCH ×2 (07:28→21:27)
[2019-04-13] MEDS: Amlodipine 10 MG TAB PER TUBE SCH (09:34)
[2019-04-13] MEDS: hydrALAZINE 25 MG TAB PER TUBE SCH ×3 (09:34→21:18)
[2019-04-13] MEDS: Furosemide 20 MG TAB PER TUBE SCH (09:35)
[2019-04-13] MEDS: Metoprolol Tartrate 50 MG TAB PO SCH ×2 (09:35→21:19)
[2019-04-13] MEDS: Lidocaine Patch Removal TOP SCH (09:36)
[2019-04-13] MEDS: Megestrol Acetate 800 MG/20 ML UDCUP PO SCH (09:36)
[2019-04-13] MEDS: Pantoprazole 40 MG VIAL IVP SCH ×2 (09:37→21:19)
--- NOTE | 2019-04-13 16:17 | PDOC.HOSPP ---
- Subjective Encounter Date: 04/13/19 Encounter Time: 12:10 Subjective: pt does not want to go back to the rehab. wants to go home. talk to CM and plan to send her to another facility as family cannot provide the support. - Objective Vital Signs & Weight: Vital Signs (12 hours) Temp Pulse Resp BP BP Pulse Ox 04/13/19 15:17 98.9 F 65 14 144/80 H 90 L 04/13/19 15:07 63 130/81 04/13/19 12:27 63 130/81 04/13/19 11:23 92 L 04/13/19 11:08 98.7 F 60 16 146/80 H 92 L 04/13/19 09:34 75 158/84 H 04/13/19 08:00 92 L 04/13/19 07:29 98.6 F 75 14 158/84 H 92 L Weight Admit Weight 254 lb 1.6 oz Weight 254 lb 1.6 oz Most Recent Monitor Data Heart Rate from ECG 64 NIBP 140/79 NIBP BP-Mean 99 Respiration from ECG 17 SpO2 98 I&O: 04/12/19 04/13/19 04/14/19 06:59 06:59 06:59 Intake Total 560 636 Output Total 300 500 Balance 260 136 Result Diagrams: 04/12/19 09:49 04/12/19 09:49 Hospitalist ROS - Medication Medications: Active Medications Generic Name Dose Route Start Last Admin Trade Name Freq PRN Reason Stop Dose Admin Acetaminophen 650 mg 04/10/19 12:11 04/12/19 23:24 Tylenol PO 650 mg Q4H PRN Administration Headache/Fever/Mild Pain (1-3) Acetaminophen 650 mg 04/10/19 17:41 04/10/19 18:27 Tylenol Elixir PER TUBE 650 mg Q4H PRN Administration Headache/Fever or Pain Amlodipine Besylate 10 mg 04/12/19 09:00 04/13/19 09:34 Norvasc PER TUBE 10 mg DAILY KALIE Administration Furosemide 20 mg 04/11/19 09:00 04/13/19 09:35 Lasix PER TUBE 20 mg DAILY KALIE Administration Hydralazine HCl 10 mg 04/10/19 12:14 04/10/19 14:35 Apresoline SLOW IVP 10 mg Q4H PRN Administration SBP > 165 Hydralazine HCl 50 mg 04/11/19 21:00 04/13/19 15:07 Apresoline PER TUBE 50 mg TID KALIE Administration Dextrose/Sodium Chloride 1,000 mls @ 75 mls/hr 04/13/19 07:30 04/13/19 07:28 D5 1/2 Ns IV 1,000 mls .[id number] KALIE Administration Labetalol HCl 10 mg 04/10/19 17:41 04/11/19 15:06 Normodyne SLOW IVP 10 mg Q2H PRN Administration SBP > 140 or DBP > 90 Lidocaine 1 patch 04/10/19 21:00 04/12/19 20:33 Lidoderm 5% Patch TD 1 patch Q24HR KALIE Administration Megestrol Acetate 400 mg 04/11/19 09:00 04/13/19 09:36 Megace PO 400 mg DAILY KALIE Administration Metoprolol Tartrate 75 mg 04/11/19 21:00 04/13/19 09:35 Lopressor PO 75 mg BID KALIE Administration Miscellaneous Medication 1 each 04/11/19 09:00 04/13/19 09:36 Lidocaine Patch Removal TOP 1 each 899 KALIE Administration Ondansetron HCl 4 mg 04/10/19 12:11 04/11/19 11:38 Zofran IVP 4 mg Q6H PRN Administration Nausea/Vomiting Ondansetron HCl 4 mg 04/10/19 17:41 04/13/19 03:20 Zofran Odt PO 4 mg Q4H PRN Administration Nausea/Vomiting Pantoprazole Sodium 40 mg 04/10/19 21:00 04/13/19 09:37 Protonix IVP 40 mg BID KALIE Administration Promethazine HCl 12.5 mg 04/10/19 18:20 04/10/19 18:29 Phenergan SLOW IVP 12.5 mg Q6H PRN Administration Nausea Sodium Chloride 10 ml 04/13/19 09:00 04/13/19 09:37 Flush - Normal Saline IVF Not Given Q12HR KALIE - Exam General Appearance: NAD, awake alert Eye: PERRL, anicteric sclera ENT: normocephalic atraumatic Neck: supple, no JVD Heart: RRR, no rubs Respiratory: CTAB Gastrointestinal: soft, non-tender, normal bowel sounds, no palpable masses Hosp A/P - Plan Hematemesis poss. Upper GI Bleed vs.. abn. at PEG site -imaging r/o any abn around PEG tube site/xray - Gi c/s pending - IV PPI -H&H stable - restart the TF -can stop the feed if scope planned for am. dysphagia -as above. 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 other? -PEG tube has been repositioned. -hgb stable she is medically stable. post care consult placed. CM working on finding another facility currently.
[2019-04-13] MEDS: Lidocaine 5% Patch TD SCH (21:18)
[2019-04-14] MEDS: Ondansetron ODT 4 MG TAB PO PRN ×2 (04:48→11:34)
[2019-04-14] MEDS ORDERED: Famotidine 20 MG TAB PO SCH (05:30)
[2019-04-14] MEDS: hydrALAZINE 25 MG TAB PER TUBE SCH ×2 (09:45→16:19)
[2019-04-14] MEDS: Pantoprazole 40 MG VIAL IVP SCH (09:45)
[2019-04-14] MEDS: Amlodipine 10 MG TAB PER TUBE SCH (09:45)
[2019-04-14] MEDS: Metoprolol Tartrate 50 MG TAB PO SCH (09:45)
[2019-04-14] MEDS: Furosemide 20 MG TAB PER TUBE SCH (09:45)
[2019-04-14] MEDS: Megestrol Acetate 800 MG/20 ML UDCUP PO SCH (09:45)
[2019-04-14] MEDS: Lidocaine Patch Removal TOP SCH (09:46)
[2019-04-14] MEDS: Dextrose 5 %-0.45 % NaCl 1,000 ML IV SCH (11:07)
[2019-04-14 11:50] VITALS: BP 135/73
--- NOTE | 2019-04-14 13:23 | PDOC.HOSPP ---
- Subjective Encounter Date: 04/14/19 Encounter Time: 11:05 Subjective: in the chair, kind of depressed. wants to go to rehab and then to home. - Objective Vital Signs & Weight: Vital Signs (12 hours) Temp Pulse Resp BP Pulse Ox 04/14/19 11:21 97.8 F 61 16 135/73 60 L 04/14/19 07:44 97.5 F L 64 14 144/75 H 94 L 04/14/19 07:38 93 L 04/14/19 03:29 98.0 F 60 16 168/80 H 93 L Weight Admit Weight 254 lb 1.6 oz Weight 254 lb 1.6 oz Most Recent Monitor Data Heart Rate from ECG 64 NIBP 140/79 NIBP BP-Mean 99 Respiration from ECG 17 SpO2 98 I&O: 04/13/19 04/14/19 04/15/19 06:59 06:59 06:59 Intake Total 636 240 Output Total 500 250 Balance 136 -10 Result Diagrams: 04/12/19 09:49 04/12/19 09:49 Hospitalist ROS - Medication Medications: Active Medications Generic Name Dose Route Start Last Admin Trade Name Freq PRN Reason Stop Dose Admin Acetaminophen 650 mg 04/10/19 12:11 04/12/19 23:24 Tylenol PO 650 mg Q4H PRN Administration Headache/Fever/Mild Pain (1-3) Acetaminophen 650 mg 04/10/19 17:41 04/10/19 18:27 Tylenol Elixir PER TUBE 650 mg Q4H PRN Administration Headache/Fever or Pain Amlodipine Besylate 10 mg 04/12/19 09:00 04/14/19 09:45 Norvasc PER TUBE 10 mg DAILY KALIE Administration Furosemide 20 mg 04/11/19 09:00 04/14/19 09:45 Lasix PER TUBE 20 mg DAILY KALIE Administration Hydralazine HCl 10 mg 04/10/19 12:14 04/10/19 14:35 Apresoline SLOW IVP 10 mg Q4H PRN Administration SBP > 165 Hydralazine HCl 50 mg 04/11/19 21:00 04/14/19 09:45 Apresoline PER TUBE 50 mg TID KALIE Administration Dextrose/Sodium Chloride 1,000 mls @ 75 mls/hr 04/13/19 07:30 04/14/19 11:07 D5 1/2 Ns IV 1,000 mls .[id number] KALIE Administration Labetalol HCl 10 mg 04/10/19 17:41 04/11/19 15:06 Normodyne SLOW IVP 10 mg Q2H PRN Administration SBP > 140 or DBP > 90 Lidocaine 1 patch 04/10/19 21:00 04/13/19 21:18 Lidoderm 5% Patch TD 1 patch Q24HR KALIE Administration Megestrol Acetate 400 mg 04/11/19 09:00 04/14/19 09:45 Megace PO 400 mg DAILY KALIE Administration Metoprolol Tartrate 75 mg 04/11/19 21:00 04/14/19 09:45 Lopressor PO 75 mg BID KALIE Administration Miscellaneous Medication 1 each 04/11/19 09:00 04/14/19 09:46 Lidocaine Patch Removal TOP 1 each 0900 KALIE Administration Ondansetron HCl 4 mg 04/10/19 12:11 04/11/19 11:38 Zofran IVP 4 mg Q6H PRN Administration Nausea/Vomiting Ondansetron HCl 4 mg 04/10/19 17:41 04/14/19 11:34 Zofran Odt PO 4 mg Q4H PRN Administration Nausea/Vomiting Pantoprazole Sodium 40 mg 04/10/19 21:00 04/14/19 09:45 Protonix IVP 40 mg BID KALIE Administration Promethazine HCl 12.5 mg 04/10/19 18:20 04/10/19 18:29 Phenergan SLOW IVP 12.5 mg Q6H PRN Administration Nausea Sodium Chloride 10 ml 04/13/19 09:00 04/14/19 09:44 Flush - Normal Saline IVF Not Given Q12HR [facility] - Exam General Appearance: NAD, awake alert Eye: PERRL ENT: normocephalic atraumatic Neck: supple Heart: RRR Respiratory: CTAB Gastrointestinal: normal bowel sounds Hosp A/P - Plan Hematemesis poss. Upper GI Bleed vs.. abn. at PEG site -imaging r/o any abn around PEG tube site/xray - Gi c/s pending - IV PPI -H&H stable - restart the TF -can stop the feed if scope planned for am. dysphagia -as above. 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 other? 10th -PEG tube has been repositioned. -hgb stable th she is medically stable. post care consult placed. ZARINA working on finding another facility currently. 12th -talk to CM and likely she can go today to rehab.
--- NOTE | 2019-04-14 13:52 | CT ---
"PRELIMINARY REPORT" EXAM: CT angiogram great vessels neck with IV contrast and three-dimensional reconstructions CT angiogram brain with IV contrast and three-dimensional reconstructions PROVIDED CLINICAL HISTORY: History COMPARISON: None FINDINGS: There is a normal three-vessel configuration of the great vessels at the arch. The common carotid, internal carotid, subclavian and right vertebral arteries demonstrate no evidence for significant stenosis. The left vertebral artery is diminutive and poorly visualized/occluded proximally. It appears opacified within the mid cervical spine and distal to this. There is extensive atherosclerotic vascular calcification involving the cavernous portions of both in ternal carotid arteries. There is no evidence for additional focal vessel stenosis, branch occlusion or aneurysm involving the intracranial circulation. IMPRESSION: 1. Diminutive left vertebral artery, poorly visualized proximally possibly on the basis of occlusion with distal reconstitution. 2. Severe multifocal atherosclerotic vascular calcification involving the cavernous portions of each internal carotid artery. Transcribed Date/Time: 04/14/2019 1:51 PM
[2019-04-14] MEDS: Promethazine HCl 25 MG/ML VIAL SLOW IVP PRN (14:40)
[2019-04-14 15:34] VITALS: TEMP 98.5
--- NOTE | 2019-04-15 04:24 | PQF ---
SAP Survey Analyst Crystal Reports Winform Viewer RUSTY DELGADO ZARA CANTU [id number] CLINICAL DOCUMENTATION CLARIFICATION FORM: POST DISCHARGE Addendum to original discharge summary date: ____ Late entry note date: __ DATE: 04/15/19 ATTN:Zara Cantu Please exercise your independent, professional judgment in responding to the clarification form. Clinical indicators are provided on the bottom of this form for your review Can you please further clarify the etiology of Hematemesis? Please check appropriate box(s): [ ] Hematemesis is a complication of recent PEG tube insertion [ ] Hematemesis is a not complication of recent PEG tube insertion [ ] Hematemesis due to please specify [ ] Other diagnosis [ x ] Unable to determine In addition, please specify: Present on Admission (POA): [ ] Yes [ ] No [ ] Unable to determine CLINICAL INDICATORS - SIGNS / SYMPTOMS / LABS H and P pg.2- Hematemesis, possibly upper GI bleed vs bleed around the PEG tube Hospitalist PN 04/14 pg.5- Hematemesis poss upper GI bleed vs abn at PEG site OP report pg.1- the patient was found bleeding at the tube site PN Dr. Ortiz pg.1- GI bleed at PEG site, now resolved RISK FACTORS Consult Dr. Flanagan pg.1- Hx of hemorrhagic stroke Dysphagia-Hospitalist PN pg.5 HTN- H and P pg.1 63 years old- H and P pg.1 TREATMENT: Removal and replacement of PEG tube- OP report pg.1 Abdomen Xray 04/10 IV Fluids- MAR SAP Survey Analyst Crystal Reports Winform Viewer (This form is maintained as a part of the permanent medical record) 2014 [employer]. All Rights Reserved [email or web address]
--- NOTE | 2019-04-15 04:45 | DIS ---
DATE OF ADMISSION: 04/10/2019 DATE OF DISCHARGE: 04/14/2019 DISCHARGE DIAGNOSES: 1. Hematemesis and bleeding around the percutaneous endoscopic gastrostomy tube. 2. Cerebral hemorrhage status post ventriculostomy placement in January 2019. 3. Hydrocephalus. 4. History of ventriculoperitoneal shunt. 5. Tracheostomy and PEG placed in March 09. 6. Obesity. 7. Hypertension. DISCHARGE MEDICATIONS: 1. Tylenol as needed. 2. Amlodipine 5 mg via PEG tube. 3. Lasix 20 mg daily. 4. Guaifenesin 200 mg every 4 hours. 5. Hydralazine 25 mg 3 times daily via PEG tube. 6. . 7. Ativan 0.5 mg twice daily. 8. Megace 400 mg daily. 9. Metoprolol tartrate 50 mg twice daily. 10. Zofran 4 mg four times daily as needed. 11. Lisinopril 5 mg b.i.d. dose. 12. Meclizine 12.5 mg three times daily as needed. 13. Metoclopramide 10 mg three times daily as needed. 14. Multivitamin. 15. Pantoprazole 40 mg via PEG tube. 16. Florastor 250 mg via PEG tube. 17. Scopolamine 1.5 mg every 3rd day as needed. 18. Tramadol 50 mg 4 times a day as needed. PHYSICAL EXAMINATION ON THE DAY OF DISCHARGE: VITAL SIGNS: Temperature 97.5, pulse 144/75, she is saturating 93% on room air. GENERAL: The patient is alert, oriented x4, well-developed. She is an obese female, not in any acute distress. CARDIOVASCULAR: Regular rate and rhythm without murmurs, rubs, or gallops. LUNGS: Clear to auscultation bilaterally without wheezing, rales, or rhonchi. ABDOMEN: Soft, nontender, nondistended. Good bowel sounds. HOSPITAL COURSE: This is a 63-year-old female with a history of intracerebral hemorrhage in January 2019, undergoing rehab, presented with hematemesis and bleeding around the PEG tube site. It appeared that the hematemesis is likely related to the PEG tube and the PEG tube has been replaced by Dr. Montano, General surgery. She remained hemodynamically stable post procedure wu and PEG tube is functioning. Her discharge is delayed as she did not want to go back to her previous facility. She is transferred today to the rehab facility in hemodynamically stable condition. DISCHARGE INSTRUCTIONS: Activity: As tolerated. Nutrition: Via her PEG tube. Followup: Follow up with primary care physician in one week. Discharge time took over 30 minutes. Job ID: [id number] MTDD
== END 2019-04-14 17:20 | disposition home or self-care (01) ==
LOC: ERS 08:35 → IMCU/EMU 13:50 → OBSVTOIN 13:50 → INTOOBSV 13:50 → SURG A 04-12 20:05 → INTOOBSV 04-14 12:21 → OBSVTOIN 04-14 12:21
PROVIDERS: ADMIT Internal Medicine; ATTEND Internal Medicine
PROC: 0D20XUZ Change Feeding Device in Upper Intestinal Tract, External Approach (ICD-10-PCS; principal; 2019-04-10)
DX: K92.0 Hematemesis (principal); K94.21 Gastrostomy hemorrhage; G91.9 Hydrocephalus, unspecified; I10 Essential (primary) hypertension; K21.9 Gastro-esophageal reflux disease without esophagitis; I65.23 Occlusion and stenosis of bilateral carotid arteries; G47.30 Sleep apnea, unspecified; E66.01 Morbid (severe) obesity due to excess calories; Z68.42 Body mass index [BMI] 45.0-49.9, adult; Z85.3 Personal history of malignant neoplasm of breast; Z86.73 Personal history of transient ischemic attack (TIA), and cerebral infarction without residual deficits; Z79.899 Other long term (current) drug therapy; Z88.1 Allergy status to other antibiotic agents; Z98.2 Presence of cerebrospinal fluid drainage device; Z90.49 Acquired absence of other specified parts of digestive tract; Z93.0 Tracheostomy status
CPT/HCPCS: 43762; 70450 ×2; 70496; 70498; 74018; 80048 ×2; 85014 ×3; 85018 ×3; 85025 ×2; 94640 ×2; 97110; 97116 ×2; 97139 ×4; 97530; 97535; G0378; 36415; 36416; B4087; C9113; J0360; J2405; J2550; J7620; Q0162; Q9963; Q9967

== ENCOUNTER 2019-11-13 21:05 | Inpatient (IN) | payer MEDICARE, OTHER ==
[2019-11-13] MEDS ORDERED: Ondansetron PF 4 MG/2 ML Vial ONE (22:18)
[2019-11-13] MEDS ORDERED: Aspirin Chewable 81 MG TAB ONE (22:42)
[2019-11-13 22:44] LABS: SARS-CoV-2 NAA Rapid Test Not Detected (NotDetected)
[2019-11-13] MEDS ORDERED: Dexamethasone 10 MG/ML VIAL ONE (23:05)
[2019-11-14] MEDS ORDERED: Acetaminophen 325 MG TAB PO PRN (02:23)
[2019-11-14] MEDS ORDERED: hydrALAZINE 10 MG TAB PO PRN (02:23)
[2019-11-14] MEDS: Amlodipine 5 MG TAB PO SCH ×2 (08:50→20:27)
[2019-11-14] MEDS: Atorvastatin Calcium 40 MG TAB PO SCH (08:51)
[2019-11-14] MEDS ORDERED: Enoxaparin Sodium 40 MG/0.4 ML SYRINGE SC SCH (09:00)
--- NOTE | 2019-11-14 11:31 | PDOC.HOSPP ---
- Subjective Encounter Date: 11/14/19 Encounter Time: 11:00 Subjective: is sitting in chair is right handed person no specific weakness in any extremity now responds well to verbal questions was recently hospitalized at [place] for depression symptoms was living with daughter but now she is alone at home, not much help at home per patient use rolling walker to mobilize sees onc at [facility] for her breast cancer, next appointment is next month - Objective Vital Signs & Weight: Vital Signs (12 hours) Temp Pulse Resp BP Pulse Ox 11/14/19 07:37 98.4 F 85 17 133/69 93 L 11/14/19 04:00 97.9 F 68 22 H 132/82 94 L 11/14/19 00:38 94 L Weight Weight 213 lb 12.8 oz I&O: 11/13/19 11/14/19 11/15/19 06:59 06:59 06:59 Intake Total 0 Output Total 0 Balance 0 Hospitalist ROS - Medication Medications: Active Medications Generic Name Dose Route Start Last Admin Trade Name Freq PRN Reason Stop Dose Admin Amlodipine Besylate 2.5 mg 11/14/19 09:00 11/14/19 08:50 Norvasc PO 2.5 mg BID KALIE Administration Atorvastatin Calcium 40 mg 11/14/19 09:00 11/14/19 08:51 Lipitor PO 40 mg DAILY KALIE Administration Enoxaparin Sodium 40 mg 11/14/19 09:00 11/14/19 08:51 Lovenox SC Not Given 0900 KALIE - Exam General Appearance: awake alert Eye: PERRL, anicteric sclera ENT: no oropharyngeal lesions, moist mucosa Neck: supple, no JVD Heart: RRR, no murmur Respiratory: no wheezes, no rales Gastrointestinal: soft, non-tender, non-distended, normal bowel sounds Extremities: no cyanosis, no edema Neurological: cranial nerve grossly intact, no focal deficits Psychiatric: A&O x 3 Hosp A/P (1) Unsteady gait Code(s): R26.81 - UNSTEADINESS ON FEET Status: Acute (2) Obesity (BMI 30-39.9) Code(s): E66.9 - OBESITY, UNSPECIFIED Status: Chronic (3) h/o hemorrhagic cva Status: Chronic (4) h/o left cerebellar hemorrhage Status: Chronic (5) H/O malignant neoplasm of breast Code(s): Z85.3 - PERSONAL HISTORY OF MALIGNANT NEOPLASM OF BREAST Status: Chronic (6) Depression Code(s): F32.9 - MAJOR DEPRESSIVE DISORDER, SINGLE EPISODE, UNSPECIFIED Status : Acute Qualifiers: Depression Type: major depressive disorder Psychotic features: without psychotic features (7) HLD (hyperlipidemia) Code(s): E78.5 - HYPERLIPIDEMIA, UNSPECIFIED Status: Chronic Qualifiers: Hyperlipidemia type: unspecified Qualified Code(s): E78.5 - Hyperlipidemia , unspecified (8) HTN (hypertension) Code(s): I10 - ESSENTIAL (PRIMARY) HYPERTENSION Status: Chronic Qualifiers: Hypertension type: essential hypertension Qualified Code(s): I10 - Essential (primary) hypertension - Plan Initial CT brain shows some edema in b/l cerebellar hemispheres she has had left sub occipital craniectomy done for left cerebellar hematoma evacuation and TOP FRAME FITTER shunt placement Await MRI switch to inpatient status if there is evidence of cva or mass with h/o breast cancer oral solid diet PT/OT eval pt is happy she had her first grand daughter born 2 days back, showed me pictures of baby continue above meds
[2019-11-14 11:55] LABS: INR-International Normal Ratio 1.1; Prothrombin Time 14.1 sec (12.0-14.7)
[2019-11-14 11:56] LABS: PTT 33.1 sec (22.9-36.1)
[2019-11-14 12:16] LABS: #Monocytes 0.1 thou/uL (0.11-0.59); %Basophils 0.5 % (0.0-1.0); %Eosinophils 0.4 % (0.0-10.0); %Lymphocytes 13.3 % (21.0-51.0); %Monocytes 1.5 % (0.0-10.0); %Neutrophils 84.3 % (42.0-75.0); Anisocytosis SLIGHT = 6-15 cells (100X) (0-5/hpf); Crenated RBC SLIGHT = 1-5 cells (100X) (None Seen); Hemoglobin 12.4 g/dL (12.0-16.0); Large Platelets MODERATE; MDiff Complete? YES; Mean Corpuscular HGB CONC 32.1 g/dL (32.0-36.0); Mean Corpuscular Hemoglobin 23.1 pg (27.0-31.0); Mean Corpuscular Volume 71.9 fL (78.0-98.0); Mean Platelet Volume 16.3 fL (7.4-10.4); Microcytosis SLIGHT = 6-15 cells (100X) (0-5/hpf); Platelet Count 194 thou/uL (130-400); Platelet Morphology Comment Appears Adequate; Poikilocytosis SLIGHT = 6-15 cells (100X) (0-5/hpf); RBC Distribution Width 21.3 % (11.5-14.5); Red Blood Cell (RBC) Count 5.36 mill/uL (4.20-5.40); Target Cells SLIGHT = 2-5 cells (100X) (0-1/hpf); White Blood Cell (WBC) Count 7.1 thou/uL (4.8-10.8)
[2019-11-14 12:22] LABS: Anion Gap 18 mmol/L (10-20); BUN (Urea Nitrogen) 8 mg/dL (9.8-20.1); CRP (Inflammatory) 3.48 mg/dL (= or < 0.5); Calc. Creatinine Clearance 118 mL/min (70-130); Calcium 9.2 mg/dL (7.8-10.44); Carbon Dioxide 24 mmol/L (23-31); Chloride 104 mmol/L (98-107); Estimated GFR-MDRD Greater than 90; Glucose 116 mg/dL (80-115); Potassium 4.5 mmol/L (3.5-5.1); Sodium 141 mmol/L (136-145)
[2019-11-14] MEDS ORDERED: Dexamethasone 10 MG/ML VIAL SLOW IVP SCH (13:00)
[2019-11-14] MEDS ORDERED: Dexamethasone 4 mg/ml Vial SLOW IVP SCH (13:15)
--- NOTE | 2019-11-14 14:47 | MRI ---
MRI BRAIN WITH AND WITHOUT CONTRAST: Indications: Evidence for posterior fossa lesions seen on brain CT of 11-13-2019. FINDINGS: Post-operative changes seen in the left occipital region. There has been prior hematoma evacuated fro m this site. On today's exam there is a fairly well circumscribed somewhat lobulated and irregular shaped mass inv olving the left cerebellar hemisphere. This abuts the dural surface but is probably intra axial. It measures up to 4 cm diameter. It shows diffuse heterogeneous enhancement. There is surrounding vasoge sachi edema and mass effect with compression of the fourth ventricle. No other abnormal enhancement. No restricted diffusion. IMPRESSION: A fairly well circumscribed but lobulated irregular shaped mass involving the left cerebellar hemisph ere which produces diffuse enhancement. There is vasogenic edema and mass effect as noted above. Cons iderations include aggressive/high grade neoplasm and metastatic lesion. Recommend neurosurgical cons ultation. POS: JOHNNY
[2019-11-14] MEDS ORDERED: Magnevist 469MG/ML 20 ML VIAL ONE (15:03)
--- NOTE | 2019-11-14 16:21 | PRG ---
DATE OF SERVICE: 11/14/2019 Ms. Viramontes returns from having her MRI of the brain completed. T1 films demonstrate a densely contrast-enhancing mass with heterogeneous appearance and evidence of microhemorrhages. There is surrounding vasogenic edema. There is concern for possible metastatic lesion. CT of the chest, abdomen, and pelvis has been ordered to rule out metastatic disease. Our team will take the patient to the operating room tomorrow for an urgent stereotactic left suboccipital craniectomy for tumor resection. I saw the patient after she had her MRI completed and discussed the findings with her. The risks versus benefits of the proposed surgery were discussed with the patient and she gave verbal consent to proceed. I also spoke with her sister, Ivana, over the phone and she will come to the hospital tomorrow morning before the patient's operation. All of their questions have been answered at this time. The patient has a Stratta programmable right ventriculoperitoneal shunt in place that is set at 1.0 at baseline. The shunt setting was checked after completion of the MRI and found to be changed to 2.0. I have changed it back to a setting of 1.0. The patient will be transferred to the Critical Care Unit. She will be started on Decadron and Protonix. N.p.o. at midnight. Again, as noted above, our team will take the patient to the operating room tomorrow morning for tumor resection. Please call for any neurologic changes or other concerns. Job ID: [id number] [id number]
[2019-11-14 16:35] LABS: Bacteria/HPF None Seen HPF (None Seen); Bilirubin Negative (Negative); Blood, Urine Trace (Negative); Clarity Clear (Clear); Glucose, Urine (Dipstick) Normal (Negative); Ketone, Urine 80 mg/dL (Negative); Leukocyte Negative Leu/uL (Negative); Nitrite Negative (Negative); Protein, Urine (Dipstick) 30 mg/dL (Neg-Trace); Squamous Epithelial 21-50 HPF (0-3); Urobilinogen Normal mg/dL (Less than 2); WBC/HPF 0-3 HPF (0-3); pH, Urine 6.5 (5.0-9.0)
[2019-11-14 17:48] LABS: Specific Gravity, Urine Greater than 1.060 (1.002-1.036)
[2019-11-14] MEDS ORDERED: Bisacodyl 10 MG SUPP PR PRN (18:20)
--- NOTE | 2019-11-14 18:35 | CT ---
CT CHEST, ABDOMEN, AND PELVIS WITH IV CONTRAST: Indication: Possible brain metastasis. FINDINGS: CT CHEST: Lungs are well aerated. There are chronic parenchymal changes. Stranding on the pleural surface anter iorly of the left upper lobe. Hazy ground glass opacity in the left apex medially is nonspecific and could represent atelectasis. T his does not have the appearance of mass or neoplasm. No evidence of pulmonary mass or nodule. There is cardiomegaly and mild vascular congestion. Calcified mediastinal and hilar lymph nodes. No a denopathy. IMPRESSION: 1. Cardiomegaly and mild vascular congestion. 2. Chronic appearing lung parenchymal change. 3. No evidence of pulmonary mass. CT ABDOMEN AND PELVIS: Liver, spleen, and pancreas unremarkable. Granulomatous calcifications in the spleen. Stomach and duo denum are unremarkable. Adrenal glands normal. Kidneys unremarkable. No evidence of renal mass. Small bowel loops normal. Patient appears to be post right colectomy. There are suture lines seen along the transverse colon an d there are also suture lines seen in the sigmoid colon. A large amount of stool in the colon and the re is stool filled dilated rectum suggesting fecal impaction. There is luminal narrowing in the sigmo id colon just above the fecal impaction at the site of suture line. Mucosal lesion and/or stricture a t this site should be excluded. Mural thickening is present which may represent developing stercoral colitis. Urinary bladder is unremarkable and nearly normal caliber. No free fluid or adenopathy. There is a DIALYSIS BIOMED TECHNICIAN shunt catheter seen along the subcutaneous tissues of the anterior chest right of midli ne. This catheter enters the upper abdomen to the left of midline and is coiled within the abdomen. Osseous structures unremarkable with no evidence of lytic or blastic process. IMPRESSION: 1. Post colectomy changes as described above. Prominent stool in the rectum with a dilated rectum is consistent with fecal impaction. The rectum measures up to 8 cm diameter and there is suggestion of e etienne mural thickening which may represent developing stercoral proctitis. 2. There is a focal area of luminal narrowing in the mid sigmoid just above this area of fecal impact ion. This is at the site of post-operative change. Recommend removal of fecal impaction and sigmoidos copy to assess for mucosal lesion at this site. 3. No other evidence of acute process. POS: AGW
[2019-11-14] MEDS: Dexamethasone 4 MG TAB PO SCH (20:27)
[2019-11-14] MEDS ORDERED: Docusate 100 MG CAP PO PRN (20:52)
[2019-11-14] MEDS ORDERED: Fleet Enema 133 ML BOT PR PRN (20:53)
[2019-11-14] MEDS ORDERED: Ondansetron PF 4 MG/2 ML Vial IM PRN (20:54)
[2019-11-14] MEDS ORDERED: Magnesium Citrate 300 ML BOT PO SCH (21:00)
[2019-11-14] MEDS: Ondansetron ODT 4 MG TAB PO PRN (21:05)
[2019-11-15] MEDS: Ondansetron ODT 4 MG TAB PO PRN (02:55)
[2019-11-15] MEDS: Dexamethasone 4 MG TAB PO SCH ×4 (02:55→20:41)
[2019-11-15] MEDS ORDERED: Rocuronium Bromide 10 MG/ML (10ML VIAL) ONE (09:43)
[2019-11-15] MEDS ORDERED: Dexamethasone 20 MG/5 ML VIAL ONE (09:43)
[2019-11-15] MEDS ORDERED: PROPOFOL 200 MG/20 ML VIAL ONE (09:43)
[2019-11-15] MEDS: Atorvastatin Calcium 40 MG TAB PO SCH (09:43)
[2019-11-15] MEDS: Amlodipine 5 MG TAB PO SCH ×2 (09:43→20:41)
[2019-11-15] MEDS ORDERED: EPHEDRINE 25 MG/5 ML SYRINGE ONE (09:43)
[2019-11-15] MEDS ORDERED: Lidocaine 1% PF 5 ML VIAL ONE (09:43)
[2019-11-15] MEDS ORDERED: PHENYLEPHRINE-NS 100 MCG/ML 10 ML SYRINGE ONE (09:43)
[2019-11-15] MEDS ORDERED: Thrombin 5000 UNITS/5 ML VIAL ONE (10:54)
[2019-11-15] MEDS ORDERED: Bacitracin Zinc Ointment 30 gm TUBE ONE (10:54)
[2019-11-15] MEDS ORDERED: Lidocaine 0.5%/Epinephrine 1:200,000 50 ml Vial ONE (10:54)
[2019-11-15] MEDS ORDERED: Fentanyl 100 MCG/2 ML VIAL ONE ×2 (10:55→12:37)
--- NOTE | 2019-11-15 10:55 | PRG ---
DATE OF SERVICE: 11/15/[address] scan of the chest, abdomen, and pelvis demonstrated partial colectomy changes, but she has no history of cancer. There is no evidence of metastatic source in the CT scan of the chest, abdomen, and pelvis; perhaps, it is melanoma as these can be hemorrhagic as well. Nevertheless, she has a 4 cm enhancing mass. We are going to resect it today. She remains neurologically intact with the exception of mild cerebellar findings. Goals, indications, risks, alternatives, and complications were discussed in detail with her and her sister regarding the surgical resection via left suboccipital craniectomy. She understands the risks of tumor or lesion recurrence and more surgeries due to infection, and the risk of medical and other complications are certainly present. She understands this and wished to proceed. Job ID: [id number]
[2019-11-15] MEDS ORDERED: niCARdipine 25 MG/10 ML VIAL ONE (10:56)
[2019-11-15] MEDS ORDERED: Phenylephrine 10 MG/ML VIAL ONE ×2 (10:56→13:59)
[2019-11-15] MEDS ORDERED: Dexmedetomidine 200 MCG/2 ML VIAL ONE (11:06)
--- NOTE | 2019-11-15 13:12 | CON ---
NEUROLOGY CONSULTATION DATE OF CONSULTATION: 11/14/2019 REASON FOR CONSULTATION: Rule out stroke. HISTORY OF PRESENT ILLNESS: Ms. Viramontes is a 64-year-old female with a history significant for depression, recently hospitalized at [facility] with a depression symptom and presented with nausea, vomiting, dizziness with some headache. She was living with her daughter, who decided to bring her to the emergency room for further evaluation. Her CT showed edema in the bilateral cerebral hemispheres. She has a left suboccipital craniectomy done for left cerebellar hematoma evacuation and LAB RN shunt was placed. There is a concern about a posterior circulation stroke versus increased intracranial pressure due to malfunctioning of the LAB RN shunt. The patient denies focal weakness, focal paresthesias, loss of vision, problem with speech or swallowing, recent illness, or recent exposure to COVID associated with the episode. She does have history of breast cancer and is seen by an oncologist at [facility]. Neurology was consulted for further evaluation. REVIEW OF SYSTEMS: All 14 systems were reviewed and were negative except the pertinent positive and negative mentioned in the HPI. PAST MEDICAL HISTORY: History of breast carcinoma, history of cerebellar hematoma, depression, hyperlipidemia, hypertension, history of hemorrhagic CVA, and obesity. PAST SURGICAL HISTORY: Status post left suboccipital craniectomy for a left cerebellar hematoma evacuation and LAB RN shunt placement. SOCIAL HISTORY: She lives with her daughter. Denies smoking, alcohol, or illegal drug use. ALLERGIES: ADHESIVE TAPE, LEVOFLOXACIN, AND PREDNISONE. - Objective Vital Signs & Weight: Vital Signs (12 hours) Temp Pulse Resp BP Pulse Ox 11/14/19 07:37 98.4 F 85 17 133/69 93 L 11/14/19 04:00 97.9 F 68 22 H 132/82 94 L 11/14/19 00:38 94 L Weight Weight 213 lb 12.8 oz I&O: 11/13/19 11/14/19 11/15/19 06:59 06:59 06:59 Intake Total 0 Output Total 0 Balance 0 Active Medications Generic Name Dose Route Start Last Admin Trade Name Freq PRN Reason Stop Dose Admin Amlodipine Besylate 2.5 mg 11/14/19 09:00 11/14/19 08:50 Norvasc PO 2.5 mg BID KALIE Administration Atorvastatin Calcium 40 mg 11/14/19 09:00 11/14/19 08:51 Lipitor PO 40 mg DAILY KALIE Administration Enoxaparin Sodium 40 mg 11/14/19 09:00 11/14/19 08:51 Lovenox SC Not Given 0900 KALIE PHYSICAL EXAMINATION: General: NAD CVS: Regular rate and rhythm. CHEST: Clear. ABDOMEN: Soft. NECK: Supple. NEUROLOGIC: Mental status, the patient is alert and oriented to person, place, and time. Recent and remote memory intact. Fund of knowledge appropriate. Speech is clear. Cranial nerves 2 through 12 are intact. Motor, muscle, tone, and bulk are normal. Moving all four extremities equally and symmetrically. Cerebellar exsoem-eo-dytn testing intact. Gait deferred due to the patient's safety reasons. ASSESSMENT AND PLAN: (1) Unsteady gait Code(s): R26.81 - UNSTEADINESS ON FEET Status: Acute (2) Obesity (BMI 30-39.9) Code(s): E66.9 - OBESITY, UNSPECIFIED Status: Chronic (3) h/o hemorrhagic cva Status: Chronic (4) h/o left cerebellar hemorrhage Status: Chronic (5) H/O malignant neoplasm of breast Code(s): Z85.3 - PERSONAL HISTORY OF MALIGNANT NEOPLASM OF BREAST Status: Chronic (6) Depression Code(s): F32.9 - MAJOR DEPRESSIVE DISORDER, SINGLE EPISODE, UNSPECIFIED Status : Acute Qualifiers: Depression Type: major depressive disorder Psychotic features: without psychotic features (7) HLD (hyperlipidemia) Code(s): E78.5 - HYPERLIPIDEMIA, UNSPECIFIED Status: Chronic Qualifiers: Hyperlipidemia type: unspecified Qualified Code(s): E78.5 - Hyperlipidemia , unspecified (8) HTN (hypertension) Code(s): I10 - ESSENTIAL (PRIMARY) HYPERTENSION Status: Chronic Qualifiers: Hypertension type: essential hypertension Qualified Code(s): I10 - Essential (primary) hypertension Ms. Luna Viramontes is consulted for nausea, dizziness, and headache. Initial head CT shows edema in the bilateral cerebral hemisphere. She does have history of suboccipital craniectomy, which was done for left cerebellar hematoma evacuation and LAB RN shunt placement. Consider Stat Neurosurgery consult regarding an assessment of the shunt, MRI of the brain to rule out acute intracranial processes versus new tumor. Neuro checks every 2 hours. Consider stat head CT if the condition declines. Continue home medications. Continue medical management per Primary Team and Neurosurgery. PT/OT/Speech. We will continue to follow. Thank you for the consult. Job ID: [id number]
--- NOTE | 2019-11-15 13:43 | PDOC.HOSPP ---
- Subjective Encounter Date: 11/15/19 Subjective: Patient is anxious, awaiting OR today for resection. She denies difficulty breathing, chest pain. - Objective Vital Signs & Weight: Vital Signs (12 hours) Temp Pulse BP Pulse Ox 11/15/19 09:43 91 148/55 H 11/15/19 08:00 98.1 F 11/15/19 07:54 98 11/15/19 07:42 97 11/15/19 04:00 98.4 F Weight Admit Weight 213 lb Weight 213 lb 12.8 oz Most Recent Monitor Data Heart Rate from ECG 67 NIBP 162/87 NIBP BP-Mean 112 Respiration from ECG 19 SpO2 98 I&O: 11/14/19 11/15/19 11/16/19 06:59 06:59 06:59 Intake Total 0 240 Output Total 0 850 0 Balance 0 -610 0 Result Diagrams: 11/14/19 11:13 11/14/19 11:13 Additional Labs: Accuchecks 11/15/19 12:55 POC Glucose 109 Hospitalist ROS - Review of Systems Constitutional: denies: fever, chills Respiratory: denies: cough, shortness of breath Cardiovascular: denies: chest pain, palpitations Gastrointestinal: denies: nausea, vomiting Genitourinary: denies: dysuria Neurological: denies: weakness - Medication Medications: Active Medications Generic Name Dose Route Start Last Admin Trade Name Freq PRN Reason Stop Dose Admin Amlodipine Besylate 2.5 mg 11/14/19 09:00 11/15/19 09:43 Norvasc PO Not Given BID [facility] Atorvastatin Calcium 40 mg 11/14/19 09:00 11/15/19 09:43 Lipitor PO Not Given DAILY [facility] Bisacodyl 10 mg 11/14/19 18:20 11/14/19 18:30 Dulcolax MT 10 mg DAILY PRN Administration Constipation Dexamethasone 4 mg 11/14/19 20:00 11/15/19 09:43 Decadron PO Not Given Q6H [facility] Ondansetron HCl 4 mg 11/14/19 20:50 11/15/19 02:55 Zofran Odt PO 4 mg Q6H PRN Administration Nausea/Vomiting Pantoprazole Sodium 40 mg 11/15/19 09:00 11/15/19 09:43 Protonix PO Not Given DAILY KALIE - Exam General Appearance: NAD, awake alert ENT: normocephalic atraumatic Heart: RRR (systolic murmur) Respiratory: CTAB, no wheezes Gastrointestinal: soft, non-tender Extremities: no cyanosis Hosp A/P (1) Depression Code(s): F32.9 - MAJOR DEPRESSIVE DISORDER, SINGLE EPISODE, UNSPECIFIED Status : Acute Qualifiers: Depression Type: major depressive disorder Psychotic features: without psychotic features (2) Unsteady gait Code(s): R26.81 - UNSTEADINESS ON FEET Status: Acute (3) H/O malignant neoplasm of breast Code(s): Z85.3 - PERSONAL HISTORY OF MALIGNANT NEOPLASM OF BREAST Status: Chronic (4) h/o hemorrhagic cva Status: Chronic (5) h/o left cerebellar hemorrhage Status: Chronic (6) Diastolic dysfunction Code(s): I51.89 - OTHER ILL-DEFINED HEART DISEASES Status: Chronic (7) HLD (hyperlipidemia) Code(s): E78.5 - HYPERLIPIDEMIA, UNSPECIFIED Status: Chronic Qualifiers: Hyperlipidemia type: unspecified Qualified Code(s): E78.5 - Hyperlipidemia , unspecified (8) HTN (hypertension) Code(s): I10 - ESSENTIAL (PRIMARY) HYPERTENSION Status: Chronic Qualifiers: Hypertension type: essential hypertension Qualified Code(s): I10 - Essential (primary) hypertension - Plan Ct head shows some edema in bilateral cerebella hemispheres. MRI with 4 cm enhancing irregular shaped mass in the left cerebellar hemisphere. Vasogenic edema and mass effect noted. CT chest, abdo, pelvis without signs of malignancy Previous left sub occipital craniectomy for left cerebellar hematoma evacuation and COLOR SPECIALIST shunt placement. Neurosurgery plans for OR today for resection of 4 cm mass follow-up PT/OT eval continue above meds
--- NOTE | 2019-11-15 13:48 | PRG ---
DATE OF SERVICE: 11/14/2019 SUBJECTIVE: Ms. Viramontes is well known to us. She presented in January of 2019 approximately 10 months ago with a left hypertensive cerebellar hemorrhage with obstructive hydrocephalus and I took her immediately given her comatose state and near presentation to surgery for left suboccipital craniectomy and hematoma evacuation. External ventricular drain was also placed. There was no evidence of lesion in the hematoma nor was there any evidence of malignant cells in the CSF that we send. She later went on to need shunting, but frankly recovered beautifully. Followup imaging including CT, CTA were negative for vascular abnormality and her blood pressures have been under good control. As of the last couple of weeks she has had worsening with balance and she presented late last night. Head CT demonstrates mixed Heterogeneity in the left cerebellar region. I do not suspect infection here, but there is edema associated with this and I am a bit concerned about her underlying neoplasm such as metastasis. It could also be Lhermitte-Fernie although this is uncommon and finally could be infection, although 10 months out, I would be very surprised by this given her wound is healed well. Her shunt appears to be working quite well. On exam, she is neurologically intact. She is quite tearful with the news delivered, but also that she just had a grand baby born and she would like to see the baby. I would like to do is arrange for an MRI of the brain without and with contrast. We will prepare for potential approach to the suboccipital craniectomy wound and resection for diagnostic and therapeutic purposes should it be concerning for neoplasm or even deep infection. We will assess baseline labs including ESR, CRP and white blood cell count. We will get an MRI of the brain and also CT scan of the chest, abdomen, pelvis. We will also check her shunt following the MRI. Based on all of this will make a game plan in regard to what we need to do. Job ID: [id number]
[2019-11-15] MEDS ORDERED: SUGAMMADEX SODIUM 200 MG/2 ML VIAL ONE (15:05)
[2019-11-15] MEDS ORDERED: PACU-Morphine 4MG/ML VIAL SLOW IVP PRN (15:36)
[2019-11-15] MEDS ORDERED: Promethazine HCl 25 MG/ML VIAL SLOW IVP PRN (15:36)
[2019-11-15] MEDS ORDERED: Ondansetron HCl/PF 4 MG/2 ML Vial IVP PRN (15:36)
[2019-11-15] MEDS ORDERED: Promethazine HCl 25 MG/ML VIAL IM PRN (15:36)
--- NOTE | 2019-11-15 15:45 | RAD ---
EXAM: CHEST ONE VIEW HISTORY: Central line placement. COMPARISON: 11/04/2019 FINDINGS: Ventriculoperitoneal shunt catheter again overlies the medial right chest and upper abdomen. A left-s ided vascular catheter is now noted in place with the tip overlying the midline of the upper mediastinum. Exact location of the tip is difficult to confirm on this exam. Surgical clips overlie t he left lung base and left axillary region. Cardiac silhouette is stable in size. Mild elevation right hemidiaphragm is present. Lungs are clear. No pneumothorax or pleural effusion is seen. Degener ative changes are again seen in the spine. IMPRESSION: 1. Interval placement of left-sided vascular catheter. Tip overlies the midline upper mediastinum. Th e exact location of the tip is difficult to confirm on this exam. No pneumothorax is seen.
[2019-11-15] MEDS ORDERED: Morphine 2 MG/ML VIAL SLOW IVP PRN (17:23)
[2019-11-15] MEDS ORDERED: HYDROcodone/Acetaminophen 7.5/325 mg Tablet PO PRN (17:24)
[2019-11-15] MEDS ORDERED: tiZANidine HCl 4 MG TAB PO PRN (17:24)
[2019-11-15] MEDS ORDERED: traMADol HCl 50 MG TAB PO PRN (17:24)
[2019-11-15] MEDS ORDERED: Acetaminophen/Codeine 30-300mg Tablet PO PRN (17:24)
[2019-11-15] MEDS ORDERED: hydrALAZINE 20 MG/ML VIAL SLOW IVP PRN (17:26)
[2019-11-15] MEDS ORDERED: Labetalol HCl 100 MG/20 ML VIAL SLOW IVP PRN (17:27)
--- NOTE | 2019-11-15 18:39 | HP ---
REASON FOR ADMISSION: Unsteady gait. HISTORY OF PRESENT ILLNESS: This is a 64-year-old female patient who went to [facility], reporting cough and shortness of breath. There was a concern that she was exposed to COVID-19, and then at some point, it did report being unsteady on her feet. A CAT scan of the head showed abnormality of the posterior fossa and since the patient has a recent diagnosis of breast cancer, scheduled for surgery at [facility]. There was a concern that she might have had a stroke or has a mass. She was referred to us for possibly doing an MRI. The patient is currently on telemetry. She is somewhat of a poor historian. She says that her unsteady anything new. She had a stroke in the past and has been unsteady ever since. She denies shortness of breath and she denies cough. I did review her records, and the patient was admitted to our hospital in April for deconditioning due to general weakness. PAST MEDICAL HISTORY: 1. Recent stroke secondary to cerebral hemorrhage, status post ventriculostomy in January 2019. 2. Post tracheostomy and percutaneous endoscopic gastrostomy placement in March 2019. 3. Dysphagia that improved and then the PEG tube was removed. 4. Hematemesis and bleeding around the percutaneous endoscopic gastrostomy tube. 5. Hydrocephalus. 6. High blood pressure. 7. Diastolic dysfunction. 8. BPV. 9. GERD. 10. DJD. 11. Morbid obesity. SOCIAL HISTORY: She does not smoke. Does not drink alcohol. FAMILY HISTORY: Reviewed, found to be noncontributory. REVIEW OF SYSTEMS: All systems reviewed, except the above mentioned, found to be negative. PHYSICAL EXAMINATION: GENERAL: She is awake, alert, oriented, does not appear in distress. VITAL SIGNS: Her blood pressure is 145/83, her pulse is 70, temperature is 98.6, and saturating 94% on room air. HEENT: Head is nontraumatic, normocephalic. Pupils equal, reactive. Extraocular movements are intact. Nonicteric sclerae. Well injected conjunctivae. Oral mucosa normal. Nasal mucosa normal. NECK: Supple. No adenopathy. No murmur. Thyroid is not palpable. Trachea is midline. No supraclavicular lymphadenopathy. CARDIOVASCULAR: S1, S2 regular. Systolic murmur is heard. LUNGS: Clear to auscultation bilaterally. No wheezes, rhonchi, or crackles. ABDOMEN: Bowel sounds are positive. Nontender abdomen. No hepatosplenomegaly. EXTREMITIES: No lower extremity edema. No cyanosis. NEUROLOGIC: Cranial nerves 2 through 12 within normal limits. Normal motor function. Normal sensory function. Normal reflexes. LABORATORY DATA: Blood work shows WBC of 6.4, hemoglobin of 11.7, platelets of 204. Sodium 143, potassium 3.7, bicarb 25, creatinine 0.76. COVID-[address] of the head shows edema involving the posterior fossa, loss of coronel white matter differentiation favoring cytotoxic edema. However, other areas suggest possible component of vasogenic edema. Recommending CT angiogram of the head and neck and brain MRI, mass effect upon the 4th ventricle; however, there does not appear to be any significant hydrocephalus, ventriculoperitoneal shunt catheter as described above. CT of the chest shows minimal ground-glass opacification of the right lower lobe, distribution does not favor COVID-19 pneumonia or additional areas of scattered linear densities in the left upper lobe and bilateral lower lobes which favor atelectasis or scar. ASSESSMENT AND PLAN: This is a 64-year-old female patient who presented to the ER, complaining of cough. She was concerned that she had COVID-19, but then mentioned that she has been having unsteady gait. CAT scan did show abnormalities. Recommendation was to do a CT stroke protocol and an MRI of her brain. Upon reviewing her records, the patient had a CT angio in April. For that reason, I will add an MRI of the brain to further investigate the posterior fossa, she did receive one dose of Decadron in the ER since there was some mention of possible vasogenic edema. Clinically, she is not behaving as such. The patient will be monitored on telemetry. We will resume her home medication, and we will schedule for an MRI in a.m. For DVT prophylaxis, she will be on heparin subcutaneously. I did discuss with her code status and she wishes to be a full code. Job ID: [id number]
--- NOTE | 2019-11-15 19:34 | CON ---
DATE OF CONSULTATION: HISTORY OF PRESENT ILLNESS: Luna Viramontes is a 64-year-old female who presented to the ER with nausea, vomiting, and confusion. She was dizzy. MRI revealed a posterior fossa tumor. She is to undergo surgery sometime today by , neurosurgeon. Seen in the ICU. Denies any cough, chest pain, or shortness of breath. She has been seen by Dr. Ortiz in the past while she was in the ICU. PAST MEDICAL HISTORY: Pertinent for previous breast cancer, previous hypertension, reflux, diverticulitis, previous surgery, colon resection, hernia, orthopedic surgery of right knee, ankle surgery, left breast cancer. SOCIAL HISTORY: No alcohol. No tobacco. HOME MEDICATIONS: Hydralazine 10, atorvastatin 40, Tylenol, amlodipine 2.5. ALLERGIES: LEVAQUIN AND PREDNISONE. SHE IS NOW ON DECADRON. PHYSICAL EXAMINATION: GENERAL: In the ICU, she is awake, alert, and responsive. VITAL SIGNS: Pulse of 73, blood pressure 100/80, sats of 98%, respirations 24. CHEST: No wheezing, no crackles. CARDIAC: Normal S1, S2. ABDOMEN: No masses. LABORATORY DATA: White count 7000, H and H 12 and 38, platelet count is 193. Lytes are normal. DIAGNOSTIC STUDIES: Extensive imaging studies done last night shows cardiomegaly, chronic changes, no lung mass in the chest. CT abdomen post colectomy, no masses were seen. MRI shows the cerebellar mass. IMPRESSION: Posterior cerebellar mass. History of breast cancer. History of hypertension. Nonsmoker. PLAN: She is going to go to surgery. Postop, we will follow in the ICU. Hopefully, we can wean and extubate her. She may require Keppra postop. We will follow. Consultation note, 70 minutes, 50% direct patient care. Job ID: [id number]
[2019-11-16] MEDS ORDERED: Ketorolac Tromethamine 30 MG/ML VIAL IVP PRN (02:49)
[2019-11-16] MEDS: Dexamethasone 4 mg/ml Vial SLOW IVP SCH ×4 (03:16→20:26)
[2019-11-16] MEDS: Sodium Chloride 0.9% 1,000 ML IV SCH ×2 (03:16→17:49)
[2019-11-16] MEDS: Dexamethasone 4 MG TAB PO SCH (04:42)
[2019-11-16 04:58] LABS: Anion Gap 15 mmol/L (10-20); BUN (Urea Nitrogen) 10 mg/dL (9.8-20.1); Calc. Creatinine Clearance 123 mL/min (70-130); Calcium 8.7 mg/dL (7.8-10.44); Carbon Dioxide 26 mmol/L (23-31); Chloride 105 mmol/L (98-107); Estimated GFR-MDRD Greater than 90; Glucose 138 mg/dL (80-115); Potassium 3.2 mmol/L (3.5-5.1); Sodium 143 mmol/L (136-145)
[2019-11-16 05:01] LABS: #Lymphocytes 0.9 thou/uL (1.20-3.40); #Monocytes 0.7 thou/uL (0.11-0.59); #Neutrophils 11.2 thou/uL (1.40-6.50); %Basophils 0.1 % (0.0-1.0); %Eosinophils 0.2 % (0.0-10.0); %Lymphocytes 6.8 % (21.0-51.0); %Monocytes 5.3 % (0.0-10.0); %Neutrophils 87.7 % (42.0-75.0); Anisocytosis SLIGHT = 6-15 cells (100X) (0-5/hpf); Elliptocytes SLIGHT = 2-5 cells (100X) (0-1/hpf); Hemoglobin 11.2 g/dL (12.0-16.0); Large Platelets SLIGHT; MDiff Complete? YES; Mean Corpuscular Hemoglobin 22.5 pg (27.0-31.0); Mean Corpuscular Volume 72.5 fL (78.0-98.0); Mean Platelet Volume 13.4 fL (7.4-10.4); Microcytosis SLIGHT = 6-15 cells (100X) (0-5/hpf); Platelet Count 176 thou/uL (130-400); Platelet Morphology Comment Appears Adequate; RBC Distribution Width 19.1 % (11.5-14.5); Red Blood Cell (RBC) Count 4.97 mill/uL (4.20-5.40); Schistocytes SLIGHT = 2-5 cells (100X) (0-1/hpf); White Blood Cell (WBC) Count 12.8 thou/uL (4.8-10.8)
--- NOTE | 2019-11-16 07:40 | CT ---
PRELIMINARY REPORT/[facility]/EMERGENCY AFTER HOURS PROCEDURE: This report was discussed with Kemal Verma RN by Basilia Pratt on Nov 16, 2019 02:27:00 CDT. Addendum electronically signed by Basilia Pratt on November 16, 2019 2:27:37 AM CDT EXAM: CT BRAIN WO CON HISTORY: F64, S/P TUMOR RESECTION. COMPARISON: CT\SR - CT BRAIN WO CON - 04/11/2019 09:[address] - CT BRAIN WO CON - 03/12/2019 04:39 AM DIAL POLISHER FINDINGS: Stable positioning of right frontal approach ventriculostomy catheter. Stable size and morphology of the ventricles, without hydrocephalus. Interval postsurgical changes of left occipital craniectomy with resection bed within the left cerebe llum. There is air and hyperdense blood products within the surgical bed. There is hypoattenuation within the surrounding cerebellar parenchyma, which is likely edema. There is secondary mass-effect upon the fourth ventricle. Surgical approach changes within the left occipital soft tissues, with overlying scalp wound closure clips. IMPRESSION: 1. Contemporary postsurgical changes of left posterior fossa tumor resection. There is hyperdense b lood products and air within the surgical bed, as well as edema within the subjacent soft tissues res ulting in mass-effect upon the fourth ventricle. No hydrocephalus. Recommend continued short interv al CT follow-up. 2. Stable positioning of right frontal approach ventriculostomy catheter. ELECTRONICALLY SIGNED BY: Darryl Martinze MD Nov 16, 2019 2:15:03 AM CDT This report is intended for review by the ordering physician only, in accordance of law. If you recei ve this report in error, please call [facility] at [phone]. FINAL REPORT EMERGENCY AFTER HOURS CT BRAIN WITHOUT CONTRAST: DATE: 11/16/2019 COMPARISON: 11/13/2019. FINDINGS/IMPRESSION: I agree with the findings and impression given in the preliminary report per [facility] physici an. There are interval postsurgical changes in the left posterior cranial fossa. There is a small amount of blood and air in the resection bed. No hydrocephalus is seen and the ventriculostomy catheter is u nchanged in position. POS: EAA
[2019-11-16] MEDS ORDERED: Potassium Chloride 20 MEQ TAB PO SCH (08:45)
[2019-11-16] MEDS: Amlodipine 5 MG TAB PO SCH ×2 (09:00→20:26)
[2019-11-16] MEDS: Pantoprazole 40 MG VIAL IVP SCH ×2 (09:00→17:29)
[2019-11-16] MEDS: Docusate 100 MG CAP PO SCH ×2 (09:00→20:26)
[2019-11-16] MEDS: Atorvastatin Calcium 40 MG TAB PO SCH (09:00)
--- NOTE | 2019-11-16 09:01 | PRG ---
DATE OF SERVICE: 11/16/2019 SUBJECTIVE: The patient refused an exam today, did not give a reason. VITAL SIGNS: VITAL SIGNS: Temperature 98.3, pulse 92, and blood pressure 127/65. LABORATORY DATA: White blood cell count 12, hematocrit 36, and platelet count 176. Sodium 143, potassium 3.2, chloride 105, CO2 of 26, BUN 10, creatinine 0.7, and glucose 138. ASSESSMENT: 1. Post craniotomy for posterior fossa tumor. 2. Hypokalemia. PLAN: The patient will receive a dose of potassium. Further care per the Neurosurgery Team. Job ID: [id number]
[2019-11-16] MEDS ORDERED: PHENYLEPHRINE-NS 100 MCG/ML 10 ML SYRINGE ONE (09:36)
[2019-11-16] MEDS ORDERED: EPHEDRINE 25 MG/5 ML SYRINGE ONE (09:36)
[2019-11-16] MEDS ORDERED: Rocuronium Bromide 10 MG/ML (10ML VIAL) ONE (09:36)
--- NOTE | 2019-11-16 16:11 | OP ---
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 PROCEDURE PERFORMED: Left suboccipital craniectomy with surgical resection of infratentorial cerebellar mass. DESCRIPTION OF PROCEDURE: After informed consent was obtained from the patient, the patient was brought to the OR. Proper patient, pause, and identification were carried out. She was placed prone on the OR table. The head was secured in Bo Madeline. I discussed potentially using stereotactic, but it was difficult with surface landmark match, so I do not feel we needed it, so I did not use it. Prior incision was drawn out. Hair was clipped. This area was sterilely cleansed, prepared, and draped. Proper patient, pause, and identification were carried out. The wound was then opened. The brain identified and further craniectomy performed to allow for exposure of the mass. It appeared to be quite fibrous and at times vascular. It was dural based. 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 She did have a remote history of breast cancer. We had obtained a gross total resection. Copious irrigation occurred throughout as did maximizing hemostasis. The wound was then closed in anatomic layers following a layered closure and DuraSeal. Job ID: [id number]
--- NOTE | 2019-11-16 16:30 | PDOC.HOSPP ---
- Subjective Subjective: Patient resting comfortably in bed. She denies chest pain, difficulty breathing , abdominal pain. - Objective Vital Signs & Weight: Weight Admit Weight 213 lb Weight 213 lb 6.519 oz Most Recent Monitor Data Heart Rate from ECG 92 NIBP 127/65 NIBP BP-Mean 85 Respiration from ECG 21 SpO2 96 I&O: 11/15/19 11/16/19 11/17/19 06:59 06:59 06:59 Intake Total 240 360.5 Output Total 850 432 Balance -610 -71.5 Result Diagrams: 11/16/19 03:25 11/16/19 03:25 Additional Labs: Accuchecks 11/16/19 09:43 POC Glucose 153 H Hospitalist ROS - Review of Systems All other systems reviewed; all pertinent +/- noted in HPI/Subj - Medication Medications: Active Medications Generic Name Dose Route Start Last Admin Trade Name Freq PRN Reason Stop Dose Admin Amlodipine Besylate 2.5 mg 11/14/19 09:00 11/15/19 20:41 Norvasc PO 2.5 mg BID KALIE Administration Atorvastatin Calcium 40 mg 11/14/19 09:00 11/15/19 09:43 Lipitor PO Not Given DAILY KALIE Bisacodyl 10 mg 11/14/19 18:20 11/14/19 18:30 Dulcolax ND 10 mg DAILY PRN Administration Constipation Dexamethasone 4 mg 11/16/19 03:00 11/16/19 03:16 Decadron SLOW IVP 4 mg 0300,0900,1500,2100 KALIE Administration Hydralazine HCl 10 mg 11/15/19 17:26 11/15/19 18:12 Apresoline SLOW IVP 10 mg Q15MIN PRN Administration SBP >150 mm Hg Sodium Chloride 1,000 mls @ 75 mls/hr 11/16/19 03:00 11/16/19 03:16 Normal Saline 0.9% IV 1,000 mls .[id number] KALIE Administration Ondansetron HCl 4 mg 11/14/19 20:50 11/15/19 02:55 Zofran Odt PO 4 mg Q6H PRN Administration Nausea/Vomiting - Exam General Appearance: NAD, awake alert Eye: PERRL Heart: RRR, murmur present Respiratory: CTAB, no wheezes Gastrointestinal: soft, non-tender, non-distended Extremities: no cyanosis Neurological: cranial nerve grossly intact, no focal deficits Psychiatric: normal affect, normal behavior, A&O x 3 Hosp A/P (1) Depression Code(s): F32.9 - MAJOR DEPRESSIVE DISORDER, SINGLE EPISODE, UNSPECIFIED Status : Acute Qualifiers: Depression Type: major depressive disorder Psychotic features: without psychotic features (2) Unsteady gait Code(s): R26.81 - UNSTEADINESS ON FEET Status: Acute (3) H/O malignant neoplasm of breast Code(s): Z85.3 - PERSONAL HISTORY OF MALIGNANT NEOPLASM OF BREAST Status: Chronic (4) h/o hemorrhagic cva Status: Chronic (5) h/o left cerebellar hemorrhage Status: Chronic (6) Diastolic dysfunction Code(s): I51.89 - OTHER ILL-DEFINED HEART DISEASES Status: Chronic (7) HLD (hyperlipidemia) Code(s): E78.5 - HYPERLIPIDEMIA, UNSPECIFIED Status: Chronic Qualifiers: Hyperlipidemia type: unspecified Qualified Code(s): E78.5 - Hyperlipidemia , unspecified (8) HTN (hypertension) Code(s): I10 - ESSENTIAL (PRIMARY) HYPERTENSION Status: Chronic Qualifiers: Hypertension type: essential hypertension Qualified Code(s): I10 - Essential (primary) hypertension - Plan POD#[address] chest, abdo, pelvis without signs of malignancy Previous left sub occipital craniectomy for left cerebellar hematoma evacuation and SUCTION PLATE ROLLER HAND shunt placement. follow-up PT/OT eval continue above meds tolerating diet
[2019-11-16] MEDS: Sodium Chloride 0.9% (PF) 10 ML VIAL FS PRN (17:29)
[2019-11-16] MEDS ORDERED: Lorazepam 2 MG/ML VIAL ONE (21:30)
--- NOTE | 2019-11-16 21:57 | RAD ---
Portable frontal chest radiograph: 11/16/2019 COMPARISON: 11/15/2019 HISTORY: Intubated patient FINDINGS: There is a new endotracheal tube projecting over the tracheal air column, approximately 2 c m proximal to the mikel. There is a stable left-sided vascular catheter with distal tip overlying the upper mediastinum. Right-sided shunt tubing is present. Stable nasogastric tube. There is new focal opacity in the infrahilar region on the right/medial right lung base. IMPRESSION: Lines and tubes as detailed above. New focal opacity in the right lung base which may sig nify infectious pneumonitis, aspiration, or volume loss. Follow-up advised.
[2019-11-16 22:16] LABS: Base Excess (BEa) 1.2 mEq/L (-2.0 to +3.0); CO2 Tension 31.6 mmHg (35.0-45.0); Calcium, Ionized (arterial) 1.13 mmol/L (1.12-1.30); Carboxyhemoglobin (COHb) 0.1 gm% (0.0-3.0); Hemoglobin (Hb) 10.3 g/dL (12.0-16.0); O2 Tension (PaO2), arterial 130.1 mmHg (> 80.0); Potassium - ABG Lab 3.14 mmol/L (3.70-5.30)
[2019-11-16 22:17] LABS: Puncture Site RBR
--- NOTE | 2019-11-16 22:18 | CT ---
Head CT without contrast 11/16/2019: COMPARISON: 11/16/2019 HISTORY: Unresponsive, recent tumor resection TECHNIQUE: Axial CT imaging at 5 mm intervals from vertex through skull base without contrast FINDINGS: There is a new 3.8 cm hematoma within the posterior left aspect of the posterior fossa in t he postoperative site with marked mass effect on the fourth ventricle which is obliterated and displaced superiorly, anteriorly, and to the right. There is mass effect on the midbrain and nelson whi ch is displaced anteriorly with complete obliteration of the basilar cisterns. There is diffuse hyperdensity in the suprasellar region which may signify diffuse subarachnoid blood or prominence of the arterial structures on the basis of surrounding prominent cerebral edema. There is new intraventricular blood within the third ventricle and the left lateral ventricle. There is a stable v entriculostomy on the right. IMPRESSION: New posterior fossa hemorrhage with prominent mass effect on the nelson, midbrain, and four th ventricle. New intraventricular blood and new subarachnoid blood versus prominent cerebral edema as detailed above. Results were discussed with Dr. Brannon at 10:10 PM 11/16/2019
[2019-11-16] MEDS ORDERED: Thrombin 5000 UNITS/5 ML VIAL ONE ×2 (22:25→23:20)
[2019-11-16] MEDS ORDERED: Lidocaine 0.5%/Epinephrine 1:200,000 50 ml Vial ONE (22:25)
[2019-11-16] MEDS ORDERED: Sodium Chloride 0.9% 10 ML ONE ×2 (22:26→23:18)
[2019-11-16] MEDS ORDERED: manNITOL 20% 500 ML ONE (22:26)
--- NOTE | 2019-11-16 22:31 | PRG ---
DATE OF SERVICE: 11/16/2019 Ms. Viramontes is postop day #1 after undergoing left suboccipital craniectomy with surgical resection, infratentorial cerebellar mass. She was evaluated during morning rounds. The patient denied any complaints of pain or headaches. She denied nausea, dizziness, or vision changes. When first seen this morning, she was doing very well and had no complaints. Our team was later contacted by the patient's nurse stating that the patient was no longer cooperating, pulling off her blood pressure cuff, and not allowing nurses to come near her or provide medical care. Our team then went to reassess the patient, and she was much more confused and uncooperative. She could not remember that she had her tumor resection surgery, and she did not want to allow her nurse to come near her or provide care. She requested repeatedly that she wanted to go home. I counseled the patient that she could not go home at this time as she is still recovering from a major brain operation, and that we need to get her stable before she can be discharged home. She did not seem to understand this and continued to state that she needed to go home. On initial exam, the patient was cooperative and moving all extremities to command. Her pupils were equal, round, and reactive to light. Extraocular movements were intact. Normal speech. She had 5/5 strength throughout her upper and lower extremity myotomes bilaterally. Sensation to light touch was intact throughout. Overall, the patient remained neurologically stable. Upon subsequent exam, the patient appeared much more confused and at times agitated. She was oriented to self and location, but disoriented to time. She continued to demonstrate good movement throughout her extremities. I called the patient's sister to see if she would be available to come to the hospital to sit with the patient. I feel that having a known family member in the room would provide the patient with reassurance and calm her down. The patient's sister stated that she was at work, but that she would try to arrange for someone to cover her shift so that she could come to be with the patient. Her sister did note that she and her family had noticed the patient to have intermittent episodes of confusion over recent months. States that the patient has no known psychiatric history; however, there has been discussion to have her evaluated, but this has not yet occurred. The patient is unable to have a one-to-one sitter while in the ICU. Plan is for the patient to remain in the critical care unit overnight for monitoring, and if stable tomorrow, she can be transferred to the surgical floor and have a one-to-one sitter. Plan is for her to be discharged to inpatient rehab. Please call for any neurologic changes or other concerns. Job ID: [id number]
[2019-11-16] MEDS ORDERED: Midazolam HCl 2 mg/2 ml Vial ONE (22:32)
[2019-11-17] MEDS ORDERED: Propofol 1,000 MG/100 ML VIAL IV ONE (00:15)
[2019-11-17] MEDS ORDERED: hydrALAZINE 20 MG/ML VIAL SLOW IVP PRN (00:21)
[2019-11-17] MEDS ORDERED: Labetalol HCl 100 MG/20 ML VIAL SLOW IVP PRN (00:22)
[2019-11-17] MEDS: CEFAZOLIN 2 GM in Premix Bag 1 BAG IVPB SCH ×3 (00:45→16:48)
[2019-11-17] MEDS: Dexamethasone 4 mg/ml Vial SLOW IVP SCH ×4 (02:12→21:17)
[2019-11-17 05:33] LABS: Anion Gap 14 mmol/L (10-20); BUN (Urea Nitrogen) 9 mg/dL (9.8-20.1); Calc. Creatinine Clearance 111 mL/min (70-130); Calcium 8.3 mg/dL (7.8-10.44); Carbon Dioxide 24 mmol/L (23-31); Chloride 106 mmol/L (98-107); Estimated GFR-MDRD Greater than 90; Glucose 193 mg/dL (80-115); Potassium 3.2 mmol/L (3.5-5.1); Sodium 141 mmol/L (136-145)
[2019-11-17] MEDS: Atorvastatin Calcium 40 MG TAB PO SCH (07:45)
[2019-11-17] MEDS: niCARdipine 25 MG in Sodium Chloride 0.9% 250 ML 250 ML IVPB SCH ×2 (07:45→21:39)
[2019-11-17] MEDS: Pantoprazole 40 MG VIAL IVP SCH (07:45)
[2019-11-17] MEDS: Amlodipine 5 MG TAB PO SCH ×2 (07:45→21:19)
--- NOTE | 2019-11-17 08:14 | PRG ---
DATE OF SERVICE: 11/17/2019 TIME SPENT: This is 35 minutes of critical care time. SUBJECTIVE: This patient had to be intubated around 10:00 p.m. last night after developing altered mental status and unresponsiveness. She was then taken to the OR for clot removal in the posterior fossa. OBJECTIVE: VITAL SIGNS: Her heart rate is 69, blood pressure is 127/65, O2 saturation 100%, respiratory rate 17. Her last measured temperature is not recorded at this time. Urine output has been adequate and she is on normal saline 75 mL/hr. Neurologically, I cannot get her to withdrawal anywhere except the right leg. HEENT: Her pupils are 2 mm and fixed. She has no gag response. She has no spontaneous respirations. HEENT is otherwise unremarkable. NECK: No JVD. LUNGS: Clear. CARDIAC: S1 and S2. Regular. ABDOMEN: Soft. EXTREMITIES: No edema. LABORATORY DATA: ABG; pH 7.47, pCO2 of 37, pO2 of 252, on SIMV rate 11, tidal volume 500, PEEP 5, pressure support 10, and FiO2 of 60%. White blood cell count 4.3, hematocrit 31.7, and platelet count 177. Sodium 141, potassium 3.2, chloride 106, CO2 of 24, BUN 9, creatinine 0.7, glucose 193. ASSESSMENT: 1. Postop respiratory failure requiring mechanical ventilation. 2. Posterior fossa bleed. 3. Extremely compromised neurologic status. 4. Hypokalemia. PLAN: 1. Supportive care with mechanical ventilation. I would keep her slightly hyperventilated like she is now. 2. Initiate tube feeds. 3. Replace potassium. 4. Further recommendations per Neurosurgery. Job ID: [id number]
[2019-11-17] MEDS ORDERED: Potassium Chloride 40 MEQ in Premix Bag 1 BAG IVPB SCH (08:30)
[2019-11-17 08:39] LABS: INR-International Normal Ratio 1.3; Prothrombin Time 16.3 sec (12.0-14.7)
--- NOTE | 2019-11-17 08:53 | CT ---
PRELIMINARY REPORT/[facility]/EMERGENCY AFTER HOURS PROCEDURE: EXAM: CT Head Without Intravenous Contrast. CLINICAL HISTORY: F64, FOLLOW UP CEREBELLAR HEMATOMA EVACUATION TECHNIQUE: Axial computed tomography images of the head/brain without intravenous contrast. COMPARISON: CT\IN\SR - CT BRAIN WO CON - 11/16/2019 09:50 PM CDT FINDINGS: BRAIN: There is a posterior left occipital craniotomy with interval evacuation of the hematoma in the cerebe llum. Small amount of blood in the cerebellum, significantly decreased compared to her examination. Small amount subarachnoid hemorrhage in the basal cistern, similar to prior examination. VENTRICLES: There is intraventricular shunt catheter seen in the left lateral ventricle. Bilateral lateral ventricles are slightly enlarged with a small amount of gas, new since the last exa mination. ORBITS: The orbits are unremarkable. SINUSES AND MASTOIDS: The paranasal sinuses and mastoid air cells are clear. SOFT TISSUES: No significant facial or scalp soft tissue swelling evident. No radiopaque foreign body is seen. BONES: No acute skull fracture. MISCELLANEOUS: Small amount of gas is noted in the surgical bed, decreased compared to prior examination. IMPRESSION: 1. There is a posterior left occipital craniotomy with interval evacuation of the hematoma in the cer ebellum. Small amount of blood in the cerebellum, significantly decreased compared to her examination . 2. Small amount of gas is noted in the surgical bed, decreased compared to prior examination. 3. There is intraventricular shunt catheter seen in the left lateral ventricle. 4. Bilateral lateral ventricles are slightly enlarged with a small amount of gas, new since the last examination. 5. Small amount subarachnoid hemorrhage in the basal cistern, similar to prior examination. ELECTRONICALLY SIGNED BY: Angelito Sweeney MD Nov 17, 2019 3:57:23 AM CDT This report is intended for review by the ordering physician only, in accordance of law. If you recei ve this report in error, please call [facility] at [phone]. FINAL REPORT HEAD CT WITHOUT CONTRAST: HISTORY: Followup intracranial hemorrhage. Status post surgery. COMPARISON: 11/16/2019, 11/16/2019 at 1:35 a.m. FINDINGS: Redemonstration of a ventriculoperitoneal shunt catheter via the right frontal approach. Catheter ti p is unchanged. There is interval evidence of air and blood within the ventricular system. There is extensive subarachnoid hemorrhage, unchanged. There is extensive edema and hemorrhage at the postop erative site. When compared to the previous examination, there has been interval increase in the siz e of the ventricular system with evidence of air and blood within the ventricular system. Expected postoperative changes in the left occipital scalp and calvarium. There appears to be a post operative fluid collection/hematoma in the left scalp soft tissues. IMPRESSION: 1. This report is in agreement with the initial report by [facility]. Interval increase in si ze of the ventricular size with evidence of air and new intraventricular hemorrhage. 2. There is evidence of extensive subarachnoid hemorrhage. 3. There is persistent hemorrhage at the operative site. There is evidence of extensive postoperati ve change. The degree of edema at the operative site has increased since both previous examinations. POS: AVI
--- NOTE | 2019-11-17 08:56 | PRG ---
DATE OF SERVICE: 11/17/2019 SUBJECTIVE: Ms. Viramontes is postoperative day #2 after undergoing infratentorial cerebellar tumor resection and is postop day #0 after undergoing an emergent evacuation of cerebellar hematoma last night. Our team was contacted last night when the patient required intubation after becoming unresponsive, apneic and loss of gag reflex. A Stat CT of the brain was completed, which demonstrated development of a large cerebellar hematoma with significant mass effect and upward herniation, and fulminant cerebral edema. The patient was taken emergently to the OR for cerebellar hematoma evacuation. Dr. Brannon spoke with the family immediately after surgery. They are aware of her critical condition. The patient was re-evaluated this morning during rounds. She remains intubated and on sedation, however, this was lowered in order for team to perform an examination. GCS 6T (M4 V1T E1). Pupils are 2 mm and equal bilaterally. She withdraws to pain in her bilateral lower extremities, but has no withdrawal or movement in her bilateral upper extremities. Blood pressures have been in the 120s/70s mmHg postoperatively. There was one systolic reading of 137 mmHg at the time of our team's evaluation this morning. Discussed with the nurse that the systolic blood pressure must absolutely be kept under 130 mm Hg. She voiced understanding. Nicardipine drip has been started. PLAN: Will be to maintain strict blood pressure control of systolic less than 130 mmHg and diastolic less than 90 mmHg. Our team will obtain an MRI of the brain with and without contrast today. I have adjusted her right MANAGER MASS shunt setting from 1.0 to 0.5. Please call for any neurologic changes or other concerns. Job ID: [id number] MTDD
[2019-11-17 09:51] LABS: Mean Corpuscular HGB CONC 31.4 g/dL (32.0-36.0); Mean Corpuscular Hemoglobin 22.9 pg (27.0-31.0); Mean Corpuscular Volume 72.9 fL (78.0-98.0); Mean Platelet Volume 12.5 fL (7.4-10.4); Platelet Count 141 thou/uL (130-400); RBC Distribution Width 18.9 % (11.5-14.5); Red Blood Cell (RBC) Count 4.35 mill/uL (4.20-5.40); White Blood Cell (WBC) Count 22.6 thou/uL (4.8-10.8)
--- NOTE | 2019-11-17 10:09 | RAD ---
PORTABLE AP CHEST XRAY: HISTORY: Central line placement. COMPARISON: 11/04/2019. FINDINGS: There has been interval placement of an endotracheal tube with the tip overlying the T5 vertebral bod y and just above the level of the carinal. Nasogastric tube has also been placed in the interim whic h courses into the left upper quadrant, but the tip is not imaged. A right internal jugular vein rachel tral venous catheter is noted in place with the tip overlying the expected location of the SVC. A le ft-sided vascular catheter overlies the left neck with the tip overlying the mediastinum. The exact location of the catheter is difficult to determine based on this exam. There is no pneumothorax or p leural effusion identified. There is a mild increase in linear densities in the left perihilar locat ion. No consolidation or pleural fluid is identified. There is evidence of prior granulomatous dise ase. Surgical clips overlie the left breast. No other interval change. IMPRESSION: 1. Lines and tubes in place as described above. There is a left-sided vascular catheter in place wi th tip overlying the mediastinum, but the exact location of the tip of the catheter is difficult to d etermine based on this exam. 2. Mild increase in linear densities left perihilar region which could be related to developing foca l area of pneumonitis. Followup chest x-ray is recommended. POS: OFF
[2019-11-17] MEDS: Docusate 100 MG CAP PO SCH ×2 (10:13→21:18)
[2019-11-17 10:51] LABS: MDiff Complete? YES
[2019-11-17 10:52] LABS: Band 5 % (5-11); Burr Cells SLIGHT = 2-5 cells (100X) (0-1/hpf); Hypochromia SLIGHT = 6-15 cells (100X) (0-5/hpf); Lymphocytes 3 % (21-51); Microcytosis MODERATE=15-30 cells (100X) (0-5/hpf); Monocytes 7 % (0-10); Neutrophil 85 % (42-75); Platelet Morphology Comment Appears Adequate; Polychromasia SLIGHT = 2-3 cells (100X) (0-2/hpf); Schistocytes SLIGHT = 2-5 cells (100X) (0-1/hpf)
--- NOTE | 2019-11-17 12:21 | PRG ---
DATE OF SERVICE: 11/17/2019 SUBJECTIVE: This morning, Ms. Viramontes remains sedated. Her blood pressure has been kept below a systolic of 130 all night with nicardipine and any increase of blood pressure such as one rating of 137 this morning has been treated. I recall she has a history of a systolic blood pressure over 220 in January that resulted in hemorrhage. Pathology from our tumor resection just come back metastatic carcinoma, poorly differentiated, with breast primary. Last night, she declined rapidly with a blood pressure of 150 to 170 despite efforts to treat and she had a massive hemorrhage. This morning, her head CT demonstrates persistent edema with upward herniation and hypodensity throughout her midbrain, nelson, and medulla. She does breathe over the ventilator but has triple flexion responses in her lower extremities. I am quite concerned about her prognosis at this point. We will get an MRI of the brain to assess the integrity of her brainstem. We have decreased her shunt setting to 0.5 to try and rapidly drain it as her ventricles are starting to increase in size. The findings of the MRI will help dictate what we need to do with her shunt, which may include removal of the shunt and placement of an external ventricular drain. Job ID: [id number]
--- NOTE | 2019-11-17 14:21 | MRI ---
MRI OF BRAIN WITH AND WITHOUT CONTRAST: INDICATION: Change in mental status. Postop craniotomy. COMPARISON: Correlation is made to CT of 11/17/2019 and 11/16/2019. Correlation is made to MRI of 11/14/2019. FINDINGS: Postoperative changes in the left cerebellar hemisphere are noted as described on today's CT exam. The diffusion weighted images today show diffuse restricted diffusion in the superior cerebellum invo lving both cerebellar hemispheres indicating bilateral superior cerebellar artery infarcts. There is also an infarct in the brainstem at the level of the nelson. There is diffuse cytotoxic edema associa ignacio with the cerebellar and brainstem infarcts producing significant mass effect on the brainstem. Other postoperative changes are noted with air in the ventricles. Ventriculostomy catheter via the r ight frontal lobe. IMPRESSION: 1. Postoperative changes in the left cerebellar hemisphere as previously described. 2. Evidence of acute infarct involving bilateral superior cerebellar hemispheres and brainstem at th e level of the nelson. Significant cytotoxic edema from these infarcts is producing significant mass e ffect on the brainstem. POS: AH
--- NOTE | 2019-11-17 14:27 | PRG ---
DATE OF SERVICE: 11/17/2019 Unfortunately, Ms. Viramontes's MRI shows profound cytotoxic edema and stroke in the brainstem, which is terrible. There is indicative of massive increase in intracranial pressure last night with her hemorrhage, subsequent lack of perfusion of the brainstem along with compression of the vessels due to her herniation. I spoke with her nurse and the patient has the sedation off. She is not breathing over the vent and she has only very weak triple flexion in her legs. I let the nurse know and I also contacted the patient's sister, and unfortunately, Ms. Viramontes has suffered a devastating insult to her brain, that Is not recoverable. Her shunt has now failed due to clotting . Her pathology has returned metastatic breast cancer from a brain tumor resection 2 days ago. I have recommended consultation of Palliative Care and the patient's family to be mobilized to say goodbye following this removal of her breathing tube. She will be made DNR. Job ID: [id number]
--- NOTE | 2019-11-17 14:36 | OP ---
DATE OF PROCEDURE: 11/16/2019 Modifier 78 should be added to this as this was an unplanned return to the OR. INDICATIONS: Ms. Viramontes who had been doing very well clinically all day and had a postoperative head CT that was satisfactory, acutely declined following a blood pressure increase to 170. Our nurse was attempting to treat this, when the patient again acutely declined and head CT following rapid intubation demonstrated a massive hemorrhage in the surgical field with upward herniation and fulminant cerebral edema. I opted to take her immediately to surgery. PREPROCEDURE DIAGNOSES: Large hemorrhage in the left cerebellum, presumably due to hypertension versus vascular invasion of metastatic cancer. POSTPROCEDURE DIAGNOSIS: Large hemorrhage in the left cerebellum, presumably due to hypertension versus vascular invasion of metastatic cancer. PROCEDURE PERFORMED: Reopening of left suboccipital craniectomy wound and evacuation of large cerebellar hemorrhage with reclosure. DESCRIPTION OF PROCEDURE: The patient was taken immediately to the operating room emergently. She was placed prone. Prior wound identified. Daniel removed and sterile cleansing, preparation, and draping all occurred. The wound was then reopened and a large hematoma was removed and sent to Pathology, even though it appeared to be all clot, very similar to her January of 2019 surgery, which I also did. I satisfactorily decompressed the brain. There were multiple wispy arterial bleeders that were difficult to control and this was completely unlike the surgery the day before when we removed her tumor, which went quite according to plan. My concern of hypertensive hemorrhage versus poorly differentiated carcinoma involvement of her vessels remains quite strong. I should note her path from Friday has come back as metastatic carcinoma compatible with breast primary. Preliminary indication was poorly differentiated. We copiously irrigated once maximal hemostasis and closed the wound in anatomic layers. She was taken back up intubated and sedated. Job ID: [id number]
--- NOTE | 2019-11-17 14:58 | PDOC.HOSPP ---
- Subjective Encounter Date: 11/17/19 Subjective: Patient became altered and unresponsive last night requiring intubation. Scan revealed hematoma requiring return to OR last night. Patient remains intubated and sedated. Awaiting MRI brain - Objective Vital Signs & Weight: Vital Signs (12 hours) Temp Pulse Resp BP 11/17/19 14:53 69 129/73 11/17/19 14:00 11 L 11/17/19 12:00 11 L 11/17/19 11:22 78 122/60 11/17/19 11:00 99.3 F 11/17/19 10:00 11 L 11/17/19 08:00 11 L 11/17/19 07:40 71 127/65 11/17/19 07:00 99.3 F Weight Admit Weight 213 lb Weight 213 lb 6.519 oz Most Recent Monitor Data Heart Rate from ECG 67 NIBP 123/72 NIBP BP-Mean 89 Respiration from ECG 13 SpO2 100 I&O: 11/16/19 11/17/19 11/18/19 06:59 06:59 06:59 Intake Total 360.5 Output Total 432 725 340 Balance -71.5 -725 -340 Result Diagrams: 11/17/19 03:00 11/17/19 03:00 Hospitalist ROS - Review of Systems ROS unobtainable: due to endotracheal tube (Patient currently intubated) - Medication Medications: Active Medications Generic Name Dose Route Start Last Admin Trade Name Freq PRN Reason Stop Dose Admin Amlodipine Besylate 2.5 mg 11/14/19 09:00 11/17/19 07:45 Norvasc PO 2.5 mg BID KALIE Administration Atorvastatin Calcium 40 mg 11/14/19 09:00 11/17/19 07:45 Lipitor PO 40 mg DAILY KALIE Administration Bisacodyl 10 mg 11/14/19 18:20 11/14/19 18:30 Dulcolax MN 10 mg DAILY PRN Administration Constipation Dexamethasone 4 mg 11/16/19 03:00 11/17/19 07:45 Decadron SLOW IVP 4 mg 0300,0900,1500,2100 KALIE Administration Docusate Sodium 100 mg 11/16/19 09:00 11/17/19 10:13 Colace PO Not Given BID KALIE Sodium Chloride 1,000 mls @ 75 mls/hr 11/16/19 03:00 11/16/19 17:49 Normal Saline 0.9% IV 1,000 mls .[id number] KALIE Administration Nicardipine HCl 25 mg/ Sodium 260 mls @ 0 mls/hr 11/17/19 00:30 11/17/19 07:45 Chloride IVPB 260 mls INF KALIE Administration Protocol Titrate Cefazolin Sodium/Dextrose 2 gm 50 mls @ 100 mls/hr 11/17/19 01:00 11/17/19 07:45 / Device IVPB 11/17/19 17:29 50 mls 0100,0900,1700 KALIE Administration Labetalol HCl 20 mg 11/17/19 00:22 11/17/19 00:37 Normodyne SLOW IVP 20 mg Q10MIN PRN Administration SBP >130 mmHg and HR >100 Ondansetron HCl 4 mg 11/14/19 20:50 11/15/19 02:55 Zofran Odt PO 4 mg Q6H PRN Administration Nausea/Vomiting Ondansetron HCl 4 mg 11/14/19 20:54 11/16/19 21:14 Zofran IM 4 mg Q6H PRN Administration nausea/vomiting Pantoprazole Sodium 40 mg 11/16/19 09:00 11/17/19 07:45 Protonix IVP 40 mg DAILY KALIE Administration Sodium Chloride 10 ml 11/16/19 02:51 11/16/19 17:29 Normal Saline Pf FS 10 ml PRN PRN Administration RECONSTITUTION - Exam General - other findings: Patient is intubated and sedated. Not responding to verbal or sternal rub Eye - other findings: pupils 2 mm and fixed Heart: RRR Heart - other findings: systolic murmur present Respiratory - other findings: mechanical breath sounds, not breathing over vent Gastrointestinal: soft Extremities: no edema Neurological - other findings: not responding to verbal cues or sternal rub, not withdrawing from pain Hosp A/P (1) Depression Code(s): F32.9 - MAJOR DEPRESSIVE DISORDER, SINGLE EPISODE, UNSPECIFIED Status: Acute Qualifiers: Depression Type: major depressive disorder Psychotic features: without psychotic features (2) Unsteady gait Code(s): R26.81 - UNSTEADINESS ON FEET Status: Acute (3) H/O malignant neoplasm of breast Code(s): Z85.3 - PERSONAL HISTORY OF MALIGNANT NEOPLASM OF BREAST Status: Chronic (4) h/o hemorrhagic cva Status: Chronic (5) h/o left cerebellar hemorrhage Status: Chronic (6) Diastolic dysfunction Code(s): I51.89 - OTHER ILL-DEFINED HEART DISEASES Status: Chronic (7) HLD (hyperlipidemia) Code(s): E78.5 - HYPERLIPIDEMIA, UNSPECIFIED Status: Chronic Qualifiers: Hyperlipidemia type: unspecified Qualified Code(s): E78.5 - Hyperlipidemia, unspecified (8) HTN (hypertension) Code(s): I10 - ESSENTIAL (PRIMARY) HYPERTENSION Status: Chronic Qualifiers: Hypertension type: essential hypertension Qualified Code(s): I10 - Essential (primary) hypertension (9) Brain hematoma Code(s): [id number] - Status: Acute - Plan POD#2 infratentorial cerebellar resection Patient became altered and unresponsive last night requiring intubation. Head CT last night showed new posterior fossa hemorrhage with prominent mass effect on the nelson, midbrain, and fourth ventricle. She was taken emergently last night to OR for evacuation of hematoma. She remains intubated and sedated this morning On nicardipine drip to maintain SBP <130 Weaning sedation neurosurgery obtaining MRI this morning She remains in critical condition
--- NOTE | 2019-11-17 15:18 | PDOC.PALCO ---
Palliative Care Consult - Consult Details Requesting Physician: Dr Ortiz Reason for Consult: goals of care, family support - Allergies Allergies/Adverse Reactions: Allergies Allergy/AdvReac Type Severity Reaction Status Date / Time adhesive tape Allergy Verified 11/11/19 17:36 levofloxacin [From Levaquin] Allergy Hives Verified 11/11/19 17:36 prednisone Allergy Verified 11/11/19 17:37 - Objective Vital Signs: Vital Signs - Most Recent Temp Pulse Resp BP Pulse Ox 99.3 F 69 11 L 129/73 96 11/17/19 11:00 11/17/19 14:53 11/17/19 14:00 11/17/19 14:53 11/16/19 19:29 - Plan/Recommendations Plan: Dr Brannon has communicated with family, Palliative Care has offered support. Plan is to transition to compassionately extubate and transition to comfort measures. Please also refer to Alberto Drew [employer]rical machine builder notes in note section. Palliative Care has communicated with Dr Ortiz and Dr Wiggins. [] minutes spent on this encounter with >50% of the time in counseling and coordination of care. Thank you for this very appropriate consult.
[2019-11-17] MEDS ORDERED: Magnevist 469MG/ML 20 ML VIAL ONE (15:35)
[2019-11-17] MEDS ORDERED: Morphine 4 MG/ML VIAL SLOW IVP PRN (15:40)
[2019-11-17] MEDS ORDERED: Scopolamine 1.5 mg/72 hour Patch TOP SCH (15:45)
[2019-11-17 16:47] LABS: Actual Bicarbonate (HCO3a) 27.4 mEq/L (22-28); Base Excess (BEa) 3.7 mEq/L (-2.0 to +3.0); CO2 Tension 37.8 mmHg (35.0-45.0); Calcium, Ionized (arterial) 1.14 mmol/L (1.12-1.30); Carboxyhemoglobin (COHb) 0.2 gm% (0.0-3.0); Hemoglobin (Hb) 10.6 g/dL (12.0-16.0); O2 Tension (PaO2), arterial 252.2 mmHg (> 80.0); pH, Arterial 7.48 (7.35-7.45)
[2019-11-17] MEDS: Sodium Chloride 0.9% 1,000 ML IV SCH (17:00)
[2019-11-17] MEDS ORDERED: niCARdipine 25 MG in Sodium Chloride 0.9% 250 ML 240 ML IVPB SCH (22:00)
[2019-11-18] MEDS: Dexamethasone 4 mg/ml Vial SLOW IVP SCH ×4 (03:03→21:26)
[2019-11-18] MEDS: Sodium Chloride 0.9% 1,000 ML IV SCH ×2 (04:56→15:55)
[2019-11-18 07:41] LABS: Actual Bicarbonate (HCO3a) 27.4 mEq/L (22-28); Base Excess (BEa) 3.8 mEq/L (-2.0 to +3.0); CO2 Tension 37.7 mmHg (35.0-45.0); Calcium, Ionized (arterial) 1.15 mmol/L (1.12-1.30); Carboxyhemoglobin (COHb) 0.3 gm% (0.0-3.0); Hemoglobin (Hb) 10.3 g/dL (12.0-16.0); pH, Arterial 7.48 (7.35-7.45)
[2019-11-18 07:42] LABS: Puncture Site RRA
[2019-11-18 07:43] LABS: ALV-art Gradient 77.075 mmHg (0-20)
--- NOTE | 2019-11-18 08:20 | PRG ---
DATE OF SERVICE: 11/18/2019 35 minutes critical care time. SUBJECTIVE: The patient remains intubated on mechanical ventilation. OBJECTIVE: VITAL SIGNS: Her temperature is 99.0, pulse 68, blood pressure 120/60. O2 saturation 100%, respiratory rate 11. Total intake 2001, output 1155. NEUROLOGIC: The only thing I can get her to do is withdrawal with her feet. She has no spontaneous respirations. No pupillary reflex. No gag reflex. HEENT: Otherwise unremarkable except for the endotracheal tube in place. NECK: No JVD. CHEST: Clear. CARDIAC: S1 and S2. Regular. ABDOMEN: Soft. EXTREMITIES: No edema. LABORATORY DATA: ABG; pH 7.48, pCO2 of 37, pO2 161 on SIMV rate 11, tidal volume 500, PEEP 5, pressure support 10, FiO2 of 40%. ASSESSMENT: 1. Acute respiratory failure, requiring mechanical ventilation. 2. Significant brainstem stroke with little residual neurologic activity. PLAN: I spoke with family last night. They do not appear to be ready to enter palliative mode or make the patient DNR. I think they need time. I do not see any hope for reasonable recovery in this patient. I am continuing supportive care with mechanical ventilation. Job ID: [id number]
[2019-11-18] MEDS: Sodium Chloride 0.9% (PF) 10 ML VIAL FS PRN (09:03)
[2019-11-18] MEDS: Pantoprazole 40 MG VIAL IVP SCH (09:03)
[2019-11-18] MEDS: Amlodipine 5 MG TAB PO SCH ×2 (09:04→21:26)
[2019-11-18] MEDS: Docusate 100 MG CAP PO SCH ×2 (09:04→21:26)
[2019-11-18] MEDS: Atorvastatin Calcium 40 MG TAB PO SCH (09:04)
--- NOTE | 2019-11-18 11:27 | PRG ---
DATE OF SERVICE: Ms. Viramontes's exam as yesterday remains completely moribund. She has no brainstem responses. Her pupils are pinpoint, consistent with pontine infarct. She only has weak triple flexion in the legs. I have again discussed with her sister as I do not have the daughter's phone number at this time, but the daughter is evidently power of litigation attorney, the grave prognosis and the recommendation for comfort care measures and allowing the patient to have the breathing tube removed. She is DNR. We are awaiting the daughter's arrival. Job ID: [id number]
--- NOTE | 2019-11-18 17:11 | PDOC.HOSPP ---
- Subjective Encounter Date: 11/18/19 Encounter Time: 12:15 Subjective: patient is intubated - Objective Vital Signs & Weight: Vital Signs (12 hours) Temp Pulse Resp BP Pulse Ox 11/18/19 16:00 11 L 11/18/19 15:04 64 11/18/19 14:00 11 L 11/18/19 12:00 98.6 F 11 L 97 11/18/19 10:50 79 11/18/19 10:00 11 L 11/18/19 09:04 74 117/65 11/18/19 08:00 97.7 F 11 L 98 11/18/19 07:36 75 11/18/19 06:00 11 L Weight Admit Weight 213 lb Weight 212 lb 8.41 oz Most Recent Monitor Data Heart Rate from ECG 63 NIBP 117/62 NIBP BP-Mean 80 Respiration from ECG 21 SpO2 100 I&O: 11/17/19 11/18/19 11/19/19 06:59 06:59 06:59 Intake Total 2001.7 0 Output Total 725 1155 725 Balance -725 846.7 -725 Result Diagrams: 11/17/19 03:00 11/17/19 03:00 Hospitalist ROS - Review of Systems ROS unobtainable: due to mental status - Medication Medications: Active Medications Generic Name Dose Route Start Last Admin Trade Name Pitoq PRN Reason Stop Dose Admin Amlodipine Besylate 2.5 mg 11/14/19 09:00 11/18/19 09:04 Norvasc PO 2.5 mg BID KALIE Administration Atorvastatin Calcium 40 mg 11/14/19 09:00 11/18/19 09:04 Lipitor PO 40 mg DAILY KALIE Administration Bisacodyl 10 mg 11/14/19 18:20 11/14/19 18:30 Dulcolax MD 10 mg DAILY PRN Administration Constipation Dexamethasone 4 mg 11/16/19 03:00 11/18/19 15:53 Decadron SLOW IVP 4 mg 0300,0900,1500,2100 KALIE Administration Docusate Sodium 100 mg 11/16/19 09:00 11/18/19 09:04 Colace PO 100 mg BID KALIE Administration Sodium Chloride 1,000 mls @ 75 mls/hr 11/16/19 03:00 11/18/19 15:55 Normal Saline 0.9% IV 1,000 mls .[id number] KALIE Administration Nicardipine HCl 25 mg/ Sodium 250 mls @ 0 mls/hr 11/17/19 22:00 11/18/19 05:12 Chloride IVPB 250 mls INF KALIE Administration Protocol Titrate Labetalol HCl 20 mg 11/17/19 00:22 11/17/19 00:37 Normodyne SLOW IVP 20 mg Q10MIN PRN Administration SBP >130 mmHg and HR >100 Ondansetron HCl 4 mg 11/14/19 20:50 11/15/19 02:55 Zofran Odt PO 4 mg Q6H PRN Administration Nausea/Vomiting Ondansetron HCl 4 mg 11/14/19 20:54 11/16/19 21:14 Zofran IM 4 mg Q6H PRN Administration nausea/vomiting Pantoprazole Sodium 40 mg 11/16/19 09:00 11/18/19 09:03 Protonix IVP 40 mg DAILY KALIE Administration Scopolamine 1.5 mg 11/17/19 15:45 11/17/19 16:47 Scopolamine 1.5 Mg/72 Hour Patch TOP 1.5 mg Q3D KALIE Administration Sodium Chloride 10 ml 11/16/19 02:51 11/18/19 09:03 Normal Saline Pf FS 10 ml PRN PRN Administration RECONSTITUTION - Exam General - other findings: intubated, not responding to verbal stimulus or verbal cues Eye - other findings: absent pupillary and gag reflex Heart: RRR (systolic murmur) Respiratory - other findings: mechanical breath sounds, not breathing over vent Gastrointestinal: soft Neurological - other findings: no spontaneous movement Hosp A/P (1) Depression Code(s): F32.9 - MAJOR DEPRESSIVE DISORDER, SINGLE EPISODE, UNSPECIFIED S tatus: Acute Qualifiers: Depression Type: major depressive disorder Psychotic features: without psychotic features (2) Unsteady gait Code(s): R26.81 - UNSTEADINESS ON FEET Status: Acute (3) H/O malignant neoplasm of breast Code(s): Z85.3 - PERSONAL HISTORY OF MALIGNANT NEOPLASM OF BREAST Status: Chronic (4) h/o hemorrhagic cva Status: Chronic (5) h/o left cerebellar hemorrhage Status: Chronic (6) Diastolic dysfunction Code(s): I51.89 - OTHER ILL-DEFINED HEART DISEASES Status: Chronic (7) HLD (hyperlipidemia) Code(s): E78.5 - HYPERLIPIDEMIA, UNSPECIFIED Status: Chronic Qualifiers: Hyperlipidemia type: unspecified Qualified Code(s): E78.5 - Hyperlipidemia, unspecified (8) HTN (hypertension) Code(s): I10 - ESSENTIAL (PRIMARY) HYPERTENSION Status: Chronic Qualifiers: Hypertension type: essential hypertension Qualified Code(s): I10 - Essential (primary) hypertension (9) Brain hematoma Code(s): [id number] - Status: Acute - Plan POD#3 infratentorial cerebellar resection Patient became altered and unresponsive 11/16/2019. Head CT showed new posterior fossa hemorrhage with prominent mass effect on the nelson, midbrain, and fourth ventricle. She was taken emergently to OR for evacuation of hematoma. She remains intubated this morning On nicardipine drip to maintain SBP <130 MRI from yesterday showed acute infarct involving bilateral superior cerebellar hemispheres and brainstem at the level of the nelson. Significant cytotoxic edema from these infarcts is producing significant mass effect on the brainstem. Discussion with family and patient is now DNR. Palliative care is following along and facilitating with family discussions. Support provided to family
[2019-11-19] MEDS: Dexamethasone 4 mg/ml Vial SLOW IVP SCH ×2 (03:42→09:34)
[2019-11-19] MEDS: Sodium Chloride 0.9% 1,000 ML IV SCH (07:02)
--- NOTE | 2019-11-19 08:35 | PRG ---
DATE OF SERVICE: 11/19/2019 35 minutes critical care time. SUBJECTIVE: The patient remains intubated on mechanical ventilation. OBJECTIVE: VITAL SIGNS: Temperature 97.9, pulse 75, blood pressure 127/80. NEUROLOGIC: Nonresponsive except for withdrawal of legs. She has no spontaneous respirations, no gag reflex. HEENT: Otherwise, unchanged. NECK: No JVD. LUNGS: Clear. CARDIAC: S1 and S2. Regular. ABDOMEN: Soft. EXTREMITIES: No edema. LABORATORY DATA: No labs were done today. ASSESSMENT: Status post bleed into the brain stem area with severely compromised neurologic status. PLAN: The patient has been made DNAR. Extubation with palliative care is planned for later today. Job ID: [id number]
[2019-11-19] MEDS ORDERED: Pantoprazole 40 MG GRANULES PACKET PER TUBE SCH (09:00)
[2019-11-19] MEDS: Atorvastatin Calcium 40 MG TAB PO SCH (09:34)
[2019-11-19] MEDS: Amlodipine 5 MG TAB PO SCH (09:34)
[2019-11-19 09:35] VITALS: BP 141/82
[2019-11-19] MEDS: Docusate 100 MG CAP PO SCH (09:35)
[2019-11-19 12:58] VITALS: TEMP 98.1
[2019-11-19 13:15] VITALS: BMI 37.6
[2019-11-19] MEDS: Lorazepam 2 MG/ML VIAL SLOW IVP PRN ×2 (13:31→14:08)
--- NOTE | 2019-11-19 14:26 | PDOC.HOSPP ---
- Subjective Encounter Date: 11/19/19 Encounter Time: 10:10 Subjective: Patient intubated, not responding to physical stimulus. - Objective Vital Signs & Weight: Vital Signs (12 hours) Temp Pulse Resp BP Pulse Ox 11/19/19 12:00 98.1 F 13 11/19/19 10:44 70 11/19/19 10:00 14 11/19/19 09:34 73 141/82 H 11/19/19 08:00 97.9 F 11 L 100 11/19/19 07:26 75 11/19/19 07:00 97.9 F 11/19/19 06:00 11 L 11/19/19 04:00 11 L 11/19/19 02:52 100 11/19/19 02:50 83 147/80 H Weight Admit Weight 213 lb Weight 212 lb 8.41 oz Most Recent Monitor Data Heart Rate from ECG 78 NIBP 153/73 NIBP BP-Mean 99 Respiration from ECG 18 SpO2 100 I&O: 11/18/19 11/19/19 11/20/19 06:59 06:59 06:59 Intake Total 2001.7 1851 120 Output Total 1155 1730 220 Balance 846.7 121 -100 Result Diagrams: 11/17/19 03:00 11/17/19 03:00 Hospitalist ROS - Review of Systems ROS unobtainable: due to mental status - Medication Medications: Active Medications Generic Name Dose Route Start Last Admin Trade Name Freq PRN Reason Stop Dose Admin Amlodipine Besylate 2.5 mg 11/14/19 09:00 11/19/19 09:34 Norvasc PO 2.5 mg BID KALIE Administration Atorvastatin Calcium 40 mg 11/14/19 09:00 11/19/19 09:34 Lipitor PO 40 mg DAILY KALIE Administration Bisacodyl 10 mg 11/14/19 18:20 11/14/19 18:30 Dulcolax MA 10 mg DAILY PRN Administration Constipation Dexamethasone 4 mg 11/16/19 03:00 11/19/19 09:34 Decadron SLOW IVP 4 mg 0300,0900,1500,2100 KALIE Administration Docusate Sodium 100 mg 11/16/19 09:00 11/19/19 09:35 Colace PO 100 mg BID KALIE Administration Sodium Chloride 1,000 mls @ 75 mls/hr 11/16/19 03:00 11/19/19 07:02 Normal Saline 0.9% IV 1,000 mls .[id number] KALIE Administration Nicardipine HCl 25 mg/ Sodium 250 mls @ 0 mls/hr 11/17/19 22:00 11/18/19 05:12 Chloride IVPB 250 mls INF KALIE Administration Protocol Titrate Labetalol HCl 20 mg 11/17/19 00:22 11/17/19 00:37 Normodyne SLOW IVP 20 mg Q10MIN PRN Administration SBP >130 mmHg and HR >100 Lorazepam 1 mg 11/17/19 15:40 11/19/19 14:08 Lorazepam 2 Mg/Ml Vial SLOW IVP 1 mg Q15MIN PRN Administration Anxiety/Agitation Morphine Sulfate 4 mg 11/17/19 15:40 11/19/19 13:31 Morphine 4 Mg/Ml Vial SLOW IVP 4 mg Q15MIN PRN Administration [employer] Ondansetron HCl 4 mg 11/14/19 20:50 11/15/19 02:55 Zofran Odt PO 4 mg Q6H PRN Administration Nausea/Vomiting Ondansetron HCl 4 mg 11/14/19 20:54 11/16/19 21:14 Zofran IM 4 mg Q6H PRN Administration nausea/vomiting Pantoprazole Sodium 40 mg 11/19/19 09:00 11/19/19 09:34 Pantoprazole 40 Mg Granules Packet PER TUBE 40 mg DAILY KALIE Administration Scopolamine 1.5 mg 11/17/19 15:45 11/17/19 16:47 Scopolamine 1.5 Mg/72 Hour Patch TOP 1.5 mg Q3D KALIE Administration Sodium Chloride 10 ml 11/16/19 02:51 11/18/19 09:03 Normal Saline Pf FS 10 ml PRN PRN Administration RECONSTITUTION - Exam General - other findings: patient intubated, not responding to physical stimulus Eye - other findings: absent pupillary reflex ENT - other findings: absent gag reflex Heart: RRR Heart - other findings: systolic murmur Respiratory - other findings: mechanical breath sounds bilaterally, no spontaneous breath Gastrointestinal: soft Extremities: 1+ LE edema Neurological - other findings: no spontaneous movment Hosp A/P (1) Depression Code(s): F32.9 - MAJOR DEPRESSIVE DISORDER, SINGLE EPISODE, UNSPECIFIED Status: Acute Qualifiers: Depression Type: major depressive disorder Psychotic features: without psychotic features (2) Unsteady gait Code(s): R26.81 - UNSTEADINESS ON FEET Status: Acute (3) H/O malignant neoplasm of breast Code(s): Z85.3 - PERSONAL HISTORY OF MALIGNANT NEOPLASM OF BREAST Status: Chronic (4) h/o hemorrhagic cva Status: Chronic (5) h/o left cerebellar hemorrhage Status: Chronic (6) Diastolic dysfunction Code(s): I51.89 - OTHER ILL-DEFINED HEART DISEASES Status: Chronic (7) HLD (hyperlipidemia) Code(s): E78.5 - HYPERLIPIDEMIA, UNSPECIFIED Status: Chronic Qualifiers: Hyperlipidemia type: unspecified Qualified Code(s): E78.5 - Hyperlipidemia, unspecified (8) HTN (hypertension) Code(s): I10 - ESSENTIAL (PRIMARY) HYPERTENSION Status: Chronic Qualifiers: Hypertension type: essential hypertension Qualified Code(s): I10 - Essential (primary) hypertension (9) Brain hematoma Code(s): [id number] - Status: Acute - Plan POD#3 infratentorial cerebellar resection Patient became altered and unresponsive 11/16/2019. Head CT showed new posterior fossa hemorrhage with prominent mass effect on the nelson, midbrain, and fourth ventricle. She was taken emergently to OR for evacuation of hematoma. MRI- acute infarct involving bilateral superior cerebellar hemispheres and brainstem at the level of the nelson. Significant cytotoxic edema from these infarcts is producing significant mass effect on the brainstem. Discussion with family and patient is now DNR. Family plans to withdraw care later today
--- NOTE | 2019-11-20 05:04 | DIS ---
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 There was a concern that she had been exposed to COVID-19, prompting her visit. She also reported a history of being unsteady on her feet during this time. CT scan of the head shows some abnormality of the posterior fossa. With her recent diagnosis of breast cancer, there was a concern for metastasis. MRI was obtained of the head, which showed a circumscribed, but lobulated irregular shaped mass involving the left cerebellar hemisphere which produced diffuse enhancement. There was vasogenic edema and mass effect as noted. Patient was transferred to the critical care unit, started on Decadron and Protonix. She was n.p.o. at midnight for neurosurgery evaluation and resection in the morning. On 11/15/2019, patient successfully underwent a resection of the 4 cm mass. On the evening of 11/16/2019, patient became unresponsive and a stat head CT was obtained, which showed a new posterior fossa hemorrhage with common mass effect on the nelson, midbrain, and fourth ventricle. Patient was taken emergently to the OR for evacuation of hematoma. Repeat MRI was obtained after the procedure, which showed evidence of acute infarct involving the bilateral superior cerebellar hemispheres and brainstem at the level of the nelson. There were significant cytotoxic edema from these infarcts and was producing a significant mass effect on the brainstem. Neurosurgery, Pulmonology, Critical Care, and Palliative Care team and myself all spoke with the family regarding the patient's poor prognosis. After discussion, the family decided to make patient DNR and give the family time to say their goodbyes. On 11/19/2019, the family decided to withdraw care. Patient at 1538. Discharge of this patient took greater than 30 minutes. Job ID: [id number] [facility]
== END 2019-11-19 17:30 | disposition expired | DRG 25 ==
LOC: ERS 21:05 → INTOOBSV 23:00 → 2NO 23:00 → CCU 11-14 15:49 → OBSVTOIN 11-14 16:17 → CCU 11-14 19:50
PROVIDERS: ADMIT Internal Medicine; ATTEND Internal Medicine
PROC: 00BC0ZZ Excision of Cerebellum, Open Approach (ICD-10-PCS; principal; 2019-11-15)
PROC: 00U20JZ Supplement Dura Mater with Synthetic Substitute, Open Approach (ICD-10-PCS; 2019-11-15)
PROC: 00CC0ZZ Extirpation of Matter from Cerebellum, Open Approach (ICD-10-PCS; 2019-11-16)
PROC: 5A1945Z Respiratory Ventilation, 24-96 Consecutive Hours (ICD-10-PCS; 2019-11-17)
PROC: 0BH17EZ Insertion of Endotracheal Airway into Trachea, Via Natural or Artificial Opening (ICD-10-PCS; 2019-11-17)
DX: C79.31 Secondary malignant neoplasm of brain (principal); G93.6 Cerebral edema; J95.821 Acute postprocedural respiratory failure; G93.5 Compression of brain; I61.4 Nontraumatic intracerebral hemorrhage in cerebellum; I63.89 Other cerebral infarction; R40.2314 Coma scale, best motor response, none, 24 hours or more after hospital admission; R40.2114 Coma scale, eyes open, never, 24 hours or more after hospital admission; R40.2214 Coma scale, best verbal response, none, 24 hours or more after hospital admission; Z66 Do not resuscitate; Z51.5 Encounter for palliative care; Z20.828 Contact with and (suspected) exposure to other viral communicable diseases; K21.9 Gastro-esophageal reflux disease without esophagitis; E66.01 Morbid (severe) obesity due to excess calories; F32.9 Major depressive disorder, single episode, unspecified; E78.5 Hyperlipidemia, unspecified; I10 Essential (primary) hypertension; R40.2362 Coma scale, best motor response, obeys commands, at arrival to emergency department; R40.2142 Coma scale, eyes open, spontaneous, at arrival to emergency department; R40.2252 Coma scale, best verbal response, oriented, at arrival to emergency department; C50.912 Malignant neoplasm of unspecified site of left female breast; I51.89 Other ill-defined heart diseases; E87.6 Hypokalemia; Z28.21 Immunization not carried out because of patient refusal; Z86.73 Personal history of transient ischemic attack (TIA), and cerebral infarction without residual deficits; Z79.899 Other long term (current) drug therapy; Z68.37 Body mass index [BMI] 37.0-37.9, adult; Z88.1 Allergy status to other antibiotic agents; Z88.8 Allergy status to other drugs, medicaments and biological substances; Z91.048 Other nonmedicinal substance allergy status; Z90.49 Acquired absence of other specified parts of digestive tract; Z78.1 Physical restraint status
CPT/HCPCS: 36415; 36416; 70450; 70553; 71045; 71250; 74177; 80048; 81001; 82805; 85025; 85610; 85652; 85730; 86140; 86850; 86900; 86901; 87040; 87086; 88304; 88307; 88331; 88334; 88341; 88342; 88361; 92950; 94002; 94003; 96374; 96375; A9579; C9113; J0360; J0690; J1100; J2001; J2060; J2250; J2270; J2370; J2405; J2704; J3010; J3480; J3490; J7050; J7799; J8540; Q0162; U0002